=== PATIENT | male | born 1940 | race Caucasian/White ===

== ENCOUNTER → 2021-02-03 09:46 | Outpatient (BNVA) | payer MEDICARE, OTHER, SELFPAY | PROVIDERS: Visit Provider Physician Assistant | DX: Z13.89 Encounter for screening for other disorder (principal) | CPT/HCPCS: Q3014 ==

== ENCOUNTER 2022-05-16 04:13 | Inpatient (IN) | payer OTHER, SELFPAY ==
[2022-05-16] VITALS (7 sets, daily range): BP systolic 152–194; BP diastolic 66–83; PULSE 75–100; RESP 18–25; TEMP 36.6–38.4; O2SAT 92–94; BMI 32.5
--- NOTE | ~2022-05-16 | XR_ITS ---
EXAMINATION: XR CHEST CLINICAL INFORMATION: Fever COMPARISON: 07/28/2019 TECHNIQUE: Frontal view of the chest was obtained. FINDINGS: Lung volumes are symmetric. No focal consolidation is seen. No evidence of pneumothorax, significant pleural effusion, or overt pulmonary edema. Cardiac size is within normal limits. Calcification is present at the aortic arch. No acute osseous findings are seen. XR/XR chest 1V IMPRESSION: No acute cardiopulmonary findings.
--- NOTE | ~2022-05-16 | US_ITS ---
EXAMINATION: US VENOUS ULTRASOUND WITH DOPPLER LOWER EXTREMITY, RIGHT CLINICAL INFORMATION: Edema COMPARISON: None TECHNIQUE: Ultrasound of the deep veins is performed from the hip to the calf with compression sonography and color and pulse Doppler assessment. Spectral analysis with color-flow imaging is performed. FINDINGS: There is normal venous compression and respiratory variation and augmented flow. The visualized common femoral vein, superficial femoral vein, profunda femoral vein, popliteal vein, and the trifurcation region shows no evidence of deep venous thrombosis. There is no significant popliteal fossa cyst. If the patient's symptoms persist, followup ultrasound in 5 days 7 days might be of value to exclude proximal propagation from a non-visualized calf vein. US/US venous duplex LE RT IMPRESSION: No DVT demonstrated in the right lower extremity.
--- NOTE | 2022-05-16 04:26 | ECG_ITS ---
Test Reason : SHAKING Blood Pressure : / mmHG Vent. Rate : 091 BPM Atrial Rate : 091 BPM P-R Int : 182 ms QRS Dur : 088 ms QT Int : 366 ms P-R-T Axes : 012 -08 089 degrees QTc Int : 450 ms Normal sinus rhythm Minimal voltage criteria for LVH, may be normal variant ( R in aVL ) Inferior infarct (cited on or before 25-MAY-2016) Possible Anterior infarct , age undetermined Abnormal ECG When compared with ECG of 21-NOV-2018 07:01, Premature ventricular complexes are no longer Present Referred By: Altagracia Ramirez Electronically Signed By:Akin Agustin
--- NOTE | 2022-05-16 04:35 | ED_ITS ---
HPI - Fever General Chief Complaint: Fever Stated Complaint: shacking Time Seen by Provider: 05/16/22 04:16 Source: patient Mode of arrival: EMS Limitations: no limitations History of Present Illness HPI Narrative: 81 yo male with hx of CAD s/p PCI with stents, DM, HTN, HLD, renal mass new dx at [facility] 04/24 with admission to [facility] for febrile illness - records requested. Comes in tonight with shaking that started prior to arrival. States he went to bed fine. No sick contacts, up to date on COVPK Clean vaccines elicited complaint: fever (shaking) Pertinent past history: other (dx with renal mass at [facility] 04/24 - also admitted for fever at that time but unknown cause) Onset (ago): minute(s) (just prior to arrival ) Context: recent hospitalization Exacerbating factors: nothing Relieving factors: nothing Associated symptoms: rigors Treatments prior to arrival fever: none Related Data Home Medications Medication Instructions Recorded Confirmed carvedilol 12.5 mg tablet 12.5 mg PO BID 02/03/21 carvedilol 25 mg tablet 25 mg PO BID 02/03/21 clopidogrel 75 mg tablet 75 mg PO DAILY 02/03/21 furosemide 20 mg tablet 20 mg PO DAILY 02/03/21 glipizide 5 mg tablet mg PO 02/03/21 isosorbide mononitrate 30 mg 30 mg PO DAILY 02/03/21 tablet,extended release 24 hr isosorbide mononitrate 60 mg 60 mg PO DAILY 02/03/21 tablet,extended release 24 hr linagliptin 5 mg tablet 5 mg PO DAILY 02/03/21 nitroglycerin 0.4 mg sublingual mg sublingual 02/03/21 tablet pregabalin 150 mg capsule 150 mg PO BID 02/03/21 zolpidem 10 mg tablet 10 mg PO BEDTIME PRN 02/03/21 Allergies Allergy/AdvReac Type Severity Reaction Status Date / Time acetaminophen [From VICODIN] Allergy Unknown SWELLING Unverified 02/03/21 09:47 hydrocodone [From VICODIN] Allergy Unknown SWELLING Unverified 02/03/21 09:47 oxycodone Allergy Unknown itching Verified 02/03/21 09:47 Review of Systems Review of Systems: Constitutional : No Weight loss, pos Fever, pos Chills, No Fatigue, No Malaise ENT/Mouth : No sore throat, No Rhinorrhea Eyes: No Eye Pain, No Swelling, No Redness Cardiovascular : No Chest Pain, No SOB, No Dyspnea on Exertion, No Orthopnea, No Edema, No Palpitations Respiratory : No Cough, No Sputum, No Wheezing Gastrointestinal : No Nausea, No Vomiting, No Diarrhea, No Constipation, No abdominal Pain, No Hematochezia, No Melena Genitourinary : No Dysuria, No Urinary Frequency, No Hematuria, pos urinary incontinence Musculoskeletal : No joint pain, No Myalgias, No Joint Swelling Skin : No Skin Lesions, No rash Neuro : No Weakness, No Numbness, No Dizziness, No Headache Psych : No Anxiety/Panic, No Depression Heme/Lymph: No Bruising, No Bleeding,No Lymphadenopathy Endocrine : No Polyuria, No Polydipsia All other systems reviewed and are negative [facility]LY [facility] Past Medical History Attestation statement: The following information was validated with the patient. 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 Oriented X3. Mild acute distress. Anxious, chills rigors Eyes: Pupils equal, round and reactive to light. ENT: Pharynx normal. Neck: Normal inspection. Neck supple. CVS: Normal heart rate and rhythm. Pulses normal. Respiratory: No respiratory distress. Breath sounds normal. Abdomen: Soft and non-tender. Skin: Skin warm and dry. Normal skin color. Normal skin turgor. Extremities: No lower extremity edema. No calf ttp Neuro: Oriented X 3. No motor deficit. No sensory deficit. Course Course Course Narrative: empiric ceftriaxone ordered given fever, leukocytosis, lactic acidosis 510am - infected suspected Benavidez records - R right renal mass complex concerning for mass/possible mets Urology wanted to do radical nephrectomy outpatient follow up with Dr. Parrish including MRI elevated troponin during stay 04/24 Cardiac cath diffuse but stable CAD, improved EF. left main distal 30% LAD patent stents mid 50%, diffuse 75% stenosis distal LAD, D1 prox 80%, D2 prox 80% Ramus prox 80% RCA dominant mid diffuse 80 to 90% PDA is occluded proximally - Patient was also admitted for acute febrile illness Patietn is DNR/DNI CT scan [facility] - heterogeneous R renal mass, enlarged aortocaval nodes, likely metastatic disease, two subcentimeter liver lesions plan to admit for cultures and further workup patient is DNR/DNI MDM - Fever MDM Narrative Medical decision making narrative: 81 yo male with hx of CAD s/p PCI with stents, DM, HTN, HLD, renal mass new dx at [facility] 04/24 here with c/o shaking tonight found to have a fever of 101.2. At this time will obtain labs, cultures, lactic acid, CXR, UA - requested records from [facility]. He denies pain or any skin issues. Looks like from [place] paperwork he had negative tick borne illness workup. Lab Data Result diagrams: 05/16/22 04:27 05/16/22 05:36 Labs: Lab Results 05/16/22 05/16/22 05/16/22 Range/Units 04:27 04:27 04:27 WBC 14.0 H (4.8-10.8) X10*3/uL RBC 5.05 (4.60-5.80) X10*6/uL Hgb 14.5 (14.0-18.0) g/dl Hct 43.6 (42.0-52.0) % MCV 86.3 (80.0-98.0) fL MCH 28.7 (27.0-33.0) pg MCHC 33.3 (31.0-36.0) g/dl RDW 15.0 (11.0-16.0) % Plt Count 225 (160-400) X10*3/uL MPV 9.9 (9.4-12.4) fL Immature Gran % (Auto) 0.5 H (0.0-0.4) % Neut % (Auto) 87.7 H (45-73) % Lymph % (Auto) 4.7 L (20-40) % [place] % (Auto) 4.8 (2-11) % Eos % (Auto) 1.9 (0-4) % Baso % (Auto) 0.4 (0-2) % Lymph # (Auto) 0.7 L (1.2-4.9) X10*3/uL [place] # (Auto) 0.7 (0.1-1.2) X10*3/uL Eos # (Auto) 0.3 (0.0-0.4) X10*3/uL Baso # (Auto) 0.1 (0.0-0.2) X10*3/uL Abs Immat Gran (auto) 0.07 H (0.00-0.03) X10*3/uL Absolute Neuts (auto) 12.3 H (2.0-8.3) x10*3/uL Absolute Nucleated RBC 0.000 (0.0-0.012) X10*3/uL Nucleated RBC % (auto) 0.0 (0.0-0.2) /100WBC PT (10.0-13.1) SEC INR (0.9-1.1) Sodium (135-145) mmol/L Potassium (3.3-5.1) mmol/L Chloride (96-108) mmol/L Carbon Dioxide (22-29) mmol/L Anion Gap (12-20) BUN (9-16) mg/dL Creatinine (0.5-1.4) mg/dL Estim Creat Clear Calc Estimated GFR Random Glucose (60-115) mg/dL Lactic Acid (0.5-2.0) mmol/L Calcium (8.4-10.2) mg/dL Magnesium (1.6-2.6) mg/dL Total Bilirubin (0.0-1.0) mg/dL Direct Bilirubin (0.0-0.5) mg/dL AST (5-37) U/L ALT (0-40) U/L Alkaline Phosphatase (39-117) U/L Troponin I High Sens 8.6 (<3.5-35.0) ng/L Total Protein (6.5-8.0) g/dL Albumin (3.5-5.0) g/dL Lipase (8-78) U/L Procalcitonin ng/mL Urine Color Urine Appearance Urine pH (5.0-8.0) Ur Specific Harold (1.005-1.025) Urine Protein (NEG-TRACE) MG/DL Urine Glucose (UA) (NEG) MG/DL Urine Ketones (NEG) MG/DL Urine Blood (NEG) Urine Nitrite (NEG) Ur Leukocyte Esterase (NEG) Urine RBC (0) /HPF Urine WBC (0-4) /HPF Ur Squamous Epith Cells /LPF Urine Bacteria /LPF COVID-19 (LIZZIE) Negative (Negative) COVID-19 Clin Com See Note 05/16/22 05/16/22 05/16/22 Range/Units 04:43 04:50 05:36 WBC (4.8-10.8) X10*3/uL RBC (4.60-5.80) X10*6/uL Hgb (14.0-18.0) g/dl Hct (42.0-52.0) % MCV (80.0-98.0) fL MCH (27.0-33.0) pg MCHC (31.0-36.0) g/dl RDW (11.0-16.0) % Plt Count (160-400) X10*3/uL MPV (9.4-12.4) fL Immature Gran % (Auto) (0.0-0.4) % Neut % (Auto) (45-73) % Lymph % (Auto) (20-40) % [place] % (Auto) (2-11) % Eos % (Auto) (0-4) % Baso % (Auto) (0-2) % Lymph # (Auto) (1.2-4.9) X10*3/uL [place] # (Auto) (0.1-1.2) X10*3/uL Eos # (Auto) (0.0-0.4) X10*3/uL Baso # (Auto) (0.0-0.2) X10*3/uL Abs Immat Gran (auto) (0.00-0.03) X10*3/uL Absolute Neuts (auto) (2.0-8.3) x10*3/uL Absolute Nucleated RBC (0.0-0.012) X10*3/uL Nucleated RBC % (auto) (0.0-0.2) /100WBC PT 11.4 (10.0-13.1) SEC INR 1.0 (0.9-1.1) Sodium 134 L (135-145) mmol/L Potassium 4.0 (3.3-5.1) mmol/L Chloride 100 (96-108) mmol/L Carbon Dioxide 25 (22-29) mmol/L Anion Gap 13 (12-20) BUN 21 H (9-16) mg/dL Creatinine 1.11 (0.5-1.4) mg/dL Estim Creat Clear Calc 64.2 Estimated GFR > 60 Random Glucose 154 H (60-115) mg/dL Lactic Acid 2.5 H* (0.5-2.0) mmol/L Calcium 8.8 (8.4-10.2) mg/dL Magnesium 1.4 L* (1.6-2.6) mg/dL Total Bilirubin 0.5 (0.0-1.0) mg/dL Direct Bilirubin 0.2 (0.0-0.5) mg/dL AST 17 (5-37) U/L ALT 11 (0-40) U/L Alkaline Phosphatase 64 (39-117) U/L Troponin I High Sens (<3.5-35.0) ng/L Total Protein 6.5 (6.5-8.0) g/dL Albumin 3.8 (3.5-5.0) g/dL Lipase 10 (8-78) U/L Procalcitonin ng/mL Urine Color Urine Appearance Urine pH (5.0-8.0) Ur Specific Harold (1.005-1.025) Urine Protein (NEG-TRACE) MG/DL Urine Glucose (UA) (NEG) MG/DL Urine Ketones (NEG) MG/DL Urine Blood (NEG) Urine Nitrite (NEG) Ur Leukocyte Esterase (NEG) Urine RBC (0) /HPF Urine WBC (0-4) /HPF Ur Squamous Epith Cells /LPF Urine Bacteria /LPF COVID-19 (LIZZIE) (Negative) COVID-19 Clin Com 05/16/22 05/16/22 Range/Units 05:36 06:06 WBC (4.8-10.8) X10*3/uL RBC (4.60-5.80) X10*6/uL Hgb (14.0-18.0) g/dl Hct (42.0-52.0) % MCV (80.0-98.0) fL MCH (27.0-33.0) pg MCHC (31.0-36.0) g/dl RDW (11.0-16.0) % Plt Count (160-400) X10*3/uL MPV (9.4-12.4) fL Immature Gran % (Auto) (0.0-0.4) % Neut % (Auto) (45-73) % Lymph % (Auto) (20-40) % [place] % (Auto) (2-11) % Eos % (Auto) (0-4) % Baso % (Auto) (0-2) % Lymph # (Auto) (1.2-4.9) X10*3/uL [place] # (Auto) (0.1-1.2) X10*3/uL Eos # (Auto) (0.0-0.4) X10*3/uL Baso # (Auto) (0.0-0.2) X10*3/uL Abs Immat Gran (auto) (0.00-0.03) X10*3/uL Absolute Neuts (auto) (2.0-8.3) x10*3/uL Absolute Nucleated RBC (0.0-0.012) X10*3/uL Nucleated RBC % (auto) (0.0-0.2) /100WBC PT (10.0-13.1) SEC INR (0.9-1.1) Sodium (135-145) mmol/L Potassium (3.3-5.1) mmol/L Chloride (96-108) mmol/L Carbon Dioxide (22-29) mmol/L Anion Gap (12-20) BUN (9-16) mg/dL Creatinine (0.5-1.4) mg/dL Estim Creat Clear Calc Estimated GFR Random Glucose (60-115) mg/dL Lactic Acid (0.5-2.0) mmol/L Calcium (8.4-10.2) mg/dL Magnesium (1.6-2.6) mg/dL Total Bilirubin (0.0-1.0) mg/dL Direct Bilirubin (0.0-0.5) mg/dL AST (5-37) U/L ALT (0-40) U/L Alkaline Phosphatase (39-117) U/L Troponin I High Sens (<3.5-35.0) ng/L Total Protein (6.5-8.0) g/dL Albumin (3.5-5.0) g/dL Lipase (8-78) U/L Procalcitonin 0.08 ng/mL Urine Color YELLOW Urine Appearance CLEAR Urine pH 7.0 (5.0-8.0) Ur Specific Harold 1.015 (1.005-1.025) Urine Protein 1+ H (NEG-TRACE) MG/DL Urine Glucose (UA) NEG (NEG) MG/DL Urine Ketones NEG (NEG) MG/DL Urine Blood NEG (NEG) Urine Nitrite NEG (NEG) Ur Leukocyte Esterase NEG (NEG) Urine RBC 0 (0) /HPF Urine WBC 0 (0-4) /HPF Ur Squamous Epith Cells NONE /LPF Urine Bacteria NONE /LPF COVID-19 (LIZZIE) (Negative) COVID-19 Clin Com ECG Data ECG #1: Attestation: I personally reviewed and interpreted this ECG as follows: ECG interpretation date: 05/16/22 ECG interpretation time: 05:18 Interpretation: Rate: 91 Rhythm: NSR [place]: left , LVH Normal P waves. Normal PRINCESS. Normal QRS complex. Poor R wave progression ST T wave : ST depression I and aVL, no CINDA qTC: normal prior studies: no acute ischemia unchanged 2018 The study has been interpreted contemporaneously by me. . Discharge Plan Discharge Clinical Impression: Acidosis, lactic, Leukocytosis, Mass of kidney, Hypomagnesemia Fever Qualifiers: Fever type: unspecified Qualified Code(s): R50.9 - Fever, unspecified Patient Disposition: Admitted As Inpatient
[2022-05-16] MEDS: Acetaminophen 325 MG TABLET 650 MG PO ×2 (04:48→14:38)
[2022-05-16 04:51] LABS: Hemoglobin 14.5 g/dl (14.0-18.0); MANUAL DIFF FLAG NO; PLT CLUMP 1; SCAN SMEAR FLAG 1
[2022-05-16] MEDS: 0.9 % Sodium Chloride 500 ML IV (04:51)
[2022-05-16 04:53] LABS: Basophils Absolute Auto 0.1 X10*3/uL (0.0-0.2); Basophils Percent Auto 0.4 % (0-2); Eosinophils Absolute Auto 0.3 X10*3/uL (0.0-0.4); Eosinophils Percent Auto 1.9 % (0-4); Hematocrit 43.6 % (42.0-52.0); Imm Gran Abs Auto 0.07 X10*3/uL (0.00-0.03); Imm Gran Pct Auto 0.5 % (0.0-0.4); Lymphocytes Absolute Auto 0.7 X10*3/uL (1.2-4.9); Lymphocytes Percent Auto 4.7 % (20-40); Mean Corpuscular HGB Conc 33.3 g/dl (31.0-36.0); Mean Corpuscular Hemoglobin 28.7 pg (27.0-33.0); Mean Corpuscular Volume 86.3 fL (80.0-98.0); Mean Platelet Volume 9.9 fL (9.4-12.4); Monocytes Absolute Auto 0.7 X10*3/uL (0.1-1.2); Monocytes Percent Auto 4.8 % (2-11); Neutrophils Absolute Auto 12.3 x10*3/uL (2.0-8.3); Neutrophils Percent Auto 87.7 % (45-73); Red Blood Count 5.05 X10*6/uL (4.60-5.80)
[2022-05-16 04:55] LABS: Platelet Count 225 X10*3/uL (160-400)
[2022-05-16 05:06] LABS: Lactic Acid 2.5 mmol/L (0.5-2.0)
[2022-05-16 05:08] LABS: Prothrombin Time 11.4 SEC (10.0-13.1)
[2022-05-16 05:11] LABS: COVID-19 Test Negative (Negative)
[2022-05-16] MEDS: cefTRIAXone sodium 1 GM in 0.9 % Sodium Chloride 50 ML IV (05:24)
[2022-05-16 05:40] LABS: Troponin-I High Sensitivity 8.6 ng/L (<3.5-35.0)
[2022-05-16 06:03] LABS: Magnesium 1.4 mg/dL (1.6-2.6)
[2022-05-16 06:04] LABS: Alanine Aminotransferase 11 U/L (0-40); Albumin Level 3.8 g/dL (3.5-5.0); Alkaline Phosphatase 64 U/L (39-117); Anion Gap 13 (12-20); Aspartate Amino Transferase 17 U/L (5-37); Bilirubin Direct 0.2 mg/dL (0.0-0.5); Bilirubin Total 0.5 mg/dL (0.0-1.0); Blood Urea Nitrogen 21 mg/dL (9-16); Calcium 8.8 mg/dL (8.4-10.2); Carbon Dioxide 25 mmol/L (22-29); Chloride 100 mmol/L (96-108); Creatinine Clr Calc Pharmacy 64.2; Estimated Glomerular Filt Rate > 60; Glucose Random 154 mg/dL (60-115); Lipase 10 U/L (8-78); Sodium 134 mmol/L (135-145); Total Protein 6.5 g/dL (6.5-8.0)
[2022-05-16 06:15] LABS: Appearance Urine CLEAR; Color Urine YELLOW; Glucose Urine UA NEG (NEG); Leukocyte Esterase Urine NEG (NEG); Nitrite Urine NEG (NEG); Specific Gravity - Urine 1.015 (1.005-1.025); UACC Culture Trigger NO; Urine Blood NEG (NEG); Urine Ketones NEG (NEG); Urine Protein 1+ MG/DL (NEG-TRACE)
[2022-05-16 06:18] LABS: Procalcitonin 0.08 ng/mL
[2022-05-16] MEDS: Magnesium Sulfate/H2O 2 GM/50 ML PIGGYBACK IV (06:20)
[2022-05-16 06:34] LABS: RBC Urine 0 /HPF (0); WBC Urine 0 /HPF (0-4)
[2022-05-16 06:48] LABS: Reflex Lactate? Lactic Acid Added
--- NOTE | 2022-05-16 08:36 | PC.NURSE ---
pt oob to bathroom independently
[2022-05-16 08:58] LABS: Magnesium 1.9 mg/dL (1.6-2.6)
--- NOTE | 2022-05-16 10:07 | PC.NURSE ---
pt repositioned in bed
[2022-05-16 10:15] LABS: D Dimer High Sensitivity 271 NG/ML
--- NOTE | 2022-05-16 10:47 | PHA.MEDREC ---
Pharmacy Consult ? Medication Reconciliation Pharmacy has completed the medication reconciliation. Patient had list of medications from discharge summary at [facility]. Patient confirmed medications that were not on our medicatio history. Patient reports taking glipize BID then later report he was not taking it and stated he only take metformin for diabetes. Patient unsure of isosorbide monon nitrate as well as linagliptin. [facility], waiting for a list to be sent back. Kiara Natarajan, PharmD
[2022-05-16 11:21] LABS: B Type Natriuretic Peptide 382 pg/mL (<100)
[2022-05-16] MEDS: Furosemide 100 MG/10 ML VIAL 60 MG IVPUSH (11:40)
--- NOTE | 2022-05-16 11:59 | PM.IMHP ---
History of Present Illness Date of Service: 05/16/22 Chief Complaint: Rigors 81M presented with rigors. patient was recently diagnosed, several weeks ptp with likley malignant right renal mass. he had a known mass there, biopsied several years ago, was benign, then presente dwith fever, mass now enlarged and with likely lymph node involvement, plan for nephrectomy eventually. fever work up at that time was negative and attributed to fever of malignancy, course was also complicated by NSTEMI, cath revealed diffused coronary disease not ammenable to stents, previous stents were patent, EF was 46% on echo with apical hypokinesis, medical therapy recommended. on day prior to current presentation patient had sudden onset rigors with fever. denies cough, abd pain, dysuria. he has noted some sob and lower extremity edema. in ED noted to have fever, lactic acidosis, leukocytosis, elevated BNP. Review of Systems Review of Systems: Constitutional: fever, Chills Eyes: denies blurry vision ENT: denies sore throat CVS: denies chest pain Respiratory: dyspnea GI: no abdominal pain : denies dysuria MSK: denies neck pain Skin: denies rash Neuro: denies specific motor weakness Psych: denies suicidal ideation Endocrine: denies heat/cold intolerance Hematologic: denies easy bleeding Allergy: denies hives [facility] Medical History CAD (coronary artery disease) Chronic systolic CHF (congestive heart failure) CKD (chronic kidney disease) Diabetes HTN (hypertension) Hyperlipidemia Renal mass Family History Other CAD (coronary artery disease) Social History Household Members: Children Alcohol intake: current Alcohol intake frequency: holidays/special occasions only Alcohol type: beer Patient Tobacco Use Status: Never used Tobacco Advance Directives: No Advance Directives Information Provided: No 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 Allergy/AdvReac Type Severity Reaction Status Date / Time hydrocodone [From VICODIN] Allergy Unknown SWELLING Unverified 02/03/21 09:47 oxycodone Allergy Unknown itching Verified 02/03/21 09:47 Active Medications: Current Medications Acetaminophen (Acetaminophen 325 Mg Tablet) 650 mg PO Q6H PRN PRN Reason: Pain, Mild (Pain Scale 1-3) Amlodipine Besylate (Amlodipine Besylate 10 Mg Tablet) 10 mg PO DAILY [facility]; Protocol Aspirin (Aspirin 81 Mg Tab.Chew) 81 mg PO DAILY [facility] Clopidogrel Bisulfate (Clopidogrel Bisulfate 75 Mg Tablet) 75 mg PO DAILY [facility] Colchicine (Colchicine 0.6 Mg Tablet) 0.6 mg PO DAILY PRN PRN Reason: GOUT Dextrose (Dextrose 50 % 25 Gm/50 Ml Syringe) 25 gm IVPUSH Q15M PRN; Protocol PRN Reason: per Hypoglycemia Standing Ord. Enoxaparin Sodium (Enoxaparin Sodium 40 Mg/0.4 Ml Syringe) 40 mg SUBCUT Q24H [facility] Furosemide (Furosemide 20 Mg Tablet) 20 mg PO DAILY [facility]; Protocol Glucose (Glucose Gel 15 Gm Gel..Gram.) 15 gm PO Q15M PRN; Protocol PRN Reason: per Hypoglycemia Standing Ord. Cefazolin Sodium 1 gm/ Sodium (Chloride) 50 mls @ 100 mls/hr IV Q8H [facility] Insulin Human Lispro (Insulin Lispro 100 Unit/Ml 3 Ml Vial) 0 unit SUBCUT QIDACHS [facility]; Protocol Losartan Potassium (Losartan Potassium 50 Mg Tablet) 100 mg PO DAILY [facility]; Protocol Multivitamins/Vitamin C (Multivitamin Tablet) 1 tab PO DAILY [facility] Non-Formulary Medication (Coenzyme Q10) 1 tab PO DAILY [facility] Non-Formulary Medication (Febuxostat) 40 mg PO DAILY [facility] Non-Formulary Medication (Galien-3 Fatty Acids) 1,000 mg PO DAILY [facility] Omeprazole (Omeprazole 20 Mg Capsule.) 20 mg PO DAILY [facility] Pharmacy Consult (Consult Rx Perform Med Rec) 1 each MISCELLANE ONCE PRN PRN Reason: Consult order Pregabalin (Pregabalin 150 Mg Capsule) 150 mg PO BID [facility] Sodium Chloride (0.9 % Sodium Chloride Flush 3 Ml Syringe) 3 ml IVFLUSH QSHIFT [facility] Trazodone HCl (Trazodone Hcl 50 Mg Tablet) 50 mg PO BEDTIME PRN PRN Reason: Insomnia Home Medications Medication Instructions Recorded Confirmed Last Taken Type carvedilol 25 mg tablet 25 mg PO BID 02/03/21 05/16/22 05/15/22 History clopidogrel 75 mg tablet 75 mg PO DAILY 02/03/21 05/16/22 05/15/22 History furosemide 20 mg tablet 20 mg PO DAILY 02/03/21 05/16/22 05/15/22 History glipizide 5 mg tablet 5 mg PO BID 02/03/21 Unknown History isosorbide mononitrate 30 mg 30 mg PO DAILY 02/03/21 Unknown History tablet,extended release 24 hr isosorbide mononitrate 60 mg 60 mg PO DAILY 02/03/21 Unknown History tablet,extended release 24 hr linagliptin 5 mg tablet 5 mg PO DAILY 02/03/21 Unknown History nitroglycerin 0.4 mg sublingual 0.4 mg sublingual Q5M PRN Chest 02/03/21 05/16/22 Unknown History tablet Pain pregabalin 150 mg capsule 150 mg PO BID 02/03/21 05/16/22 05/15/22 History amlodipine 10 mg tablet 10 mg PO DAILY 05/16/22 05/16/22 05/15/22 History aspirin 81 mg chewable tablet 81 mg PO DAILY 05/16/22 05/16/22 05/15/22 History coenzyme Q10 1 tab PO DAILY 05/16/22 05/16/22 05/15/22 History colchicine 0.6 mg tablet 1 tab PO DAILY PRN GOUT 05/16/22 05/16/22 05/15/22 History febuxostat 40 mg tablet 40 mg PO DAILY 05/16/22 05/16/22 05/15/22 History losartan 100 mg tablet 1 tab PO DAILY 05/16/22 05/16/22 05/15/22 History metformin 1,000 mg tablet 1 tab PO BID 05/16/22 05/16/22 05/15/22 History mlhncawvcyir-dedektbf-ylhagz tablet 1 tab PO DAILY 05/16/22 05/16/22 Unknown History omega-3 fatty acids 1,000 mg PO DAILY 05/16/22 05/16/22 05/15/22 History omeprazole 20 mg tablet,delayed 20 mg PO DAILY 05/16/22 05/16/22 05/15/22 History release trazodone 50 mg tablet 50 mg PO BEDTIME PRN Insomnia 05/16/22 05/16/22 05/15/22 History Physical Exam Vital Signs and Narrative: Vital Signs: Last Vital Signs Temp 98.9 F 05/16/22 09:56 Pulse 82 05/16/22 09:56 Resp 22 H 05/16/22 09:56 BP 169/74 H 05/16/22 09:56 Pulse Ox 94 05/16/22 09:56 O2 Del Method 05/16/22 09:56 BMI result Body Mass Index 32.5 General: mildly dyspneic HEENT: atraumatic Neck: normal to visual inspection CVS: S1, S2, RRR Resp: diminished bilateral, accessory muscles, tachypnea Chest: non tender GI: soft, non tender, non distended : no CVA tenderness Skin: rle erythema, warmth, mildly tender, see pic Extremities: 1+ bilateral le edema Neuro: Oriented X3, grossly intact Psych: cooperative Results Labs CBC and Chem 7: 05/16/22 04:27 05/16/22 05:36 Labs: Laboratory Results - last 24 hr 05/16/22 05/16/22 05/16/22 04:27 04:27 04:27 MCV 86.3 MCH 28.7 MCHC 33.3 RDW 15.0 Plt Count 225 MPV 9.9 Immature Gran % (Auto) 0.5 H Neut % (Auto) 87.7 H Lymph % (Auto) 4.7 L Luna % (Auto) 4.8 Eos % (Auto) 1.9 Baso % (Auto) 0.4 Lymph # (Auto) 0.7 L Luna # (Auto) 0.7 Eos # (Auto) 0.3 Baso # (Auto) 0.1 Abs Immat Gran (auto) 0.07 H Absolute Neuts (auto) 12.3 H Absolute Nucleated RBC 0.000 Nucleated RBC % (auto) 0.0 PT INR D-Dimer High Sensitivty Anion Gap Estim Creat Clear Calc Estimated GFR Random Glucose Lactic Acid Lactic Acid F/U @ 2Hr Calcium Magnesium Total Bilirubin Direct Bilirubin AST ALT Alkaline Phosphatase Troponin I High Sens 8.6 B-Natriuretic Peptide Total Protein Albumin Lipase Procalcitonin Urine Color Urine Appearance Urine pH Ur Specific [place] Urine Protein Urine Glucose (UA) Urine Ketones Urine Blood Urine Nitrite Ur Leukocyte Esterase Urine RBC Urine WBC Ur Squamous Epith Cells Urine Bacteria COVID-19 (LIZZIE) Negative COVID-19 Clin Com See Note 05/16/22 05/16/22 05/16/22 04:43 04:50 05:36 MCV MCH MCHC RDW Plt Count MPV Immature Gran % (Auto) Neut % (Auto) Lymph % (Auto) Luna % (Auto) Eos % (Auto) Baso % (Auto) Lymph # (Auto) Luna # (Auto) Eos # (Auto) Baso # (Auto) Abs Immat Gran (auto) Absolute Neuts (auto) Absolute Nucleated RBC Nucleated RBC % (auto) PT 11.4 INR 1.0 D-Dimer High Sensitivty 271 Anion Gap 13 Estim Creat Clear Calc 64.2 Estimated GFR > 60 Random Glucose 154 H Lactic Acid 2.5 H* Lactic Acid F/U @ 2Hr Calcium 8.8 Magnesium 1.4 L* Total Bilirubin 0.5 Direct Bilirubin 0.2 AST 17 ALT 11 Alkaline Phosphatase 64 Troponin I High Sens B-Natriuretic Peptide Total Protein 6.5 Albumin 3.8 Lipase 10 Procalcitonin Urine Color Urine Appearance Urine pH Ur Specific [place] Urine Protein Urine Glucose (UA) Urine Ketones Urine Blood Urine Nitrite Ur Leukocyte Esterase Urine RBC Urine WBC Ur Squamous Epith Cells Urine Bacteria COVID-19 (LIZZIE) [employer] 05/16/22 05/16/22 05/16/22 05:36 06:06 08:31 MCV MCH MCHC RDW Plt Count MPV Immature Gran % (Auto) Neut % (Auto) Lymph % (Auto) Luna % (Auto) Eos % (Auto) Baso % (Auto) Lymph # (Auto) Luna # (Auto) Eos # (Auto) Baso # (Auto) Abs Immat Gran (auto) Absolute Neuts (auto) Absolute Nucleated RBC Nucleated RBC % (auto) PT INR D-Dimer High Sensitivty Anion Gap Estim Creat Clear Calc Estimated GFR Random Glucose Lactic Acid Lactic Acid F/U @ 2Hr 1.0 Calcium Magnesium Total Bilirubin Direct Bilirubin AST ALT Alkaline Phosphatase Troponin I High Sens B-Natriuretic Peptide Total Protein Albumin Lipase Procalcitonin 0.08 Urine Color YELLOW Urine Appearance CLEAR Urine pH 7.0 Ur Specific [place] 1.015 Urine Protein 1+ H Urine Glucose (UA) NEG Urine Ketones NEG Urine Blood NEG Urine Nitrite NEG Ur Leukocyte Esterase NEG Urine RBC 0 Urine WBC 0 Ur Squamous Epith Cells NONE Urine Bacteria NONE COVID-19 (LIZZIE) COVID-[employer] Com 05/16/22 05/16/22 08:31 10:26 MCV MCH MCHC RDW Plt Count MPV Immature Gran % (Auto) Neut % (Auto) Lymph % (Auto) Luna % (Auto) Eos % (Auto) Baso % (Auto) Lymph # (Auto) Luna # (Auto) Eos # (Auto) Baso # (Auto) Abs Immat Gran (auto) Absolute Neuts (auto) Absolute Nucleated RBC Nucleated RBC % (auto) PT INR D-Dimer High Sensitivty Anion Gap Estim Creat Clear Calc Estimated GFR Random Glucose Lactic Acid Lactic Acid F/U @ 2Hr Calcium Magnesium 1.9 Total Bilirubin Direct Bilirubin AST ALT Alkaline Phosphatase Troponin I High Sens B-Natriuretic Peptide 382 H Total Protein Albumin Lipase Procalcitonin Urine Color Urine Appearance Urine pH Ur Specific [place] Urine Protein Urine Glucose (UA) Urine Ketones Urine Blood Urine Nitrite Ur Leukocyte Esterase Urine RBC Urine WBC Ur Squamous Epith Cells Urine Bacteria COVID-19 ([facility]ZZIE) COVID-19 Clin Com Imaging Radiologist's Impressions: Impressions Chest X-Ray 05/16/22 05:20 IMPRESSION: No acute cardiopulmonary findings. Assessment and Plan (1) Chronic systolic CHF (congestive heart failure): Status: Acute Plan 81M presented with fevers, sob severe sepsis due to RLE cellulitis vs fevers of renal malignancy ancef, follow up cultures tylenol prn outpatient follow up for renal mass check RLE doppler- rule out dvt acute on chronic systolic chf received iv lasix in ED, will restart po maintance, monitor continue coreg, losartan htn amlodinpie, coreg, losartan DM hold metformin insulin CAD DAPL, statin dvt prophylaxis - lovenox DNR/DNI patient with severe sepsis and risk factors including cad, DM, therefore, expected to require atleast 2 midnights in hospital Quality Stroke Does the patient have a stroke diagnosis?: No VTE Prior VTE?: No VTE Risk Level:: Medical - moderate - high VTE Device Contraindication: Treatment Not Indicated VTE Drug Contraindication: N/A - Med Ordered
[2022-05-16] MEDS: Clopidogrel Bisulfate 75 MG TABLET PO (14:34)
[2022-05-16] MEDS: Losartan Potassium 50 MG TABLET 100 MG PO (14:34)
[2022-05-16] MEDS: amLODIPine Besylate 10 MG TABLET PO (14:35)
[2022-05-16] MEDS: Multivitamin TABLET 1 TAB PO (14:35)
[2022-05-16] MEDS: Pregabalin 150 MG CAPSULE PO ×2 (14:35→21:05)
[2022-05-16] MEDS: Enoxaparin Sodium 40 MG/0.4 ML SYRINGE SUBCUT (14:35)
[2022-05-16] MEDS: Aspirin 81 MG TAB.CHEW PO (14:36)
[2022-05-16 16:58] LABS: Glucose, Whole Blood 135 mg/dL (60-115)
--- NOTE | 2022-05-16 21:12 | PC.NURSE ---
SLeeping at this rn arrival. awakes to voice. skin pwd with exception of RLE. pt states swelling is improved as well as redness. skin marker used. axox3. awaits room assignment. insulin held b/c pt planning to sleep - no snack. pt has good bed mobility, no breakdown on buttocks. nsr on monitor. LS CTA.
[2022-05-16 22:59] LABS: Glucose, Whole Blood 153 mg/dL (60-115)
[2022-05-17] MEDS: 0.9 % Sodium Chloride Flush 3 ML SYRINGE IVFLUSH ×3 (02:04→20:39)
[2022-05-17 04:00] VITALS: BP 147/71; PULSE 73; RESP 16; TEMP 36.6; O2SAT 91
[2022-05-17] MEDS: Omeprazole 20 MG CAPSULE.DR PO (06:23)
[2022-05-17 06:57] LABS: Hematocrit 41.7 % (42.0-52.0); Hemoglobin 13.7 g/dl (14.0-18.0); Mean Corpuscular HGB Conc 32.9 g/dl (31.0-36.0); Mean Corpuscular Hemoglobin 28.5 pg (27.0-33.0); Mean Corpuscular Volume 86.7 fL (80.0-98.0); Mean Platelet Volume 9.2 fL (9.4-12.4); Platelet Count 192 X10*3/uL (160-400); Red Blood Count 4.81 X10*6/uL (4.60-5.80); Red Cell Distribution Width 15.3 % (11.0-16.0)
[2022-05-17 07:12] VITALS: BP 180/84; PULSE 68; RESP 18; TEMP 36.4; O2SAT 95
[2022-05-17 07:15] LABS: Glucose, Whole Blood 110 mg/dL (60-115)
[2022-05-17 07:52] LABS: Glucose, Whole Blood 134 mg/dL (60-115)
[2022-05-17 07:53] LABS: Anion Gap 16 (12-20); Blood Urea Nitrogen 18 mg/dL (9-16); Calcium 9.1 mg/dL (8.4-10.2); Carbon Dioxide 24 mmol/L (22-29); Chloride 99 mmol/L (96-108); Estimated Glomerular Filt Rate 55; Glucose Random 134 mg/dL (60-115); Potassium 4.3 mmol/L (3.3-5.1); Sodium 135 mmol/L (135-145)
[2022-05-17] MEDS: Furosemide 20 MG TABLET PO (09:05)
[2022-05-17] MEDS: Pregabalin 150 MG CAPSULE PO ×2 (09:07→20:37)
[2022-05-17] MEDS: Clopidogrel Bisulfate 75 MG TABLET PO (09:07)
[2022-05-17] MEDS: amLODIPine Besylate 10 MG TABLET PO (09:07)
[2022-05-17] MEDS: Losartan Potassium 50 MG TABLET 100 MG PO (09:07)
[2022-05-17] MEDS: Aspirin 81 MG TAB.CHEW PO (09:08)
[2022-05-17] MEDS: Multivitamin TABLET 1 TAB PO (09:08)
--- NOTE | 2022-05-17 10:07 | P.PNIM_ITS ---
Subjective Subjective Date of Service: 05/17/22 Interval History: cc: rigors interval history:improved Cardiovascular Cardiovascular: Reports no additional cardiovascular complaints Respiratory Respiratory: Reports no additional respiratory complaints Physical Exam Vital Signs: Vital Signs: Last Vital Signs Temp 97.6 F 05/17/22 07:12 Pulse 68 05/17/22 07:12 Resp 18 05/17/22 07:12 BP 180/84 H 05/17/22 07:12 Pulse Ox 95 05/17/22 07:12 O2 Del Method 05/17/22 07:12 BMI result Body Mass Index 32.5 General: AO X 3, no acute distress Resp: CTA bilateral, no accessory muscles used CVS: S1,S2,RRR GI: soft, non tender, non distended Neuro: motor grossly intact, alert Psych: appropriate affect, appropriate insight rle erythema and warmth Objective Data Active Medications Acetaminophen (Acetaminophen 325 Mg Tablet) 650 mg PO Q6H PRN PRN Reason: Pain, Mild (Pain Scale 1-3) Last Admin: 05/16/22 14:38 Dose: 650 mg Documented By: URSULA Amlodipine Besylate (Amlodipine Besylate 10 Mg Tablet) 10 mg PO DAILY [facility]; Protocol Last Admin: 05/17/22 09:07 Dose: 10 mg Documented By: DANNY Aspirin (Aspirin 81 Mg Tab.Chew) 81 mg PO DAILY [facility] Last Admin: 05/17/22 09:08 Dose: 81 mg Documented By: DANNY Clopidogrel Bisulfate (Clopidogrel Bisulfate 75 Mg Tablet) 75 mg PO DAILY [facility] Last Admin: 05/17/22 09:07 Dose: 75 mg Documented By: DANNY Colchicine (Colchicine 0.6 Mg Tablet) 0.6 mg PO DAILY PRN PRN Reason: GOUT Dextrose (Dextrose 50 % 25 Gm/50 Ml Syringe) 25 gm IVPUSH Q15M PRN; Protocol PRN Reason: per Hypoglycemia Standing Ord. Enoxaparin Sodium (Enoxaparin Sodium 40 Mg/0.4 Ml Syringe) 40 mg SUBCUT Q24H [facility] Last Admin: 05/16/22 14:35 Dose: 40 mg Documented By: URSULA Furosemide (Furosemide 20 Mg Tablet) 20 mg PO DAILY [facility]; Protocol Last Admin: 05/17/22 09:05 Dose: 20 mg Documented By: DANNY Glucose (Glucose Gel 15 Gm Gel..Gram.) 15 gm PO Q15M PRN; Protocol PRN Reason: per Hypoglycemia Standing Ord. Cefazolin Sodium 1 gm/ Sodium (Chloride) 50 mls @ 100 mls/hr IV Q8H [facility] Last Infusion: 05/17/22 06:23 Dose: 0 mls/hr Documented By: ELKE Insulin Human Lispro (Insulin Lispro 100 Unit/Ml 3 Ml Vial) 0 unit SUBCUT QIDACHS [facility]; Protocol Last Admin: 05/17/22 08:07 Dose: Not Given Documented By: DANNY Non-Admin Reason: No Insulin Coverage Losartan Potassium (Losartan Potassium 50 Mg Tablet) 100 mg PO DAILY [facility]; Protocol Last Admin: 05/17/22 09:07 Dose: 100 mg Documented By: DANNY Multivitamins/Vitamin C (Multivitamin Tablet) 1 tab PO DAILY [facility] Last Admin: 05/17/22 09:08 Dose: 1 tab Documented By: DANNY Non-Formulary Medication (Febuxostat) 40 mg PO DAILY [facility] Omeprazole (Omeprazole 20 Mg Capsule.) 20 mg PO DAILY@0630 [facility] Last Admin: 05/17/22 06:23 Dose: 20 mg Documented By: ELKE Pharmacy Consult (Consult Rx Perform Med Rec) 1 each MISCELLANE ONCE PRN PRN Reason: Consult order Pregabalin (Pregabalin 150 Mg Capsule) 150 mg PO BID [facility] Last Admin: 05/17/22 09:07 Dose: 150 mg Documented By: DANNY Sodium Chloride (0.9 % Sodium Chloride Flush 3 Ml Syringe) 3 ml IVFLUSH QSHIFT [facility] Last Admin: 05/17/22 09:08 Dose: 3 ml Documented By: DANNY Trazodone HCl (Trazodone Hcl 50 Mg Tablet) 50 mg PO BEDTIME PRN PRN Reason: Insomnia Labs CBC & Chem 7: 05/17/22 06:39 05/17/22 06:39 Labs: Laboratory Results - last 24 hr 05/16/22 05/16/22 05/16/22 04:50 10:26 16:52 MCV MCH MCHC RDW Plt Count MPV Absolute Nucleated RBC Nucleated RBC % (auto) D-Dimer High Sensitivty 271 Anion Gap Estim Creat Clear Calc Estimated GFR POC Glucose 135 H Random Glucose Calcium B-Natriuretic Peptide 382 H 05/16/22 05/17/22 05/17/22 21:06 06:02 06:39 MCV 86.7 MCH 28.5 MCHC 32.9 RDW 15.3 Plt Count 192 MPV 9.2 L Absolute Nucleated RBC 0.000 Nucleated RBC % (auto) 0.0 D-Dimer High Sensitivty Anion Gap Estim Creat Clear Calc Estimated GFR POC Glucose 153 H 110 Random Glucose Calcium B-Natriuretic Peptide 05/17/22 05/17/22 06:39 07:15 MCV MCH MCHC RDW Plt Count MPV Absolute Nucleated RBC Nucleated RBC % (auto) D-Dimer High Sensitivty Anion Gap 16 Estim Creat Clear Calc 57.0 Estimated GFR 55 POC Glucose 134 H Random Glucose 134 H Calcium 9.1 B-Natriuretic Peptide Microbiology Microbiology Results: Microbiology 05/16/22 04:43 Blood Culture - Preliminary Blood - Venous No growth after 24 hours. 05/16/22 04:43 Blood Culture - Preliminary Blood - Venous No growth after 24 hours. Assessment and Plan (1) Chronic systolic CHF (congestive heart failure): Status: Acute Plan 81M presented with fevers, sob severe sepsis due to RLE cellulitis vs fevers of renal malignancy continue ancef, follow up cultures (negative so far) tylenol prn outpatient follow up for renal mass check RLE doppler- negative for dvt acute on chronic systolic chf received iv lasix in ED, now restarted po maintance, monitor continue coreg, losartan htn amlodinpie, coreg, losartan DM hold metformin insulin CAD DAPL, statin dvt prophylaxis - lovenox DNR/DNI reason for continued hospitalization: ongoing iv abx, awaiting defervesence Quality Stroke Does the patient have a stroke diagnosis?: No VTE Prior VTE?: No VTE Risk Level:: Medical - moderate - high VTE Device Contraindication: Treatment Not Indicated VTE Drug Contraindication: N/A - Med Ordered
[2022-05-17 11:32] VITALS: BP 181/82; PULSE 72; RESP 18; TEMP 36.6; O2SAT 95
[2022-05-17 11:39] LABS: Glucose, Whole Blood 133 mg/dL (60-115)
[2022-05-17] MEDS: Enoxaparin Sodium 40 MG/0.4 ML SYRINGE SUBCUT (13:26)
[2022-05-17 15:30] VITALS: BP 159/71; PULSE 74; RESP 17; TEMP 36.1; O2SAT 94
--- NOTE | 2022-05-17 15:39 | MHC.CM.PN ---
PT REPORTS HE LIVES AT HOME WITH HIS SON HE REPORTS HE IS FULLY INDEPENDENT, HAS NO DME AND NO SERVICES PT REPORTS HE IS A AND IS [facility], [facility] PT REPORTS HE IS COVID VACCINATE AND HAS RECEIVED TWO BOOSTER SHOTS PT REPORTS HIS SON IS HIS HCP, COPY REQUESTED PCP: ZOEY HAYWARD IMM DELIVERED CURRENT DC PLAN IS HOME WITH NO SERVICES FAMILY TO TRANSPORT
[2022-05-17 15:53] LABS: Glucose, Whole Blood 124 mg/dL (60-115)
[2022-05-17 19:24] VITALS: BP 181/81; PULSE 76; RESP 18; TEMP 36.2; O2SAT 94
[2022-05-17 19:50] LABS: Glucose, Whole Blood 166 mg/dL (60-115)
[2022-05-17] MEDS: carvediloL 12.5 MG TABLET PO (20:37)
[2022-05-17] MEDS: Acetaminophen 325 MG TABLET 650 MG PO (20:38)
[2022-05-17] MEDS: Insulin Lispro 100 UNIT/ML 3 ML VIAL SUBCUT (20:39)
[2022-05-17 23:49] VITALS: BP 144/81; PULSE 82; RESP 16; TEMP 37.3; O2SAT 93
--- NOTE | 2022-05-18 02:47 | PC.NURSE ---
HS BP 181/81. Dr notified-ordered Coreg, 12.5mg which I gave with good effect. Midnight BP 144/81. Pt was also c/o of ANNE relieved with PO Tylenol. Pt sleeping comfortably at present. Will continue to monitor.
[2022-05-18 04:00] VITALS: BP 142/78; PULSE 70; RESP 20; TEMP 36.9; O2SAT 92
[2022-05-18] MEDS: Omeprazole 20 MG CAPSULE.DR PO (05:32)
[2022-05-18 06:02] LABS: Hematocrit 42.5 % (42.0-52.0); Hemoglobin 13.9 g/dl (14.0-18.0); Mean Corpuscular HGB Conc 32.7 g/dl (31.0-36.0); Mean Corpuscular Hemoglobin 28.3 pg (27.0-33.0); Mean Corpuscular Volume 86.4 fL (80.0-98.0); Mean Platelet Volume 9.1 fL (9.4-12.4); Platelet Count 215 X10*3/uL (160-400); Red Blood Count 4.92 X10*6/uL (4.60-5.80); Red Cell Distribution Width 14.9 % (11.0-16.0); White Blood Count 5.4 X10*3/uL (4.8-10.8)
[2022-05-18 06:22] LABS: Anion Gap 13 (12-20); Blood Urea Nitrogen 18 mg/dL (9-16); Carbon Dioxide 27 mmol/L (22-29); Chloride 100 mmol/L (96-108); Creatinine Clr Calc Pharmacy 54.8; Estimated Glomerular Filt Rate 53; Glucose Fasting 154 mg/dL (60-99); Potassium 3.9 mmol/L (3.3-5.1); Sodium 136 mmol/L (135-145)
[2022-05-18 07:23] LABS: Glucose, Whole Blood 147 mg/dL (60-115)
[2022-05-18 07:36] VITALS: BP 172/86; PULSE 67; RESP 18; TEMP 36.7; O2SAT 95
[2022-05-18] MEDS: amLODIPine Besylate 10 MG TABLET PO (09:29)
[2022-05-18] MEDS: Clopidogrel Bisulfate 75 MG TABLET PO (09:29)
[2022-05-18] MEDS: Pregabalin 150 MG CAPSULE PO (09:29)
[2022-05-18] MEDS: Furosemide 20 MG TABLET PO (09:29)
[2022-05-18] MEDS: Aspirin 81 MG TAB.CHEW PO (09:29)
[2022-05-18] MEDS: carvediloL 12.5 MG TABLET PO (09:29)
[2022-05-18] MEDS: Losartan Potassium 50 MG TABLET 100 MG PO (09:29)
[2022-05-18] MEDS: 0.9 % Sodium Chloride Flush 3 ML SYRINGE IVFLUSH (09:30)
[2022-05-18] MEDS: Multivitamin TABLET 1 TAB PO (09:30)
--- NOTE | 2022-05-18 10:21 | P.DS_ITS ---
DS: Providers Provider Date of Service: 05/18/22 Date of admission: 05/16/22 11:56 Primary care physician: Gume Bonilla MD DS: Diagnosis Discharge Diagnosis (1) Chronic systolic CHF (congestive heart failure): Status: Acute DS: Summary Hospital Course Hospital Course: from initial hpi: Chief Complaint: ? Rigors 81M presented with rigors. patient was recently diagnosed, several weeks ptp with likley malignant right renal mass. he had a known mass there, biopsied sev eral years ago, was benign, then presente dwith fever, mass now enlarged and with likely lymph node involvement, plan for nephrectomy eventually. fever work up at that time was negative and attributed to fever of malignancy, course was also complicated by NSTEMI, cath revealed diffused coronary disease not ammenable to stents, previous stents were patent, EF was 46% on echo with apical hypokinesis, medical therapy recommended. on day prior to current presentation patient had sudden onset rigors with fever. denies cough, abd pain, dysuria. he has noted some sob and lower extremity edema. in ED noted to have fever, lactic acidosis, leukocytosis, elevated BNP. hospital course: Patient was admitted for severe sepsis secondary to right lower extremity cellulitis with a differential diagnosis of fever of renal malignancy. He was put on IV cefazolin and sepsis resolved. Right lower extremity Doppler was negative for DVT. He also had some acute on chronic systolic CHF, this improved with IV Lasix. For his hypertension he was continued on amlodipine, Coreg, losartan. For his diabetes his metformin was held and he was treated with insulin. For his coronary disease seizures continue on dual antiplatelet and statin. Patient is doing much better and will be discharged on 7 days of Keflex. He should follow up with Urology for further treatment of his renal mass. Time Spent with Patient Time attestation: Total time spent providing and/or coordinating discharge services: Discharge coordination time: Greater than 30 minutes Quality: Safe Use of Opioids Does Pt have an Active Cancer Diagnosis on the Problem List?: Yes Opioid Measure Date for [facility] Report: 04/18/22 Opioid Measure Time for [facility] Report: 10:22 Quality: Stroke Does the patient have a stroke diagnosis?: No Physical Exam Vital Signs: Vital Signs: Last Vital Signs Temp 98.1 F 05/18/22 07:36 Pulse 67 05/18/22 07:36 Resp 18 05/18/22 07:36 BP 172/86 H 05/18/22 07:36 Pulse Ox 95 05/18/22 07:36 O2 Del Method 05/18/22 07:36 BMI result Body Mass Index 32.5 General: AO X 3, no acute distress Resp: CTA bilateral, no accessory muscles used CVS: S1,S2,RRR GI: soft, non tender, non distended Neuro: motor grossly intact, alert Psych: appropriate affect, appropriate insight rle mild erythema and warmth DS: Data Data Completed and Pending Labs on day of discharge: Laboratory Results - last 24 hr 05/17/22 05/17/22 05/17/22 11:34 15:35 19:30 WBC RBC Hgb Hct MCV MCH MCHC RDW Plt Count MPV Absolute Nucleated RBC Nucleated RBC % (auto) Sodium Potassium Chloride Carbon Dioxide Anion Gap BUN Creatinine Estim Creat Clear Calc Estimated GFR POC Glucose 133 H 124 H 166 H Fasting Glucose Calcium 05/18/22 05/18/22 05/18/22 05:50 05:50 07:19 WBC 5.4 RBC 4.92 Hgb 13.9 L Hct 42.5 MCV 86.4 MCH 28.3 MCHC 32.7 RDW 14.9 Plt Count 215 MPV 9.1 L Absolute Nucleated RBC 0.000 Nucleated RBC % (auto) 0.0 Sodium 136 Potassium 3.9 Chloride 100 Carbon Dioxide 27 Anion Gap 13 BUN 18 H Creatinine 1.30 Estim Creat Clear Calc 54.8 Estimated GFR 53 POC Glucose 147 H Fasting Glucose 154 H Calcium 9.0 Preliminary micro results at discharge 05/16/22 04:43 Blood Culture - Preliminary Blood - Venous No growth after 48 hours. 05/16/22 04:43 Blood Culture - Preliminary Blood - Venous No growth after 48 hours. Discharge Plan Discharge Patient Disposition: Home, Self-Care Discharge Diagnosis: sepsis, celulitis Referrals: Gume Bonilla MD [Primary Care Provider] - 1 Week Discharge Medications: New cephalexin 500 mg capsule 500 mg PO Q8H Qty: 21 0RF Continued trazodone 50 mg tablet 50 mg PO BEDTIME PRN (Reason: Insomnia) metformin 1,000 mg tablet 1 tab PO BID colchicine 0.6 mg tablet 1 tab PO DAILY PRN (Reason: GOUT) losartan 100 mg tablet 1 tab PO DAILY amlodipine 10 mg Tablet 10 mg PO DAILY aspirin 81 mg Tablet,Chewable 81 mg PO DAILY vpcbtlvmppiz-zfqygrmw-bcrpyo Tablet 1 tab PO DAILY omega-3 fatty acids Capsule 1,000 mg PO DAILY omeprazole 20 mg Tablet,Delayed Release (Dr/Ec) 20 mg PO DAILY febuxostat 40 mg Tablet 40 mg PO DAILY coenzyme Q10 1 tab PO DAILY ascorbic acid (vitamin C) 500 mg Tablet 1,000 mg PO BID bupropion HCl 100 mg tablet sustained-release 12 hr 2 tab PO BID pregabalin 150 mg capsule 150 mg PO BID linagliptin 5 mg tablet 5 mg PO DAILY furosemide 20 mg tablet 20 mg PO DAILY carvedilol 25 mg tablet 25 mg PO BID isosorbide mononitrate 30 mg tablet extended release 24 hr 30 mg PO DAILY glipizide 5 mg tablet 5 mg PO BID clopidogrel 75 mg tablet 75 mg PO DAILY nitroglycerin 0.4 mg tablet, sublingual 0.4 mg sublingual Q5M PRN (Reason: Chest Pain) Discharge Orders: Discharge Order (Routine); Ordered 05/18/22 Ordered By: Rajan Pineda Diet: Advance to usual diet Activity on Discharge: As tolerated Stand Alone Forms: Patient Portal Discharge page Care Plan Goals: recovery Health Concerns: cellulitis, renal mass Plan of Treatment: 7 days keflex, follow up wt Assessment: see above Patient Instructions: Fever in Adults (ED), Hypomagnesemia (ED)
[2022-05-18 10:56] LABS: Glucose, Whole Blood 164 mg/dL (60-115)
--- NOTE | 2022-05-18 10:58 | P.CDIR_ITS ---
Documented by User: Felipa Alberto RN 05/18/22 11:03 Retrospective Query PHYSICIAN'S DOCUMENTATION REQUEST Date of Query: 05/18/22 1058 Patient Name: Brian Knutson Admit Date: 05/16/22 Dear Doctor, A review of the medical record indicates additional documentation may be needed. Please review below and update the documentation accordingly. Clinical Indicators: The following clinical information was noted in the record: Risk Factors/Clinical Indicators/Treatments BUN 21 Creatinine 1.11 Est GFR > 60 Per H&P: PMH: CKD Please clarify which of the following accurately represents the patient's renal status: * CKD, please provide stage - see criteria * Other (please specify) * Unable to determine Criteria for BUTCH* Stages of Chronic Kidney Disease* 1. Increase in serum creatinine by ? 0.3 mg/dL Level Description GFR (?26.5 micromol/L) within 48 hours, or G1 Normal or High > 90 2. Increase in serum creatinine to ?1.5 times baseline, G2 Mildly decreased 60 ? 89 which is known or presumed to have occurred within 7 days, or G3a Mildly to moderately decreased 45 ? 59 3. Urine volume <0.5 mL/kg/hour for six hours G3b Moderately to severely decreased 30 - 44 G4 Severely decreased 15 ? 29 G5 Kidney failure < 15 *Source: Kidney Disease: Improving Global Outcomes (KDIGO) 2012 Use of terms such as suspected, likely, concern for, or probable (associated with a specific diagnosis that is being evaluated, monitored, or treated as if it exists) are acceptable and can be coded in the inpatient setting, when documented at the time of discharge. Thank you, Felipa Alberto RN Extension: [phone] Please use your independent medical judgment in providing your response. THIS QUERY IS PART OF THE PERMANENT MEDICAL RECORD Documented by User: Rajan Pineda MD 05/18/22 11:28 Retrospective Query Provider Response: Other (no evidence of ckd)
--- NOTE | 2022-05-18 11:03 | P.CDIR_ITS ---
Documented by User: Felipa Alberto RN 05/18/22 11:06 Retrospective Query PHYSICIAN'S DOCUMENTATION REQUEST Date of Query: 05/18/22 1103 Patient Name: Brian Knutson Admit Date: 05/16/22 Dear Doctor, A review of the medical record indicates additional documentation may be needed. Please review below and update the documentation accordingly. Clinical Indicators: Documentation includes the conditions of Cellulitis right lower limb and Diabetes Mellitus. Additional clinical indicators in the record include: Risk Factors/Clinical Indicators/Treatments Please clarify the relationship between these conditions: * Yes, Cellulitis is related to / associated with / due to Diabetes Mellitus * No, Cellulitis is not related to / associated with / due to Diabetes Mellitus * Unable to determine Use of terms such as suspected, likely, concern for, or probable (associated with a specific diagnosis that is being evaluated, monitored, or treated as if it exists) are acceptable and can be coded in the inpatient setting, when documented at the time of discharge. Thank you, Felipa Alberto RN Extension: [phone] Please use your independent medical judgment in providing your response. THIS QUERY IS PART OF THE PERMANENT MEDICAL RECORD Documented by User: Rajan Pineda MD 05/18/22 11:28 Retrospective Query Provider Response: Other (celluliits associated with DM)
--- NOTE | 2022-05-18 11:08 | MHC.CM.PN ---
Patient has been medically cleared for dc to home today, self care. Last IMM addressed yesterday.
== END 2022-05-18 11:24 | disposition home or self-care (01) | DRG 871 ==
LOC: HO.ED 11:34 → HO.EDOVER 12:01 → HO.IMC 05-17 04:50
PROVIDERS: Emergency Medicine; Admitting Provider Internal Medicine; Emergency Provider Student in an Organized Health Care Education/Training Program; PCP Internal Medicine; Visit Provider Internal Medicine
DX: A41.9 Sepsis, unspecified organism (principal); I50.23 Acute on chronic systolic (congestive) heart failure; L03.115 Cellulitis of right lower limb; C22.8 Malignant neoplasm of liver, primary, unspecified as to type; C77.9 Secondary and unspecified malignant neoplasm of lymph node, unspecified; Z66 Do not resuscitate; I25.10 Atherosclerotic heart disease of native coronary artery without angina pectoris; I11.0 Hypertensive heart disease with heart failure; R65.20 Severe sepsis without septic shock; E78.5 Hyperlipidemia, unspecified; E11.628 Type 2 diabetes mellitus with other skin complications; Z95.5 Presence of coronary angioplasty implant and graft; Z20.822 Contact with and (suspected) exposure to COVID-19; Z88.5 Allergy status to narcotic agent; Z79.02 Long term (current) use of antithrombotics/antiplatelets; Z79.82 Long term (current) use of aspirin; Z79.84 Long term (current) use of oral hypoglycemic drugs; Z79.899 Other long term (current) drug therapy
CPT/HCPCS: 36415; 71045; 80048; 80076; 81001; 82947; 83605; 83690; 83735; 83880; 84145; 84484; 85025; 85027; 85379; 85610; 87040; 87635; 93005; 93971; 96361; 96365; 96366; 96367; 99285; J0690; J0696; J1650; J1940; J3475

== ENCOUNTER 2022-06-14 20:11 | Emergency (ER) | payer OTHER, SELFPAY ==
--- NOTE | 2022-06-14 | ECG_ITS ---
Test Reason : DIZZINESS Blood Pressure : / mmHG Vent. Rate : 094 BPM Atrial Rate : 082 BPM P-R Int : 000 ms QRS Dur : 086 ms QT Int : 346 ms P-R-T Axes : 000 -02 062 degrees QTc Int : 432 ms Normal sinus rhythm with Premature ventricular complexes Inferior infarct (cited on or before 25-MAY-2016) Possible Anterior infarct (cited on or before 18-MAY-2016) Abnormal ECG When compared with ECG of 16-MAY-2022 05:03, Premature ventricular complexes are now Present Referred By: Generic ED Physician Electronically Signed By:SARA DEAN
--- NOTE | ~2022-06-14 | XR_ITS ---
EXAMINATION: XR CHEST CLINICAL INFORMATION: Cough COMPARISON: 05/16/2022 TECHNIQUE: Frontal view of the chest was obtained. FINDINGS: No significant change from prior study. No focal consolidation or mass. No pleural effusion or pneumothorax. Cardiac silhouette remains prominent but is unchanged. There are degenerative changes of the shoulders and spine. XR/XR chest 1V IMPRESSION: No acute pulmonary disease. No significant change from prior study.
--- NOTE | ~2022-06-14 | CT_ITS ---
EXAMINATION: CT ABDOMEN AND PELVIS WITH CONTRAST CLINICAL INFORMATION: Right lower quadrant tenderness and pain COMPARISON: None TECHNIQUE: Multidetector volumetric images were obtained from the superior aspect of the liver through the pubic symphysis following administration 85 mL of Omnipaque 350 intravenous contrast. Sagittal and coronal reformatted images were obtained on the technologist's workstation. Oral contrast: No This CT examination was performed using dose optimization techniques as appropriate, variously including the following: *Automated exposure control *Adjustment of mA and/or kV according to patient size (this includes techniques or standardized protocols for targeted exams where dose is matched to indication/reason for exam; i.e. extremities or head) *Use of iterative reconstruction technique DLP: 884 mGy-cm FINDINGS: LUNG BASES: The heart size is normal. There is dependent bibasilar atelectasis. There is moderate coronary artery calcifications. No pericardial effusion seen. LIVER, GALLBLADDER, AND BILIARY TREE: The liver is normal in size, shape, and attenuation. No focal hepatic lesion or biliary ductal dilatation is present. The gallbladder is unremarkable with no evidence of radiopaque gallstones, gallbladder wall thickening, or obvious pericholecystic inflammatory changes. PANCREAS: Unremarkable. SPLEEN: Unremarkable. ADRENAL GLANDS: Unremarkable. KIDNEYS AND URETERS: The kidneys are normal in size, shape, and attenuation. No hydronephrosis, hydroureter, or calculi seen. No perinephric stranding. There are multiple bilateral renal cysts. The largest cyst upper pole right kidney is exophytic measuring 5.6 cm. There is a complex heterogeneous area in the upper /midpole right kidney is irregular shaped measuring about 4.3 x 3.6 cm BLADDER: The bladder is nondistended with a small right periureteral diverticulum. GASTROINTESTINAL TRACT: There is scattered stool, diverticuli and gas seen throughout the colon without distention. The small bowel loops are normal caliber. The stomach is nondistended and appears unremarkable. ABDOMINAL WALL: There is scattered stool, gas and diverticula seen in colon without distention. The small bowel loops are normal caliber. LYMPH NODES: There is an aortocaval lymph node measuring 2.2 x 2.6 cm on axial image 46/3 and 38 Hounsfield units. VASCULAR: There is atherosclerotic calcification abdominal aorta without aneurysmal dilatation. PELVIC VISCERA: The prostate gland is enlarged extending the base of bladder. OSSEOUS STRUCTURES: Degenerative disc changes L5-S1 disc level with vacuum disc phenomena. No aggressive lytic or sclerotic process seen. CT/CT abdomen pelvis w con IMPRESSION: Prostate enlargement. Right bladder diverticulum. Exophytic cyst upper pole right kidney with adjacent complex irregular area likely complex cyst. There are additional small cysts in both kidneys. No radiopaque calculi or hydronephrosis seen. Colonic diverticulosis without diverticulitis. Fleischner guidelines were followed.
[2022-06-14 20:17] VITALS: BP 180/110; PULSE 82; O2SAT 96
[2022-06-14 20:19] VITALS: BMI 32.5
[2022-06-14 20:20] VITALS: BP 174/86; PULSE 83; RESP 22; TEMP 37.6; O2SAT 95
--- NOTE | 2022-06-14 20:32 | ED.GENADULT ---
HPI - General Adult General Chief complaint: Extremity Injury, Lower Stated complaint: tremors/ headache Time Seen by Provider: 06/14/22 20:31 Source: patient and EMS Mode of arrival: EMS Limitations: no limitations History of Present Illness HPI narrative: 81-year-old male with history of severe sepsis due to right lower extremity cellulitis, systolic CHF, CAD s/p stents, hx NSTEMI, right renal mass concerning for malignancy with plan for eventual nephrectomy who presents to the ER for evaluation of acute onset of rigors while he was in the bathroom today. Patient had similar presentation about a month ago, he was found to be septic and was admitted for cellulitis at that time. He reports he has a mild headache, otherwise he is feeling better than he did earlier today. He denies any fevers or chills. His son who he lives with noticed that the anterior portion of his right lower leg is red and warm. This is new. He has history of cellulitis in this leg in the past. No new injury or trauma. MD complaint: Rigors, right lower extremity redness Onset (ago): hour(s) Location: right and lower extremity Radiation: non-radiation Severity: moderate Quality: aching Pain Consistency: intermittent Relieving factors: none Exacerbating factors: none Associated symptoms: headaches Treatments prior to arrival: none Related Data Home Medications Medication Instructions Recorded Confirmed carvedilol 25 mg tablet 25 mg PO BID 02/03/21 05/16/22 clopidogrel 75 mg tablet 75 mg PO DAILY 02/03/21 05/16/22 furosemide 20 mg tablet 20 mg PO DAILY 02/03/21 05/16/22 glipizide 5 mg tablet 5 mg PO BID 02/03/21 isosorbide mononitrate 30 mg 30 mg PO DAILY 02/03/21 05/18/22 tablet,extended release 24 hr linagliptin 5 mg tablet 5 mg PO DAILY 02/03/21 05/18/22 nitroglycerin 0.4 mg sublingual 0.4 mg sublingual Q5M PRN Chest 02/03/21 05/16/22 tablet Pain pregabalin 150 mg capsule 150 mg PO BID 02/03/21 05/16/22 amlodipine 10 mg tablet 10 mg PO DAILY 05/16/22 05/16/22 aspirin 81 mg chewable tablet 81 mg PO DAILY 05/16/22 05/16/22 coenzyme Q10 1 tab PO DAILY 05/16/22 05/16/22 colchicine 0.6 mg tablet 1 tab PO DAILY PRN GOUT 05/16/22 05/16/22 febuxostat 40 mg tablet 40 mg PO DAILY 05/16/22 05/16/22 losartan 100 mg tablet 1 tab PO DAILY 05/16/22 05/16/22 metformin 1,000 mg tablet 1 tab PO BID 05/16/22 05/16/22 tqeayrewqigk-tkqkmijr-krnyxr tablet 1 tab PO DAILY 05/16/22 05/16/22 omega-3 fatty acids 1,000 mg PO DAILY 05/16/22 05/16/22 omeprazole 20 mg tablet,delayed 20 mg PO DAILY 05/16/22 05/16/22 release trazodone 50 mg tablet 50 mg PO BEDTIME PRN Insomnia 05/16/22 05/16/22 ascorbic acid (vitamin C) 500 mg 1,000 mg PO BID 05/18/22 05/18/22 tablet bupropion HCl 100 mg tablet,12 hr 2 tab PO BID 05/18/22 05/18/22 sustained-release Previous Rx's Medication Instructions Recorded cephalexin 500 mg capsule 500 mg PO Q8H #21 [facility] 05/18/22 cephalexin 500 mg capsule 500 mg PO Q6H 7 days #28 [facility] 06/14/22 doxycycline monohydrate 100 mg 100 mg PO BID #14 [facility] 06/14/22 capsule Allergies Allergy/AdvReac Type Severity Reaction Status Date / Time hydrocodone [From VICODIN] Allergy Unknown SWELLING Unverified 02/03/21 09:47 oxycodone Allergy Unknown itching Verified 02/03/21 09:47 Review of Systems Review of Systems: Constitutional: No Fever, + Chills ENT/Mouth: No sore throat, No Rhinorrhea, No Swallowing Difficulty Eyes: No Eye Pain, No Swelling, No Redness Cardiovascular: No Chest Pain, No SOB, No Orthopnea, No Edema Respiratory: No Cough, No Sputum, No Wheezing, No dyspnea Gastrointestinal: No Nausea, No Vomiting, No Diarrhea, No abdominal Pain Genitourinary: No Dysuria, No Urinary Frequency, No Hematuria Musculoskeletal: No joint pain, No Myalgias Skin: No Skin Lesions, No rash, +Erythema RLE Neuro: No Weakness, No Numbness, No Dizziness, + Headache Psych: No Anxiety/Panic, No Depression Heme/Lymph: No Bruising, No Lymphadenopathy Endocrine: No Polyuria, No Polydipsia [facility] Past Medical History Medical History CAD (coronary artery disease) Chronic systolic CHF (congestive heart failure) CKD (chronic kidney disease) Diabetes HTN (hypertension) Hyperlipidemia Renal mass Family History Family History Other CAD (coronary artery disease) Social History Social History Household Members: Children Household Members Other:: Son Housing: House Do you presently have visiting nurse or other home services: No Alcohol intake: unknown Patient Tobacco Use Status: Never used Tobacco Use of substances other than those prescribed or required for medical reasons: No Advance Directives: No Advance Directives Information Provided: No service: Yes 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 Oriented X3. No acute distress. Eyes: Pupils equal, round and reactive to light. ENT: Pharynx normal. Neck: Normal inspection. Neck supple. CVS: Normal heart rate and rhythm. Pulses normal. Respiratory: No respiratory distress. Breath sounds normal. Abdomen: Soft with mild lower abdominal tenderness, no rebound or guarding. normal+BS x4 Skin: Skin warm and dry. Normal skin color. Normal skin turgor. No rashes. Extremities: No lower extremity edema. right anterior garzon with moderate sized approximatey 15cm x 3cm area with erythema and warmth, sightly tender. no calf tenderness. Neuro: Oriented X 3. No motor deficit. No sensory deficit. Course Course Course Narrative: 81-year-old male with history CHF, right renal mass, recent admission for severe sepsis due to cellulitis who presents to the ear are today for 1 episode of tremors, but sounds like shaking chills in the bathroom today. He has no urinary symptoms, no shortness of breath, no fevers. He has new right lower extremity cellulitis. This could be the etiology of his rigors. On arrival to the ER he is afebrile and he appears well. Will get lab workup. Will also get CT scan of his belly given some tenderness there. Reevaluation(s) Reevaluation #1: Lab workup is unremarkable. CT scan without any acute findings. His urinalysis is negative. His chest x-ray is negative. No evidence of infection other than the right lower extremity. Will start on antibiotics for this. He is stable for discharge home with outpatient follow-up. Patient agrees with plan. Son to pick him up. Medical Decision Making Lab Data Result diagrams: 06/14/22 20:43 06/14/22 20:43 Labs: Lab Results 06/14/22 06/14/22 06/14/22 Range/Units 20:43 20:43 20:54 Sodium 136 (135-145) mmol/L Potassium 4.9 D (3.3-5.1) mmol/L Chloride 101 (96-108) mmol/L Carbon Dioxide 21 L (22-29) mmol/L Anion Gap 19 (12-20) BUN 17 H (9-16) mg/dL Creatinine 1.12 (0.5-1.4) mg/dL Estim Creat Clear Calc 63.6 Estimated GFR > 60 Random Glucose 117 H (60-115) mg/dL Lactic Acid 1.8 (0.5-2.0) mmol/L Calcium 9.2 (8.4-10.2) mg/dL Urine Color Yellow Urine Appearance Clear Urine pH 7.0 (5.0-8.0) Ur Specific [place] 1.010 (1.005-1.025) Urine Protein 30 (1+) H (Neg-Trace) mg/dL Urine Glucose (UA) Negative (Negative) mg/dL Urine Ketones Negative (Negative) mg/dL Urine Blood Negative (Negative) Urine Nitrite Negative (Negative) Ur Leukocyte Esterase Negative (Negative) Urine RBC 0-2 (0-2) /HPF Urine WBC 0-5 (0-5) /HPF Ur Squamous Epith Cells 0-2 (0-2) /HPF Urine Bacteria None Seen (None Seen) Hyaline Casts 0-2 (0-2) /LPF COVID-19 (LIZZIE) (Negative) COVID-19 [employer] 06/14/22 Range/Units 20:58 Sodium (135-145) mmol/L Potassium (3.3-5.1) mmol/L Chloride (96-108) mmol/L Carbon Dioxide (22-29) mmol/L Anion Gap (12-20) BUN (9-16) mg/dL Creatinine (0.5-1.4) mg/dL Estim Creat Clear Calc Estimated GFR Random Glucose (60-115) mg/dL Lactic Acid (0.5-2.0) mmol/L Calcium (8.4-10.2) mg/dL Urine Color Urine Appearance Urine pH (5.0-8.0) Ur Specific [place] (1.005-1.025) Urine Protein (Neg-Trace) mg/dL Urine Glucose (UA) (Negative) mg/dL Urine Ketones (Negative) mg/dL Urine Blood (Negative) Urine Nitrite (Negative) Ur Leukocyte Esterase (Negative) Urine RBC (0-2) /HPF Urine WBC (0-5) /HPF Ur Squamous Epith Cells (0-2) /HPF Urine Bacteria (None Seen) Hyaline Casts (0-2) /LPF COVID-19 (LIZZIE) Negative (Negative) COVID-19 Clin Com See Note Critical Care Time Critical Care Time Critical Care Time: No Discharge Plan Discharge Clinical Impression: Cellulitis Patient Disposition: Home, Self-Care Instructions: Cellulitis (ED) Additional Instructions: Your lab workup today was unremarkable. Your CT scan did not show any evidence of infection. Take the prescribed antibiotics as directed to treat the cellulitis on your right lower leg. Rest and stay hydrated. If you develop new or worsening symptoms call 911 or come back to the ER for further evaluation. Prescriptions: New cephalexin 500 mg capsule 500 mg PO Q6H 7 Days Qty: 28 0RF doxycycline monohydrate 100 mg capsule 100 mg PO BID Qty: 14 0RF No Action trazodone 50 mg tablet 50 mg PO BEDTIME PRN (Reason: Insomnia) metformin 1,000 mg tablet 1 tab PO BID colchicine 0.6 mg tablet 1 tab PO DAILY PRN (Reason: GOUT) losartan 100 mg tablet 1 tab PO DAILY amlodipine 10 mg Tablet 10 mg PO DAILY aspirin 81 mg Tablet,Chewable 81 mg PO DAILY fhwwygegfteq-ltljahtq-cymdqa Tablet 1 tab PO DAILY omega-3 fatty acids Capsule 1,000 mg PO DAILY omeprazole 20 mg Tablet,Delayed Release (Dr/Ec) 20 mg PO DAILY febuxostat 40 mg Tablet 40 mg PO DAILY coenzyme Q10 1 tab PO DAILY ascorbic acid (vitamin C) 500 mg Tablet 1,000 mg PO BID bupropion HCl 100 mg tablet sustained-release 12 hr 2 tab PO BID cephalexin 500 mg capsule 500 mg PO Q8H Qty: 21 0RF pregabalin 150 mg capsule 150 mg PO BID linagliptin 5 mg tablet 5 mg PO DAILY furosemide 20 mg tablet 20 mg PO DAILY carvedilol 25 mg tablet 25 mg PO BID isosorbide mononitrate 30 mg tablet extended release 24 hr 30 mg PO DAILY glipizide 5 mg tablet 5 mg PO BID clopidogrel 75 mg tablet 75 mg PO DAILY nitroglycerin 0.4 mg tablet, sublingual 0.4 mg sublingual Q5M PRN (Reason: Chest Pain) Interventions: ED Discharge Assessment Last Done: 06/15/22 00:12 Discharge Date/Time: 06/15/22 00:05
--- NOTE | 2022-06-14 20:46 | PC.NURSE ---
unsuccessful attempt in IV access placement by this nurse was able to drawn part of lab work ordered and sent to the lab
--- NOTE | 2022-06-14 20:49 | PC.NURSE ---
pt son at the bedside now
[2022-06-14 21:00] LABS: Lactic Acid 1.8 mmol/L (0.5-2.0)
[2022-06-14 21:03] LABS: Anion Gap 19 (12-20); Blood Urea Nitrogen 17 mg/dL (9-16); Calcium 9.2 mg/dL (8.4-10.2); Carbon Dioxide 21 mmol/L (22-29); Chloride 101 mmol/L (96-108); Creatinine Clr Calc Pharmacy 63.6; Estimated Glomerular Filt Rate > 60; Glucose Random 117 mg/dL (60-115); Potassium 4.9 mmol/L (3.3-5.1); Sodium 136 mmol/L (135-145)
[2022-06-14 21:14] LABS: Appearance Urine Clear; Color Urine Yellow; Glucose Urine UA Negative (Negative); Leukocyte Esterase Urine Negative (Negative); Nitrite Urine Negative (Negative); Urine Blood Negative (Negative); Urine Ketones Negative (Negative); Urine Protein 30 (1+) mg/dL (Neg-Trace)
[2022-06-14 21:17] LABS: Bacteria Urine None Seen (None Seen); Hyaline Casts Urine 0-2 /LPF (0-2); RBC Urine 0-2 /HPF (0-2); Squamous Epithelial Cell Urine 0-2 /HPF (0-2); WBC Urine 0-5 /HPF (0-5)
[2022-06-14 21:30] LABS: COVID-19 Test Negative (Negative)
[2022-06-14] MEDS: iohexoL 350 MG/ML 100 ML INFUS..BTL IV (21:45)
[2022-06-14 22:57] VITALS: BP 171/76; PULSE 88; RESP 22; O2SAT 95
[2022-06-14] MEDS: cephALEXin 500 MG CAPSULE PO (23:56)
[2022-06-14 23:58] VITALS: BP 171/76; PULSE 78; RESP 19; O2SAT 94
== END 2022-06-15 00:05 | disposition home or self-care (01) ==
PROVIDERS: Physician Assistant; Emergency Provider Emergency Medicine; PCP Internal Medicine
DX: L03.115 Cellulitis of right lower limb (principal); R05.9 Cough, unspecified; R51.9 Headache, unspecified; R10.9 Unspecified abdominal pain; Z79.899 Other long term (current) drug therapy; Z20.822 Contact with and (suspected) exposure to COVID-19
CPT/HCPCS: 36415; 71045; 74177; 80048; 81001; 83605; 87040; 87635; 93005; 96365; 99285; Q9967

== ENCOUNTER 2022-10-08 08:04 | Emergency (ER) | payer MEDICARE, OTHER, SELFPAY ==
--- NOTE | ~2022-10-08 | CT_ITS ---
EXAMINATION: CT CHEST, ABDOMEN AND PELVIS WITHOUT CONTRAST CLINICAL INFORMATION: Shortness of breath, renal mass, abdominal pain COMPARISON CT abdomen pelvis 06/14/2022, CT chest abdomen pelvis 11/20/2018, abdominal MRI 07/28/2019 TECHNIQUE: Multidetector volumetric imaging was performed from the thoracic inlet through the pubic symphysis without IV contrast. Sagittal and coronal reformatted images were obtained on the technologist's workstation. This CT examination was performed using dose optimization techniques as appropriate, variously including the following: *Automated exposure control *Adjustment of mA and/or kV according to patient size (this includes techniques or standardized protocols for targeted exams where dose is matched to indication/reason for exam; i.e. extremities or head) *Use of iterative reconstruction technique DLP: FINDINGS: CHEST: Lung: The lungs are clear without focal worrisome opacity or nodule. Some tiny 1 to 2 mm punctate nodules are seen (for example left lower lobe 7:276). Mediastinum: The central vascular structures are unremarkable with the exception of extensive coronary calcification. No hilar or mediastinal lymphadenopathy. Pericardium/Pleura: No significant effusion. No pleural mass or thickening. Chest Wall/Axilla: Unremarkable ABDOMEN/PELVIS: Peritoneal Space: No significant free air or free fluid identified. Liver, Gallbladder, Biliary Tree: The liver is normal in size, shape, and attenuation. No focal hepatic lesion or biliary ductal dilatation is present. The gallbladder is unremarkable with no evidence of radiopaque gallstones, gallbladder wall thickening, or obvious pericholecystic inflammatory changes. Pancreas: Unremarkable Spleen: Unremarkable Adrenal Glands: Unremarkable Kidneys and Ureters: The kidneys are normal in size, shape, and attenuation. IV contrast is present in nondilated renal collecting systems secondary to prior IV contrast administration for head CT. Bilateral Bosniak class I renal cysts are present which need no further additional imaging or follow-up. There is one mass on the right that measures 4.1 x 3.1 x 4.0 cm and measures 35 Hounsfield units which cannot be considered a simple cyst. On the prior MRI from 2018 this measured a maximum diameter of 2.7 cm demonstrated enhancement and was thought to be suspicious for renal cell carcinoma. No other solid masses are seen. No hydronephrosis, hydroureter, or calculi seen. Assessment for calculi is a bit suboptimal secondary to IV contrast administration. No perinephric stranding. Bladder: Unremarkable Gastrointestinal Tract: The small and large bowel are unremarkable. The appendix is present it is a small stump. In any event, there is no evidence of appendicitis. Abdominal Wall: There is a left inguinal hernia seen containing only fat. Lymph Nodes: No retroperitoneal lymphadenopathy. Vascular: Marked calcific atherosclerotic plaque present in the aorta and iliofemoral vessels without aneurysm.. The IVC appears unremarkable. PELVIC VISCERA: There is moderate BPH. Seminal vesicles are unremarkable OSSEUS STRUCTURES: Mild degenerative changes are noted in the spine most marked at L5-S1 and T11-T12. No bony destructive lesions are seen. CT/CT abdomen pelvis wo IV con IMPRESSION: 1. A cause for the patient's abdominal pain has not been found. 2. 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 This mass was biopsied on 01/02/2019. Please correlate with results of that biopsy. 3. Other incidental findings as described above including extensive coronary calcification, left inguinal hernia containing only fat, BPH and degenerative changes in the spine. Fleischner guidelines were followed.
--- NOTE | ~2022-10-08 | CT_ITS ---
EXAMINATION: CT ANGIOGRAM HEAD CT ANGIOGRAM NECK CLINICAL INFORMATION: Dizziness. Right-sided neck pain. COMPARISON: CT head from 11/20/2018. TECHNIQUE: Initial noncontrast curriculum development coordinator imaging of the head and neck was performed. Noncontrast head CT was also performed. Test bolus sequences followed by intravenous administration 70 mL of Omnipaque 350. Helical imaging was performed in the axial plane from the aortic arch to the skull vertex. Delayed postcontrast imaging of the head was also performed. The data was processed at the wood technologist's workstation for generation of MIP sequences. Angled MIPs and volume rendered reformatted images were also generated at an offline 3D workstation. Stenoses are assessed in accordance with NASCET criteria unless otherwise indicated. This CT examination was performed using dose optimization techniques as appropriate, variously including the following: *Automated exposure control. *Adjustment of mA and/or kV according to patient size (this includes techniques or standardized protocols for targeted exams where dose is matched to indication/reason for exam; i.e. extremities or head). *Use of iterative reconstruction technique. DLP: 2270 mGy-cm FINDINGS: CT Head: There is a region of lost foley-white matter differentiation within the inferior and parasagittal right cerebellar hemisphere. No associated hemorrhagic transformation. No evidence of acute intracranial hemorrhage. A few foci of hypoattenuation in the periventricular and deep white matter are consistent with mild to moderate microangiopathy. No additional loss of foley-white matter differentiation. Proportional prominence of the ventricles and sulcal spaces. No evidence for obstructive hydrocephalus. No abnormal mass effect or midline shift. No extra-axial fluid collections. No pathologic intra-axial enhancement. No acute soft tissue or osseous abnormalities. Chronic complete opacification of the left maxillary sinus with hyperostotic changes of the left maxillary sinus retana. Hyperattenuating material within the left maxillary sinus. There is expansion of the left maxillary ostium/infundibulum with absence of the medial wall of the maxillary sinus and nasal polyp extending from this region into the nasopharynx. Mild mucosal thickening of the remaining paranasal sinuses. The mastoid air cells and middle ear cavities are clear. Bilateral lens extractions. CT Neck: The thyroid gland and remaining cervical soft tissues are within normal limits. Advanced degenerative disc disease at C3-C4. Moderate degenerative disc disease at all additional cervical levels. Facet and uncovertebral joint arthropathy leads to osseous encroachment on the neural foramina from C2-C5. CT Upper Chest: Mild underlying centrilobular emphysema. The visualized lung apices and upper mediastinum are within normal limits. Neck CTA: Aortic Arch: Normal contour and caliber with moderate calcific atherosclerotic disease. Four vessel branching pattern with left vertebral artery arising directly from the arch between the left common carotid and left subclavian arteries. Great Vessel Origins: No significant stenosis of the branch origins. Right Common Carotid Artery: No focal stenosis or occlusion. Cervical Right Internal Carotid Artery: Calcific atherosclerotic disease of the carotid bulb and proximal internal carotid artery causing less than 50% stenosis. Left Common Carotid Artery: No focal stenosis or occlusion. Cervical Left Internal Carotid Artery: Calcific atherosclerotic disease of the carotid bulb and proximal internal carotid artery causing less than 50% stenosis. Cervical Right Vertebral Artery: Atherosclerotic disease causes moderate stenosis of the origin. Multifocal mild atherosclerotic stenoses of the V2 segment. There is gradient decreased opacification of the right vertebral artery throughout its course with occlusion of the V4 segment. Cervical Left Vertebral Artery: Dominant. No focal stenosis or occlusion. Brain CTA: Intracranial Internal Carotid Arteries: Calcific atherosclerotic disease of the intracranial internal carotid arteries without occlusion. Associated moderate to high-grade stenoses of the right supraclinoid segments of the right greater than left internal carotid arteries. Right Anterior Cerebral Artery: Normal A1 segment. Normal opacification of the distal BENJAMIN segments. Left Anterior Cerebral Artery: Normal A1 segment. Normal opacification of the distal BENJAMIN segments. Anterior Communicating Artery: Normal. Right Middle Cerebral Artery: Normal M1 segment of the MCA without focal stenosis or occlusion. Normal arborization of the distal segments. Left Middle Cerebral Artery: Normal M1 segment of the MCA without focal stenosis or occlusion. Normal arborization of the distal segments. Right Vertebral Artery: Moderate calcific atherosclerotic disease with occlusion of the proximal V4 segment. Partial reconstitution of the distal V4 segment from retrograde flow. Left Vertebral Artery: Atherosclerotic disease causes moderate to high-grade stenosis of the V4 segment proximal to the origin of the posterior inferior cerebellar artery. Normal opacification of the proximal segments of the posterior inferior cerebellar artery. Basilar Artery: There is a high-grade stenosis in the mid-distal basilar artery. No overt occlusion. Normal appearance of the proximal superior cerebellar arteries. Right Posterior Cerebral Artery: Normal P1 segment. Normal opacification of the distal [place] segments. Left Posterior Cerebral Artery: The P1 segment is diminutive. origin of the [place] with robust opacification of the posterior communicating artery. Normal opacification of the distal [place] segments. Normal opacification of the superior sagittal, straight, transverse, and sigmoid sinuses. CT/CT angio head neck IMPRESSION: 1. Findings of acute right cerebellar infarct. No evidence of hemorrhagic transformation. 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 Moderate atherosclerotic stenosis of the origin of the right vertebral artery. 2. 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 3. Atherosclerotic disease causes moderate to high-grade stenoses of the supraclinoid segments of the right greater than left ICAs. 4. Chronic left maxillary sinus disease. There is expansion of the left maxillary ostium/infundibulum with absence of the medial wall of the left maxillary sinus and a nasal polyp extending from this region into the nasopharynx. Recommend ENT evaluation. 5. Mild to moderate underlying microangiopathy and generalized cerebral volume loss. 6. Moderate multilevel degenerative spondyloarthropathy of the cervical spine. This critical result was discussed with Dr. Petersen at 11:08 on 10/08/2022 and it was ascertained that the content and urgency of the report was understood at the time of direct communication.
[2022-10-08 08:06] VITALS: BP 191/79; PULSE 63; RESP 18; TEMP 35.6; O2SAT 99; BMI 32.5
[2022-10-08] MEDS: ondansetron HCL 4 MG/2 ML VIAL IVPUSH (08:29)
--- NOTE | 2022-10-08 08:30 | ECG_ITS ---
Test Reason : WEAK Blood Pressure : / mmHG Vent. Rate : 066 BPM Atrial Rate : 066 BPM P-R Int : 190 ms QRS Dur : 092 ms QT Int : 420 ms P-R-T Axes : 021 -11 118 degrees QTc Int : 440 ms Normal sinus rhythm Left ventricular hypertrophy with repolarization abnormality ( R in aVL ) Inferior infarct (cited on or before 25-MAY-2016) Anterior infarct (cited on or before 18-MAY-2016) Abnormal ECG When compared with ECG of 14-JUN-2022 20:20, Premature ventricular complexes are no longer Present T wave inversion less evident in Lateral leads Referred By: Generic ED Physician Electronically Signed By:LISA NELSON
[2022-10-08 08:36] LABS: Hematocrit 45.5 % (42.0-52.0); Hemoglobin 15.2 g/dl (14.0-18.0); Mean Corpuscular HGB Conc 33.4 g/dl (31.0-36.0); Mean Corpuscular Hemoglobin 27.7 pg (27.0-33.0); Mean Platelet Volume 8.8 fL (9.4-12.4); Platelet Count 253 X10*3/uL (160-400); Red Blood Count 5.48 X10*6/uL (4.60-5.80); White Blood Count 6.5 X10*3/uL (4.8-10.8)
[2022-10-08 08:51] LABS: Alanine Aminotransferase 36 U/L (0-40); Albumin Level 4.4 g/dL (3.5-5.0); Alkaline Phosphatase 86 U/L (39-117); Anion Gap 18 (12-20); Aspartate Amino Transferase 35 U/L (5-37); Bilirubin Direct 0.3 mg/dL (0.0-0.5); Blood Urea Nitrogen 20 mg/dL (9-16); Calcium 9.8 mg/dL (8.4-10.2); Carbon Dioxide 27 mmol/L (22-29); Chloride 97 mmol/L (96-108); Creatinine Clr Calc Pharmacy 53.4; Estimated Glomerular Filt Rate 52; Glucose Random 159 mg/dL (60-115); Lipase 10 U/L (8-78); Potassium 4.7 mmol/L (3.3-5.1); Sodium 137 mmol/L (135-145); Total Protein 7.3 g/dL (6.5-8.0)
[2022-10-08 08:58] LABS: Troponin-I High Sensitivity 10.6 ng/L (<3.5-35.0)
--- NOTE | 2022-10-08 09:03 | ED_ITS ---
HPI - General Adult General Chief complaint: General Medical Stated complaint: vomiting Time Seen by Provider: 10/08/22 08:32 Source: patient Mode of arrival: ambulatory History of Present Illness HPI narrative: 82-year-old male with significant CAD who presents with onset of dizziness prevented him from being able to walk to his bed last night, thereafter he had flushing sensation of heat and had multiple episodes nonbloody vomiting, he was able to sleep throughout the night but then woke up again this morning, was still dizzy with multiple episodes of vomiting again, denies passing flatus and states his last BM was yesterday and has a history of a renal mass. He denies any associated fever, chills, chest pain but has had shortness of breath. Patient denies any numbness/tingling/weakness or visual changes on attempting to stand but states that when he turns his head while lying in the bed he becomes very dizzy which results in him feeling nauseous. Related Data Home Medications Medication Instructions Recorded Confirmed carvedilol 25 mg tablet 25 mg PO BID 02/03/21 05/16/22 clopidogrel 75 mg tablet 75 mg PO DAILY 02/03/21 05/16/22 furosemide 20 mg tablet 20 mg PO DAILY 02/03/21 05/16/22 glipizide 5 mg tablet 5 mg PO BID 02/03/21 isosorbide mononitrate 30 mg 30 mg PO DAILY 02/03/21 05/18/22 tablet,extended release 24 hr linagliptin 5 mg tablet 5 mg PO DAILY 02/03/21 05/18/22 nitroglycerin 0.4 mg sublingual 0.4 mg sublingual Q5M PRN Chest 02/03/21 05/16/22 tablet Pain pregabalin 150 mg capsule 150 mg PO BID 02/03/21 05/16/22 amlodipine 10 mg tablet 10 mg PO DAILY 05/16/22 05/16/22 aspirin 81 mg chewable tablet 81 mg PO DAILY 05/16/22 05/16/22 coenzyme Q10 1 tab PO DAILY 05/16/22 05/16/22 colchicine 0.6 mg tablet 1 tab PO DAILY PRN GOUT 05/16/22 05/16/22 febuxostat 40 mg tablet 40 mg PO DAILY 05/16/22 05/16/22 losartan 100 mg tablet 1 tab PO DAILY 05/16/22 05/16/22 metformin 1,000 mg tablet 1 tab PO BID 05/16/22 05/16/22 pvrcuprbauhu-uktkjqem-jmuyop tablet 1 tab PO DAILY 05/16/22 05/16/22 omega-3 fatty acids 1,000 mg PO DAILY 05/16/22 05/16/22 omeprazole 20 mg tablet,delayed 20 mg PO DAILY 05/16/22 05/16/22 release trazodone 50 mg tablet 50 mg PO BEDTIME PRN Insomnia 05/16/22 05/16/22 ascorbic acid (vitamin C) 500 mg 1,000 mg PO BID 05/18/22 05/18/22 tablet bupropion HCl 100 mg tablet,12 hr 2 tab PO BID 05/18/22 05/18/22 sustained-release Previous Rx's Medication Instructions Recorded cephalexin 500 mg capsule 500 mg PO Q8H #21 caps 05/18/22 cephalexin 500 mg capsule 500 mg PO Q6H 7 days #28 caps 06/14/22 doxycycline monohydrate 100 mg 100 mg PO BID #14 caps 06/14/22 capsule Allergies Allergy/AdvReac Type Severity Reaction Status Date / Time hydrocodone [From VICODIN] Allergy Unknown SWELLING Unverified 02/03/21 09:47 oxycodone Allergy Unknown itching Verified 02/03/21 09:47 Review of Systems Review of Systems: Pertinent positives and negatives as stated in HPI 10 point review of systems is otherwise negative. [facility] Past Medical History Source: nursing notes reviewed Medical History CAD (coronary artery disease) Chronic systolic CHF (congestive heart failure) CKD (chronic kidney disease) Diabetes HTN (hypertension) Hyperlipidemia Renal mass Family History Family History Other CAD (coronary artery disease) Social History Social History Household Members: Children Household Members Other:: Son Housing: House Do you presently have visiting nurse or other home services: No Alcohol intake: never Patient Tobacco Use Status: Never used Tobacco Smoked in Last 30 Days: No Use of substances other than those prescribed or required for medical reasons: No Advance Directives: Yes Advance Directives Information Provided: Yes Advance Directives on File: No service: Yes Current occupational status: 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 GENERAL: Well developed, well nourished, in no acute distress. HEAD: Normocephalic/atraumatic EYES: PERRLA, EOMI EARS: Ext canals without abnormality OROPHARYNX: no oral lesions noted, posterior pharynx clear, dry mucosa NECK: Supple, no adenopathy LUNGS: Normal breath sounds. No adventitious sounds or accessory muscle use. SpO2<99> CARDIOVASCULAR: Regular rate and rhythm without noted murmurs, no JVD or lower extremity edema, no carotid bruits appreciated. ABDOMEN: Soft, diffusely tender without rebound, appears distended with hypoactive bowel sounds. MUSCULOSKELETAL: No tenderness, deformities, or effusions noted on gross inspection. EXTREMITIES: No cyanosis, clubbing or edema. SKIN: Inspection of the skin reveals no rashes NEUROLOGIC: Alert and oriented x 4. Strength and sensation to light touch were grossly intact x 4, cranial nerves 2-12 are grossly intact, I did not attempt to ambulate this patient as he is dizzy while lying in the bed which is exacerbated by head turning. Course Course Course Narrative: 82-year-old male with persistent dizziness even when lying down that is exacerba jonathan with head turning and he complains right-sided neck pain and is currently on aspirin/Plavix for his underlying CAD. He otherwise appears to be nonfocal on clinical exam, I will not ask patient to stand and perform any balance testing as he is dizzy while lying down. His vital signs remain within normal limits not suggestive of acute infection and the right-sided neck pain is concerning for the possibility carotid/dissection etiology taken in combination with his symptoms. I do not suspect acute cardiac ischemia or infection such as pneumonia and lower clinical suspicion for PE. I do strongly suspect that this may be related with the kidney mass in the form of either metastasis or possible mass related affects such as inappropriate excretion of factors/hormones. Patient is otherwise hemodynamically stable with no further recommendations by the neuro interventionalist. Reevaluation(s) Reevaluation #1: [facility] called to inform of acute rt cerebellar infarct with stenotic basilar. Time: 11:09 Reevaluation #2: I called [facility] for neuro interventional for possible evacuation of the LVO located in the right cerebellar. Images were transferred over. Time: 11:20 Reevaluation #3: I spoke with Dr Smith from neurointervention who states it sounds like patient has completed PICA infarct and is not a candidate for intervention but there can be significant swelling and patient would need to be monitored and followed by neurosurgery for possible intervention. Decision for ED to ED transfer and involvement of neurosurgery with eventual admission. Images still are not available for the workday consultant to review and current imaging is not available for me. Time: 11:32 Additional Reevaluation(s): 1145: Spoke with Dr Quevedo in ER who accepts transfer for escalated care from neurosurgery and neurology. Medications Administered Discontinued Medications Generic Name Dose Route Start Last Admin Trade Name Freq PRN Reason Stop Dose Admin Iohexol 100 ml 10/08/22 10:52 10/08/22 10:52 Iohexol 350 Mg/Ml 100 Ml Infus..Btl IV 10/08/22 10:53 70 ml ONCE ONE Administration Ondansetron HCl 4 mg 10/08/22 08:16 10/08/22 08:29 Ondansetron Hcl 4 Mg/2 Ml Vial IVPUSH 10/08/22 08:17 4 mg ONCE ONE Administration Medical Decision Making Lab Data Result Diagrams: 10/08/22 08:24 10/08/22 08:24 Labs: Lab Results 10/08/22 10/08/22 10/08/22 Range/Units 08:24 08:24 08:24 WBC 6.5 (4.8-10.8) X10*3/uL RBC 5.48 (4.60-5.80) X10*6/uL Hgb 15.2 (14.0-18.0) g/dl Hct 45.5 (42.0-52.0) % MCV 83.0 (80.0-98.0) fL MCH 27.7 (27.0-33.0) pg MCHC 33.4 (31.0-36.0) g/dl RDW 17.0 H (11.0-16.0) % Plt Count 253 (160-400) X10*3/uL MPV 8.8 L (9.4-12.4) fL Absolute Nucleated RBC 0.000 (0.0-0.012) X10*3/uL Nucleated RBC % (auto) 0.0 (0.0-0.2) /100WBC PT (10.0-13.1) SEC INR (0.9-1.1) D-Dimer High Sensitivty NG/ML Sodium 137 (135-145) mmol/L Potassium 4.7 (3.3-5.1) mmol/L Chloride 97 (96-108) mmol/L Carbon Dioxide 27 (22-29) mmol/L Anion Gap 18 (12-20) BUN 20 H (9-16) mg/dL Creatinine 1.31 (0.5-1.4) mg/dL Estim Creat Clear Calc 53.4 Estimated GFR 52 Random Glucose 159 H (60-115) mg/dL Calcium 9.8 D (8.4-10.2) mg/dL Total Bilirubin 1.0 (0.0-1.0) mg/dL Direct Bilirubin 0.3 (0.0-0.5) mg/dL AST 35 (5-37) U/L ALT 36 (0-40) U/L Alkaline Phosphatase 86 (39-117) U/L Troponin I High Sens 10.6 (<3.5-35.0) ng/L B-Natriuretic Peptide (<100) pg/mL Total Protein 7.3 (6.5-8.0) g/dL Albumin 4.4 (3.5-5.0) g/dL Lipase 10 (8-78) U/L Urine Color Urine Appearance Urine pH (5.0-9.0) Ur Specific [place] (1.005-1.025) Urine Protein (Neg-Trace) mg/dL Urine Glucose (UA) (Negative) mg/dL Urine Ketones (Negative) mg/dL Urine Blood (Negative) Urine Nitrite (Negative) Ur Leukocyte Esterase (Negative) Urine RBC (0-2) /HPF Urine WBC (0-5) /HPF Ur Squamous Epith Cells (0-2) /HPF Urine Bacteria (None Seen) Hyaline Casts (0-2) /LPF Influenza Type A (PCR) (Negative) Influenza Type B (PCR) (Negative) RSV RNA Qual (PCR) (Negative) SARS-CoV-2 RNA (RT-PCR) (Negative) 10/08/22 10/08/22 10/08/22 Range/Units 08:24 08:35 11:30 WBC (4.8-10.8) X10*3/uL RBC (4.60-5.80) X10*6/uL Hgb (14.0-18.0) g/dl Hct (42.0-52.0) % MCV (80.0-98.0) fL MCH (27.0-33.0) pg MCHC (31.0-36.0) g/dl RDW (11.0-16.0) % Plt Count (160-400) X10*3/uL MPV (9.4-12.4) fL Absolute Nucleated RBC (0.0-0.012) X10*3/uL Nucleated RBC % (auto) (0.0-0.2) /100WBC PT (10.0-13.1) SEC INR (0.9-1.1) D-Dimer High Sensitivty NG/ML Sodium (135-145) mmol/L Potassium (3.3-5.1) mmol/L Chloride (96-108) mmol/L Carbon Dioxide (22-29) mmol/L Anion Gap (12-20) BUN (9-16) mg/dL Creatinine (0.5-1.4) mg/dL Estim Creat Clear Calc Estimated GFR Random Glucose (60-115) mg/dL Calcium (8.4-10.2) mg/dL Total Bilirubin (0.0-1.0) mg/dL Direct Bilirubin (0.0-0.5) mg/dL AST (5-37) U/L ALT (0-40) U/L Alkaline Phosphatase (39-117) U/L Troponin I High Sens (<3.5-35.0) ng/L B-Natriuretic Peptide 276 H (<100) pg/mL Total Protein (6.5-8.0) g/dL Albumin (3.5-5.0) g/dL Lipase (8-78) U/L Urine Color Yellow Urine Appearance Clear Urine pH 7.5 (5.0-9.0) Ur Specific [place] 1.020 (1.005-1.025) Urine Protein 30 (1+) H (Neg-Trace) mg/dL Urine Glucose (UA) Negative (Negative) mg/dL Urine Ketones Negative (Negative) mg/dL Urine Blood Negative (Negative) Urine Nitrite Negative (Negative) Ur Leukocyte Esterase Negative (Negative) Urine RBC 0-2 (0-2) /HPF Urine WBC 0-5 (0-5) /HPF Ur Squamous Epith Cells 0-2 (0-2) /HPF Urine Bacteria None Seen (None Seen) Hyaline Casts 0-2 (0-2) /LPF Influenza Type A (PCR) NEGATIVE (Negative) Influenza Type B (PCR) NEGATIVE (Negative) RSV RNA Qual (PCR) NEGATIVE (Negative) SARS-CoV-2 RNA (RT-PCR) NEGATIVE (Negative) 10/08/22 Range/Units 11:33 WBC (4.8-10.8) X10*3/uL RBC (4.60-5.80) X10*6/uL Hgb (14.0-18.0) g/dl Hct (42.0-52.0) % MCV (80.0-98.0) fL MCH (27.0-33.0) pg MCHC (31.0-36.0) g/dl RDW (11.0-16.0) % Plt Count (160-400) X10*3/uL MPV (9.4-12.4) fL Absolute Nucleated RBC (0.0-0.012) X10*3/uL Nucleated RBC % (auto) (0.0-0.2) /100WBC PT 11.2 (10.0-13.1) SEC INR 1.0 (0.9-1.1) D-Dimer High Sensitivty 216 NG/ML Sodium (135-145) mmol/L Potassium (3.3-5.1) mmol/L Chloride (96-108) mmol/L Carbon Dioxide (22-29) mmol/L Anion Gap (12-20) BUN (9-16) mg/dL Creatinine (0.5-1.4) mg/dL Estim Creat Clear Calc Estimated GFR Random Glucose (60-115) mg/dL Calcium (8.4-10.2) mg/dL Total Bilirubin (0.0-1.0) mg/dL Direct Bilirubin (0.0-0.5) mg/dL AST (5-37) U/L ALT (0-40) U/L Alkaline Phosphatase (39-117) U/L Troponin I High Sens (<3.5-35.0) ng/L B-Natriuretic Peptide (<100) pg/mL Total Protein (6.5-8.0) g/dL Albumin (3.5-5.0) g/dL Lipase (8-78) U/L Urine Color Urine Appearance Urine pH (5.0-9.0) Ur Specific [place] (1.005-1.025) Urine Protein (Neg-Trace) mg/dL Urine Glucose (UA) (Negative) mg/dL Urine Ketones (Negative) mg/dL Urine Blood (Negative) Urine Nitrite (Negative) Ur Leukocyte Esterase (Negative) Urine RBC (0-2) /HPF Urine WBC (0-5) /HPF Ur Squamous Epith Cells (0-2) /HPF Urine Bacteria (None Seen) Hyaline Casts (0-2) /LPF Influenza Type A (PCR) (Negative) Influenza Type B (PCR) (Negative) RSV RNA Qual (PCR) (Negative) SARS-CoV-2 RNA (RT-PCR) (Negative) Independent Interpretation I performed an independent interpretation of an: EKG Interpretation: Normal sinus rhythm, HR-66, no STEMI, SC/QRS/QTC are within normal limits, no acute changes compared to EKG from 05/2022 Critical Care Time Critical Care Time Critical Care Time: Yes Total Critical Care Time: 60 Attestation: I personally attest to this time spent taking care of the patient. 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 Prescriptions: No Action trazodone 50 mg tablet 50 mg PO BEDTIME PRN (Reason: Insomnia) metformin 1,000 mg tablet 1 tab PO BID colchicine 0.6 mg tablet 1 tab PO DAILY PRN (Reason: GOUT) losartan 100 mg tablet 1 tab PO DAILY amlodipine 10 mg Tablet 10 mg PO DAILY aspirin 81 mg Tablet,Chewable 81 mg PO DAILY cgsqsuvqqjps-aasjyina-ggapfv Tablet 1 tab PO DAILY omega-3 fatty acids Capsule 1,000 mg PO DAILY omeprazole 20 mg Tablet,Delayed Release (Dr/Ec) 20 mg PO DAILY febuxostat 40 mg Tablet 40 mg PO DAILY coenzyme Q10 1 tab PO DAILY ascorbic acid (vitamin C) 500 mg Tablet 1,000 mg PO BID bupropion HCl 100 mg tablet sustained-release 12 hr 2 tab PO BID cephalexin 500 mg capsule 500 mg PO Q8H Qty: 21 0RF cephalexin 500 mg capsule 500 mg PO Q6H 7 Days Qty: 28 0RF doxycycline monohydrate 100 mg capsule 100 mg PO BID Qty: 14 0RF pregabalin 150 mg capsule 150 mg PO BID linagliptin 5 mg tablet 5 mg PO DAILY furosemide 20 mg tablet 20 mg PO DAILY carvedilol 25 mg tablet 25 mg PO BID isosorbide mononitrate 30 mg tablet extended release 24 hr 30 mg PO DAILY glipizide 5 mg tablet 5 mg PO BID clopidogrel 75 mg tablet 75 mg PO DAILY nitroglycerin 0.4 mg tablet, sublingual 0.4 mg sublingual Q5M PRN (Reason: Chest Pain)
[2022-10-08 09:24] LABS: Influenza A PCR NEGATIVE (Negative); Influenza B PCR NEGATIVE (Negative); Resp Syncy Virus RNA Qual PCR NEGATIVE (Negative); SARS COV2 PCR INHOUSE NEGATIVE (Negative)
[2022-10-08] MEDS: iohexoL 350 MG/ML 100 ML INFUS..BTL IV (10:52)
--- NOTE | 2022-10-08 11:15 | MHC.EDTECH ---
@11:[address] [facility] Transfer line. Laurel answers. Laurel asks to speak to Dr. Petersen. Dr. Petersen takes the call right away.
[2022-10-08 11:27] LABS: B Type Natriuretic Peptide 276 pg/mL (<100)
--- NOTE | 2022-10-08 11:27 | MHC.EDTECH ---
@1126 [facility] transfer line calls back, Laurel on the line. Laurel asks to speak with Dr. Petersen. Dr. Petersen picks up the call right away.
[2022-10-08 11:44] LABS: Prothrombin Time 11.2 SEC (10.0-13.1)
[2022-10-08 11:45] LABS: Appearance Urine Clear; Color Urine Yellow; Glucose Urine UA Negative (Negative); Leukocyte Esterase Urine Negative (Negative); Nitrite Urine Negative (Negative); PH 7.5 (5.0-9.0); UMIC TRIGGER UACC YES; Urine Blood Negative (Negative); Urine Ketones Negative (Negative); Urine Protein 30 (1+) mg/dL (Neg-Trace)
[2022-10-08 11:46] LABS: D Dimer High Sensitivity 216 NG/ML
[2022-10-08 11:49] LABS: Bacteria Urine None Seen (None Seen); Hyaline Casts Urine 0-2 /LPF (0-2); RBC Urine 0-2 /HPF (0-2); Squamous Epithelial Cell Urine 0-2 /HPF (0-2); WBC Urine 0-5 /HPF (0-5)
[2022-10-08 12:00] VITALS: BP 177/90; PULSE 65; RESP 18; O2SAT 95
[2022-10-08 12:10] VITALS: BP 173/86; PULSE 66; RESP 16; O2SAT 96
--- NOTE | 2022-10-08 12:31 | MHC.EDTECH ---
@noon Dr. Petresen notified that patient was accepted for transfer to [facility] ED. Accepted by Dr. Quevedo. [facility] booked for ALS transfer.
--- NOTE | 2022-10-09 09:36 | MHC.STROKE ---
LATE ENTRY FOR 10/08/22 0804, WALK-IN C/O UNSTEADY GAIT, N/V. NIHSS = 2 [address] ATAXIA, CT/CTA REVEALED AN ACUTE RIGHT CEREBELLAR ISCHEMIC INFARCT AND RIGHT VERTEBRAL OCCLUSION. UNKNOWN ONSET DATE AND TIME OF STROKE, DISCOVERY OF SYMPTOMS 10/07/22 THEN EVENING PRIOR. NOT A CANDIDATE FOR TPA-THROMBOLYTICS DUE TO UNCLEAR TIMELINE OF THIS STROKE AND IMAGES SEEN ON CT. PATIENT KEPT NPO, TRANSFERRED TO [facility] [place] FOR NEURO-SURGERY BACKUP.
== END 2022-10-08 12:51 | disposition short-term general hospital (02) ==
PROVIDERS: Emergency Provider Student in an Organized Health Care Education/Training Program; PCP Internal Medicine
DX: I63.541 Cerebral infarction due to unspecified occlusion or stenosis of right cerebellar artery (principal); I25.10 Atherosclerotic heart disease of native coronary artery without angina pectoris; M54.6 Pain in thoracic spine; M54.2 Cervicalgia; R51.9 Headache, unspecified; R11.2 Nausea with vomiting, unspecified; R53.1 Weakness; I12.9 Hypertensive chronic kidney disease with stage 1 through stage 4 chronic kidney disease, or unspecified chronic kidney disease; E11.22 Type 2 diabetes mellitus with diabetic chronic kidney disease; N18.9 Chronic kidney disease, unspecified; R06.02 Shortness of breath; Z20.822 Contact with and (suspected) exposure to COVID-19; Z20.828 Contact with and (suspected) exposure to other viral communicable diseases; Z79.84 Long term (current) use of oral hypoglycemic drugs; Z79.899 Other long term (current) drug therapy; Z79.82 Long term (current) use of aspirin
CPT/HCPCS: 0241U; 36415; 70496; 70498; 71250; 74176; 80048; 80076; 81001; 83690; 83880; 84484; 85027; 85379; 85610; 93005; 96374; 99285; J2405; Q9967

== ENCOUNTER 2023-08-04 12:32 | Observation (INO) | payer MEDICARE, OTHER, SELFPAY ==
--- NOTE | ~2023-08-04 | CT_ITS ---
EXAMINATION: CT CHEST WITH CONTRAST CLINICAL INFORMATION: Fall. Trauma. COMPARISON: Previous chest CT September 2022 TECHNIQUE: Multidetector volumetric CT imaging of the chest was obtained after the administration of 85 mL of Omnipaque 350 intravenous contrast without immediate adverse reactions. Axial MIP volume rendering provided. Sagittal and coronal reformatted images were obtained. This CT examination was performed using dose optimization techniques as appropriate, variously including the following: *Automated exposure control *Adjustment of mA and/or kV according to patient size (this includes techniques or standardized protocols for targeted exams where dose is matched to indication/reason for exam; i.e. extremities or head) *Use of iterative reconstruction technique DLP: 391 mGy-cm FINDINGS: LUNGS: Volume loss to the left lower lobe. Small 2 mm calcified left lower lobe nodule axial image 306 series 6 is stable. Question mild increased peripheral interstitial markings versus dependent atelectasis at the lung bases. MEDIASTINUM: Enlarged heart. Coronary artery calcification. No pericardial effusion. No enlarged hilar or mediastinal lymph nodes. Normal caliber thoracic aorta. Right jugular port with tip projecting over the SVC. PLEURA: There is no pleural effusion. No pleural mass or thickening. No pneumothorax. AXILLA: No lymphadenopathy. No chest wall mass. UPPER ABDOMEN: See Abdominal CT the same day OSSEOUS STRUCTURES: Fracture of the right anterior seventh rib near the costochondral junction. Mild acute appearing compression fracture of the superior end plate of the T5 vertebral body. Older left lower anterior rib fractures.. CT/CT chest w IV con IMPRESSION: No evidence for acute disease in the chest. Recent appearing mild compression fracture of the superior endplate of the L5 vertebral body and right anterior rib fracture near the costochondral junction. Fleischner guidelines were followed.
--- NOTE | ~2023-08-04 | CT_ITS ---
EXAMINATION: CT brain and CT cervical spine without contrast. CLINICAL INDICATION: Fall, neck pain. Trauma. COMPARISON: CT brain 10/08/2022. TECHNIQUE: 5 mm thin axial and reformatted 2 mm thin coronal and sagittal images of brain were obtained without contrast. Subsequently axial 3 mm thin and reformatted 2 mm thin sagittal and coronal images of cervical spine were obtained. DLP 1315. This CT examination was performed using dose optimization technique as appropriate, variously including the following: Automated exposure control Adjustment of MA and/or KV according to patient size(this includes techniques or standardized protocols for targeted exams where dose is matched to indication/reason for exam; extremities or head. Use of iterative reconstruction techniques. FINDINGS: Brain: There is no acute intra-axial, extra-axial bleed, masses or midline shift. There is no acute infarction in evolution. There is no edema. There is encephalomalacia right inferior cerebellar hemisphere from old insult. The foley to white matter differentiation is maintained normal. The lateral ventricles are symmetrical in size and configuration without enlargement. Bone windows reveal no calvarial abnormality. There is no scalp soft tissue abnormality. There is diffuse mucoperiosteal thickening and complete opacification of left maxillary sinus. Rest of the paranasal sinuses and mastoid air cells are well aerated. Cervical spine: There is mild straightening of cervical lordosis. The vertebral heights are normal. There is grade 1 anterolisthesis C4 over C5. Rest of the vertebral alignment is normal. The craniovertebral junction and C1-C2 alignment is normal. There is no visible acute fracture, dislocation or subluxation seen. There is bilateral C4-C5, left C3-C4 facet joint arthropathy and hypertrophy. The neural foramina are patent. The spinal canal is capacious.. The lung apices are clear CT/CT cervical spine wo IV con IMPRESSION: 1. No acute intracranial process seen. 2. 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 Chronic left maxillary sinus inflammatory changes. 2. There is no acute fracture, dislocation or subluxation in cervical spine. There is grade 1 anterolisthesis C4 over C5. There are degenerative facet joint arthropathy changes as described above.
--- NOTE | ~2023-08-04 | CT_ITS ---
EXAMINATION: CT ABDOMEN AND PELVIS WITH CONTRAST CLINICAL INFORMATION: Fall. Abdominal trauma. COMPARISON: Previous CT of the abdomen and pelvis September 2022 TECHNIQUE: Multidetector volumetric images were obtained from the superior aspect of the liver through the pubic symphysis following administration 85 mL of Omnipaque 350 intravenous contrast. Sagittal and coronal reformatted images were obtained on the technologist's workstation. Oral contrast: Yes This CT examination was performed using dose optimization techniques as appropriate, variously including the following: *Automated exposure control *Adjustment of mA and/or kV according to patient size (this includes techniques or standardized protocols for targeted exams where dose is matched to indication/reason for exam; i.e. extremities or head) *Use of iterative reconstruction technique DLP: 1100 mGy-cm FINDINGS: LIVER, GALLBLADDER, AND BILIARY TREE: The liver is normal in attenuation. The left lobe and caudate lobe are prominent in the liver is slightly irregular in contour questionable for mild cirrhotic change. There is a small subcentimeter low-attenuation lesion in the posterior segment of the right lobe of the liver axial characterize due to small size but stable from older exams and may represent a cyst. No suspicious liver lesion. Gallbladder. No biliary duct dilatation. PANCREAS: Unremarkable. SPLEEN: Unremarkable. ADRENAL GLANDS: Unremarkable. KIDNEYS AND URETERS: 3.6 x 4.4 x 2.8 cm irregularly-shaped mass exophytic to the anterior lateral upper pole of the right kidney. This does not appear appreciably changed in size from most recent exam from September 2022 but is increased in size from older exams. There is a 1.8 cm mass in the perinephric adjacent to the medial upper pole axial image 30 series 5 mm exam and appears increased in size. This appears separate from both the right kidney and right adrenal gland. There are multiple bilateral renal cysts, Right greater than left. No imaging follow-up of renal cysts recommended. BLADDER: Several small bladder diverticuli. The prostate gland protrudes into the base of the bladder. GASTROINTESTINAL TRACT: Diverticulosis of the colon. No evidence of diverticulitis. There is also diverticulosis of small bowel. The appendix is not seen. No inflammatory changes in the right lower quadrant. There is question of mild thickening and wall thickening of the proximal stomach versus changes due to underdistention. ABDOMINAL WALL: Left inguinal hernia containing fat. LYMPH NODES: Enlarged retroperitoneal aortocaval lymph node. This measures 2.8 cm in short axis axial image 41 series size from 2.2 cm exam. VASCULAR: Atherosclerotic disease. No aneurysm. PELVIC VISCERA: The prostate gland is enlarged and protrudes into the base of bladder. OSSEOUS STRUCTURES: Unremarkable. CT/CT abdomen pelvis w IV con IMPRESSION: No acute post traumatic findings. Right renal mass. This does not appear appreciably changed in size from most recent exam September 2022 exam but is increased in size from earlier exams. Increasing right perinephric soft tissue mass and very enlarged retroperitoneal aortocaval lymph node. Diverticulosis of the small and large bowel. No evidence of diverticulitis. Question mild cirrhotic changes of the liver. Enlarged prostate gland that protrudes into the base of the bladder. Multiple small bladder diverticuli. Fleischner guidelines were followed.
--- NOTE | 2023-08-04 13:54 | ECG_ITS ---
Test Reason : fall Blood Pressure : / mmHG Vent. Rate : 065 BPM Atrial Rate : 065 BPM P-R Int : 182 ms QRS Dur : 092 ms QT Int : 424 ms P-R-T Axes : 013 -14 084 degrees QTc Int : 440 ms Normal sinus rhythm Inferior infarct (cited on or before 25-MAY-2016) Anterior infarct (cited on or before 18-MAY-2016) Abnormal ECG When compared with ECG of 08-OCT-2022 08:54, No significant change was found Referred By: Valentina Kirby Electronically Signed By:MAAME BESS MD
[2023-08-04 13:56] VITALS: BP 161/70; PULSE 67; RESP 18; TEMP 36.4; O2SAT 94; BMI 39.2
--- NOTE | 2023-08-04 14:02 | ED_ITS ---
HPI - General Adult General Chief complaint: Fall Stated complaint: Head Injury S/P Fall 08/04/23 Time Seen by Provider: 08/04/23 13:54 Source: patient Mode of arrival: ambulatory Limitations: no limitations History of Present Illness HPI narrative: 82-year-old male history of CAD, CHF, malignant kidney mass, CVA, CKD, DM, HLD presenting status post fall earlier today about 2-1/2 hours ago. Patient states he does not know how he fell, he may have been a little dizzy prior to the fall possibly having chest pain or shortness of breath he does not remember vividly. He says he fell, hit his head, no loss of consciousness, he reports he is anticoagulated. After the fall so reporting lower back pain in the lumbar region bilaterally and to the middle of the spine. Denies urinary /bowel incontinence /retention, saddle paresthesias, weakness, nausea, vomiting, abdominal pain, chest pain shortness of breath at this time. Is still complaining of dizziness with positional changes and a diffuse headache. NIHSS-0 GCS-15 Related Data Home Medications Medication Instructions Recorded Confirmed carvedilol 25 mg tablet 25 mg PO BID 02/03/21 05/16/22 clopidogrel 75 mg tablet 75 mg PO DAILY 02/03/21 05/16/22 furosemide 20 mg tablet 20 mg PO DAILY 02/03/21 05/16/22 glipizide 5 mg tablet 5 mg PO BID 02/03/21 isosorbide mononitrate 30 mg 30 mg PO DAILY 02/03/21 05/18/22 tablet,extended release 24 hr linagliptin 5 mg tablet 5 mg PO DAILY 02/03/21 05/18/22 nitroglycerin 0.4 mg sublingual 0.4 mg sublingual Q5M PRN Chest 02/03/21 05/16/22 tablet Pain pregabalin 150 mg capsule 150 mg PO BID 02/03/21 05/16/22 amlodipine 10 mg tablet 10 mg PO DAILY 05/16/22 05/16/22 aspirin 81 mg chewable tablet 81 mg PO DAILY 05/16/22 05/16/22 coenzyme Q10 1 tab PO DAILY 05/16/22 05/16/22 colchicine (gout) 0.6 mg tablet 1 tab PO DAILY PRN GOUT 05/16/22 05/16/22 febuxostat 40 mg tablet 40 mg PO DAILY 05/16/22 05/16/22 losartan 100 mg tablet 1 tab PO DAILY 05/16/22 05/16/22 metformin 1,000 mg tablet 1 tab PO BID 05/16/22 05/16/22 iuzcpshkpicw-dxgnpeen-phidkg tablet 1 tab PO DAILY 05/16/22 05/16/22 omega-3 fatty acids 1,000 mg PO DAILY 05/16/22 05/16/22 omeprazole 20 mg tablet,delayed 20 mg PO DAILY 05/16/22 05/16/22 release trazodone 50 mg tablet 50 mg PO BEDTIME PRN Insomnia 05/16/22 05/16/22 ascorbic acid (vitamin C) 500 mg 1,000 mg PO BID 05/18/22 05/18/22 tablet bupropion HCl 100 mg tablet,12 hr 2 tab PO BID 05/18/22 05/18/22 sustained-release Previous Rx's Medication Instructions Recorded cephalexin 500 mg capsule 500 mg PO Q8H #21 caps 05/18/22 cephalexin 500 mg capsule 500 mg PO Q6H 7 days #28 caps 06/14/22 doxycycline monohydrate 100 mg 100 mg PO BID #14 [facility] 06/14/22 capsule Allergies Allergy/AdvReac Type Severity Reaction Status Date / Time hydrocodone [From VICODIN] Allergy Unknown SWELLING Unverified 02/03/21 09:47 oxycodone Allergy Unknown itching Verified 02/03/21 09:47 Review of Systems 2 Review of Systems: Constitutional : No Weight loss, No Fever, No Chills, No Fatigue, No Malaise ENT/Mouth : No sore throat, No Rhinorrhea Eyes: No Eye Pain, No Swelling, No Redness Cardiovascular : No Chest Pain, No SOB, No Dyspnea on Exertion, No Orthopnea, No Edema, No Palpitations Respiratory : No Cough, No Sputum, No Wheezing Gastrointestinal : No Nausea, No Vomiting, No Diarrhea, No Constipation, No abdominal Pain, No Hematochezia, No Melena Genitourinary : No Dysuria, No Urinary Frequency, No Hematuria, Musculoskeletal : No joint pain, No Myalgias, No Joint Swelling, + back pain Skin : No Skin Lesions, No rash, + laceration Neuro : No Weakness, No Numbness, No Dizziness, + Headache Psych : No Anxiety/Panic, No Depression All other systems reviewed and are negative Yes all other systems are reviewed and are negative [facility] Past Medical History Attestation statement: The following information was validated with the patient. 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 Oriented X3.? No acute distress.? Head: Normocephalic, atraumatic, no step-offs or deformities 2 cm linear laceration to the occipital region of head on the right side Eyes: Pupils equal, round and reactive to light.? Neck: Normal inspection.? Neck supple.? CVS: Normal heart rate and rhythm.? Pulses normal.? Respiratory: No respiratory distress.? Breath sounds normal.? Abdomen: Soft and nontender.? Skin: Skin warm and dry.? Normal skin color.? Normal skin turgor.? Extremities: No lower extremity edema.? No calf ttp. 5/5 strength to bilateral upper and lower extremities Back: No midline tenderness, no C-spine tenderness, full range of motion, no CVA tenderness bilaterally + b/l lumbar paraspinous tenderness throughout Neuro: Oriented X 3.? No motor deficit.? No sensory deficit. CN 2-12 intact . No saddle pareesthesias. Normal hdgxzg-hz-soiw, aofq-nf-eydl, steady tandem gait normal coordination. Negative Romberg and pronator drift. Course Reevaluation(s) Reevaluation #1: Patient's CBC appears to be around his baseline within normocytic anemia. Chemistry with slight acute kidney injury, will give a 500 cc bolus of normal saline, patient with history of CHF therefore will gently hydrate, troponin negative, EKG nonischemic will repeat troponin at 03:00 hour pati --> 5:20. CT head and cervical spine pending. Patient does not have a line at this time that is accessible for CT therefore they will bring him back to do chest, abdomen or pelvis. Orthostatic vitals pending. Time: 15:38 Reevaluation #2: Will sign out case to Leigha HI Time: 15:40 Medical Decision Making Medical Decision Making [facility] Narrative: 1406 82-year-old male anticoagulated on Eliquis presents status post unwitnessed fall with laceration to head, back pain, headache, dizziness prior to fall. physical examination with a 2 cm laceration to the right occipital region of head neuro exam nonfocal, cerebellar intact. Regular rate and rhythm. Lungs clear. Abdomen soft nontender nondistended. No cervical spine tenderness. No saddle paresthesias laceration likely secondary to fall, simple laceration low suspicion for skull fracture, was actively bleeding upon arrival repaired immediately with 3 sadiq. I do not suspect stroke, posterior stroke, intracranial hemorrhage however will rule out. Unlikely traumatic injury to chest, abdomen or pelvis however will also rule this out with CT scan. Back pain likely secondary to fall, contusion, paraspinous muscle spasms, low suspicion for cord compression, cauda equina. No red flag symptoms of back pain. Will rule out orthostatic hypotension, metabolic derangements and anemia. Will also rule out dysrhythmia. Low suspicion for Acs. patient anticoagulated unlikely pulmonary embolism. history and physical exam not consistent with dissection Plan at this time Differential Diagnosis Differential Diagnoses: The differential diagnosis associated with the presentation includes laceration likely secondary to fall, simple laceration low suspicion for skull fracture, was actively bleeding upon arrival repaired immediately with 3 sadiq. I do not suspect stroke, posterior stroke, intracranial hemorrhage however will rule out. Unlikely traumatic injury to chest, abdomen or pelvis however will also rule this out with CT scan. Back pain likely secondary to fall, contusion, paraspinous muscle spasms, low suspicion for cord compression, cauda equina. No red flag symptoms of back pain. Will rule out orthostatic hypotension, metabolic derangements and anemia. Will also rule out dysrhythmia. Low suspicion for Acs. patient anticoagulated unlikely pulmonary embolism. history and physical exam not consistent with dissection Admission/Observation Consideration of admission/observation: Escalation of care including admission/observation considered posisble Lab Data MDM Lab Attestation statement: I reviewed the patient's lab results. 08/04/23 14:20 08/04/23 14:20 Labs: Lab Results 08/04/23 Range/Units 14:20 WBC 7.7 (4.8-10.8) X10*3/uL RBC 4.65 (4.60-5.80) X10*6/uL Hgb 12.9 L (14.0-18.0) g/dl Hct 39.4 L (42.0-52.0) % MCV 84.7 (80.0-98.0) fL MCH 27.7 (27.0-33.0) pg MCHC 32.7 (31.0-36.0) g/dl RDW 16.1 H (11.0-16.0) % Plt Count 284 (160-400) X10*3/uL MPV 8.9 L (9.4-12.4) fL Immature Gran % (Auto) 0.5 H (0.0-0.4) % Neut % (Auto) 64.3 (45-73) % Lymph % (Auto) 18.0 L (20-40) % Frederick % (Auto) 9.5 (2-11) % Eos % (Auto) 6.7 H (0-4) % Baso % (Auto) 1.0 (0-2) % Lymph # (Auto) 1.4 (1.2-4.9) X10*3/uL Frederick # (Auto) 0.7 (0.1-1.2) X10*3/uL Eos # (Auto) 0.5 H (0.0-0.4) X10*3/uL Baso # (Auto) 0.1 (0.0-0.2) X10*3/uL Abs Immat Gran (auto) 0.04 H (0.00-0.03) X10*3/uL Absolute Neuts (auto) 5.0 (2.0-8.3) x10*3/uL Absolute Nucleated RBC 0.000 (0.0-0.012) X10*3/uL Nucleated RBC % (auto) 0.0 (0.0-0.2) /100WBC PT 13.7 H (11.1-13.3) SEC INR 1.1 (0.9-1.1) Sodium 139 (135-145) mmol/L Potassium 4.5 (3.3-5.1) mmol/L Chloride 98 (96-108) mmol/L Carbon Dioxide 28 (22-29) mmol/L Anion Gap 18 (12-20) BUN 32 H (9-16) mg/dL Creatinine 1.70 H (0.5-1.4) mg/dL Estim Creat Clear Calc 37.6 Estimated GFR 39 Random Glucose 112 (60-115) mg/dL Calcium 9.1 D (8.4-10.2) mg/dL Total Bilirubin 0.5 (0.0-1.0) mg/dL AST 25 (5-37) U/L ALT 18 (0-40) U/L Alkaline Phosphatase 78 (39-117) U/L Troponin I High Sens 5.1 D (<3.5-35.0) ng/L Total Protein 6.9 (6.5-8.0) g/dL Albumin 3.7 (3.5-5.0) g/dL Independent Interpretation I performed an independent interpretation of an: EKG (Vent rate 65, normal p, qt/qtc ekg w/ NSR no CINDA or inversions no signs of ischemia. ), Plain X-Ray and CT Scan Radiology Impression Discussion of test interpretation with radiology: I have reviewed the radiologist's reading. Independent Historian Clinical information obtained from an independent historian. History obtained from or confirmed by: Other (son ) External Record Review External record reviewed: Inpatient record, Office record, Outpatient record, Prior outpatient labs, Prior outpatient radiology, Primary care record and Outside ED record Critical Care Time Critical Care Time Critical Care Time: No Discharge Plan Discharge Clinical Impression: Fall, Concussion, Laceration of head, Lower back pain, Dizziness Patient Disposition: Still a Patient Instructions: Laceration (ED), Concussion (ED), Back Pain (ED), Fall Prevention (ED) Additional Instructions: Take your medications as prescribed. If you were prescribed antibiotics today, it is important that you take your medication to their entirety, do not skip any doses, do not finish them early. Follow-up with your primary care provider this week. Return to the emergency department with new or worsening symptoms. Such as fevers, chills, chest pain, shortness of breath, nausea, vomiting, dizziness, headache, vision changes, lethargy In case of emergency call 911 return in 5-7 days for staple removal. Prescriptions: No Action trazodone 50 mg tablet 50 mg PO BEDTIME PRN (Reason: Insomnia) metformin 1,000 mg tablet 1 tab PO BID colchicine (gout) 0.6 mg tablet 1 tab PO DAILY PRN (Reason: GOUT) losartan 100 mg tablet 1 tab PO DAILY amlodipine 10 mg Tablet 10 mg PO DAILY aspirin 81 mg Tablet,Chewable 81 mg PO DAILY ihcgeqshjlfu-wjezekfx-gwtzxj Tablet 1 tab PO DAILY omega-3 fatty acids Capsule 1,000 mg PO DAILY omeprazole 20 mg Tablet,Delayed Release (Dr/Ec) 20 mg PO DAILY febuxostat 40 mg Tablet 40 mg PO DAILY coenzyme Q10 1 tab PO DAILY ascorbic acid (vitamin C) 500 mg Tablet 1,000 mg PO BID bupropion HCl 100 mg tablet sustained-release 12 hr 2 tab PO BID cephalexin 500 mg capsule 500 mg PO Q8H Qty: 21 0RF cephalexin 500 mg capsule 500 mg PO Q6H 7 Days Qty: 28 0RF doxycycline monohydrate 100 mg capsule 100 mg PO BID Qty: 14 0RF pregabalin 150 mg capsule 150 mg PO BID linagliptin 5 mg tablet 5 mg PO DAILY furosemide 20 mg tablet 20 mg PO DAILY carvedilol 25 mg tablet 25 mg PO BID isosorbide mononitrate 30 mg tablet extended release 24 hr 30 mg PO DAILY glipizide 5 mg tablet 5 mg PO BID clopidogrel 75 mg tablet 75 mg PO DAILY nitroglycerin 0.4 mg tablet, sublingual 0.4 mg sublingual Q5M PRN (Reason: Chest Pain) Referrals: Gume Bonilla MD [Primary Care Provider] - 2 days
[2023-08-04 14:23] LABS: MANUAL DIFF FLAG NO
[2023-08-04 14:25] LABS: Basophils Absolute Auto 0.1 X10*3/uL (0.0-0.2); Eosinophils Absolute Auto 0.5 X10*3/uL (0.0-0.4); Eosinophils Percent Auto 6.7 % (0-4); Hematocrit 39.4 % (42.0-52.0); Hemoglobin 12.9 g/dl (14.0-18.0); Imm Gran Abs Auto 0.04 X10*3/uL (0.00-0.03); Imm Gran Pct Auto 0.5 % (0.0-0.4); Lymphocytes Absolute Auto 1.4 X10*3/uL (1.2-4.9); Mean Corpuscular HGB Conc 32.7 g/dl (31.0-36.0); Mean Corpuscular Hemoglobin 27.7 pg (27.0-33.0); Mean Corpuscular Volume 84.7 fL (80.0-98.0); Mean Platelet Volume 8.9 fL (9.4-12.4); Monocytes Absolute Auto 0.7 X10*3/uL (0.1-1.2); Monocytes Percent Auto 9.5 % (2-11); Neutrophils Percent Auto 64.3 % (45-73); Platelet Count 284 X10*3/uL (160-400); Red Blood Count 4.65 X10*6/uL (4.60-5.80); Red Cell Distribution Width 16.1 % (11.0-16.0); White Blood Count 7.7 X10*3/uL (4.8-10.8)
[2023-08-04 14:44] LABS: Alanine Aminotransferase 18 U/L (0-40); Albumin Level 3.7 g/dL (3.5-5.0); Alkaline Phosphatase 78 U/L (39-117); Anion Gap 18 (12-20); Aspartate Amino Transferase 25 U/L (5-37); Bilirubin Total 0.5 mg/dL (0.0-1.0); Blood Urea Nitrogen 32 mg/dL (9-16); Calcium 9.1 mg/dL (8.4-10.2); Carbon Dioxide 28 mmol/L (22-29); Chloride 98 mmol/L (96-108); Creatinine Clr Calc Pharmacy 37.6; Estimated Glomerular Filt Rate 39; Glucose Random 112 mg/dL (60-115); Potassium 4.5 mmol/L (3.3-5.1); Sodium 139 mmol/L (135-145); Total Protein 6.9 g/dL (6.5-8.0)
--- NOTE | 2023-08-04 15:55 | PC.NURSE ---
This RN re-accessed patient's port in sterile fashion. pt tolerated procedure well with no complications
[2023-08-04 16:09] VITALS: BP 149/66; PULSE 64
[2023-08-04 16:11] VITALS: BP 155/75; PULSE 64
[2023-08-04 16:16] VITALS: BP 132/67; PULSE 68
--- NOTE | 2023-08-04 16:22 | MHC.EDTECH ---
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
[2023-08-04 16:29] LABS: Troponin-I High Sensitivity 6.7 ng/L (<3.5-35.0)
[2023-08-04] MEDS: 0.9 % Sodium Chloride 1,000 ML 999 ML IV (16:57)
[2023-08-04] MEDS: iohexoL 350 MG/ML 100 ML INFUS..BTL IV (17:59)
[2023-08-04 19:28] VITALS: BP 181/67; PULSE 67; RESP 16; TEMP 36.4; O2SAT 98
--- NOTE | 2023-08-04 19:48 | P.HPHOSP_ITS ---
History of Present Illness Date of Service: 08/04/23 Attending physician on admission: Taras Giraldo Chief Complaint: fall 82-year-old male with history of coronary artery disease, chronic systolic congestive heart failure, malignant renal mass, history CVA, CKD stage 3, type 2 diabetes, hyperlipidemia presented to the ED for evaluation of a fall with head injury that occurred earlier today. The patient is unable to recall exact details surrounding the fall but states he may have been dizzy prior to the fall. He did hit his head but did not lose consciousness. He does take aspirin and is also taking Eliquis due to history of CVA. He states he drinks about 5-6 bottles of water daily, but had 2 episodes of large volume diarrhea yesterday, none today. He states he is getting what sounds like immunotherapy every [address] Aleman at [facility] for about one year and since then has intermittent diarrhea. On arrival, patient was bleeding from the scalp and 3 sadiq were applied by ED provider. On admission, patient hypertensive to 181/67, vitals otherwise within normal limits. Hematology studies unremarkable. Creatinine slightly elevated at 1.70, BUN 32, electrolyte levels normal. Troponin levels within normal limit and flat. Orthostatic vital signs were found to be positive with drop in BP from 155/75 when sitting to 132/[address] of the head was negative for any acute intracranial process but does show encephalomalacia. There are no acute fractures, dislocations, or subluxation of the cervical spine. CT chest negative for any acute disease in the chest. There is a recent appearing mild compression fracture of the L5 vertebral body and right anterior rib fracture near the costochondral junction. EKG shows normal sinus rhythm, rate 65. No acute ischemic changes. In the ED, given 1 L IV NS. Review of Systems 2 Review of Systems: General: No fevers, malaise, unintentional weight loss HEENT: No blurred vision, diplopia. No sore throat, nasal congestion, rhinorrhea, sinus pain, ear pain Cardiovascular: No chest pain, palpitations, or leg edema Respiratory: No shortness of breath, wheezing, cough GI: No abdominal pain, nausea, vomiting, diarrhea, constipation, melena, hematochezia : No dysuria, hematuria, increased urinary frequency, decreased urinary output MSK: No myalgia, back pain Neuro: No headaches, weakness, paresthesias Skin: No rashes or lesions [facility] Medical History Chronic systolic CHF (congestive heart failure) CKD (chronic kidney disease) Diabetes Hyperlipidemia HTN (hypertension) Renal mass CAD (coronary artery disease) Family History Other CAD (coronary artery disease) Social History Household Members: Children Household Members Other:: Son Housing: House Do you presently have visiting nurse or other home services: No Alcohol intake: never Patient Tobacco Use Status: Never used Tobacco Advance Directives: No service: Yes Current occupational status: employed 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 [employer] Allergies Allergy/AdvReac Type Severity Reaction Status Date / Time hydrocodone [From VICODIN] Allergy Unknown SWELLING Unverified 02/03/21 09:47 oxycodone Allergy Unknown itching Verified 02/03/21 09:47 Active Medications: Current Medications Acetaminophen (Acetaminophen 325 Mg Tablet) 650 mg PO Q6H PRN PRN Reason: Pain, Mild (Pain Scale 1-3) Enoxaparin Sodium (Enoxaparin Sodium 40 Mg/0.4 Ml Syringe) 40 mg SUBCUT Q24H [facility] Melatonin (Melatonin 3 Mg Tablet) 6 mg PO BEDTIME PRN PRN Reason: Insomnia Ondansetron HCl (Ondansetron Hcl 4 Mg/2 Ml Vial) 4 mg IVPUSH Q8H PRN PRN Reason: Nausea and Vomiting Sodium Chloride (0.9 % Sodium Chloride Flush 3 Ml Syringe) 3 ml IVFLUSH QSHIFT [facility] Home Medications Medication Instructions Recorded Confirmed Last Taken Type carvedilol 25 mg tablet 25 mg PO BID 02/03/21 08/04/23 08/04/23 History clopidogrel 75 mg tablet 75 mg PO DAILY 02/03/21 08/04/23 08/04/23 History furosemide 20 mg tablet 20 mg PO DAILY 02/03/21 08/04/23 08/04/23 History glipizide 5 mg tablet 5 mg PO BID 02/03/21 08/04/23 08/04/23 History nitroglycerin 0.4 mg sublingual 0.4 mg sublingual Q5M PRN Chest 02/03/21 08/04/23 Unknown History tablet Pain pregabalin 150 mg capsule 150 mg PO BID 02/03/21 08/04/23 08/04/23 History amlodipine 10 mg tablet 10 mg PO DAILY 05/16/22 08/04/23 08/04/23 History aspirin 81 mg chewable tablet 81 mg PO DAILY 05/16/22 08/04/23 08/04/23 History coenzyme Q10 1 tab PO DAILY 05/16/22 08/04/23 08/04/23 History colchicine (gout) 0.6 mg tablet 1 tab PO DAILY PRN GOUT 05/16/22 08/04/23 05/15/22 History losartan 100 mg tablet 1 tab PO DAILY 05/16/22 08/04/23 08/04/23 History metformin 1,000 mg tablet 1 tab PO BID 05/16/22 08/04/23 08/04/23 History uidbrnltfpfe-vpneflly-ezjvms tablet 1 tab PO DAILY 05/16/22 08/04/23 08/04/23 History omeprazole 20 mg tablet,delayed 20 mg PO DAILY 05/16/22 08/04/23 08/04/23 History release ascorbic acid (vitamin C) 500 mg 1,000 mg PO BID 05/18/22 08/04/23 08/04/23 History tablet apixaban 2.5 mg tablet (Eliquis) 2.5 mg PO BID 08/04/23 08/04/23 08/04/23 History chlorthalidone 25 mg tablet 25 mg PO DAILY 08/04/23 08/04/23 08/04/23 History ezetimibe 10 mg tablet 10 mg PO DAILY 08/04/23 08/04/23 08/04/23 History trazodone 100 mg tablet 100 mg PO DAILY PRN Insomnia 08/04/23 08/04/23 Unknown History Physical Exam 2 Vital Signs and Narrative: Vital Signs: Last Vital Signs Temp 97.6 F 08/04/23 19:28 Pulse 67 08/04/23 19:28 Resp 16 08/04/23 19:28 BP 181/67 H 08/04/23 19:28 Pulse Ox 98 08/04/23 19:28 O2 Del Method Room Air 08/04/23 19:28 BMI result Body Mass Index 39.2 Constitutional - Awake and Alert, No apparent distress Eyes - PERRLA, EOMI Cardiovascular - S1S2, RRR, No edema Respiratory - Normal lung expansion, Normal respiratory effort, No respiratory distress, CTA bilaterally Gastrointestinal - NT / ND; +BS; No rebound or guarding Extremities - no calf tenderness bilaterally, no swelling Skin - Warm/Dry Neurological - Alert & oriented x3, CN II-XII in tact, 5/5 strength BUE and BLE Psychological - Appropriate affect Results Labs 08/04/23 14:20 08/04/23 14:20 Labs: Laboratory Results - last 24 hr 08/04/23 14:20 MCV 84.7 MCH 27.7 MCHC 32.7 RDW 16.1 H Plt Count 284 MPV 8.9 L Immature Gran % (Auto) 0.5 H Neut % (Auto) 64.3 Lymph % (Auto) 18.0 L [place] % (Auto) 9.5 Eos % (Auto) 6.7 H Baso % (Auto) 1.0 Lymph # (Auto) 1.4 [place] # (Auto) 0.7 Eos # (Auto) 0.5 H Baso # (Auto) 0.1 Abs Immat Gran (auto) 0.04 H Absolute Neuts (auto) 5.0 Absolute Nucleated RBC 0.000 Nucleated RBC % (auto) 0.0 PT 13.7 H INR 1.1 Anion Gap 18 Estim Creat Clear Calc 37.6 Estimated GFR 39 Random Glucose 112 Calcium 9.1 D Total Bilirubin 0.5 AST 25 ALT 18 Alkaline Phosphatase 78 Total Protein 6.9 Albumin 3.7 Imaging Radiologist's Impressions: Impressions Cervical Spine CT 08/04/23 15:33 IMPRESSION: 1. No acute intracranial process seen. 2. 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 Chronic left maxillary sinus inflammatory changes. 2. There is no acute fracture, dislocation or subluxation in cervical spine. There is grade 1 anterolisthesis C4 over C5. There are degenerative facet joint arthropathy changes as described above. Head CT 08/04/23 15:33 IMPRESSION: 1. No acute intracranial process seen. 2. 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 Chronic left maxillary sinus inflammatory changes. 2. There is no acute fracture, dislocation or subluxation in cervical spine. There is grade 1 anterolisthesis C4 over C5. There are degenerative facet joint arthropathy changes as described above. Abdomen/Pelvis CT 08/04/23 18:18 IMPRESSION: No acute post traumatic findings. Right renal mass. This does not appear appreciably changed in size from most recent exam September 2022 exam but is increased in size from earlier exams. Increasing right perinephric soft tissue mass and very enlarged retroperitoneal aortocaval lymph node. Diverticulosis of the small and large bowel. No evidence of diverticulitis. Question mild cirrhotic changes of the liver. Enlarged prostate gland that protrudes into the base of the bladder. Multiple small bladder diverticuli. Fleischner guidelines were followed. Chest CT 08/04/23 18:19 IMPRESSION: No evidence for acute disease in the chest. Recent appearing mild compression fracture of the superior endplate of the L5 vertebral body and right anterior rib fracture near the costochondral junction. Fleischner guidelines were followed. Assessment and Plan (1) Orthostatic hypotension: Status: Acute (2) Fracture of rib: Status: Acute (3) Compression fracture of L5 vertebra: Status: Acute (4) Laceration of head: Status: Acute (5) Concussion: Status: Acute (6) BUTCH (acute kidney injury): Status: Acute Plan 82-year-old male with history of coronary artery disease, chronic systolic congestive heart failure, malignant renal mass, history CVA, CKD stage 3, type 2 diabetes, hyperlipidemia to be observed for orthostatic near syncope with fall. #Orthostatic near syncope -likely r/t fluid loss from chronic intermittent large volume diarrhea -given 1 L IVF in the ED -repeat orthostatics a.m. -monitor on telemetry # acute kidney injury-likely prerenal secondary to GI loss -creatinine 1.70, baseline around 1.3 -has CKD stage 3 at baseline -given 1 L IVF -avoid nephrotoxins -follow BMP # head injury with question of loss of consciousness and mild concussion- secondary to above -on Eliquis -head CT negative for any acute intracranial abnormality, cervical spine CT negative for any fracture, subluxation, or dislocation -3 sadiq placed in parietal scalp -recommend cognitive rest # acute compression fracture at L5 -secondary to fall -pain management p.r.n. # rib fracture -pain management p.r.n. # history CVA -continue aspirin and Eliquis -no longer on Plavix # chronic systolic congestive heart failure -no acute exacerbation -hold on further IV fluids -continue p.o. furosemide # hpw-ddjypdf-vnmutzxew type 2 diabetes -hold oral antihyperglycemics -POC glucose -diabetic diet -Humalog on sliding scale # CAD -no anginal chest pain -continue aspirin, beta-ambika DVT prophylaxis-on Eliquis DNR/DNI Time Spent With Patient Time: Total time managing care of this patient today ____ minutes. Quality Stroke Does the patient have a stroke diagnosis?: No VTE Prior VTE?: No VTE Risk Level:: Medical - moderate - high VTE Device Contraindication: Treatment Not Indicated VTE Drug Contraindication: N/A - Med Ordered
--- NOTE | 2023-08-04 19:51 | MHC.EDTECH ---
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
[2023-08-04] MEDS: Enoxaparin Sodium 40 MG/0.4 ML SYRINGE SUBCUT (19:55)
[2023-08-04] MEDS: fentaNYL citrate/PF 100 MCG/2 ML VIAL 25 MCG IVPUSH (19:55)
--- NOTE | 2023-08-04 20:09 | PHA.MEDREC ---
Pharmacy Consult ? Medication Reconciliation Pharmacy has completed the medication reconciliation. Patient confirmed medications based on claim history and previous medical records. Tyrese CalvinD
[2023-08-04 21:15] LABS: Glucose, Whole Blood 131 mg/dL (60-115)
[2023-08-04] MEDS: carvediloL 25 MG TABLET PO (21:28)
[2023-08-04] MEDS: Pregabalin 150 MG CAPSULE PO (21:28)
[2023-08-04] MEDS: Ascorbic Acid 500 MG TABLET 1000 MG PO (21:28)
--- NOTE | 2023-08-04 21:59 | MHC.EDTECH ---
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
[2023-08-04 23:52] VITALS: BP 140/69; PULSE 63; RESP 12; TEMP 36.6; O2SAT 97
--- NOTE | 2023-08-04 23:54 | MHC.EDTECH ---
rounding complete,vital done, pt is resting continued to be on dba developer.
[2023-08-05] MEDS: 0.9 % Sodium Chloride Flush 3 ML SYRINGE IVFLUSH ×2 (01:49→08:15)
--- NOTE | 2023-08-05 02:24 | MHC.EDTECH ---
PATIENT WAS ASSISTED TO WALK TO BATHROOM WITH CANE ,VOID AND HAD MODERATE SOFT BOWEL MOVEMENT ,PT BACK TO BED ,AND WAS HOOKED UP TO CARDIAC ,WARM BLANKET GIVEN .
[2023-08-05 04:39] VITALS: BP 135/60; PULSE 61; RESP 13; O2SAT 91
[2023-08-05 05:23] LABS: MANUAL DIFF FLAG NO
[2023-08-05 05:38] LABS: Basophils Absolute Auto 0.1 X10*3/uL (0.0-0.2); Eosinophils Absolute Auto 0.5 X10*3/uL (0.0-0.4); Eosinophils Percent Auto 7.9 % (0-4); Hematocrit 37.8 % (42.0-52.0); Hemoglobin 12.2 g/dl (14.0-18.0); Imm Gran Abs Auto 0.01 X10*3/uL (0.00-0.03); Imm Gran Pct Auto 0.2 % (0.0-0.4); Lymphocytes Absolute Auto 1.4 X10*3/uL (1.2-4.9); Lymphocytes Percent Auto 23.2 % (20-40); Mean Corpuscular HGB Conc 32.3 g/dl (31.0-36.0); Mean Corpuscular Hemoglobin 27.5 pg (27.0-33.0); Mean Corpuscular Volume 85.3 fL (80.0-98.0); Mean Platelet Volume 9.1 fL (9.4-12.4); Monocytes Absolute Auto 0.7 X10*3/uL (0.1-1.2); Monocytes Percent Auto 10.7 % (2-11); Neutrophils Absolute Auto 3.5 x10*3/uL (2.0-8.3); Platelet Count 276 X10*3/uL (160-400); Red Blood Count 4.43 X10*6/uL (4.60-5.80); White Blood Count 6.2 X10*3/uL (4.8-10.8)
[2023-08-05 05:52] LABS: Anion Gap 16 (12-20); Blood Urea Nitrogen 32 mg/dL (9-16); Calcium 9.5 mg/dL (8.4-10.2); Carbon Dioxide 27 mmol/L (22-29); Chloride 100 mmol/L (96-108); Creatinine Clr Calc Pharmacy 41.3; Estimated Glomerular Filt Rate 44; Glucose Random 115 mg/dL (60-115); Sodium 139 mmol/L (135-145)
[2023-08-05 06:08] VITALS: BP 144/78; BP 150/72; BP 158/73; PULSE 70; PULSE 71
[2023-08-05 07:55] LABS: Glucose, Whole Blood 116 mg/dL (60-115)
[2023-08-05 08:12] VITALS: BP 156/71; PULSE 70; RESP 20; O2SAT 95
[2023-08-05] MEDS: carvediloL 25 MG TABLET PO (08:14)
[2023-08-05] MEDS: Ascorbic Acid 500 MG TABLET 1000 MG PO (08:14)
[2023-08-05] MEDS: Omeprazole 20 MG CAPSULE.DR PO (08:14)
[2023-08-05] MEDS: Aspirin 81 MG TAB.CHEW PO (08:15)
[2023-08-05] MEDS: Pregabalin 150 MG CAPSULE PO (08:15)
[2023-08-05] MEDS: amLODIPine Besylate 10 MG TABLET PO (08:15)
[2023-08-05] MEDS: Ezetimibe 10 MG TABLET PO (08:15)
[2023-08-05] MEDS: Multivitamin TABLET 1 TAB PO (08:15)
--- NOTE | 2023-08-05 08:15 | PC.NURSE ---
pt is alert and oriented, skin pwd, respirations even and unlabored, pt ambulated to the bathroom with steady gait via cane, pt reports lower back pain at 10/10, vs stable and ns on the monitor.
--- NOTE | 2023-08-05 09:13 | MHC.CM.PN ---
CM met with Patient at bedside in the ED and addressed NICOLE with him, providing Patient with the original and placing a copy on the chart. Patient lives in a hose with his Son/HCP/Nishant and he uses a cane at times to steady himself. Home self care is the goal and CM has initiated and will follow for dc planning. PCP is Dr. Gume Bonilla
[2023-08-05] MEDS: oxyCODONE HCl Immed Release 5 MG TABLET PO (09:50)
[2023-08-05 10:39] VITALS: BP 156/71; PULSE 70; O2SAT 95
--- NOTE | 2023-08-05 11:12 | PM.DS ---
DS: Providers Provider Date of Service: 08/05/23 Date of admission: 08/04/23 19:40 Date of discharge: 08/05/23 Primary care physician: Gume Bonilla MD Attending physician on discharge: Sriram [facility] Discharging clinician: Willow Veliz DS: Diagnosis Discharge Diagnosis (1) Orthostatic hypotension: Status: Acute (2) Fracture of rib: Status: Acute (3) Compression fracture of L5 vertebra: Status: Acute (4) Laceration of head: Status: Acute (5) BUTCH (acute kidney injury): Status: Acute DS: Summary Hospital Course Hospital Course: From H&P on day of admission 82-year-old male with history of coronary artery disease, chronic systolic congestive heart failure, malignant renal mass, history CVA, CKD stage 3, type 2 diabetes, hyperlipidemia presented to the ED for evaluation of a fall with head injury that occurred earlier today. The patient is unable to recall exact details surrounding the fall but states he may have been dizzy prior to the fall. He did hit his head but did not lose consciousness. He does take aspirin and is also taking Eliquis due to history of CVA. He states he drinks about 5-6 bottles of water daily, but had 2 episodes of large volume diarrhea yesterday, none today. He states he is getting what sounds like immunotherapy every [address] Aleman at [facility] for about one year and since then has intermittent diarrhea. On arrival, patient was bleeding from the scalp and 3 sadiq were applied by ED provider. On admission, patient hypertensive to 181/67, vitals otherwise within normal limits. Hematology studies unremarkable. Creatinine slightly elevated at 1.70, BUN 32, electrolyte levels normal. Troponin levels within normal limit and flat. Orthostatic vital signs were found to be positive with drop in BP from 155/75 when sitting to 132/[address] of the head was negative for any acute intracranial process but does show encephalomalacia. There are no acute fractures, dislocations, or subluxation of the cervical spine. CT chest negative for any acute disease in the chest. There is a recent appearing mild compression fracture of the L5 vertebral body and right anterior rib fracture near the costochondral junction. EKG shows normal sinus rhythm, rate 65. No acute ischemic changes. In the ED, given 1 L IV NS. Orthostatic near syncope likely r/t fluid loss from chronic intermittent large volume diarrhea. treated with 1L NS in the ED. Repeat orthostatic blood pressures this morning are negative. patient was able to ambulate without dizziness. acute kidney injury on CKD3-likely pre-renal secondary to GI loss. creatinine 1.70, baseline around 1.3. Creatinine down to 1.5 today. Patient requesting to be discharged today in order to go to follow up appointment tomorrow at 8am at [facility]. Patient is awake, alert and oriented. Renal function imprvong, orthostatics negative this morning. Appropriate to go home as he has close outpatient follow up, is able to ambulate without difficulty, no dizziness. Recommend to hold losartan until follow up labs obtained tomorrow. hold lasix and chlorthalidone until follow up with PCP on 08/10. Repeat labs planned for tomorrow as per patient at [facility]. head injury with question of loss of consciousness and possible mild concussion- secondary to above patient reports that he remembers falling and hitting his head, less likely LOC. Likely fall related to volume depletion, BUTCH, orthostatic hypotension. head CT negative for any acute intracranial abnormality, cervical spine CT negative for any fracture, subluxation, or dislocation -3 sadiq placed in parietal scalp - will need to be -recommend cognitive rest acute compression fracture at L5 and rib fracture secondary to fall. patient was evaluated by physical therapy and was able to ambulate without difficulty. PT recommend home with family support. There were documented allergies to multiple medications, but he denies allergy to oxycodone despite documentation. he received a one time dose of oxycodone in the ED which he tolerated without adverse effect. he will be discharged home with oxycodone to be used prn for severe pain. If pain persists will be seen next week by PCP, can consider outpatient PT. history CVA continue aspirin and Eliquis. patient states he is no longer on Plavix Discussed in detail with patient, he understands and is in agreement with above plan. Time Spent with Patient Time attestation: Total time managing care of this patient today ____ minutes. Discharge coordination time: Greater than 30 minutes Quality: Safe Use of Opioids Does Pt have an Active Cancer Diagnosis on the Problem List?: Yes Opioid Measure Date for [facility] Report: 07/06/23 Opioid Measure Time for [facility] Report: 12:29 Quality: Stroke Does the patient have a stroke diagnosis?: No Physical Exam Vital Signs: Vital Signs: Last Vital Signs Temp 97.9 F 08/04/23 23:52 Pulse 70 08/05/23 10:39 Resp 20 08/05/23 08:12 BP 156/71 H 08/05/23 10:39 Pulse Ox 95 08/05/23 10:39 O2 Del Method Room Air 08/05/23 08:12 BMI result Body Mass Index 39.2 Const: General: cooperative, comfortable, no acute distress, alert and awake Nutritional Appearance: overweight Orientation/consciousness: patient oriented x3 Resp: Effort & Inspection: normal respiratory effort, able to speak in complete sentences, no respiratory distress and no use of accessory muscles Auscultation: clear to auscultation bilaterally Cardio: Rate: regular rate GI: Inspection: No distended Palpation (GI): Soft to palpation and nontender Neuro: General: patient oriented x3, moves all extremities and CN's II-XI intact bilaterally DS: Data Data Completed and Pending Labs on day of discharge: Laboratory Results - last 24 hr 08/04/23 08/04/23 08/04/23 14:20 15:57 21:11 WBC 7.7 RBC 4.65 Hgb 12.9 L Hct 39.4 L MCV 84.7 MCH 27.7 MCHC 32.7 RDW 16.1 H Plt Count 284 MPV 8.9 L Immature Gran % (Auto) 0.5 H Neut % (Auto) 64.3 Lymph % (Auto) 18.0 L [place] % (Auto) 9.5 Eos % (Auto) 6.7 H Baso % (Auto) 1.0 Lymph # (Auto) 1.4 [place] # (Auto) 0.7 Eos # (Auto) 0.5 H Baso # (Auto) 0.1 Abs Immat Gran (auto) 0.04 H Absolute Neuts (auto) 5.0 Absolute Nucleated RBC 0.000 Nucleated RBC % (auto) 0.0 PT 13.7 H INR 1.1 Sodium 139 Potassium 4.5 Chloride 98 Carbon Dioxide 28 Anion Gap 18 BUN 32 H Creatinine 1.70 H Estim Creat Clear Calc 37.6 Estimated GFR 39 POC Glucose 131 H Random Glucose 112 Calcium 9.1 D Total Bilirubin 0.5 AST 25 ALT 18 Alkaline Phosphatase 78 Troponin I High Sens 5.1 D 6.7 Total Protein 6.9 Albumin 3.7 08/05/23 08/05/23 04:17 07:51 WBC 6.2 RBC 4.43 L Hgb 12.2 L Hct 37.8 L MCV 85.3 MCH 27.5 MCHC 32.3 RDW 16.0 Plt Count 276 MPV 9.1 L Immature Gran % (Auto) 0.2 Neut % (Auto) 57.0 Lymph % (Auto) 23.2 [place] % (Auto) 10.7 Eos % (Auto) 7.9 H Baso % (Auto) 1.0 Lymph # (Auto) 1.4 [place] # (Auto) 0.7 Eos # (Auto) 0.5 H Baso # (Auto) 0.1 Abs Immat Gran (auto) 0.01 Absolute Neuts (auto) 3.5 Absolute Nucleated RBC 0.000 Nucleated RBC % (auto) 0.0 PT INR Sodium 139 Potassium 4.0 Chloride 100 Carbon Dioxide 27 Anion Gap 16 BUN 32 H Creatinine 1.52 H Estim Creat Clear Calc 41.3 Estimated GFR 44 POC Glucose 116 H Random Glucose 115 Calcium 9.5 Total Bilirubin AST ALT Alkaline Phosphatase Troponin I High Sens Total Protein Albumin Discharge Plan Discharge Anticipated Discharge Date/Time: 08/05/23 11:19 Patient Disposition: Home, Self-Care Discharge Diagnosis: orthostatic hypotension fall, scalp laceration BUTCH Referrals: Gume Bonilla MD [Primary Care Provider] - 2 days Discharge Medications: New oxycodone 5 mg tablet 5 mg PO Q8H PRN (Reason: pain (scale score 7-10)) Qty: 10 0RF Rx Instructions: Partial Fill upon patient request. Continued colchicine (gout) 0.6 mg tablet 1 tab PO DAILY PRN (Reason: GOUT) amlodipine 10 mg Tablet 10 mg PO DAILY aspirin 81 mg Tablet,Chewable 81 mg PO DAILY [id number]-[id number] Tablet 1 tab PO DAILY omeprazole 20 mg Tablet,Delayed Release (Dr/Ec) 20 mg PO DAILY coenzyme Q10 1 tab PO DAILY ascorbic acid (vitamin C) 500 mg Tablet 1,000 mg PO BID trazodone 100 mg tablet 100 mg PO DAILY PRN (Reason: Insomnia) ezetimibe 10 mg tablet 10 mg PO DAILY Eliquis 2.5 mg tablet 2.5 mg PO BID pregabalin 150 mg capsule 150 mg PO BID carvedilol 25 mg tablet 25 mg PO BID nitroglycerin 0.4 mg tablet, sublingual 0.4 mg sublingual Q5M PRN (Reason: Chest Pain) Changed glipizide 5 mg tablet 2.5 mg PO BID Qty: 1 0RF metformin 1,000 mg tablet 500 mg PO BID Qty: 1 0RF Held losartan 100 mg tablet 1 tab PO DAILY Hold Instructions: resume tomorrow if BP elevated- discuss at dr. marie chlorthalidone 25 mg tablet 25 mg PO DAILY Hold Instructions: hold until follow up with PCP furosemide 20 mg tablet 20 mg PO DAILY Hold Instructions: hold until follow up with PCP clopidogrel 75 mg tablet 75 mg PO DAILY Hold Instructions: no longer taking per pharmacy Discharge Orders: Discharge Order (Routine); Ordered 08/05/23 Ordered By: Willow Veliz Activity on Discharge: As tolerated Stand Alone Forms: Patient Portal Discharge page Activity Restrictions/Additional Instructions: return in 5-7 days for staple removal. Care Plan Goals: see below Health Concerns: Fall with scalp laceration orthostatic hypotension BUTCH. Creatinine on day of discharge is 1.52 (previous baseline from 10/08 1.3) L5 compression fracture Plan of Treatment: Keep scheduled appointment tomorrow at [facility] - as you mentioned labs will be repeated and kidney function (creatinine) will be assessed Keep your scheduled appointment with PCP Dr. Bonilla on the Do not take lasix or chlorthalidone until follow up appointment with Dr. Bonilla on 08/10 do not take losartan tomorrow, can likely resume Wednesday if kidney function is improved on labs from 08/06 for diabetes check blood sugar before meals and at bedtime and keep a log for the next several days until follow up with Dr. Bonilla. take 1/2 tab of both metformin and glipizide until your follow up appointment (confirmed with pharmacy that your formulations are safe to be cut in half) scalp sadiq placed 08/04, will need to be removed in 5-7 days - can be done with PCP since you have appointment for back pain, you can take tylenol. for severe pain can take oxycodone. do not drive while taking pain medication Assessment: see discharge summary Patient Instructions: Laceration (ED), Concussion (ED), Back Pain (ED), Fall Prevention (ED)
--- NOTE | 2023-08-05 12:13 | MHC.CM.PN ---
Patient has been medically cleared for dc to home today, self care.
[2023-08-05 12:48] VITALS: BP 159/76; PULSE 61; RESP 20
== END 2023-08-05 12:37 | disposition home or self-care (01) ==
LOC: HO.ED 20:14 → HO.EDOVER 20:19 → HO.IMC 08-05 11:26 → HO.EDOVER 08-05 12:06
PROVIDERS: Physician Assistant; Admitting Provider Student in an Organized Health Care Education/Training Program; Emergency Provider Emergency Medicine Emergency Medical Services; PCP Internal Medicine; Visit Provider Physician Assistant Medical
DX: I95.1 Orthostatic hypotension (principal); S01.81XA Laceration without foreign body of other part of head, initial encounter; S06.0X0A Concussion without loss of consciousness, initial encounter; N17.9 Acute kidney failure, unspecified; I13.0 Hypertensive heart and chronic kidney disease with heart failure and stage 1 through stage 4 chronic kidney disease, or unspecified chronic kidney disease; I50.9 Heart failure, unspecified; N18.9 Chronic kidney disease, unspecified; E11.22 Type 2 diabetes mellitus with diabetic chronic kidney disease; D64.9 Anemia, unspecified; M54.50 Low back pain, unspecified; E78.5 Hyperlipidemia, unspecified; S22.39XA Fracture of one rib, unspecified side, initial encounter for closed fracture; S32.059A Unspecified fracture of fifth lumbar vertebra, initial encounter for closed fracture; W19.XXXA Unspecified fall, initial encounter; Y93.9 Activity, unspecified; Y92.9 Unspecified place or not applicable; Y99.9 Unspecified external cause status; Z79.84 Long term (current) use of oral hypoglycemic drugs; Z79.01 Long term (current) use of anticoagulants; Z79.899 Other long term (current) drug therapy; Z86.73 Personal history of transient ischemic attack (TIA), and cerebral infarction without residual deficits
CPT/HCPCS: 12001; 36415; 70450; 71260; 72125; 74177; 80048; 80053; 82947; 84484; 85025; 85610; 93005; 96372; 96374; 97162; 99222; 99285; J1650; J3010; Q9967

== ENCOUNTER → 2023-08-04 19:40 | Outpatient (BNV) | payer MEDICARE, OTHER, SELFPAY | PROVIDERS: Admitting Provider Student in an Organized Health Care Education/Training Program; Emergency Provider Emergency Medicine Emergency Medical Services; PCP Internal Medicine; Visit Provider Physician Assistant | DX: I95.1 Orthostatic hypotension (principal); S22.39XA Fracture of one rib, unspecified side, initial encounter for closed fracture; S32.050A Wedge compression fracture of fifth lumbar vertebra, initial encounter for closed fracture; S01.91XA Laceration without foreign body of unspecified part of head, initial encounter; N17.9 Acute kidney failure, unspecified | CPT/HCPCS: 99223; 99239 ==

== ENCOUNTER 2023-11-13 03:38 | Emergency (ER) | payer MEDICARE, OTHER, SELFPAY ==
--- NOTE | 2023-11-13 | ECG_ITS ---
Test Reason : CHEST PAIN Blood Pressure : / mmHG Vent. Rate : 071 BPM Atrial Rate : 071 BPM P-R Int : 176 ms QRS Dur : 090 ms QT Int : 384 ms P-R-T Axes : 008 -06 095 degrees QTc Int : 417 ms Normal sinus rhythm Inferior infarct (cited on or before 25-MAY-2016) Anterior infarct (cited on or before 18-MAY-2016) Abnormal ECG When compared with ECG of 04-AUG-2023 14:06, No significant change was found Referred By: Generic ED Physician Electronically Signed By:LISA NELSON
--- NOTE | ~2023-11-13 | XR_ITS ---
EXAMINATION: XR CHEST CLINICAL INFORMATION: Dyspnea. COMPARISON: 06/14/2022. TECHNIQUE: Frontal view of the chest was obtained. FINDINGS: The lung volumes are low. The cardiomediastinal silhouette is stable. A Mediport is noted at the upper SVC. There is bilateral lower lung field increased markings. There are no definitive significant pleural effusions. The bony structures and soft tissues are unremarkable. XR/XR chest 1V IMPRESSION: Low lung volumes. Bilateral lower lung field increased markings possibly technical and/or chronic. A component of atelectatic change or developing infiltrate is a consideration. No other significant abnormality seen.
[2023-11-13 03:43] VITALS: PULSE 74; RESP 18; TEMP 36.9; O2SAT 94; BMI 32.7
[2023-11-13 03:52] VITALS: BP 144/69; PULSE 73; RESP 20; O2SAT 94
[2023-11-13 04:11] LABS: COVID-19 Test Negative (Negative); IDNOW Serial# 152EDE1D
--- NOTE | 2023-11-13 04:14 | ED.SOB ---
HPI - SOB/Dyspnea General Chief Complaint: Dyspnea Stated Complaint: fever, sob Time Seen by Provider: 11/13/23 04:14 Source: patient Mode of arrival: ambulatory Limitations: no limitations History of Present Illness HPI Narrative: Patient without any significant lung issues in the past been coughing for last 1 week with nasal congestion low-grade fever earlier not now cough initially was dry now has mucopurulent phlegm no leg swelling no history of CHF Related Data Home Medications Medication Instructions Recorded Confirmed carvedilol 25 mg tablet 25 mg PO BID 02/03/21 08/04/23 clopidogrel 75 mg tablet 75 mg PO DAILY 02/03/21 08/04/23 furosemide 20 mg tablet 20 mg PO DAILY 02/03/21 08/04/23 nitroglycerin 0.4 mg sublingual 0.4 mg sublingual Q5M PRN Chest 02/03/21 08/04/23 tablet Pain pregabalin 150 mg capsule 150 mg PO BID 02/03/21 08/04/23 amlodipine 10 mg tablet 10 mg PO DAILY 05/16/22 08/04/23 aspirin 81 mg chewable tablet 81 mg PO DAILY 05/16/22 08/04/23 coenzyme Q10 1 tab PO DAILY 05/16/22 08/04/23 colchicine 0.6 mg tablet 1 tab PO DAILY PRN GOUT 05/16/22 08/04/23 losartan 100 mg tablet 1 tab PO DAILY 05/16/22 08/04/23 ufsgaooajsmp-jwgfjvmq-pcftwx tablet 1 tab PO DAILY 05/16/22 08/04/23 omeprazole 20 mg tablet,delayed 20 mg PO DAILY 05/16/22 08/04/23 release ascorbic acid (vitamin C) 500 mg 1,000 mg PO BID 05/18/22 08/04/23 tablet apixaban 2.5 mg tablet (Eliquis) 2.5 mg PO BID 08/04/23 08/04/23 chlorthalidone 25 mg tablet 25 mg PO DAILY 08/04/23 08/04/23 ezetimibe 10 mg tablet 10 mg PO DAILY 08/04/23 08/04/23 trazodone 100 mg tablet 100 mg PO DAILY PRN Insomnia 08/04/23 08/04/23 Previous Rx's Medication Instructions Recorded glipizide 5 mg tablet 2.5 mg (1/2 x 5 mg) PO BID #1 tab 08/05/23 metformin 1,000 mg tablet 500 mg (1/2 x 1,000 mg) PO BID #1 08/05/23 tab oxycodone 5 mg tablet 5 mg PO Q8H PRN pain (scale score 08/05/23 7-10) #10 tabs albuterol sulfate 90 mcg/actuation 2 puff inhalation Q4-6H PRN 11/13/23 aerosol inhaler (ProAir HFA) shortness of breath or wheezing #8.5 grams cefuroxime axetil 500 mg tablet 500 mg PO BID 10 days #20 tabs 11/13/23 codeine 10 mg-guaifenesin 100 mg/5 10 ml PO Q6H PRN cough #237 mL 11/13/23 mL oral liquid prednisone 20 mg tablet 40 mg (2 x 20 mg) PO DAILY #10 tabs 11/13/23 Allergies Allergy/AdvReac Type Severity Reaction Status Date / Time hydrocodone [From VICODIN] Allergy Unknown SWELLING Verified 11/13/23 06:04 oxycodone Allergy Unknown itching Verified 11/13/23 06:04 Review of Systems Review of Systems: Yes all other systems are reviewed and are negative PMFSH Past Medical History Onset Date is defined in the Problem List Problems that require an onset date and time if occurred within 24 hrs of arrival to the ED Aortic Dissection and Rupture; Neurologic impairment; Cardiopulmonary Arrest; Endotracheal Intubation; Insertion or Replacement of Mechanical Circulatory Assist Device Medical History Chronic systolic CHF (congestive heart failure) CKD (chronic kidney disease) Diabetes Hyperlipidemia HTN (hypertension) Renal mass CAD (coronary artery disease) Family History Family History Other CAD (coronary artery disease) Social History Social History Household Members: Children Household Members Other:: Son Housing: House Do you presently have visiting nurse or other home services: No Alcohol intake: current Alcohol intake frequency: a few times a month Alcohol type: beer Patient Tobacco Use Status: Never used Tobacco Smoked in Last 30 Days: No Use of substances other than those prescribed or required for medical reasons: No Advance Directives: No Advance Directives Information Provided: Yes service: Yes 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 Oriented X3. No acute distress. Frequently cough++ Eyes: No pallor ENT: Pharynx normal. Oral Mucosa moist Neck: Normal inspection. Neck supple. CVS: Normal heart rate and rhythm. Pulses normal. Respiratory: No respiratory distress. Equal air entry bilateral, bilateral wheezing no rales Abdomen: Soft and nontender. Bowel sounds are present, no mass palpable, no CVA tenderness Skin: Skin warm and dry. Normal skin color. Normal skin turgor. Extremities: No lower extremity edema. No calf tenderness Neuro: Oriented X 3. No motor deficit. No sensory deficit.No cerebellar signs , cranial nerves II-XII intact Medications Administered Discontinued Medications Generic Name Dose Route Start Last Admin Trade Name Freq PRN Reason Stop Dose Admin Albuterol Sulfate 2 puff 11/13/23 05:46 11/13/23 05:58 Albuterol Sulfate 90 Mcg 8 Gm Inhaler INHALE 11/13/23 05:47 2 puff ONCE ONE Administration Cefuroxime Axetil 500 mg 11/13/23 05:45 11/13/23 06:04 Cefuroxime Axetil 500 Mg Tablet PO 11/13/23 05:46 500 mg ONCE ONE Administration Albuterol Sulfate 2.5 mg/ 0 mg 11/13/23 04:22 11/13/23 04:33 Albuterol/Ipratropium 3 ml INHALE 11/13/23 04:23 5 dose ONCE ONE Administration Dexamethasone 10 mg 11/13/23 05:45 11/13/23 06:04 Dexamethasone 2 Mg Tablet PO 11/13/23 05:46 10 mg ONCE ONE Administration Guaifenesin/Codeine Phosphate 10 ml 11/13/23 04:22 11/13/23 05:10 Guaifen/Codeine Sf 200/20/10ml 10 Ml Liquid PO 11/13/23 04:23 10 ml ONCE ONE Administration Medical Decision Making Medical Decision Making [facility] Narrative: Patient with bronchitis likely viral/RSV been sick for last 1 week chest x-ray negative for pneumonia patient is saturating 94% at room air feeling much better after nebulizing treatment will discharge patient home on inhaler and prednisone and antibiotic Differential Diagnosis Differential Diagnoses: The differential diagnosis associated with the presentation includes Bronchiolitis/bronchitis/RSV/COVID/influenza/CHF Lab Data [facility] Lab Attestation statement: I reviewed the patient's lab results. 11/13/23 05:20 11/13/23 05:20 Labs: Lab Results 11/13/23 11/13/23 Range/Units 03:50 05:20 WBC 11.3 H (4.8-10.8) X10*3/uL RBC 4.80 (4.60-5.80) X10*6/uL Hgb 13.0 L (14.0-18.0) g/dl Hct 39.7 L (42.0-52.0) % MCV 82.7 (80.0-98.0) fL MCH 27.1 (27.0-33.0) pg MCHC 32.7 (31.0-36.0) g/dl RDW 14.6 (11.0-16.0) % Plt Count 379 D (160-400) X10*3/uL MPV 8.5 L (9.4-12.4) fL Immature Gran % (Auto) 0.6 H (0.0-0.4) % Neut % (Auto) 75.1 H (45-73) % Lymph % (Auto) 11.9 L (20-40) % [place] % (Auto) 7.3 (2-11) % Eos % (Auto) 4.7 H (0-4) % Baso % (Auto) 0.4 (0-2) % Lymph # (Auto) 1.3 (1.2-4.9) X10*3/uL [place] # (Auto) 0.8 (0.1-1.2) X10*3/uL Eos # (Auto) 0.5 H (0.0-0.4) X10*3/uL Baso # (Auto) 0.1 (0.0-0.2) X10*3/uL Abs Immat Gran (auto) 0.07 H (0.00-0.03) X10*3/uL Absolute Neuts (auto) 8.5 H (2.0-8.3) x10*3/uL Absolute Nucleated RBC 0.000 (0.0-0.012) X10*3/uL Nucleated RBC % (auto) 0.0 (0.0-0.2) /100WBC Sodium 136 (135-145) mmol/L Potassium 4.6 (3.3-5.1) mmol/L Chloride 97 (96-108) mmol/L Carbon Dioxide 26 (22-29) mmol/L Anion Gap 18 (12-20) BUN 27 H (9-16) mg/dL Creatinine 1.38 (0.5-1.4) mg/dL Estim Creat Clear Calc 49.9 Estimated GFR 49 Random Glucose 133 H (60-115) mg/dL Calcium 9.7 (8.4-10.2) mg/dL Total Bilirubin 0.4 (0.0-1.0) mg/dL AST 23 (5-37) U/L ALT 17 (0-40) U/L Alkaline Phosphatase 100 (39-117) U/L B-Natriuretic Peptide 127 H (<100) pg/mL Total Protein 7.5 (6.5-8.0) g/dL Albumin 3.8 (3.5-5.0) g/dL COVID-19 (LIZZIE) Negative (Negative) COVID-19 Clin Com See Note Influenza Type A (MARIA LUZ) Negative (Negative) Influenza Type B (MARIA LUZ) Negative (Negative) Influenza A & B Note See Note Independent Interpretation I performed an independent interpretation of an: Plain X-Ray Radiology Impression Discussion of test interpretation with radiology: I have reviewed the radiologist's reading. Discharge Plan Discharge Clinical Impression: Acute bronchitis Patient Disposition: Home, Self-Care Instructions: Acute Bronchitis (ED) Additional Instructions: Continue your medications Likely have bronchitis as a cause of cough x-ray negative for pneumonia COVID and flu is negative Take antibiotics prednisone and inhaler as prescribed Cough syrup as prescribed Follow with PCP if not better Prescriptions: New prednisone 20 mg tablet 40 mg PO DAILY Qty: 10 0RF codeine-guaifenesin 10-100 mg/5 mL liquid 10 ml PO Q6H PRN (Reason: cough) Qty: 237 0RF cefuroxime axetil 500 mg tablet 500 mg PO BID 10 Days Qty: 20 0RF albuterol sulfate [ProAir HFA] 90 mcg/actuation HFA aerosol inhaler 2 puff inhalation Q4-6H PRN (Reason: shortness of breath or wheezing) Qty: 8.5 0RF No Action colchicine 0.6 mg tablet 1 tab PO DAILY PRN (Reason: GOUT) losartan 100 mg tablet 1 tab PO DAILY Hold Instructions: resume tomorrow if BP elevated- discuss at dr. marie amlodipine 10 mg Tablet 10 mg PO DAILY aspirin 81 mg Tablet,Chewable 81 mg PO DAILY dnrknermdfhq-khmavraj-vancsm Tablet 1 tab PO DAILY omeprazole 20 mg Tablet,Delayed Release (/Ec) 20 mg PO DAILY coenzyme Q10 1 tab PO DAILY ascorbic acid (vitamin C) 500 mg Tablet 1,000 mg PO BID chlorthalidone 25 mg tablet 25 mg PO DAILY Hold Instructions: hold until follow up with PCP trazodone 100 mg tablet 100 mg PO DAILY PRN (Reason: Insomnia) ezetimibe 10 mg tablet 10 mg PO DAILY Eliquis 2.5 mg tablet 2.5 mg PO BID glipizide 5 mg tablet 2.5 mg PO BID Qty: 1 0RF metformin 1,000 mg tablet 500 mg PO BID Qty: 1 0RF oxycodone 5 mg tablet 5 mg PO Q8H PRN (Reason: pain (scale score 7-10)) Qty: 10 0RF Rx Instructions: Partial Fill upon patient request. pregabalin 150 mg capsule 150 mg PO BID furosemide 20 mg tablet 20 mg PO DAILY Hold Instructions: hold until follow up with PCP carvedilol 25 mg tablet 25 mg PO BID clopidogrel 75 mg tablet 75 mg PO DAILY Hold Instructions: no longer taking per pharmacy nitroglycerin 0.4 mg tablet, sublingual 0.4 mg sublingual Q5M PRN (Reason: Chest Pain)
[2023-11-13 04:15] LABS: IDNOW Serial# 08D9AD1C; Influenza A Negative (Negative); Influenza B2 Negative (Negative)
[2023-11-13] MEDS: Albuterol Sulfate 2.5 MG, Albuterol/Iprat 2.5/0.5MG 3 ML 3 ML INHALE (04:33)
[2023-11-13 04:39] VITALS: PULSE 60; RESP 18; O2SAT 90
[2023-11-13] MEDS: guaiFEN/Codeine SF 200/20/10ML 10 ML LIQUID PO (05:10)
[2023-11-13 05:24] LABS: MANUAL DIFF FLAG NO
[2023-11-13 05:25] LABS: Basophils Absolute Auto 0.1 X10*3/uL (0.0-0.2); Basophils Percent Auto 0.4 % (0-2); Eosinophils Absolute Auto 0.5 X10*3/uL (0.0-0.4); Eosinophils Percent Auto 4.7 % (0-4); Hematocrit 39.7 % (42.0-52.0); Imm Gran Abs Auto 0.07 X10*3/uL (0.00-0.03); Imm Gran Pct Auto 0.6 % (0.0-0.4); Lymphocytes Absolute Auto 1.3 X10*3/uL (1.2-4.9); Lymphocytes Percent Auto 11.9 % (20-40); Mean Corpuscular HGB Conc 32.7 g/dl (31.0-36.0); Mean Corpuscular Hemoglobin 27.1 pg (27.0-33.0); Mean Corpuscular Volume 82.7 fL (80.0-98.0); Mean Platelet Volume 8.5 fL (9.4-12.4); Monocytes Absolute Auto 0.8 X10*3/uL (0.1-1.2); Monocytes Percent Auto 7.3 % (2-11); Neutrophils Absolute Auto 8.5 x10*3/uL (2.0-8.3); Neutrophils Percent Auto 75.1 % (45-73); Platelet Count 379 X10*3/uL (160-400); Red Cell Distribution Width 14.6 % (11.0-16.0); White Blood Count 11.3 X10*3/uL (4.8-10.8)
[2023-11-13 05:42] LABS: Alanine Aminotransferase 17 U/L (0-40); Albumin Level 3.8 g/dL (3.5-5.0); Alkaline Phosphatase 100 U/L (39-117); Anion Gap 18 (12-20); Aspartate Amino Transferase 23 U/L (5-37); Bilirubin Total 0.4 mg/dL (0.0-1.0); Blood Urea Nitrogen 27 mg/dL (9-16); Calcium 9.7 mg/dL (8.4-10.2); Carbon Dioxide 26 mmol/L (22-29); Chloride 97 mmol/L (96-108); Creatinine Clr Calc Pharmacy 49.9; Estimated Glomerular Filt Rate 49; Glucose Random 133 mg/dL (60-115); Potassium 4.6 mmol/L (3.3-5.1); Sodium 136 mmol/L (135-145); Total Protein 7.5 g/dL (6.5-8.0)
[2023-11-13 05:45] LABS: B Type Natriuretic Peptide 127 pg/mL (<100)
[2023-11-13] MEDS: Albuterol Sulfate 90 MCG 8 GM INHALER 2 PUFF INHALE (05:58)
[2023-11-13 06:00] VITALS: BP 135/73; PULSE 64; RESP 15; TEMP 36.7; O2SAT 94
[2023-11-13] MEDS: cefuroxime axetiL 500 MG TABLET PO (06:04)
[2023-11-13] MEDS: dexAMETHasone 2 MG TABLET 10 MG PO (06:04)
== END 2023-11-13 07:24 | disposition home or self-care (01) ==
PROVIDERS: Emergency Provider Internal Medicine
DX: J20.9 Acute bronchitis, unspecified (principal); Z11.52 Encounter for screening for COVID-19; E11.22 Type 2 diabetes mellitus with diabetic chronic kidney disease; I13.0 Hypertensive heart and chronic kidney disease with heart failure and stage 1 through stage 4 chronic kidney disease, or unspecified chronic kidney disease; N18.9 Chronic kidney disease, unspecified; I50.32 Chronic diastolic (congestive) heart failure; E78.5 Hyperlipidemia, unspecified; Z79.82 Long term (current) use of aspirin; Z79.01 Long term (current) use of anticoagulants; Z79.899 Other long term (current) drug therapy; Z79.84 Long term (current) use of oral hypoglycemic drugs
CPT/HCPCS: 36415; 71045; 80053; 83880; 85025; 87502; 87635; 93005; 94640; 99284; 99285; J8540

== ENCOUNTER → 2023-11-13 03:50 | Outpatient (BNV) | payer MEDICARE, OTHER, SELFPAY | PROVIDERS: Emergency Provider Internal Medicine; Visit Provider Internal Medicine | DX: R07.9 Chest pain, unspecified (principal) | CPT/HCPCS: 93010 ==

== ENCOUNTER 2024-03-15 04:58 | Inpatient (IN) | payer MEDICARE, OTHER, SELFPAY ==
[2024-03-15] VITALS (7 sets, daily range): BP systolic 137–177; BP diastolic 65–82; PULSE 64–75; RESP 13–20; TEMP 36.4–36.7; O2SAT 95–96; BMI 31.5; BMI 32.8
--- NOTE | ~2024-03-15 | XR_ITS ---
EXAMINATION: XR CHEST CLINICAL INFORMATION: Chest pain. COMPARISON: 11/13/2023 AP portable chest. 08/04/2023 CT chest. TECHNIQUE: Frontal view of the chest was obtained. FINDINGS: Lung volumes are low. Chin obscures the lung apices. There is no gross pneumothorax. Stable cardiomediastinal silhouette. Right Mediport tip projects at the upper SVC. Increased bibasilar opacities may represent atelectasis and/or an infectious/inflammatory process. Small left pleural effusion. XR/XR chest 1V IMPRESSION: Increased bibasilar opacities may represent atelectasis and/or an infectious/inflammatory process. Small left pleural effusion. This study was presented today, 03/15/2024, for interpretation. Stat results provided at this time as requested by referring provider.
--- NOTE | 2024-03-15 05:01 | ECG_ITS ---
Test Reason : CP Blood Pressure : / mmHG Vent. Rate : 079 BPM Atrial Rate : 079 BPM P-R Int : 192 ms QRS Dur : 090 ms QT Int : 364 ms P-R-T Axes : 066 -09 087 degrees QTc Int : 417 ms Normal sinus rhythm Minimal voltage criteria for LVH, may be normal variant ( R in aVL ) Inferior infarct (cited on or before 25-MAY-2016) Cannot rule out Anterior infarct (cited on or before 18-MAY-2016) Abnormal ECG When compared with ECG of 13-NOV-2023 03:50, Questionable change in initial forces of Anterior leads Referred By: Generic ED Physician Electronically Signed By:JESSE GORDON MD
[2024-03-15 05:14] LABS: MANUAL DIFF FLAG NO
[2024-03-15 05:18] LABS: Basophils Percent Auto 0.2 % (0-2); Eosinophils Percent Auto 0.2 % (0-4); Hematocrit 32.8 % (42.0-52.0); Hemoglobin 10.8 g/dl (14.0-18.0); Imm Gran Abs Auto 0.02 X10*3/uL (0.00-0.03); Imm Gran Pct Auto 0.3 % (0.0-0.4); Lymphocytes Percent Auto 14.6 % (20-40); Mean Corpuscular HGB Conc 32.9 g/dl (31.0-36.0); Mean Corpuscular Hemoglobin 27.7 pg (27.0-33.0); Mean Corpuscular Volume 84.1 fL (80.0-98.0); Mean Platelet Volume 8.5 fL (9.4-12.4); Monocytes Absolute Auto 0.8 X10*3/uL (0.1-1.2); Monocytes Percent Auto 11.5 % (2-11); Neutrophils Absolute Auto 4.8 x10*3/uL (2.0-8.3); Neutrophils Percent Auto 73.2 % (45-73); Platelet Count 308 X10*3/uL (160-400); Red Cell Distribution Width 16.6 % (11.0-16.0); White Blood Count 6.5 X10*3/uL (4.8-10.8)
[2024-03-15 05:31] LABS: Anion Gap 17 (12-20); Blood Urea Nitrogen 30 mg/dL (9-16); Calcium 9.5 mg/dL (8.4-10.2); Carbon Dioxide 25 mmol/L (22-29); Chloride 93 mmol/L (96-108); Creatinine Clr Calc Pharmacy 50.1; Estimated Glomerular Filt Rate 50; Glucose Random 121 mg/dL (60-115); Potassium 4.2 mmol/L (3.3-5.1); Sodium 131 mmol/L (135-145)
[2024-03-15 05:39] LABS: Troponin-I High Sensitivity 4.2 ng/L (<3.5-35.0)
--- NOTE | 2024-03-15 05:47 | MHC.EDTECH ---
pt changed into hospital gown and placed on surveillance monitor. call christensen within reach
--- NOTE | 2024-03-15 06:33 | PC.NURSE ---
pt c/o midsternal chest pain, radiating up his jaw and down both arms, started about 11 pm last night. pt took 5 nitroglycerin tablets in total (last one 02:00), went to sleep, woke up with worsening pain, called son and came to ER. Reporting 8/10 pain that is heavy and just there denies cough, n/v. Pt also reports he had a large BM in waiting room prior to coming in treatment room, now says he is feeling slightly better. A&Ox4, skin p/w/d, speaking clear full sentences. Hx 4 cardiac stents per pt. labs,ekg,cxray done. Pt on secured entrance monitor waiting to be seen by provider. In no apparent distress, call christensen within reach.
--- NOTE | 2024-03-15 07:00 | CA_ITS ---
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 There is moderately increased left ventricular wall thickness. The left ventricular systolic function is mildly decreased. The visually estimated ejection fraction is between 40-45%. - The basal anteroseptal and mid anteroseptal segments are hypokinetic. - The apex and apical septum segments are akinetic. - Normal right ventricular cavity size and systolic function. - There is mild dilatation of the ascending aorta measuring 4.10 cm. Findings Procedure Information Contrast agent, definity, is being given per protocol without apparent complications. Left Ventricle Normal left ventricular cavity size. There is moderately increased left ventricular wall thickness. The left ventricular systolic function is mildly decreased. The visually estimated ejection fraction is between 40-45%. There is evidence of regional wall motion abnormalities. Diastolic function is indeterminate on the basis of available data. Wall Motion Rest Echo Findings The basal anteroseptal and mid anteroseptal segments are hypokinetic. The apex and apical septum segments are akinetic. Right Ventricle Normal right ventricular cavity size and systolic function. Atria The left atrium is severely dilated. Aortic Valve There is a normal trileaflet aortic valve. There is mild calcification of the aortic valve. There is no aortic valve stenosis. There is trace (trivial) aortic valve regurgitation. Mitral Valve There is severe mitral annular calcification. There is mild mitral valve regurgitation. There is no mitral valve stenosis. Pulmonic Valve The pulmonic valve is normal. There is trace pulmonic valve regurgitation. Tricuspid Valve Normal tricuspid valve structure. There is no tricuspid valve regurgitation. Tricuspid regurgitation envelope is inadequate for calculation of right ventricular systolic pressure. Normal right atrial pressure. Great Vessels There is mild dilatation of the ascending aorta measuring 4.10 cm. Venous The inferior vena cava is normal in size and collapses greater than 50% with inspiration. Pericardium/Pleural There is no evidence of pericardial effusion. Prior Study Comparison Changes noted compared to prior study dated: 11/21/2018. EF 35 to 40%, RWMA from coronary disease. Measurements 2D Linear Measurements IVSd: 1.35 0.6-0.9/0.6-1.0 cm LVIDd: 5.56 3.9-5.3/4.2-5.9 cm LVIDd Index: 2.37 2.4-3.2/2.2-3.1 cm/m2 LVIDs: 4.23 2.0-3.6 cm LVPWd: 1.31 0.7-1.1 cm LA Diam: 5.10 2.7-3.8/3.0-4.0 cm LAIDs Index: 2.17 1.5-2.3 cm/m2 LV Mass: 398.87 67-162/88-224 g LV Mass Index: 169.73 43-95/49-115 g/m2 LVOT Diam: 2.20 3.0+(-)1.3 cm 2D Systolic Function EF 4C: 23.20 >55% EF 2C: 51.80 >55% EF BiP: 39.00 >55% Mitral Valve MV VTI: 0.44 MV Pk Sagar: 1.61 MV Mn Sagar: 0.83 MV Pk Grad: 10.00 MV Mn Grad: 3.00 MV Pk E: 1.44 MV PK A: 0.89 MV Decel Time: 172.00 E/A: 1.60 E'Lateral: 8.70 E'Medial: 4.68 E/E' Med: 30.80 E/E' Lat: 16.60 PHT: 50.00 MVA PHT: 4.40 MVA Continuity: 2.11 Decel Dane: 8.36 Aortic Valve AoV Pk Sagar: 1.34 AoV Mn Sagar: 0.91 AoV VTI: 0.35 AoV Pk Grad: 7.00 Aov Mn Grad: 4.00 STEVE Cont.VTI: 2.64 LVOT LVOT Pk Sagar: 0.91 LVOT Mn Sagar: 0.60 LVOT VTI: 0.24 LVOT Pk Grad: 3.00 LVOT Mn Grad: 2.00 LVOT Diam: 2.20 LVOT Area: 3.80 Diastolic Function MV Pk E: 1.44 MV Pk A: 0.89 E/A: 1.60 E'Medial: 4.68 E/E' Med: 30.80 E' Laterial: 8.70 E/E' Lat: 16.60 Right Ventricle TVS' Sagar: 7.83 Tricuspid Valve TR Pk Sagar: 1.59 TR Pk Grad: 10.00 RA Press: 3.00 RVSP: 13.00 Great Vessels Aorta Sinus of Valsalva: 4.00 2.0-3.5 cm Ao Asc: 4.10 2.1-3.4 cm Pulmonary Valve PV Pk Sagar: 0.75 Peak PV Grad: 2.00 Updated in Other Vendor System with Status of Final Akin Agustin MD electronically signed on 03/15/2024 4:28:15 PM with status of Final
--- NOTE | 2024-03-15 07:24 | ED_ITS ---
HPI - Chest Pain General Chief Complaint: Chest Pain Stated Complaint: taken 3 nitrice pills chest pain bilaty arm pain Time Seen by Provider: 03/15/24 07:03 Source: patient Mode of arrival: ambulatory Limitations: no limitations History of Present Illness ED Provider: Dr. Dow HPI narrative: Patient has known CAD with multiple stents and multiple stent redo. 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 He has not had chest pain in years, this morning he was awaken from sleep with chest pain going to both shoulders and going up into his jaw. He took nitro x 4 with some relief, he has not had to use nitro in years. MD complaint: chest pain Pertinent past history: coronary artery disease Onset (ago): minute(s) Timing of current episode: now resolved Prior episodes: No Onset: awoke with symptoms Quality: tightness Risk Factors Coronary artery disease risk factors: hyperlipidemia and hypertension Related Data Home Medications ?Medication ?Instructions ?Recorded ?Confirmed carvedilol 25 mg tablet 25 mg PO BID 02/03/21 08/04/23 clopidogrel 75 mg tablet 75 mg PO DAILY 02/03/21 08/04/23 furosemide 20 mg tablet 20 mg PO DAILY 02/03/21 08/04/23 nitroglycerin 0.4 mg sublingual 0.4 mg sublingual Q5M PRN Chest 02/03/21 08/04/23 tablet Pain pregabalin 150 mg capsule 150 mg PO BID 02/03/21 08/04/23 amlodipine 10 mg tablet 10 mg PO DAILY 05/16/22 08/04/23 aspirin 81 mg chewable tablet 81 mg PO DAILY 05/16/22 08/04/23 coenzyme Q10 1 tab PO DAILY 05/16/22 08/04/23 colchicine 0.6 mg tablet 1 tab PO DAILY PRN GOUT 05/16/22 08/04/23 losartan 100 mg tablet 1 tab PO DAILY 05/16/22 08/04/23 sgdiyyuclqyx-usxwbzgj-vdjiua tablet 1 tab PO DAILY 05/16/22 08/04/23 omeprazole 20 mg tablet,delayed 20 mg PO DAILY 05/16/22 08/04/23 release ascorbic acid (vitamin C) 500 mg 1,000 mg PO BID 05/18/22 08/04/23 tablet apixaban 2.5 mg tablet (Eliquis) 2.5 mg PO BID 08/04/23 08/04/23 chlorthalidone 25 mg tablet 25 mg PO DAILY 08/04/23 08/04/23 ezetimibe 10 mg tablet 10 mg PO DAILY 08/04/23 08/04/23 trazodone 100 mg tablet 100 mg PO DAILY PRN Insomnia 08/04/23 08/04/23 Previous Rx's ?Medication ?Instructions ?Recorded glipizide 5 mg tablet 2.5 mg (1/2 x 5 mg) PO BID #1 tab 08/05/23 metformin 1,000 mg tablet 500 mg (1/2 x 1,000 mg) PO BID #1 08/05/23 tab oxycodone 5 mg tablet 5 mg PO Q8H PRN pain (scale score 08/05/23 7-10) #10 tabs albuterol sulfate 90 mcg/actuation 2 puff inhalation Q4-6H PRN 11/13/23 aerosol inhaler (ProAir HFA) shortness of breath or wheezing #8.5 grams cefuroxime axetil 500 mg tablet 500 mg PO BID 10 days #20 tabs 11/13/23 codeine 10 mg-guaifenesin 100 mg/5 10 ml PO Q6H PRN cough #237 mL 11/13/23 mL oral liquid prednisone 20 mg tablet 40 mg (2 x 20 mg) PO DAILY #10 tabs 11/13/23 Allergies Allergy/AdvReac Type Severity Reaction Status Date / Time hydrocodone [From VICODIN] Allergy Unknown SWELLING Verified 03/15/24 05:16 oxycodone Allergy Unknown itching Verified 03/15/24 05:16 [facility] Past Medical History Medical History Chronic systolic CHF (congestive heart failure) CKD (chronic kidney disease) Diabetes Hyperlipidemia HTN (hypertension) Renal mass CAD (coronary artery disease) Family History Family History Other CAD (coronary artery disease) Social History Social History Household Members: Children Household Members Other:: Son Housing: House Do you presently have visiting nurse or other home services: No Alcohol intake: current Alcohol intake frequency: a few times a month Alcohol type: beer Patient Tobacco Use Status: Never used Tobacco Smoked in Last 30 Days: No Use of substances other than those prescribed or required for medical reasons: No Advance Directives: No Advance Directives Information Provided: Yes Do you have a plan to hurt others: No Plan service: Yes 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 PO 03/15/24 07:48 162 mg ONCE ONE Administration Clopidogrel Bisulfate 75 mg 03/15/24 07:47 03/15/24 08:16 Clopidogrel Bisulfate 75 Mg Tablet PO 03/15/24 07:48 75 mg ONCE ONE Administration Nitroglycerin 1 inch 03/15/24 07:47 03/15/24 08:16 Nitroglycerin 2 % Oint 1 Gm Packet TRANSDERMA 03/15/24 07:48 1 inch ONCE ONE Administration Medical Decision Making Differential Diagnosis Differential Diagnoses: The differential diagnosis associated with the presentation includes (STEMI, cardiac ischemia, chest pain) Admission/Observation Consideration of admission/observation: Escalation of care including admission/observation considered (upon arrival patient was considered for admission) Consult Healthcare Provider Management of the patient was discussed with: Hospitalist and Faculty Neuropsychologist (Dr. Agustin cardiology) Lab Data 03/15/24 05:10 03/15/24 05:10 Labs: Lab Results 03/15/24 03/15/24 Range/Units 05:10 08:58 WBC 6.5 (4.8-10.8) X10*3/uL RBC 3.90 L (4.60-5.80) X10*6/uL Hgb 10.8 L (14.0-18.0) g/dl Hct 32.8 L (42.0-52.0) % MCV 84.1 (80.0-98.0) fL MCH 27.7 (27.0-33.0) pg MCHC 32.9 (31.0-36.0) g/dl RDW 16.6 H (11.0-16.0) % Plt Count 308 (160-400) X10*3/uL MPV 8.5 L (9.4-12.4) fL Immature Gran % (Auto) 0.3 (0.0-0.4) % Neut % (Auto) 73.2 H (45-73) % Lymph % (Auto) 14.6 L (20-40) % White % (Auto) 11.5 H (2-11) % Eos % (Auto) 0.2 (0-4) % Baso % (Auto) 0.2 (0-2) % Lymph # (Auto) 1.0 L (1.2-4.9) X10*3/uL White # (Auto) 0.8 (0.1-1.2) X10*3/uL Eos # (Auto) 0.0 (0.0-0.4) X10*3/uL Baso # (Auto) 0.0 (0.0-0.2) X10*3/uL Abs Immat Gran (auto) 0.02 (0.00-0.03) X10*3/uL Absolute Neuts (auto) 4.8 (2.0-8.3) x10*3/uL Absolute Nucleated RBC 0.000 (0.0-0.012) X10*3/uL Nucleated RBC % (auto) 0.0 (0.0-0.2) /100WBC Sodium 131 L (135-145) mmol/L Potassium 4.2 (3.3-5.1) mmol/L Chloride 93 L (96-108) mmol/L Carbon Dioxide 25 (22-29) mmol/L Anion Gap 17 (12-20) BUN 30 H (9-16) mg/dL Creatinine 1.35 (0.5-1.4) mg/dL Estim Creat Clear Calc 50.1 Estimated GFR 50 Random Glucose 121 H (60-115) mg/dL Calcium 9.5 (8.4-10.2) mg/dL Troponin I High Sens 4.2 5.8 (<3.5-35.0) ng/L Independent Interpretation I performed an independent interpretation of an: EKG (sinus 80, old inferior and aterior Qs) and Plain X-Ray (no infiltrate) Prescription Management I considered prescription management with: Antibiotic (no evidence of pneumonia on xray) Chronic Conditions Patient?s care impacted by: Hypertension Discharge Plan Discharge Clinical Impression: Chest pain Patient Disposition: Admitted As Inpatient Print Language: Egyptian
[2024-03-15] MEDS: Nitroglycerin 2 % Oint 1 GM Packet 1 INCH TRANSDERMA (08:16)
[2024-03-15] MEDS: Aspirin Enteric Coated 81 MG TABLET.DR 162 MG PO (08:16)
[2024-03-15] MEDS: Clopidogrel Bisulfate 75 MG TABLET PO (08:16)
--- NOTE | 2024-03-15 08:37 | PC.NURSE ---
pt is alert and oriented, skin pwd, respirations even and unlabored, pt reports midsternal/epigastric region pain-that radiates to both upper extremities- this pains is intermitted at this time-eas more constant last night and also radiated to the jaw last night, intermittent sob when the pain comes, lung sounds clear, ns on the monitor
[2024-03-15 09:23] LABS: Troponin-I High Sensitivity 5.8 ng/L (<3.5-35.0)
--- NOTE | 2024-03-15 10:08 | PM.IMHP ---
History of Present Illness Date of Service: 03/15/24 Attending physician on admission: [facility] Chief Complaint: chest pain 82-year-old male with history of coronary artery disease, chronic systolic congestive heart failure, malignant renal mass, history CVA, CKD stage 3, type 2 diabetes, hyperlipidemia presented to the ED for evaluation of chest pain. He reports around 11pm developed severe retrosternal chest pain radiating to the bilateral arms and then jaw. Pain started at rest but worsened with exertion. He took 2 nitro with improvement in pain. However, this recurred around 4am and was worse so he presented to the ED for evaluation. No associated diaphoresis, lightheadednes, dyspnea, syncope, n/v. He is reported a headache. On arrival VSS, hypertensive to 174/77 on admission. Hematology studies show normocytic anemia h/h 10.8/32.8%. Renal fx and lytes normla. Initial trop 4.2 repeat 5.8. EKG shows NSR, rate 79, no acute ischemic changes. CXR shows small pleural effusion and increased bibasilar opacities posisbly atelectasis vs infectious/inflammatory disease. No cough, fevers. [facility] ED, given 162mg asa, plavix and has been started on heparin drip. He will be admitted for unstable angina. Review of Systems Review of Systems: General: No fevers, malaise, unintentional weight loss HEENT: No blurred vision, diplopia. No sore throat, nasal congestion, rhinorrhea, sinus pain, ear pain Cardiovascular: +chest pain. No palpitations, or leg edema Respiratory: No shortness of breath, wheezing, cough GI: No abdominal pain, nausea, vomiting, diarrhea, constipation, melena, hematochezia : No dysuria, hematuria, increased urinary frequency, decreased urinary output MSK: No myalgia, back pain Neuro: No headaches, weakness, paresthesias Skin: No rashes or lesions [facility] Medical History Chronic systolic CHF (congestive heart failure) CKD (chronic kidney disease) Diabetes Hyperlipidemia HTN (hypertension) Renal mass CAD (coronary artery disease) Family History Other CAD (coronary artery disease) Social History Household Members: Children Household Members Other:: Son Housing: House Do you presently have visiting nurse or other home services: No Alcohol intake: current Alcohol intake frequency: a few times a month Alcohol type: beer Patient Tobacco Use Status: Never used Tobacco Smoked in Last 30 Days: No Use of substances other than those prescribed or required for medical reasons: No Advance Directives: No Advance Directives Information Provided: Yes Do you have a plan to hurt others: No Plan service: Yes 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 Allergy/AdvReac Type Severity Reaction Status Date / Time hydrocodone [From VICODIN] Allergy Unknown SWELLING Verified 03/15/24 05:16 oxycodone Allergy Unknown itching Verified 03/15/24 05:16 Home Medications ?Medication ?Instructions ?Recorded ?Confirmed ?Last Taken ?Type carvedilol 25 mg tablet 25 mg PO BID 02/03/21 08/04/23 08/04/23 History clopidogrel 75 mg tablet 75 mg PO DAILY 02/03/21 08/04/23 08/04/23 History furosemide 20 mg tablet 20 mg PO DAILY 02/03/21 08/04/23 08/04/23 History nitroglycerin 0.4 mg sublingual 0.4 mg sublingual Q5M PRN Chest 02/03/21 08/04/23 Unknown History tablet Pain pregabalin 150 mg capsule 150 mg PO BID 02/03/21 08/04/23 08/04/23 History amlodipine 10 mg tablet 10 mg PO DAILY 05/16/22 08/04/23 08/04/23 History aspirin 81 mg chewable tablet 81 mg PO DAILY 05/16/22 08/04/23 08/04/23 History coenzyme Q10 1 tab PO DAILY 05/16/22 08/04/23 08/04/23 History colchicine 0.6 mg tablet 1 tab PO DAILY PRN GOUT 05/16/22 08/04/23 05/15/22 History losartan 100 mg tablet 1 tab PO DAILY 05/16/22 08/04/23 08/04/23 History tcbttampsbed-qglakyhv-utmiar tablet 1 tab PO DAILY 05/16/22 08/04/23 08/04/23 History omeprazole 20 mg tablet,delayed 20 mg PO DAILY 05/16/22 08/04/23 08/04/23 History release ascorbic acid (vitamin C) 500 mg 1,000 mg PO BID 05/18/22 08/04/23 08/04/23 History tablet apixaban 2.5 mg tablet (Eliquis) 2.5 mg PO BID 08/04/23 08/04/23 08/04/23 History chlorthalidone 25 mg tablet 25 mg PO DAILY 08/04/23 08/04/23 08/04/23 History ezetimibe 10 mg tablet 10 mg PO DAILY 08/04/23 08/04/23 08/04/23 History trazodone 100 mg tablet 100 mg PO DAILY PRN Insomnia 08/04/23 08/04/23 Unknown History Physical Exam Vital Signs and Narrative: Vital Signs: Last Vital Signs Temp 97.6 F 03/15/24 05:13 Pulse 65 03/15/24 08:15 Resp 20 03/15/24 08:15 BP 174/77 H 03/15/24 08:15 Pulse Ox 96 03/15/24 08:15 O2 Del Method Room Air 03/15/24 08:15 BMI result Body Mass Index 31.5 Constitutional - Awake and Alert, No apparent distress Eyes - PERRLA, EOMI Cardiovascular - S1S2, RRR, 1+ ble edema Respiratory - Normal lung expansion, Normal respiratory effort, No respiratory distress, CTA bilaterally Gastrointestinal - NT / ND; +BS; No rebound or guarding Extremities - no calf tenderness bilaterally, no swelling Skin - Warm/Dry Neurological - Alert & oriented x3 Psychological - Appropriate affect Results Labs 03/15/24 05:10 03/15/24 05:10 Labs: Laboratory Results - last 24 hr 03/15/24 03/15/24 05:10 08:58 MCV 84.1 MCH 27.7 MCHC 32.9 RDW 16.6 H Plt Count 308 MPV 8.5 L Immature Gran % (Auto) 0.3 Neut % (Auto) 73.2 H Lymph % (Auto) 14.6 L [place] % (Auto) 11.5 H Eos % (Auto) 0.2 Baso % (Auto) 0.2 Lymph # (Auto) 1.0 L [place] # (Auto) 0.8 Eos # (Auto) 0.0 Baso # (Auto) 0.0 Abs Immat Gran (auto) 0.02 Absolute Neuts (auto) 4.8 Absolute Nucleated RBC 0.000 Nucleated RBC % (auto) 0.0 Anion Gap 17 Estim Creat Clear Calc 50.1 Estimated GFR 50 Random Glucose 121 H Calcium 9.5 Troponin I High Sens 4.2 5.8 Imaging Radiologist's Impressions: Impressions Chest X-Ray 03/15/24 05:55 IMPRESSION: Increased bibasilar opacities may represent atelectasis and/or an infectious/inflammatory process. Small left pleural effusion. This study was presented today, 03/15/2024, for interpretation. Stat results provided at this time as requested by referring provider. Assessment and Plan (1) Unstable angina: Status: Acute Plan 82-year-old male with history of coronary artery disease, chronic systolic congestive heart failure, malignant renal mass, history CVA, CKD stage 3, type 2 diabetes, hyperlipidemia admitted for unstable angina. #Unstable angina -Trops 4.2 --> 5.8. EKG without acute ischemic changes -heparin drip per protocol -given 162mg asa, continue 81mg daily -nitro paste in place -echo -coreg 25mg BID -cardiology consult -cardiac diet -monitor on tele #Chronic heart failure, unspecified EF -euvolemic on exam -continue po diuretics #CAD -asa, bb, statin #Non insulin depedent type 2 diabetes -poc glucose, diabetic diet -admelog ss, hold oral antihyperglycemics #Malignant renal mass -on unspecified q6w infusions through [facility], next due 04/11 #CKD stage 3 -renal fx baseline #HLD -statin #HTN -continue coreg, amlodipine, losartan, furosemide #Hx cva -asa, hold eliquis dvt prophyalxis- heparin drip dnr/dni pt requires inpt stay at least 2 midnights for management on unstable angina on heparin drip and requiring echo [facility] expert consulation and possible tx to tertiary facility for cardiac cath Quality Stroke Does the patient have a stroke diagnosis?: No VTE Prior VTE?: No VTE Risk Level:: Medical - moderate - high VTE Device Contraindication: Treatment Not Indicated VTE Drug Contraindication: N/A - Med Ordered
[2024-03-15 10:38] LABS: INTERNATIONAL NORM RATIO 1.1 (0.9-1.1); Prothrombin Time 12.9 SEC (11.1-13.3)
[2024-03-15 10:40] LABS: PTT Heparin Drip 39.1 SEC (53-77.9)
[2024-03-15] MEDS: carvediloL 25 MG TABLET PO (11:10)
[2024-03-15] MEDS: Heparin Sodium,Porcine 5,000 UNIT/ML VIAL 4000 UNIT IVPUSH (11:11)
[2024-03-15] MEDS: Heparin Sodium,Porcine/1/2NS 25,000 UNIT/250 ML IV.SOLN 10 UNIT IVCONT (11:15)
--- NOTE | 2024-03-15 12:06 | PC.NURSE ---
Patient complaining of 8/10 headache, only order is for tylenol for 1 -3 pain, reached out to admitting aaron mcgrath. ordered to take off nitropaste, provider informed of elevated BP, still wanted nitropaste removed, wanted tylenol given, and all meds ordered given as med rec is completed.
[2024-03-15] MEDS: Acetaminophen 325 MG TABLET 650 MG PO (12:14)
[2024-03-15 12:31] LABS: Hematocrit 33.5 % (42.0-52.0); Hemoglobin 10.9 g/dl (14.0-18.0); Mean Corpuscular HGB Conc 32.5 g/dl (31.0-36.0); Mean Corpuscular Hemoglobin 27.9 pg (27.0-33.0); Mean Corpuscular Volume 85.7 fL (80.0-98.0); Mean Platelet Volume 8.8 fL (9.4-12.4); Platelet Count 327 X10*3/uL (160-400); Red Blood Count 3.91 X10*6/uL (4.60-5.80); Red Cell Distribution Width 16.6 % (11.0-16.0); White Blood Count 7.5 X10*3/uL (4.8-10.8)
--- NOTE | 2024-03-15 13:10 | PM.CNCAR ---
History of Present Illness History of Present Illness Date of Service: 03/15/24 Requesting physician: Sriram Lane Chief complaint: Unstable angina Narrative: Very pleasant 83 gentleman who is presenting with chest discomfort, bilateral arm discomfort and jaw discomfort starting last evening. He has history of coronary artery disease with multiple PCIs in the past with last PCI in 2021 LAD. He had InStent restenosis at that time. He said he did well till recently when he started noticing sudden onset discomfort last evening. He took nitroglycerin 3 times a different occasions but had ongoing discomfort and came to the emergency department. EKGs not show any dynamic changes. His blood pressure was elevated but is improving. Symptoms are similar to his anginal discomfort with only difference that he had bilateral arm discomfort is time to. He has been taking medications regularly. He is on apixaban and baby aspirin. It took apixaban last night. He was not given any apixaban in the morning today. He is otherwise independent. No other issues to report currently. [facility] Past Medical History Medical History Chronic systolic CHF (congestive heart failure) CKD (chronic kidney disease) Diabetes Hyperlipidemia HTN (hypertension) Renal mass CAD (coronary artery disease) Family History Family History Other CAD (coronary artery disease) Social History Social History Household Members: Children Household Members Other:: Son Housing: House Do you presently have visiting nurse or other home services: No Alcohol intake: current Alcohol intake frequency: a few times a month Alcohol type: beer Patient Tobacco Use Status: Never used Tobacco Smoked in Last 30 Days: No Use of substances other than those prescribed or required for medical reasons: No Advance Directives: No Advance Directives Information Provided: Yes Do you have a plan to hurt others: No Plan Nutrition Risks: No Nutritional Risk service: Yes 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 Allergy/AdvReac Type Severity Reaction Status Date / Time hydrocodone [From VICODIN] Allergy Unknown SWELLING Verified 03/15/24 05:16 oxycodone Allergy Unknown itching Verified 03/15/24 05:16 Active Medications: Current Medications Acetaminophen (Acetaminophen 325 Mg Tablet) 650 mg PO Q6H PRN PRN Reason: Pain, Mild (Pain Scale 1-3) Last Admin: 03/15/24 12:14 Dose: 650 mg Amlodipine Besylate (Amlodipine Besylate 10 Mg Tablet) 10 mg PO DAILY [facility]; Protocol Carvedilol (Carvedilol 25 Mg Tablet) 25 mg PO BID [facility]; Protocol Last Admin: 03/15/24 11:10 Dose: 25 mg Heparin Sodium (Porcine) (Heparin Sodium,Porcine 5,000 Unit/Ml Vial) 4,400 unit 40 unit/kg (4400 unit) IVPUSH PROTOCOL BOLUS PRN; Protocol PRN Reason: 40 unit/kg - Heparin Protocol Heparin Sodium (Porcine) (Heparin Sodium,Porcine 5,000 Unit/Ml Vial) 8,800 unit 80 unit/kg (8800 unit) IVPUSH PROTOCOL BOLUS PRN; Protocol PRN Reason: 80 unit/kg - Heparin Protocol Heparin Sodium/Sodium Chloride (Heparin Sodium,Porcine/1/2ns) 25,000 unit in 250 mls @ 0 mls/hr IVCONT .Q0M [facility]IR[facility]; Protocol Last Admin: 03/15/24 11:15 Dose: 9.12 units/kg/hr, 10 mls/hr Losartan Potassium (Losartan Potassium 50 Mg Tablet) 100 mg PO DAILY [facility]; Protocol Magnesium Hydroxide (Milk Of Magnesia 30 Ml Oral.Susp) 30 ml PO DAILY PRN PRN Reason: Constipation Sodium Chloride (0.9 % Sodium Chloride Flush 3 Ml Syringe) 3 ml IVFLUSH QSHIFT [facility] Home Medications ?Medication ?Instructions ?Recorded ?Confirmed ?Last Taken ?Type carvedilol 25 mg tablet 25 mg PO BID 02/03/21 03/15/24 08/04/23 History furosemide 20 mg tablet 20 mg PO DAILY 02/03/21 03/15/24 08/04/23 History nitroglycerin 0.4 mg sublingual 0.4 mg sublingual Q5M PRN Chest 02/03/21 03/15/24 Unknown History tablet Pain pregabalin 150 mg capsule 150 mg PO BID 02/03/21 03/15/24 08/04/23 History amlodipine 10 mg tablet 10 mg PO DAILY 05/16/22 03/15/24 08/04/23 History aspirin 81 mg chewable tablet 81 mg PO DAILY 05/16/22 03/15/24 08/04/23 History colchicine 0.6 mg tablet 1 tab PO DAILY GOUT 05/16/22 03/15/24 05/15/22 History losartan 100 mg tablet 1 tab PO DAILY 05/16/22 03/15/24 08/04/23 History omeprazole 20 mg tablet,delayed 20 mg PO DAILY 05/16/22 03/15/24 08/04/23 History release ascorbic acid (vitamin C) 500 mg 1,000 mg PO BID 05/18/22 03/15/24 08/04/23 History tablet apixaban 2.5 mg tablet (Eliquis) 2.5 mg PO BID 08/04/23 03/15/24 08/04/23 History chlorthalidone 25 mg tablet 25 mg PO DAILY 08/04/23 03/15/24 08/04/23 History ezetimibe 10 mg tablet 10 mg PO DAILY 08/04/23 03/15/24 08/04/23 History trazodone 100 mg tablet 100 mg PO DAILY PRN Insomnia 08/04/23 03/15/24 Unknown History coenzyme Q10 100 mg capsule 400 mg PO BID 03/15/24 03/15/24 Unknown History (CoQ-10) evolocumab 140 mg/mL subcutaneous 140 mg subcut Q2W 03/15/24 03/15/24 Unknown History pen injector (Repatha SureClick) magnesium 200 mg tablet 400 mg PO BID 03/15/24 03/15/24 Unknown History metformin 1,000 mg tablet 1,000 mg PO BID 03/15/24 03/15/24 Unknown History omega 0-mrp-mox-fish oil 1,200 mg 1 cap PO BID 03/15/24 03/15/24 Unknown History (144 mg-216 mg) capsule (Fish Oil) Physical Exam Vital Signs: Vital Signs: Last Vital Signs Temp 97.6 F 03/15/24 05:13 Pulse 66 03/15/24 11:10 Resp 20 03/15/24 08:15 BP 177/82 H 03/15/24 11:10 Pulse Ox 96 03/15/24 08:15 O2 Del Method Room Air 03/15/24 08:15 BMI result Body Mass Index 32.8 GENERAL APPEARANCE: in no acute distress, pleasant. NECK: no carotid bruit, no jugular venous distention. SKIN: no suspicious lesions, warm and dry. HEART: no murmurs, regular rate and rhythm. LUNGS: clear to auscultation bilaterally. ABDOMEN: soft, nontender. EXTREMITIES: no edema. PERIPHERAL PULSES: equal. NEUROLOGIC: No gross deficits, AAO X 3 Objective Labs and Meds 03/15/24 12:19 03/15/24 05:10 Lab results: Laboratory Results - last 24 hr 03/15/24 03/15/24 03/15/24 05:10 08:58 10:27 WBC 6.5 RBC 3.90 L Hgb 10.8 L Hct 32.8 L MCV 84.1 MCH 27.7 MCHC 32.9 RDW 16.6 H Plt Count 308 MPV 8.5 L Immature Gran % (Auto) 0.3 Neut % (Auto) 73.2 H Lymph % (Auto) 14.6 L Turner % (Auto) 11.5 H Eos % (Auto) 0.2 Baso % (Auto) 0.2 Lymph # (Auto) 1.0 L Turner # (Auto) 0.8 Eos # (Auto) 0.0 Baso # (Auto) 0.0 Abs Immat Gran (auto) 0.02 Absolute Neuts (auto) 4.8 Absolute Nucleated RBC 0.000 Nucleated RBC % (auto) 0.0 PT 12.9 INR 1.1 aPTT Heparin Protocol 39.1 L Sodium 131 L Potassium 4.2 Chloride 93 L Carbon Dioxide 25 Anion Gap 17 BUN 30 H Creatinine 1.35 Estim Creat Clear Calc 50.1 Estimated GFR 50 Random Glucose 121 H Calcium 9.5 Troponin I High Sens 4.2 5.8 03/15/24 12:19 WBC 7.5 RBC 3.91 L Hgb 10.9 L Hct 33.5 L MCV 85.7 MCH 27.9 MCHC 32.5 RDW 16.6 H Plt Count 327 MPV 8.8 L Immature Gran % (Auto) Neut % (Auto) Lymph % (Auto) Turner % (Auto) Eos % (Auto) Baso % (Auto) Lymph # (Auto) Turner # (Auto) Eos # (Auto) Baso # (Auto) Abs Immat Gran (auto) Absolute Neuts (auto) Absolute Nucleated RBC 0.000 Nucleated RBC % (auto) 0.0 PT INR aPTT Heparin Protocol Sodium Potassium Chloride Carbon Dioxide Anion Gap BUN Creatinine Estim Creat Clear Calc Estimated GFR Random Glucose Calcium Troponin I High Sens Imaging Radiologist's impression: Impressions Chest X-Ray 03/15/24 05:55 IMPRESSION: Increased bibasilar opacities may represent atelectasis and/or an infectious/inflammatory process. Small left pleural effusion. This study was presented today, 03/15/2024, for interpretation. Stat results provided at this time as requested by referring provider. Assessment and Plan (1) Unstable angina: Status: Acute Plan Pleasant 83 gentleman with known history of coronary artery disease with multiple PCI in the past presenting for unstable angina. He is on heparin drip. Continue to hold Eliquis. Last dose was last night. He will have to go for cardiac catheterization by tomorrow afternoon or Wednesday morning. Hemodynamically he is mildly hypertensive but he has not been getting his home medications. We will resume them. One episode of hematuria 3 weeks ago which was worked up at [facility] and his Eliquis was resumed. He has not had any further bleeding since then. We will arrange transfer to [facility] after discussing with the on-call [facility] Cardiology physician. Thank you for allowing me to participate in the care of your patient. Please feel free to contact me if you have any questions. Procedures Date of Service Date of Service: 03/15/24
[2024-03-15] MEDS: amLODIPine Besylate 10 MG TABLET PO (13:16)
[2024-03-15] MEDS: Losartan Potassium 50 MG TABLET 100 MG PO (13:16)
--- NOTE | 2024-03-15 13:35 | PHA.MEDREC ---
Pharmacy Consult ? Medication Reconciliation Pharmacy has completed the medication reconciliation. spoke with patient to confirm medications. He provided us with a list he recently updated from his bottles at home. 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 He had eliquis 5mg on his list however we only have claims for 2.5mg. He was on prednisone and reports he was taking 2 tablets once daily of the most recent prescription he picked up (the 10mg), his doctor told him to stop taking and last took it yesterday. He reports his last injection for repatha was 2 weeks from last wednesday. He reports he gets infusions every 6 weeks from [facility] but was not sure of what it was and is due 04/11
[2024-03-15] MEDS: 0.9 % Sodium Chloride Flush 3 ML SYRINGE IVFLUSH (16:14)
[2024-03-15 17:54] LABS: PTT Heparin Drip 60.7 SEC (53-77.9)
--- NOTE | 2024-03-15 18:17 | PC.NURSE ---
Patient to be transfered to [facility] requiring cath per cardiology, waiting for acceptance/bed.
--- NOTE | 2024-03-15 18:34 | PC.NURSE ---
Nurse to Nurse report given to Michelle on MM7, patient to be transported.
--- NOTE | 2024-03-15 19:06 | P.DS_ITS ---
DS: Providers Provider Date of Service: 03/15/24 Date of admission: 03/15/24 10:04 Date of discharge: 03/15/24 Primary care physician: Gume Bonilla MD Admitting clinician: Raven Lyles Attending physician on admission: Sriram [facility] Consults: 03/15/24 10:04 Consult to Cardiology Routine Consulting Provider: [facility] Reason for consultation: unstable angina [facility] Raven Lyles DS: Transfer Hospital Acceptance Reason for Transfer: Unstable angina-need for cardiac catheterization Name of Facility: [facility] DS: Diagnosis Discharge Diagnosis (1) Unstable angina: Status: Acute DS: Summary Hospital Course Hospital Course: HPI on admission by this provider 03/15: 82-year-old male with history of coronary artery disease, chronic systolic congestive heart failure, malignant renal mass, history CVA, CKD stage 3, type 2 diabetes, hyperlipidemia presented to the ED for evaluation of chest pain. He reports around 11pm developed severe retrosternal chest pain radiating to the bilateral arms and then jaw. Pain started at rest but worsened with exertion. He took 2 nitro with improvement in pain. However, this recurred around 4am and was worse so he presented to the ED for evaluation. No associated diaphoresis, lightheadednes, dyspnea, syncope, n/v. He is reported a headache. On arrival VSS, hypertensive to 174/77 on admission. Hematology studies show normocytic anemia h/h 10.8/32.8%. Renal fx and lytes normla. Initial trop 4.2 repeat 5.8. EKG shows NSR, rate 79, no acute ischemic changes. CXR shows small pleural effusion and increased bibasilar opacities posisbly atelectasis vs infectious/inflammatory disease. No cough, fevers. [facility], given 162mg asa, plavix and has been started on heparin drip. He will be admitted for unstable angina. Hospital course: Patient initiated on heparin drip per protocol for treatment of unstable angina. He was also treated with nitro paste which was removed due to headache but blood pressure reasonably controlled with additional carvedilol, losartan, amlodipine. Echocardiogram performed showed mildly decreased left ventricular systolic function with EF 40-45%. There was noted basal anteroseptal and mild anteroseptal hypokinesis with akinesis of the apex and apical septum. He was evaluated by Cardiology who recommends transfer to [facility] for cardiac catheterization. Recommendations to hold Eliquis while on heparin drip per protocol. Continue all other home medications. Status at Discharge Functional status at discharge: independent ambulation Overall status at discharge: patient is progressing back to baseline Time Attestation Discharge Coordination Time (in mins): 50 Quality: Safe Use of Opioids Does Pt have an Active Cancer Diagnosis on the Problem List?: No Quality: Stroke Does the patient have a stroke diagnosis?: No Physical Exam Vital Signs: Vital Signs: Last Vital Signs Temp 97.6 F 03/15/24 05:13 Pulse 64 03/15/24 16:10 Resp 18 03/15/24 16:10 BP 157/77 H 03/15/24 16:10 Pulse Ox 96 03/15/24 16:10 O2 Del Method Room Air 03/15/24 16:10 BMI result Body Mass Index 32.8 DS: Data Data Completed and Pending Labs on day of discharge: Laboratory Results - last 24 hr 03/15/24 03/15/24 03/15/24 05:10 08:58 10:27 WBC 6.5 RBC 3.90 L Hgb 10.8 L Hct 32.8 L MCV 84.1 MCH 27.7 MCHC 32.9 RDW 16.6 H Plt Count 308 MPV 8.5 L Immature Gran % (Auto) 0.3 Neut % (Auto) 73.2 H Lymph % (Auto) 14.6 L [place] % (Auto) 11.5 H Eos % (Auto) 0.2 Baso % (Auto) 0.2 Lymph # (Auto) 1.0 L [place] # (Auto) 0.8 Eos # (Auto) 0.0 Baso # (Auto) 0.0 Abs Immat Gran (auto) 0.02 Absolute Neuts (auto) 4.8 Absolute Nucleated RBC 0.000 Nucleated RBC % (auto) 0.0 PT 12.9 INR 1.1 aPTT Heparin Protocol 39.1 L Sodium 131 L Potassium 4.2 Chloride 93 L Carbon Dioxide 25 Anion Gap 17 BUN 30 H Creatinine 1.35 Estim Creat Clear Calc 50.1 Estimated GFR 50 Random Glucose 121 H Calcium 9.5 Troponin I High Sens 4.2 5.8 03/15/24 03/15/24 12:19 17:30 WBC 7.5 RBC 3.91 L Hgb 10.9 L Hct 33.5 L MCV 85.7 MCH 27.9 MCHC 32.5 RDW 16.6 H Plt Count 327 MPV 8.8 L Immature Gran % (Auto) Neut % (Auto) Lymph % (Auto) [place] % (Auto) Eos % (Auto) Baso % (Auto) Lymph # (Auto) [place] # (Auto) Eos # (Auto) Baso # (Auto) Abs Immat Gran (auto) Absolute Neuts (auto) Absolute Nucleated RBC 0.000 Nucleated RBC % (auto) 0.0 PT INR aPTT Heparin Protocol 60.7 D Sodium Potassium Chloride Carbon Dioxide Anion Gap BUN Creatinine Estim Creat Clear Calc Estimated GFR Random Glucose Calcium Troponin I High Sens Discharge Plan Discharge Anticipated Discharge Date/Time: 03/15/24 19:05 Patient Disposition: Xfer Acute Care Hospital Discharge Diagnosis: unstable angina Referrals: Gume Bonilla MD [Primary Care Provider] - 1 Week Discharge Medications: Continued colchicine 0.6 mg tablet 1 tab PO DAILY losartan 100 mg tablet 1 tab PO DAILY Hold Instructions: resume tomorrow if BP elevated- discuss at dr. marie amlodipine 10 mg Tablet 10 mg PO DAILY aspirin 81 mg Tablet,Chewable 81 mg PO DAILY omeprazole 20 mg Tablet,Delayed Release (Dr/Ec) 20 mg PO DAILY ascorbic acid (vitamin C) 500 mg Tablet 1,000 mg PO BID albuterol sulfate [ProAir HFA] 90 mcg/actuation HFA aerosol inhaler 2 puff inhalation Q4-6H PRN (Reason: shortness of breath or wheezing) Qty: 8.5 0RF magnesium 200 mg Tablet 400 mg PO BID coenzyme Q10 [CoQ-10] 100 mg Capsule 400 mg PO BID omega 8-uvl-czb-fish oil [Fish Oil] 1,200 (144-216) mg Capsule 1 cap PO BID Repatha SureClick 140 mg/mL pen injector 140 mg subcut Q2W metformin 1,000 mg tablet 1,000 mg PO BID chlorthalidone 25 mg tablet 25 mg PO DAILY Hold Instructions: hold until follow up with PCP trazodone 100 mg tablet 100 mg PO DAILY PRN (Reason: Insomnia) ezetimibe 10 mg tablet 10 mg PO DAILY Eliquis 2.5 mg tablet 2.5 mg PO BID pregabalin 150 mg capsule 150 mg PO BID furosemide 20 mg tablet 20 mg PO DAILY Hold Instructions: hold until follow up with PCP carvedilol 25 mg tablet 25 mg PO BID nitroglycerin 0.4 mg tablet, sublingual 0.4 mg sublingual Q5M PRN (Reason: Chest Pain) Discharge Orders: Discharge Order (Routine); Ordered 03/15/24 Ordered By: Raven Lyles Diet: Diabetic diet Activity on Discharge: As tolerated Stand Alone Forms: Patient Portal Discharge page Print Language: Slovak Care Plan Goals: Transfer to [facility] for cardiac catherization for unstable Angina continue heparin, Aspirin and Lipitor.. Hold Eliquis while on heparin drip Health Concerns: unstable angina Plan of Treatment: see above Assessment: see above. see dc summary
--- NOTE | 2024-03-16 09:03 | MHC.CM.PN ---
PT TRANSFERR[place] [facility] [place] BEING SEEN BY CM PER EMR, PT LIVES WITH HIS SON AND IS INDEPENDENT WITH CARE AND MOBILITY HE [facility] COP[facility] OF HCP REQUESTED DURING HIS LAST ADMISSION PCP: ZOEY HAYWARD
== END 2024-03-15 19:20 | disposition short-term general hospital (02) | DRG 303 ==
LOC: HO.ED 10:23 → HO.EDOVER 11:37
PROVIDERS: Admitting Provider Physician Assistant; Emergency Provider Emergency Medicine; PCP Internal Medicine; Visit Provider Internal Medicine
DX: I25.110 Atherosclerotic heart disease of native coronary artery with unstable angina pectoris (principal); I50.22 Chronic systolic (congestive) heart failure; C64.9 Malignant neoplasm of unspecified kidney, except renal pelvis; I13.0 Hypertensive heart and chronic kidney disease with heart failure and stage 1 through stage 4 chronic kidney disease, or unspecified chronic kidney disease; E11.22 Type 2 diabetes mellitus with diabetic chronic kidney disease; N18.30 Chronic kidney disease, stage 3 unspecified; E78.5 Hyperlipidemia, unspecified; Z95.5 Presence of coronary angioplasty implant and graft; Z86.73 Personal history of transient ischemic attack (TIA), and cerebral infarction without residual deficits; Z79.01 Long term (current) use of anticoagulants; Z79.82 Long term (current) use of aspirin; Z79.84 Long term (current) use of oral hypoglycemic drugs; Z79.899 Other long term (current) drug therapy
CPT/HCPCS: 36415; 71045; 80048; 84484; 85025; 85027; 85610; 85730; 93005; 93306; 99285; J1644; Q9957

== ENCOUNTER → 2024-03-15 10:04 | Outpatient (BNV) | payer MEDICARE, OTHER, SELFPAY | PROVIDERS: Admitting Provider Physician Assistant; Emergency Provider Emergency Medicine; PCP Internal Medicine; Visit Provider Physician Assistant | DX: I20.0 Unstable angina (principal) | CPT/HCPCS: 99235 ==

== ENCOUNTER → 2024-03-15 10:04 | Outpatient (BNV) | payer MEDICARE, OTHER, SELFPAY | PROVIDERS: Admitting Provider Physician Assistant; Emergency Provider Emergency Medicine; PCP Internal Medicine; Visit Provider Internal Medicine Cardiovascular Disease | DX: R94.31 Abnormal electrocardiogram [ECG] [EKG] (principal) | CPT/HCPCS: 93010; 93306; 99223 ==

== ENCOUNTER → 2024-03-31 23:59 | Outpatient (BNV) | payer MEDICARE, OTHER, SELFPAY | PROVIDERS: PCP Internal Medicine; Visit Provider Internal Medicine | DX: I21.4 Non-ST elevation (NSTEMI) myocardial infarction (principal) | CPT/HCPCS: 99223 ==

== ENCOUNTER 2024-06-30 05:02 | Inpatient (IN) | payer MEDICARE, OTHER, SELFPAY ==
[2024-06-30] VITALS (8 sets, daily range): BP systolic 134–151; BP diastolic 44–80; PULSE 61–68; RESP 16–18; TEMP 36.6–36.8; O2SAT 94–96; BMI 30.9
--- NOTE | ~2024-06-30 | CT_ITS ---
EXAMINATION: CT PELVIS WITHOUT CONTRAST CLINICAL INFORMATION: Follow-up hematoma. COMPARISON: CT right hip 06/30/2024. CT abdomen/pelvis 08/04/2023. TECHNIQUE: Helical scanning was performed with submillimeter collimation through the pelvis. Sagittal and coronal multiplanar 2-D reconstructions were obtained. This CT examination was performed using dose optimization techniques as appropriate, variously including the following: *Automated exposure control *Adjustment of mA and/or kV according to patient size (this includes techniques or standardized protocols for targeted exams where dose is matched to indication/reason for exam; i.e. extremities or head) *Use of iterative reconstruction technique DLP: 712 mGy-cm FINDINGS: Redemonstration of a hematoma in the right gluteus olga muscle measuring 9.3 x 6 x 9.2 cm (2:42 and 4:80) previously 10 x 6.5 x 9 cm when measured in a similar fashion. Similar degree of body wall anasarca. Enlarged prostate, transverse diameter 6 cm. Diffuse urinary bladder wall thickening with several diverticuli and trabeculations. No intraluminal bladder calculi. Colonic diverticulosis without significant pericolonic inflammatory changes in the included portions of the bowel. Stable trace of stranding and free fluid in the presacral space (2, 36). Moderate size fat-containing left-sided inguinal hernia. Severe atherosclerotic disease. No acute or aggressive appearing osseous findings. Severe intervertebral disc height loss, facet arthropathy and vacuum phenomena at L5-S1. CT/CT pelvis wo IV con IMPRESSION: 1. Hematoma in the right gluteus olga is similar to minimally decreased in size. 2. Diffuse urinary bladder wall thickening with trabeculations and diverticula, most likely related with chronic outlet obstruction in the setting of an enlarged prostate, correlate clinically. 3. Moderate-sized fat-containing left inguinal hernia. 4. Stable trace amount of free fluid and stranding in the presacral space, and stable body wall anasarca. 5. Partially seen colonic diverticulosis without significant pericolonic inflammatory changes. 6. Severe atherosclerotic disease. 7. Severe osseous degenerative changes at L5-S1. Electronically signed by: Stacey Esteves MD 07/07/2024 11:37 AM EDT
--- NOTE | ~2024-06-30 | XR_ITS ---
EXAMINATION: XR CHEST CLINICAL INFORMATION: Shortness of breath COMPARISON: 03/15/2024 TECHNIQUE: Frontal view of the chest was obtained. FINDINGS: Right IJ Port-A-Cath tip terminates in the SVC, unchanged. Cardiac silhouette is borderline enlarged. Dense calcifications are present in the mitral annulus atherosclerotic calcification is present in the thoracic aorta. Linear opacities in the lung bases likely correspond to atelectasis, superimposed consolidation cannot be excluded. There is mild pulmonary venous congestion. No interstitial edema. No pneumothorax. Osteoarthritis is present in the acromioclavicular and glenohumeral joints.. No acute osseous findings. XR/XR chest 1V IMPRESSION: 1. Mild pulmonary venous congestion. No interstitial edema. Borderline cardiomegaly. 2. Linear opacities in the lung bases likely correspond to atelectasis, superimposed consolidation cannot be excluded. Electronically signed by: Wallace Chapa MD 07/07/2024 11:04 PM EDT
--- NOTE | ~2024-06-30 | CT_ITS ---
EXAMINATION: CT HIP WITHOUT CONTRAST, RIGHT CLINICAL INFORMATION: Fall. Right hip pain. Unable to walk. COMPARISON: None available. TECHNIQUE: Multidetector volumetric imaging was obtained through the right hip without contrast material. Multiplanar reformatted images were submitted in coronal and sagittal planes. This CT examination was performed using dose optimization techniques as appropriate, variously including the following: *Automated exposure control *Adjustment of mA and/or kV according to patient size (this includes techniques or standardized protocols for targeted exams where dose is matched to indication/reason for exam; i.e. extremities or head) *Use of iterative reconstruction technique DLP: 297 mGy-cm FINDINGS: No acute fracture or malalignment. Bone mineralization appears normal. Mild to moderate osteoarthritis is present in the right hip with narrowing and small osteophytes. Zyhe-hv-zdsajqch osteoarthritis is also noted in the partially imaged right SI joint. There is a 9.3 x 5.7 x 7.5 cm hematoma within the right gluteus olga muscle and the underlying fascial plane just superficial to the gluteus medius . This abuts the sciatic nerve. Small amount of fluid is also present in the trochanteric bursa. There is complete fatty atrophy of the gluteus minimus muscle and more mild to moderate fatty atrophy of the right gluteus medius and gluteus olga muscles. The tendons are not well assessed. No acute intrapelvic abnormalities. Atherosclerotic calcifications are present in the abdominal aorta and iliac arteries. CT/CT hip RT wo IV con IMPRESSION: 1. A 9.3 cm hematoma in the right gluteus olga muscle abutting the right sciatic nerve. 2. No acute fracture or malalignment. 3. 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 Electronically signed by: Wallace Chapa MD 06/30/2024 09:29 AM EDT
--- NOTE | ~2024-06-30 | US_ITS ---
EXAMINATION: US RETROPERITONEAL COMPLETE (RENAL) CLINICAL INFORMATION: Acute kidney injury. COMPARISON: CT abdomen and pelvis 08/04/2023. MR abdomen 07/28/2019. TECHNIQUE: Real-time imaging of the kidneys and bladder. FINDINGS: RIGHT KIDNEY: 11.4 x 6.2 x 5.9 cm (SAG x AP x TRV). The kidney is normal in size, contour, and echogenicity. Renal cortical thickness is normal. No renal calculi or hydronephrosis. Multiple right renal cortical simple cysts are present. The largest simple cyst is seen in superior right renal pole measuring 5.9 x 4.8 x 5.7 cm in size. Exophytic right lower renal pole simple cyst measures 2.8 x 2.7 x 2.6 cm in size. An exophytic hypoechoic solid masslike lesion is seen protruding from mid right renal cortex measuring 3.2 x 3.5 x 3.6 cm in size (3.6 x 4.4 x 2.[address] scan). LEFT KIDNEY: 10.9 x 6.2 x 5.9 cm (SAG x AP x TRV). The kidney is normal in size, contour, and echogenicity. Renal cortical thickness is normal. No renal calculi or hydronephrosis. Hypoechoic simple cyst is seen in mid left kidney measuring 1.9 x 2.1 x 2.3 cm in size. BLADDER: Prominent urinary bladder wall thickening, trabeculation and sacculation are seen. Howard-shaped hypoechoic content is seen in posterior inferior urinary bladder lumen, measuring 1.0 cm in AP diameter, 3.5 cm in width, 3.0 cm in vertical height. Bilateral ureteral jets are demonstrated. Prevoid bladder volume is 343 mL. Postvoid bladder volume is 287 mL. ADDITIONAL FINDINGS: Prostate gland measures 53.5 mL in volume. US/US retroperitoneal comp IMPRESSION: 1. No evidence of hydronephrosis or nephrolithiasis. 2. Multiple bilateral renal cortical simple cysts, for which no follow-up imaging is recommended. 3. Exophytic hypoechoic solid masslike lesion protruding from mid right renal cortex measuring 3.2 x 3.5 x 3.6 cm in size (3.6 x 4.4 x 2.[address] scan). Findings remain suspicious of renal cell carcinoma or other malignancy, as reported on MRI abdomen on 07/28/2019. 4. Prominent urinary bladder wall thickening, trabeculation and sacculation are seen, compatible with chronic bladder outflow obstruction, possibly due to prostatomegaly. 5. Howard-shaped hypoechoic content is seen in posterior inferior urinary bladder lumen, may represent sediment. 6. Marked urinary retention. Electronically signed by: Derik Guevara MD 07/07/2024 07:32 AM EDT
--- NOTE | ~2024-06-30 | XR_ITS ---
EXAMINATION: XR CHEST CLINICAL INFORMATION: Reason for Exam Worsening shortness of breath and tachypnea COMPARISON: 07/07/2024 TECHNIQUE: Frontal view of the chest was obtained. FINDINGS: Right IJ port catheter tip in the region of the upper SVC. Lung volumes are symmetric. Right basilar aeration appears improved compared to prior. No new consolidation is seen bilaterally. No evidence of pneumothorax or significant pleural effusion. Central vasculature remains prominent. Cardiac silhouette appears enlarged though may be accentuated by patient rotation. Calcification is present at the aortic arch. No acute osseous findings are seen. XR/XR chest 1V IMPRESSION: Interval improvement in right basilar aeration compared to prior. No new consolidation. Central vasculature remains prominent suggesting congestion. Electronically signed by: Dominik Huffman MD 07/08/2024 04:46 AM EDT
[2024-06-30 06:15] LABS: MANUAL DIFF FLAG NO
[2024-06-30 06:19] LABS: Basophils Absolute Auto 0.1 X10*3/uL (0.0-0.2); Basophils Percent Auto 0.6 % (0-2); Eosinophils Absolute Auto 0.4 X10*3/uL (0.0-0.4); Hematocrit 30.1 % (42.0-52.0); Hemoglobin 9.6 g/dl (14.0-18.0); Imm Gran Abs Auto 0.04 X10*3/uL (0.00-0.03); Imm Gran Pct Auto 0.5 % (0.0-0.4); Mean Corpuscular HGB Conc 31.9 g/dl (31.0-36.0); Mean Corpuscular Hemoglobin 26.9 pg (27.0-33.0); Mean Corpuscular Volume 84.3 fL (80.0-98.0); Mean Platelet Volume 8.8 fL (9.4-12.4); Monocytes Absolute Auto 0.8 X10*3/uL (0.1-1.2); Monocytes Percent Auto 9.6 % (2-11); Neutrophils Absolute Auto 6.5 x10*3/uL (2.0-8.3); Neutrophils Percent Auto 74.3 % (45-73); Platelet Count 322 X10*3/uL (160-400); Red Blood Count 3.57 X10*6/uL (4.60-5.80); Red Cell Distribution Width 18.1 % (11.0-16.0); White Blood Count 8.8 X10*3/uL (4.8-10.8)
[2024-06-30 06:29] LABS: INTERNATIONAL NORM RATIO 1.2 (0.9-1.1)
[2024-06-30 06:33] LABS: Alanine Aminotransferase 10 U/L (0-40); Albumin Level 3.4 g/dL (3.5-5.0); Alkaline Phosphatase 97 U/L (39-117); Anion Gap 13 (12-20); Aspartate Amino Transferase 18 U/L (5-37); Bilirubin Total 1.3 mg/dL (0.0-1.0); Blood Urea Nitrogen 37 mg/dL (9-16); Calcium 9.4 mg/dL (8.4-10.2); Carbon Dioxide 29 mmol/L (22-29); Chloride 95 mmol/L (96-108); Creatinine Clr Calc Pharmacy 39.9; Estimated Glomerular Filt Rate 39; Glucose Random 137 mg/dL (60-115); Potassium 3.8 mmol/L (3.3-5.1); Sodium 133 mmol/L (135-145); Total Protein 6.5 g/dL (6.5-8.0)
--- NOTE | 2024-06-30 06:45 | ED.FALL ---
HPI - Fall General Chief Complaint: Fall Stated Complaint: hip/leg pain Time Seen by Provider: 06/30/24 06:42 Source: patient Mode of arrival: ambulatory Limitations: no limitations History of Present Illness ED Provider: Dr. Declan Vu HPI Narrative: 83-year-old male with a history of CHF with an EF 40-45% (03/15/2024), coronary artery disease with PCI 2021 LAD plus multiple other PCI interventions, chronic kidney disease, diabetes, hyperlipidemia, hypertension, right kidney cancer being treated at [facility], right chest Port-A-Cath, coronary artery disease who presents emergency department for evaluation of urinary incontinence in right hip pain and unable to walk. Patient states he was at his doctor's office 2 weeks prior and fell injuring his right hip. He states that he had x-rays in the office which did not reveal an acute fracture. Prior to this fall, he was walking using a cane but since the fall he has had to use a walker and his motorized wheelchair. Patient states this morning when he woke up he was incontinent of urine. He states he is on furosemide and he has not been incontinent for significant amount of time but he attributes he was incontinence to his diuretic. He denied frequency, urgency or dysuria. Patient states that this morning he had greater than 10/10 right hip pain. He was unable to stand and walk secondary to his pain. He was taking tramadol at home since his fall for this pain with only minimal relief of his discomfort. Patient was noted to have a hematoma to his right hip and right leg after the fall and did have follow-up appointment with his PCP. Related Data Home Medications ?Medication ?Instructions ?Recorded ?Confirmed carvedilol 25 mg tablet 25 mg PO BID 02/03/21 06/30/24 furosemide 20 mg tablet 40 mg PO DAILY 02/03/21 07/01/24 nitroglycerin 0.4 mg sublingual 0.4 mg sublingual Q5M PRN Chest 02/03/21 07/01/24 tablet Pain pregabalin 150 mg capsule 150 mg PO BID 02/03/21 06/30/24 amlodipine 10 mg tablet 10 mg PO DAILY 05/16/22 06/30/24 aspirin 81 mg chewable tablet 81 mg PO DAILY 05/16/22 07/01/24 colchicine 0.6 mg tablet 1 tab PO DAILY GOUT 05/16/22 06/30/24 losartan 100 mg tablet 1 tab PO DAILY 05/16/22 06/30/24 omeprazole 20 mg tablet,delayed 20 mg PO DAILY 05/16/22 06/30/24 release ascorbic acid (vitamin C) 500 mg 1,000 mg PO BID 05/18/22 06/30/24 tablet apixaban 2.5 mg tablet (Eliquis) 2.5 mg PO BID 08/04/23 07/01/24 ezetimibe 10 mg tablet 10 mg PO DAILY 08/04/23 06/30/24 trazodone 100 mg tablet 100 mg PO DAILY PRN Insomnia 08/04/23 06/30/24 coenzyme Q10 100 mg capsule 400 mg PO BID 03/15/24 06/30/24 (CoQ-10) evolocumab 140 mg/mL subcutaneous 140 mg subcut Q2W 03/15/24 03/15/24 pen injector (Repatha SureClick) magnesium 200 mg tablet 400 mg PO BID 03/15/24 06/30/24 metformin 1,000 mg tablet 1,000 mg PO BID 03/15/24 07/01/24 omega 3-jyc-fwp-fish oil 1,200 mg 1 cap PO BID 03/15/24 06/30/24 (144 mg-216 mg) capsule (Fish Oil) clopidogrel 75 mg tablet 75 mg PO DAILY 07/01/24 dapagliflozin propanediol 10 mg 10 mg PO DAILY 07/01/24 07/01/24 tablet (Farxiga) tamsulosin 0.4 mg capsule 0.4 mg PO DAILY 07/01/24 07/01/24 tramadol 50 mg tablet 50 mg PO Q6H 07/01/24 07/01/24 Previous Rx's ?Medication ?Instructions ?Recorded albuterol sulfate 90 mcg/actuation 2 puff inhalation Q4-6H PRN 11/13/23 aerosol inhaler (ProAir HFA) shortness of breath or wheezing #8.5 grams Allergies Allergy/AdvReac Type Severity Reaction Status Date / Time hydrocodone [From VICODIN] Allergy Unknown SWELLING Verified 06/30/24 05:31 oxycodone Allergy Unknown itching Verified 06/30/24 05:31 Review of Systems Review of Systems: Yes all other systems are reviewed and are negative [facility] Past Medical History [facility] Narrative: Social history: Patient denies tobacco use. He occasionally drinks alcohol. He denies drug use. Medical History Chronic systolic CHF (congestive heart failure) CKD (chronic kidney disease) Diabetes Hyperlipidemia HTN (hypertension) Renal mass CAD (coronary artery disease) Family History Family History Other CAD (coronary artery disease) Social History Social History Household Members: Children Household Members Other:: Son Housing: House Do you presently have visiting nurse or other home services: No Alcohol intake: current Alcohol intake frequency: a few times a month Alcohol type: beer Patient Tobacco Use Status: Never used Tobacco Smoked in Last 30 Days: No Use of substances other than those prescribed or required for medical reasons: No Advance Directives: No Advance Directives Information Provided: No service: Yes 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 occupational 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: 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 Vital Signs: Vital Signs: Last Vital Signs Temp 97.8 F 07/03/24 09:51 Pulse 67 07/03/24 14:29 Resp 16 07/03/24 14:29 BP 82/46 L 07/03/24 14:29 Pulse Ox 97 07/03/24 12:51 O2 Del Method Room Air 07/03/24 12:51 BMI result Body Mass Index 30.9 Vital signs revealed an elevated systolic blood pressure of 1410/66 otherwise unremarkable Exam: General: Awake, alert in no distress, lying in bed comfortably, weight 103.4 kg, elevated BMI 30.9 Head: Normocephalic, atraumatic EENT: PERRL, Lids normal, sclera normal, conjunctiva normal, nose normal , ears normal, throat without erythema or exudates Neck: Supple, no adenopathy Lung: breath sounds symmetric, no wheezing, rales or rhonchi Chest: symmetric movement, nontender, right chest Port-A-Cath Heart: regular rate and rhythm, normal S1, S2 no murmurs or rubs Abdomen: soft, non-tender, nondistended, normal bowel sounds Back: no vertebral tenderness, no CVAT Extremities: Right hip exam: ecchymosis over the lateral aspect of the hip and along the posterior aspect of the thigh. Patient has moderate to severe tenderness palpation over the lateral aspect of the right hip and over the hip joint, he has increased pain with passive range of motion/log-rolling of the right hip. Extremities neurovascular intact Neuro: Awake, alert, oriented, normal speech, cranial nerves intact, moves all extremities symmetrically Psych: Pleasant, cooperative Course Course Course Narrative: 0713 07/01/24 -- Patient's eliquis has been discontinued at this time for concern of bleeding. Repeat H&H this morning is upward trending at 10.3/ 32.2 which is reassuring. Plan to restart both Eliquis and aspirin on Wednesday (tomorrow). Patient to continue PO pain meds while in the overflow ED (morphine and Tylenol). His vital signs have remained stable. Plan to have pharmacy review med rec. Physician observation continued pending PT/CM and disposition. Will continue to monitor. Reevaluation(s) Reevaluation #1: 07/02/2024 - 1630 - physician observation continued. H&H improved to 11.1/35.3, plan was to restart Eliquis and aspirin today. Ordered Eliquis, and aspirin. Discussed with Dr. Vu who is in agreement with this plan. We will continue to closely monitor. Physician observation continued pending case management disposition. Reevaluation #2: Physician observation continued. Uneventful night. Vital signs stable. No complaints from nursing overnight. Med reconciliation reviewed and done. Pending disposition. Will continue to monitor. Time: 06:27 Reevaluation #3: Patient's blood pressure down trending his labs seem to have worsened his kidney functions worsening almost doubled. I did discuss this with my attending who initially had the patient recommends hospital admission for BUTCH as well as possible UTI. Will start Levaquin at this time. Time: 14:29 Medications Administered Generic Name Dose Route Start Last Admin Trade Name Freq PRN Reason Stop Dose Admin Amlodipine Besylate 10 mg 07/01/24 12:45 07/03/24 10:01 Amlodipine Besylate 10 Mg Tablet PO Not Given DAILY [facility] Protocol Apixaban 2.5 mg 07/02/24 21:00 07/03/24 10:03 Apixaban 2.5 Mg Tablet PO 2.5 mg BID SAMIRA Administration Ascorbic Acid 1,000 mg 07/01/24 12:45 07/03/24 10:03 Ascorbic Acid 500 Mg Tablet PO 1,000 mg BID SAMIRA Administration Aspirin 81 mg 07/02/24 16:45 07/03/24 10:01 Aspirin 81 Mg Tab.Chew PO 81 mg DAILY SAMIRA Administration Carvedilol 25 mg 07/01/24 12:45 07/03/24 10:05 Carvedilol 25 Mg Tablet PO Not Given BID SAMIRA Protocol Colchicine 0.6 mg 07/01/24 12:45 07/03/24 12:44 Colchicine 0.6 Mg Tablet PO Not Given DAILY SAMIRA Docusate Sodium 100 mg 07/01/24 21:00 07/03/24 09:59 Docusate Sodium 100 Mg Capsule PO Not Given BID SAMIRA Ezetimibe 10 mg 07/01/24 12:45 07/03/24 10:04 Ezetimibe 10 Mg Tablet PO 10 mg DAILY SAMIRA Administration Empagliflozin 10 mg 07/02/24 09:00 07/03/24 10:04 Empagliflozin 10 Mg Tablet PO 10 mg DAILY SAMIRA Administration Furosemide 40 mg 07/01/24 12:45 07/03/24 09:59 Furosemide 20 Mg Tablet PO Not Given DAILY SAMIRA Protocol Losartan Potassium 100 mg 07/01/24 12:45 07/03/24 10:02 Losartan Potassium 50 Mg Tablet PO Not Given DAILY [facility] Protocol Magnesium Oxide 200 mg 07/01/24 21:00 07/03/24 09:59 Magnesium Oxide 400 Mg Tablet PO 200 mg BID SAMIRA Administration Metformin HCl 500 mg 07/03/24 09:00 07/03/24 12:43 Metformin Hcl 500 Mg Tablet PO 500 mg BID SAMIRA Administration Morphine Sulfate 15 mg 06/30/24 11:59 07/01/24 20:28 Morphine Sulfate Immed Release 15 Mg Tablet PO 15 mg Q4H PRN Administration Pain, Severe (Pain Scale 7-10) Omeprazole 20 mg 07/01/24 12:45 07/03/24 06:20 Omeprazole 20 Mg Capsule.Dr PO 20 mg DAILY@0630 SAMIRA Administration Polyethylene Glycol 17 gm 07/01/24 12:45 07/02/24 18:18 Polyethylene Glycol 3350 17 Gm Powd.Pack PO 17 gm DAILY PRN Administration constipation Pregabalin 150 mg 07/01/24 12:45 07/03/24 10:04 Pregabalin 150 Mg Capsule PO 150 mg BID SAMIRA Administration Tamsulosin HCl 0.4 mg 07/01/24 14:00 07/03/24 10:03 Tamsulosin Hcl 0.4 Mg Capsule PO 0.4 mg DAILY SAMIRA Administration Trazodone HCl 100 mg 07/01/24 12:43 07/02/24 20:30 Trazodone Hcl 100 Mg Tablet PO 100 mg DAILY PRN Administration Insomnia Discontinued Medications Generic Name Dose Route Start Last Admin Trade Name Lauroq PRN Reason Stop Dose Admin Sodium Chloride 1,000 mls @ 125 mls/hr 06/30/24 07:16 06/30/24 20:28 Ns IV 06/30/24 15:15 Infused .Q8H STA Infusion Metformin HCl 1,000 mg 07/01/24 14:00 07/02/24 20:33 Metformin Hcl 1,000 Mg Tablet PO Not Given BID [facility] Morphine Sulfate 4 mg 06/30/24 07:16 06/30/24 08:06 Morphine Sulfate 4 Mg/Ml Cartridge IVPUSH 06/30/24 07:17 4 mg ONCE STA Administration Protocol Morphine Sulfate 4 mg 06/30/24 10:16 06/30/24 10:54 Morphine Sulfate 4 Mg/Ml Cartridge IVPUSH 06/30/24 10:17 4 mg ONCE STA Administration Protocol Non-Formulary Medication 400 mg 07/01/24 12:45 07/01/24 15:11 Coenzyme Q10 [Coq-10] PO Not Given BID [facility] Non-Formulary Medication 1 cap 07/01/24 12:45 07/01/24 15:11 Abrams 1-Hfo-Kvo-Fish Oil [Fish Oil] PO Not Given BID [facility] Medical Decision Making Medical Decision Making MDM Narrative: 83-year-old male with a history of CHF with an EF 40-45% (03/15/2024), coronary artery disease with PCI 2021 LAD plus multiple other PCI interventions, chronic kidney disease, diabetes, hyperlipidemia, hypertension, right kidney cancer being treated at [facility], right chest Port-A-Cath, coronary artery disease who presents emergency department for evaluation of urinary incontinence in right hip pain and unable to walk. Patient fell 2 weeks prior at his PCP's office and has had increased pain to the point where he is now using a walker and wheelchair where he was using a cane before to ambulate. Patient was incontinent of urine this morning but he attributes this to his diuretic. He also woke up with severe pain in his right hip and was unable to bear weight and walk. Vital signs revealed an elevated blood pressure otherwise unremarkable. Physical examination revealed a hematoma to the right lateral hip and right posterior thigh. He also had significant pain with passive range of motion of the right hip. 07:29 Differential diagnosis: ?Includes but is not limited to right hip contusion, right hip hematoma, occult right hip fracture, electrolyte abnormalities, anemia, urinary tract infection Following evaluation was ordered:CBC, CMP, PT/INR, PTT, urinalysis, CT, access Port-A-Cath Patient was initially treated with the following: Normal saline at 125 cc/hour, morphine 4 mg IV Course: 11:52 Start physician observation Laboratory evaluation did reveal drop in the patient's H from 10.9 and 33.5 on 03/15/2020 4-9.6 and 30.1 today. Repeat 4 hour H&H was 10 and 31.2 with no significant change compared suggesting he does not have an acute bleed and that the hematoma is stable. CT scan of the right hip did not reveal a occult fracture but the patient does have a 9.3 x 5.7 x 7.5 cm hematoma within the right gluteus olga muscle that abuts the sciatic nerve. Given these findings, I suspect that the patient's inability to walk is caused by this hematoma and significant musculoskeletal/bruising to his hip muscles from the initial fall. Patient's urinalysis and microscopic evaluation is not consistent with urinary tract infection in his incontinence is most likely secondary to his diuretic use. Patient did receive morphine 4 mg IV x2 with some improvement of his pain. I will get a case management and physical therapy consult to to see if intermediate facility placement would be appropriate. Patient will be kept in physician observation until disposition can be determined Admission/Observation Consideration of admission/observation: Escalation of care including admission/observation considered Lab Data MDM Lab Attestation statement: I reviewed the patient's lab results. My interpretation patient's laboratory evaluation is as follows: H&H was low 9.6 and 30.1 compared to time 0.9 and 33.5 on 03/15/2024. Elevated BUN creatinine 37 and 1.68 compared to 30 and 1.35 on 03/15/2024-GFR decreased from 03/15/2024. Urinalysis was positive for glucose and leukocyte esterase. Microscopic revealed no RBCs, greater than 50 WBCs but no bacteria-this is not consistent with a urinary tract infection, the patient was asymptomatic except for his incontinence. 07/02/24 12:39 07/03/24 07:42 Labs: Lab Results 06/30/24 06/30/24 06/30/24 Range/Units 06:11 07:35 10:28 WBC 8.8 (4.8-10.8) X10*3/uL RBC 3.57 L (4.60-5.80) X10*6/uL Hgb 9.6 L 10.0 L (14.0-18.0) g/dl Hct 30.1 L 31.2 L (42.0-52.0) % MCV 84.3 (80.0-98.0) fL MCH 26.9 L (27.0-33.0) pg MCHC 31.9 (31.0-36.0) g/dl RDW 18.1 H (11.0-16.0) % Plt Count 322 (160-400) X10*3/uL MPV 8.8 L (9.4-12.4) fL Immature Gran % (Auto) 0.5 H (0.0-0.4) % Neut % (Auto) 74.3 H (45-73) % Lymph % (Auto) 11.0 L (20-40) % [place] % (Auto) 9.6 (2-11) % Eos % (Auto) 4.0 (0-4) % Baso % (Auto) 0.6 (0-2) % Lymph # (Auto) 1.0 L (1.2-4.9) X10*3/uL [place] # (Auto) 0.8 (0.1-1.2) X10*3/uL Eos # (Auto) 0.4 (0.0-0.4) X10*3/uL Baso # (Auto) 0.1 (0.0-0.2) X10*3/uL Abs Immat Gran (auto) 0.04 H (0.00-0.03) X10*3/uL Absolute Neuts (auto) 6.5 (2.0-8.3) x10*3/uL Absolute Nucleated RBC 0.000 (0.0-0.012) X10*3/uL Nucleated RBC % (auto) 0.0 (0.0-0.2) /100WBC PT 15.0 H (11.1-13.3) SEC INR 1.2 H (0.9-1.1) APTT 38.7 H (26.0-36.8) SEC Sodium 133 L (135-145) mmol/L Potassium 3.8 (3.3-5.1) mmol/L Chloride 95 L (96-108) mmol/L Carbon Dioxide 29 (22-29) mmol/L Anion Gap 13 (12-20) BUN 37 H (9-16) mg/dL Creatinine 1.68 H (0.5-1.4) mg/dL Estim Creat Clear Calc 39.9 Estimated GFR 39 POC Glucose (60-115) mg/dL Random Glucose 137 H (60-115) mg/dL Calcium 9.4 (8.4-10.2) mg/dL Total Bilirubin 1.3 H (0.0-1.0) mg/dL AST 18 (5-37) U/L ALT 10 (0-40) U/L Alkaline Phosphatase 97 (39-117) U/L Total Protein 6.5 (6.5-8.0) g/dL Albumin 3.4 L (3.5-5.0) g/dL Urine Color Yellow Urine Appearance Cloudy Urine pH 7.0 (5.0-9.0) Ur Specific [place] 1.010 (1.005-1.025) Urine Protein Negative (Neg-Trace) mg/dL Urine Glucose (UA) 500 H (Negative) mg/dL Urine Ketones Negative (Negative) mg/dL Urine Blood Negative (Negative) Urine Nitrite Negative (Negative) Ur Leukocyte Esterase Large (3+) H (Negative) Urine RBC 0-2 (0-2) /HPF Urine WBC >50 H (0-5) /HPF Ur Squamous Epith Cells 0-2 (0-2) /HPF Urine Bacteria None Seen (None Seen) Hyaline Casts 0-2 (0-2) /LPF 07/01/24 07/02/24 07/02/24 Range/Units 05:28 12:39 20:26 WBC 9.1 (4.8-10.8) X10*3/uL RBC 4.13 L (4.60-5.80) X10*6/uL Hgb 10.3 L 11.1 L (14.0-18.0) g/dl Hct 32.2 L 35.3 L (42.0-52.0) % MCV 85.5 (80.0-98.0) fL MCH 26.9 L (27.0-33.0) pg MCHC 31.4 (31.0-36.0) g/dl RDW 18.5 H (11.0-16.0) % Plt Count 361 (160-400) X10*3/uL MPV 8.5 L (9.4-12.4) fL Immature Gran % (Auto) 0.2 (0.0-0.4) % Neut % (Auto) 78.7 H (45-73) % Lymph % (Auto) 8.6 L (20-40) % [place] % (Auto) 9.8 (2-11) % Eos % (Auto) 2.5 (0-4) % Baso % (Auto) 0.2 (0-2) % Lymph # (Auto) 0.8 L (1.2-4.9) X10*3/uL [place] # (Auto) 0.9 (0.1-1.2) X10*3/uL Eos # (Auto) 0.2 (0.0-0.4) X10*3/uL Baso # (Auto) 0.0 (0.0-0.2) X10*3/uL Abs Immat Gran (auto) 0.02 (0.00-0.03) X10*3/uL Absolute Neuts (auto) 7.2 (2.0-8.3) x10*3/uL Absolute Nucleated RBC 0.000 (0.0-0.012) X10*3/uL Nucleated RBC % (auto) 0.0 (0.0-0.2) /100WBC PT (11.1-13.3) SEC INR (0.9-1.1) APTT (26.0-36.8) SEC Sodium (135-145) mmol/L Potassium (3.3-5.1) mmol/L Chloride (96-108) mmol/L Carbon Dioxide (22-29) mmol/L Anion Gap (12-20) BUN (9-16) mg/dL Creatinine (0.5-1.4) mg/dL Estim Creat Clear Calc Estimated GFR POC Glucose 144 H (60-115) mg/dL Random Glucose (60-115) mg/dL Calcium (8.4-10.2) mg/dL Total Bilirubin (0.0-1.0) mg/dL AST (5-37) U/L ALT (0-40) U/L Alkaline Phosphatase (39-117) U/L Total Protein (6.5-8.0) g/dL Albumin (3.5-5.0) g/dL Urine Color Urine Appearance Urine pH (5.0-9.0) Ur Specific [place] (1.005-1.025) Urine Protein (Neg-Trace) mg/dL Urine Glucose (UA) (Negative) mg/dL Urine Ketones (Negative) mg/dL Urine Blood (Negative) Urine Nitrite (Negative) Ur Leukocyte Esterase (Negative) Urine RBC (0-2) /HPF Urine WBC (0-5) /HPF Ur Squamous Epith Cells (0-2) /HPF Urine Bacteria (None Seen) Hyaline Casts (0-2) /LPF 07/03/24 Range/Units 07:42 WBC (4.8-10.8) X10*3/uL RBC (4.60-5.80) X10*6/uL Hgb (14.0-18.0) g/dl Hct (42.0-52.0) % MCV (80.0-98.0) fL MCH (27.0-33.0) pg MCHC (31.0-36.0) g/dl RDW (11.0-16.0) % Plt Count (160-400) X10*3/uL MPV (9.4-12.4) fL Immature Gran % (Auto) (0.0-0.4) % Neut % (Auto) (45-73) % Lymph % (Auto) (20-40) % [place] % (Auto) (2-11) % Eos % (Auto) (0-4) % Baso % (Auto) (0-2) % Lymph # (Auto) (1.2-4.9) X10*3/uL [place] # (Auto) (0.1-1.2) X10*3/uL Eos # (Auto) (0.0-0.4) X10*3/uL Baso # (Auto) (0.0-0.2) X10*3/uL Abs Immat Gran (auto) (0.00-0.03) X10*3/uL Absolute Neuts (auto) (2.0-8.3) x10*3/uL Absolute Nucleated RBC (0.0-0.012) X10*3/uL Nucleated RBC % (auto) (0.0-0.2) /100WBC PT (11.1-13.3) SEC INR (0.9-1.1) APTT (26.0-36.8) SEC Sodium 138 (135-145) mmol/L Potassium 4.2 (3.3-5.1) mmol/L Chloride 101 (96-108) mmol/L Carbon Dioxide 25 (22-29) mmol/L Anion Gap 16 (12-20) BUN 44 H (9-16) mg/dL Creatinine 2.53 H (0.5-1.4) mg/dL Estim Creat Clear Calc 26.5 Estimated GFR 24 POC Glucose (60-115) mg/dL Random Glucose 137 H (60-115) mg/dL Calcium 8.7 D (8.4-10.2) mg/dL Total Bilirubin (0.0-1.0) mg/dL AST (5-37) U/L ALT (0-40) U/L Alkaline Phosphatase (39-117) U/L Total Protein (6.5-8.0) g/dL Albumin (3.5-5.0) g/dL Urine Color Urine Appearance Urine pH (5.0-9.0) Ur Specific [place] (1.005-1.025) Urine Protein (Neg-Trace) mg/dL Urine Glucose (UA) (Negative) mg/dL Urine Ketones (Negative) mg/dL Urine Blood (Negative) Urine Nitrite (Negative) Ur Leukocyte Esterase (Negative) Urine RBC (0-2) /HPF Urine WBC (0-5) /HPF Ur Squamous Epith Cells (0-2) /HPF Urine Bacteria (None Seen) Hyaline Casts (0-2) /LPF Radiology Impression Discussion of test interpretation with radiology: I have reviewed the radiologist's reading. Radiologist Impression: CT hip RT wo IV con IMPRESSION: 1. A 9.3 cm hematoma in the right gluteus olga muscle abutting the right sciatic nerve. 2. No acute fracture or malalignment. 3. 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 Dictated By: Wallace Chapa MD Discharge Plan Discharge Clinical Impression: Hematoma of right hip Patient Disposition: Still a Patient Instructions: Hematoma (ED) Prescriptions: No Action colchicine 0.6 mg tablet 1 tab PO DAILY losartan 100 mg tablet 1 tab PO DAILY amlodipine 10 mg Tablet 10 mg PO DAILY aspirin 81 mg Tablet,Chewable 81 mg PO DAILY omeprazole 20 mg Tablet,Delayed Release (Dr/Ec) 20 mg PO DAILY ascorbic acid (vitamin C) 500 mg Tablet 1,000 mg PO BID albuterol sulfate [ProAir HFA] 90 mcg/actuation HFA aerosol inhaler 2 puff inhalation Q4-6H PRN (Reason: shortness of breath or wheezing) Qty: 8.5 0RF magnesium 200 mg Tablet 400 mg PO BID coenzyme Q10 [CoQ-10] 100 mg Capsule 400 mg PO BID omega 6-num-xfi-fish oil [Fish Oil] 1,200 (144-216) mg Capsule 1 cap PO BID Repatha SureClick 140 mg/mL pen injector 140 mg subcut Q2W metformin 1,000 mg tablet 1,000 mg PO BID clopidogrel 75 mg tablet 75 mg PO DAILY tramadol 50 mg tablet 50 mg PO Q6H tamsulosin 0.4 mg capsule 0.4 mg PO DAILY dapagliflozin propanediol [Farxiga] 10 mg tablet 10 mg PO DAILY trazodone 100 mg tablet 100 mg PO DAILY PRN (Reason: Insomnia) ezetimibe 10 mg tablet 10 mg PO DAILY Eliquis 2.5 mg tablet 2.5 mg PO BID pregabalin 150 mg capsule 150 mg PO BID furosemide 20 mg tablet 40 mg PO DAILY carvedilol 25 mg tablet 25 mg PO BID nitroglycerin 0.4 mg tablet, sublingual 0.4 mg sublingual Q5M PRN (Reason: Chest Pain) Print Language: Persian
[2024-06-30 07:34] LABS: Partial Thromboplastin Time 38.7 SEC (26.0-36.8)
[2024-06-30 07:48] LABS: Appearance Urine Cloudy; Color Urine Yellow; Glucose Urine UA 500 mg/dL (Negative); Leukocyte Esterase Urine Large (3+) (Negative); Nitrite Urine Negative (Negative); UMIC TRIGGER UACC YES; Urine Blood Negative (Negative); Urine Ketones Negative (Negative); Urine Protein Negative (Neg-Trace)
[2024-06-30 07:51] LABS: Bacteria Urine None Seen (None Seen); Hyaline Casts Urine 0-2 /LPF (0-2); RBC Urine 0-2 /HPF (0-2); Squamous Epithelial Cell Urine 0-2 /HPF (0-2); UACC Culture Trigger YES; WBC Urine >50 /HPF (0-5)
[2024-06-30] MEDS: Morphine Sulfate 4 MG/ML CARTRIDGE IVPUSH ×2 (08:06→10:54)
[2024-06-30] MEDS: 0.9 % Sodium Chloride 1,000 ML 125 ML IV (08:06)
--- NOTE | 2024-06-30 08:55 | MHC.CM.PN ---
CM RECEIVED A CALL FROM [facility], PT IS ACTIVE WITH THEM RETURN REFERRAL SENT VIA [facility]
[2024-06-30 10:43] LABS: Hematocrit 31.2 % (42.0-52.0)
--- NOTE | 2024-06-30 12:24 | MHC.CM.PN ---
CM RECEIVED A CONSULT FOR THIS PT PT FROM HOME, FELL ABOUT A WEEK AGO AND HAS HAD PAIN SINCE PT EVAL PENDING FOR POTENTIAL REHAB PLACEMENT [facility] IS PREFERRED FACILITY
[2024-06-30] MEDS: Morphine Sulfate Immed Release 15 MG TABLET PO ×2 (15:16→20:34)
--- NOTE | 2024-06-30 16:00 | MHC.EDTECH ---
This pct assumed care of patient at 1500 ,vitals taken ,pt comfortable ,watching television in bed .
--- NOTE | 2024-06-30 19:58 | PC.NURSE ---
report given to NADIR Benitez in overflow
--- NOTE | 2024-06-30 20:05 | MHC.EDTECH ---
Patient was given dinner ,ate 100 % ,drank 360 ml fluids ,Patient belongings list done ,vitals taken ,and 600 ml empty from urinal .
--- NOTE | 2024-06-30 20:22 | PC.NURSE ---
received report from Michaelle SCHMITZ, pt from main ED, to OV 5, assume care of pt at this time
--- NOTE | 2024-06-30 22:50 | MHC.CM.ED ---
[facility] called. They are concerned about potential bleeding in his hip with the hematoma and his taking anticoagulants. They have questions about continuation of anticoagulation. Pt had recent stent (6 weeks ago). Requesting cardiology consult. Dr. Dr. Vu aware. Pt will remain overnight. Will have another H&H in the morning. Anticoagulants on hold. Dr. Vu aware. Ne from [facility] is on tomorrow at [phone]. CM to reach out to her. at [facility] has not yet accepted patient. Family is concerned about holding the anticoagulants. Requesting cardiology consult. Pt Automatic Spinning Lathe Operator is Mary Solorzano in [place]. sent [place] to Dr. Vu regarding family request.
--- NOTE | 2024-06-30 23:22 | PC.NURSE ---
report given to Maryam SCHMITZ
[2024-07-01] MEDS: Morphine Sulfate Immed Release 15 MG TABLET PO ×3 (05:10→20:28)
[2024-07-01 05:34] LABS: Hematocrit 32.2 % (42.0-52.0); Hemoglobin 10.3 g/dl (14.0-18.0)
[2024-07-01 06:00] VITALS: BP 174/72; PULSE 74; RESP 16; TEMP 37.6; O2SAT 94
--- NOTE | 2024-07-01 12:19 | MHC.CM.ED ---
Patient remains in ER overflow. Per Dr Vu, patient will stay off anticoagulation today, labs will be rechecked tomorrow and then anticoagulation will be started on Wednesday. Clinical updates sent to [facility]. Continue to monitor for d/c needs.
--- NOTE | 2024-07-01 13:30 | PHA.MEDREC ---
Addendum entered by Melissa Alvarado, [facility] 07/01/24 13:34: Made provider aware that med rec was completed a second time by pharmacy after the provider had already continued the med rec done by the RN. Also let the provider know of the pharmacy claims for ASA, Plavix and Eliquis. (Nolberto) Original Note: Pharmacy Consult ? Medication Reconciliation Pharmacy has completed/reviewed the medication reconciliation Med rec was done by RN and I noticed some discrepancies. When I went down to interview the patient he seemed irritable and told me to call his pharmacy to get his medications. He confirmed with me he takes everything [facility] in [place] gives him and takes them as theyre prescribed on the bottle. OF NOTE: patient on eliquis and plavix? claims show fills of both recently and in the past. Will let provider know and leaving plavix unconfirmed. .
[2024-07-01] MEDS: Ezetimibe 10 MG TABLET PO (13:51)
[2024-07-01] MEDS: Omeprazole 20 MG CAPSULE.DR PO (13:51)
[2024-07-01] MEDS: Ascorbic Acid 500 MG TABLET 1000 MG PO ×2 (13:51→20:27)
[2024-07-01] MEDS: Pregabalin 150 MG CAPSULE PO ×2 (13:51→20:27)
[2024-07-01] MEDS: Colchicine 0.6 MG TABLET PO (13:51)
[2024-07-01 14:00] VITALS: BP 163/73; PULSE 90; RESP 20; TEMP 37.4; O2SAT 95
[2024-07-01] MEDS: amLODIPine Besylate 10 MG TABLET PO (14:44)
[2024-07-01] MEDS: Furosemide 20 MG TABLET 40 MG PO (14:44)
[2024-07-01] MEDS: Losartan Potassium 50 MG TABLET 100 MG PO (14:44)
[2024-07-01] MEDS: Tamsulosin HCL 0.4 MG CAPSULE PO (15:04)
[2024-07-01] MEDS: carvediloL 25 MG TABLET PO ×2 (15:06→20:34)
--- NOTE | 2024-07-01 18:35 | PC.NURSE ---
pt ambulated to bathroom in overflow with walker and standby assist. steady gait with walker
[2024-07-01 20:27] VITALS: BP 153/70; PULSE 88; RESP 16; TEMP 37; O2SAT 96
[2024-07-01] MEDS: Magnesium Oxide 400 MG TABLET 200 MG PO (20:27)
[2024-07-01] MEDS: Docusate Sodium 100 MG CAPSULE PO (20:28)
[2024-07-01 20:34] VITALS: BP 153/70; PULSE 88
--- NOTE | 2024-07-02 01:59 | PC.NURSE ---
Patient medicated for right lef pain at hs. Resting comfortably at present time. Bed alarm on for safety , call chrisetnsen within reach.
[2024-07-02] MEDS: Omeprazole 20 MG CAPSULE.DR PO (06:17)
[2024-07-02 06:44] VITALS: BP 173/81; PULSE 81; RESP 16; TEMP 37; O2SAT 95
[2024-07-02 07:42] VITALS: BP 172/79; PULSE 81; RESP 17; TEMP 36.7; O2SAT 94
[2024-07-02] MEDS: Ezetimibe 10 MG TABLET PO (09:02)
[2024-07-02] MEDS: Pregabalin 150 MG CAPSULE PO ×2 (09:02→20:32)
[2024-07-02] MEDS: amLODIPine Besylate 10 MG TABLET PO (09:02)
[2024-07-02] MEDS: Losartan Potassium 50 MG TABLET 100 MG PO (09:02)
[2024-07-02] MEDS: Furosemide 20 MG TABLET 40 MG PO (09:02)
[2024-07-02] MEDS: Ascorbic Acid 500 MG TABLET 1000 MG PO ×2 (09:02→20:30)
[2024-07-02] MEDS: Tamsulosin HCL 0.4 MG CAPSULE PO (09:02)
[2024-07-02] MEDS: Magnesium Oxide 400 MG TABLET 200 MG PO ×2 (09:03→20:30)
[2024-07-02] MEDS: Empagliflozin 10 MG TABLET PO (09:03)
[2024-07-02] MEDS: Docusate Sodium 100 MG CAPSULE PO ×2 (09:03→20:30)
[2024-07-02] MEDS: carvediloL 25 MG TABLET PO ×2 (09:03→20:32)
[2024-07-02] MEDS: Colchicine 0.6 MG TABLET PO (09:04)
[2024-07-02 10:22] VITALS: BP 144/68; PULSE 76; RESP 17; O2SAT 94
[2024-07-02 12:45] LABS: Basophils Percent Auto 0.2 % (0-2); Eosinophils Absolute Auto 0.2 X10*3/uL (0.0-0.4); Eosinophils Percent Auto 2.5 % (0-4); Hematocrit 35.3 % (42.0-52.0); Hemoglobin 11.1 g/dl (14.0-18.0); Imm Gran Abs Auto 0.02 X10*3/uL (0.00-0.03); Imm Gran Pct Auto 0.2 % (0.0-0.4); Lymphocytes Absolute Auto 0.8 X10*3/uL (1.2-4.9); Lymphocytes Percent Auto 8.6 % (20-40); MANUAL DIFF FLAG NO; Mean Corpuscular HGB Conc 31.4 g/dl (31.0-36.0); Mean Corpuscular Hemoglobin 26.9 pg (27.0-33.0); Mean Corpuscular Volume 85.5 fL (80.0-98.0); Mean Platelet Volume 8.5 fL (9.4-12.4); Monocytes Absolute Auto 0.9 X10*3/uL (0.1-1.2); Monocytes Percent Auto 9.8 % (2-11); Neutrophils Absolute Auto 7.2 x10*3/uL (2.0-8.3); Neutrophils Percent Auto 78.7 % (45-73); Platelet Count 361 X10*3/uL (160-400); Red Blood Count 4.13 X10*6/uL (4.60-5.80); Red Cell Distribution Width 18.5 % (11.0-16.0); White Blood Count 9.1 X10*3/uL (4.8-10.8)
--- NOTE | 2024-07-02 13:47 | MHC.CM.ED ---
Patient remains in ER overflow. H&H improved from 07/01. Leigha NAIR made aware for possible restarting of Eliquis. Spoke with Clarice at [facility]. Will review clinicals and repond to on Wednesday if they are able to offer a bed. Continue to monitor for d/c needs.
[2024-07-02 14:17] VITALS: BP 121/56; PULSE 86; RESP 16; O2SAT 93
[2024-07-02] MEDS: Aspirin 81 MG TAB.CHEW PO (16:48)
[2024-07-02] MEDS: polyethylene glycoL 3350 17 GM POWD.PACK PO (18:18)
[2024-07-02 20:30] LABS: Glucose, Whole Blood 144 mg/dL (60-115)
[2024-07-02] MEDS: traZODone HCL 100 MG TABLET PO (20:30)
[2024-07-02] MEDS: Apixaban 2.5 MG TABLET PO (20:32)
[2024-07-02 22:00] VITALS: BP 116/62; PULSE 85; RESP 16; TEMP 36.8; O2SAT 96
--- NOTE | 2024-07-02 22:25 | PC.NURSE ---
pt requesting quielly with eyes closed, resp with ease, no acute distress noted
[2024-07-03] VITALS (18 sets, daily range): BP systolic 76–127; BP diastolic 40–59; PULSE 65–83; RESP 16–20; TEMP 36.5–37.1; O2SAT 92–97
--- NOTE | 2024-07-03 03:00 | PC.NURSE ---
resting quietly with eyes, resp with ease, no s/s of acute distress, will cont plan of care
[2024-07-03] MEDS: Omeprazole 20 MG CAPSULE.DR PO (06:20)
--- NOTE | 2024-07-03 06:36 | PC.NURSE ---
pt awaken, and morning medication given, pt denies any needs at this time
[2024-07-03 08:19] LABS: Anion Gap 16 (12-20); Blood Urea Nitrogen 44 mg/dL (9-16); Calcium 8.7 mg/dL (8.4-10.2); Carbon Dioxide 25 mmol/L (22-29); Chloride 101 mmol/L (96-108); Creatinine Clr Calc Pharmacy 26.5; Estimated Glomerular Filt Rate 24; Glucose Random 137 mg/dL (60-115); Potassium 4.2 mmol/L (3.3-5.1); Sodium 138 mmol/L (135-145)
[2024-07-03] MEDS: Magnesium Oxide 400 MG TABLET 200 MG PO ×2 (09:59→22:05)
[2024-07-03] MEDS: Aspirin 81 MG TAB.CHEW PO (10:01)
[2024-07-03] MEDS: Apixaban 2.5 MG TABLET PO (10:03)
[2024-07-03] MEDS: Tamsulosin HCL 0.4 MG CAPSULE PO (10:03)
[2024-07-03] MEDS: Ascorbic Acid 500 MG TABLET 1000 MG PO ×2 (10:03→22:07)
[2024-07-03] MEDS: Pregabalin 150 MG CAPSULE PO (10:04)
[2024-07-03] MEDS: Ezetimibe 10 MG TABLET PO (10:04)
[2024-07-03] MEDS: Empagliflozin 10 MG TABLET PO (10:04)
--- NOTE | 2024-07-03 10:49 | PC.NURSE ---
continues to take PO fluids. Provider is aware of BP trending back up and elevated creatine. Will offer patient metphormin though it was said in report that he's been refusing. Pt continues to wait for placement. Deep and multicolored bruising throughout LLE and hip.
--- NOTE | 2024-07-03 12:42 | MHC.CM.ED ---
Addendum entered by Aditi Spencer 07/03/24 15:47: Received notification from Carline SCHMITZ that patient will be admitted. [facility] has been made aware and asked to follow. Original Note: Patient remains in ER overflow. ASA and Eliquis has been restarted by provider. Physical therapy will re-see patient. Clinical updates sent to [facility]. Continue to monitor for d/c needs.
[2024-07-03] MEDS: metFORMIN HCl 500 MG TABLET PO (12:43)
--- NOTE | 2024-07-03 12:50 | PC.NURSE ---
large loose stool, incontinent.
--- NOTE | 2024-07-03 13:43 | PC.NURSE ---
ambulatory with walker and PT. Denies dizziness.
[2024-07-03 14:57] LABS: MANUAL DIFF FLAG NO
[2024-07-03 14:58] LABS: Basophils Percent Auto 0.3 % (0-2); Eosinophils Absolute Auto 0.2 X10*3/uL (0.0-0.4); Eosinophils Percent Auto 3.2 % (0-4); Hematocrit 28.6 % (42.0-52.0); Imm Gran Abs Auto 0.02 X10*3/uL (0.00-0.03); Imm Gran Pct Auto 0.3 % (0.0-0.4); Lymphocytes Percent Auto 15.5 % (20-40); Mean Corpuscular HGB Conc 31.5 g/dl (31.0-36.0); Mean Corpuscular Hemoglobin 26.9 pg (27.0-33.0); Mean Corpuscular Volume 85.6 fL (80.0-98.0); Mean Platelet Volume 8.7 fL (9.4-12.4); Monocytes Absolute Auto 0.9 X10*3/uL (0.1-1.2); Monocytes Percent Auto 13.6 % (2-11); Neutrophils Absolute Auto 4.3 x10*3/uL (2.0-8.3); Neutrophils Percent Auto 67.1 % (45-73); Platelet Count 311 X10*3/uL (160-400); Red Blood Count 3.34 X10*6/uL (4.60-5.80); Red Cell Distribution Width 18.5 % (11.0-16.0); White Blood Count 6.5 X10*3/uL (4.8-10.8)
[2024-07-03] MEDS: 0.9 % Sodium Chloride 1,000 ML 999 ML IV (15:14)
--- NOTE | 2024-07-03 15:14 | PC.NURSE ---
axox3. supine in bed wothout complaints of dizziness. does states that he was slightly dizzy while walking with PT earlier. skin pWD. NAD
[2024-07-03 15:16] LABS: Alanine Aminotransferase 14 U/L (0-40); Albumin Level 3.1 g/dL (3.5-5.0); Alkaline Phosphatase 82 U/L (39-117); Anion Gap 16 (12-20); Aspartate Amino Transferase 19 U/L (5-37); Blood Urea Nitrogen 46 mg/dL (9-16); Calcium 8.6 mg/dL (8.4-10.2); Carbon Dioxide 24 mmol/L (22-29); Chloride 101 mmol/L (96-108); Creatinine Clr Calc Pharmacy 21.9; Estimated Glomerular Filt Rate 20; Glucose Random 121 mg/dL (60-115); Potassium 4.4 mmol/L (3.3-5.1); Sodium 137 mmol/L (135-145); Total Protein 6.1 g/dL (6.5-8.0)
--- NOTE | 2024-07-03 15:17 | PM.IMHP ---
History of Present Illness Date of Service: 07/03/24 Attending physician on admission: Edwin Belle Chief Complaint: hypotension , butch 82-year-old male with history of coronary artery disease, chronic systolic congestive heart failure, malignant renal mass w/ R chest port-a-cath, history CVA, CKD stage 3, type 2 diabetes, hyperlipidemia presented to the ED initially on 06/30 due to inability to walk and incontinence and had a fall [address] scan of the right hip did not reveal a occult fracture but the patient does have a 9.3 x 5.7 x 7.5 cm hematoma within the right gluteus olga muscle that abuts the sciatic nerve. He had been boarding in the ED awaiting placement. However, had been hypotensive today with new BUTCH and several episodes of watery diarrhea and has been recommended for admission to medicine. While in the ED, he was diagnosed with enterococcus faec UTi and was due to be started on levaquin tomorrow morning but has not yet received any antibiotic. Per RN, today had 3 episodes of watery diarrhea. Has had decreased PO intake. Earlier today was hypotensive to 76/40, 84/48, 93/52 responding to IV albumin now with BP 114/56. Vitals otherwise stable. He did have drop in h/h 11.1/35.3% yest -->9.0/28.6% today and was restarted on eliquis yesterday. Denies worsening pain. On arrival creat 1.68, today 3.06. BUN 46. Lytes WNL. Total CK 28. Antihypertensives were held this morning and was started on 1L IVNS but this was discontinued in favor of albumin x2 given hx CHF. Review of Systems Review of Systems: Yes all other systems are reviewed and are negative [facility] Medical History Chronic systolic CHF (congestive heart failure) CKD (chronic kidney disease) Diabetes Hyperlipidemia HTN (hypertension) Renal mass CAD (coronary artery disease) Family History Other CAD (coronary artery disease) Social History Household Members: Children Household Members Other:: Son Housing: House Do you presently have visiting nurse or other home services: No Alcohol intake: current Alcohol intake frequency: a few times a month Alcohol type: beer Patient Tobacco Use Status: Never used Tobacco Smoked in Last 30 Days: No Use of substances other than those prescribed or required for medical reasons: No Advance Directives: No Advance Directives Information Provided: No service: Yes 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 Allergy/AdvReac Type Severity Reaction Status Date / Time hydrocodone [From VICODIN] Allergy Unknown SWELLING Verified 06/30/24 05:31 oxycodone Allergy Unknown itching Verified 06/30/24 05:31 Active Medications: Current Medications Acetaminophen (Acetaminophen 325 Mg Tablet) 975 mg PO Q6H PRN PRN Reason: Pain, Moderate(Pain Scale 4-6) Albuterol Sulfate (Albuterol Sulfate 90 Mcg 8 Gm Inhaler) 2 puff INHALE RQ4H PRN PRN Reason: shortness of breath or wheezing Amlodipine Besylate (Amlodipine Besylate 10 Mg Tablet) 10 mg PO DAILY [facility]; Protocol Last Admin: 07/03/24 10:01 Dose: Not Given Apixaban (Apixaban 2.5 Mg Tablet) 2.5 mg PO BID [facility] Last Admin: 07/03/24 10:03 Dose: 2.5 mg Apixaban (Apixaban 2.5 Mg Tablet) 2.5 mg PO BID [facility] Ascorbic Acid (Ascorbic Acid 500 Mg Tablet) 1,000 mg PO BID [facility] Last Admin: 07/03/24 10:03 Dose: 1,000 mg Aspirin (Aspirin 81 Mg Tab.Chew) 81 mg PO DAILY [facility] Last Admin: 07/03/24 10:01 Dose: 81 mg Carvedilol (Carvedilol 25 Mg Tablet) 25 mg PO BID [facility]; Protocol Last Admin: 07/03/24 10:05 Dose: Not Given Colchicine (Colchicine 0.6 Mg Tablet) 0.6 mg PO DAILY [facility] Last Admin: 07/03/24 12:44 Dose: Not Given Docusate Sodium (Docusate Sodium 100 Mg Capsule) 100 mg PO BID [facility] Last Admin: 07/03/24 09:59 Dose: Not Given Ezetimibe (Ezetimibe 10 Mg Tablet) 10 mg PO DAILY [facility] Last Admin: 07/03/24 10:04 Dose: 10 mg Empagliflozin (Empagliflozin 10 Mg Tablet) 10 mg PO DAILY [facility] Last Admin: 07/03/24 10:04 Dose: 10 mg Furosemide (Furosemide 20 Mg Tablet) 40 mg PO DAILY [facility]; Protocol Last Admin: 07/03/24 09:59 Dose: Not Given Levofloxacin (Levofloxacin 500 Mg Tablet) 500 mg PO DAILY [facility] Stop: 07/11/24 08:59 Losartan Potassium (Losartan Potassium 50 Mg Tablet) 100 mg PO DAILY [facility]; Protocol Last Admin: 07/03/24 10:02 Dose: Not Given Magnesium Oxide (Magnesium Oxide 400 Mg Tablet) 200 mg PO BID [facility] Last Admin: 07/03/24 09:59 Dose: 200 mg Metformin HCl (Metformin Hcl 500 Mg Tablet) 500 mg PO BID [facility] Last Admin: 07/03/24 12:43 Dose: 500 mg Morphine Sulfate (Morphine Sulfate Immed Release 15 Mg Tablet) 15 mg PO Q4H PRN PRN Reason: Pain, Severe (Pain Scale 7-10) Last Admin: 07/01/24 20:28 Dose: 15 mg Nitroglycerin (Nitroglycerin 0.4 Mg Tab.Subl) 0.4 mg SUBLINGUAL Q5M PRN PRN Reason: Chest Pain Omeprazole (Omeprazole 20 Mg Capsule.Dr) 20 mg PO DAILY@0630 [facility] Last Admin: 07/03/24 06:20 Dose: 20 mg Polyethylene Glycol (Polyethylene Glycol 3350 17 Gm Powd.Pack) 17 gm PO DAILY PRN PRN Reason: constipation Last Admin: 07/02/24 18:18 Dose: 17 gm Pregabalin (Pregabalin 150 Mg Capsule) 150 mg PO BID [facility] Last Admin: 07/03/24 10:04 Dose: 150 mg Tamsulosin HCl (Tamsulosin Hcl 0.4 Mg Capsule) 0.4 mg PO DAILY [facility] Last Admin: 07/03/24 10:03 Dose: 0.4 mg Trazodone HCl (Trazodone Hcl 100 Mg Tablet) 100 mg PO DAILY PRN PRN Reason: Insomnia Last Admin: 07/02/24 20:30 Dose: 100 mg Home Medications ?Medication ?Instructions ?Recorded ?Confirmed ?Last Taken ?Type carvedilol 25 mg tablet 25 mg PO BID 02/03/21 06/30/24 06/30/24 History furosemide 20 mg tablet 40 mg PO DAILY 02/03/21 07/01/24 06/29/24 History nitroglycerin 0.4 mg sublingual 0.4 mg sublingual Q5M PRN Chest 02/03/21 07/01/24 Unknown History tablet Pain pregabalin 150 mg capsule 150 mg PO BID 02/03/21 06/30/24 06/29/24 History amlodipine 10 mg tablet 10 mg PO DAILY 05/16/22 06/30/24 06/29/24 History aspirin 81 mg chewable tablet 81 mg PO DAILY 05/16/22 07/01/24 08/04/23 History colchicine 0.6 mg tablet 1 tab PO DAILY [facility] 05/16/22 06/30/24 06/29/24 History losartan 100 mg tablet 1 tab PO DAILY 05/16/22 06/30/24 06/29/24 History omeprazole 20 mg tablet,delayed 20 mg PO DAILY 05/16/22 06/30/24 06/29/24 History release ascorbic acid (vitamin C) 500 mg 1,000 mg PO BID 05/18/22 06/30/24 06/29/24 History tablet apixaban 2.5 mg tablet (Eliquis) 2.5 mg PO BID 08/04/23 07/01/24 08/04/23 History ezetimibe 10 mg tablet 10 mg PO DAILY 08/04/23 06/30/24 06/29/24 History trazodone 100 mg tablet 100 mg PO DAILY PRN Insomnia 08/04/23 06/30/24 Unknown History coenzyme Q10 100 mg capsule 400 mg PO BID 03/15/24 06/30/24 06/29/24 History (CoQ-10) evolocumab 140 mg/mL subcutaneous 140 mg subcut Q2W 03/15/24 03/15/24 Unknown History pen injector (Repatha SureClick) magnesium 200 mg tablet 400 mg PO BID 03/15/24 06/30/24 06/30/24 History metformin 1,000 mg tablet 1,000 mg PO BID 03/15/24 07/01/24 Unknown History omega 0-mhf-aqf-fish oil 1,200 mg 1 cap PO BID 03/15/24 06/30/24 06/30/24 History (144 mg-216 mg) capsule (Fish Oil) clopidogrel 75 mg tablet 75 mg PO DAILY 07/01/24 Unknown History dapagliflozin propanediol 10 mg 10 mg PO DAILY 07/01/24 07/01/24 Unknown History tablet (Farxiga) tamsulosin 0.4 mg capsule 0.4 mg PO DAILY 07/01/24 07/01/24 Unknown History tramadol 50 mg tablet 50 mg PO Q6H 07/01/24 07/01/24 Unknown History Physical Exam Vital Signs and Narrative: Vital Signs: Last Vital Signs Temp 98.7 F 07/03/24 15:06 Pulse 71 07/03/24 15:06 Resp 18 07/03/24 15:06 BP 97/54 L 07/03/24 15:06 Pulse Ox 97 07/03/24 15:06 O2 Del Method Room Air 07/03/24 15:06 BMI result Body Mass Index 30.9 Constitutional - Awake and Alert, No apparent distress Eyes - PERRLA, EOMI Cardiovascular - S1S2, RRR, No edema Respiratory - Normal lung expansion, Normal respiratory effort, No respiratory distress, CTA bilaterally Gastrointestinal - NT / ND; +BS; No rebound or guarding Extremities - no calf tenderness bilaterally, no swelling Skin - Warm/Dry Neurological - Alert & oriented x3 Psychological - Appropriate affect Results Labs 07/03/24 14:48 07/03/24 14:48 Labs: Laboratory Results - last 24 hr 07/02/24 07/03/24 07/03/24 20:26 07:42 14:48 MCV 85.6 MCH 26.9 L MCHC 31.5 RDW 18.5 H Plt Count 311 MPV 8.7 L Immature Gran % (Auto) 0.3 Neut % (Auto) 67.1 Lymph % (Auto) 15.5 L [place] % (Auto) 13.6 H Eos % (Auto) 3.2 Baso % (Auto) 0.3 Lymph # (Auto) 1.0 L [place] # (Auto) 0.9 Eos # (Auto) 0.2 Baso # (Auto) 0.0 Abs Immat Gran (auto) 0.02 Absolute Neuts (auto) 4.3 Absolute Nucleated RBC 0.000 Nucleated RBC % (auto) 0.0 Anion Gap 16 16 Estim Creat Clear Calc 26.5 21.9 Estimated GFR 24 20 POC Glucose 144 H Random Glucose 137 H 121 H Calcium 8.7 D 8.6 Total Bilirubin 1.0 AST 19 ALT 14 Alkaline Phosphatase 82 Total Creatine Kinase 28 L Total Protein 6.1 L Albumin 3.1 L Assessment and Plan (1) Hematoma of right hip: Status: Acute (2) Hypotension: Status: Acute (3) BUTCH (acute kidney injury): Status: Acute Plan 82-year-old male with history of coronary artery disease, chronic systolic congestive heart failure, malignant renal mass w/ R chest port-a-cath, history CVA, CKD stage 3, type 2 diabetes, hyperlipidemia admitted for further management of BUTCH #Acute kidney injury on ckd stage 3 -likely multifactorial insetting of hypovolemia (poor PO intake with mild diarrhea vs ongoing bleeding with hematoma restarted on eliquis), ongoing administration of nephrotoxins, hypotension -Given albumin x2 in ED. Hold on further iVF in setting of CHF hx -avoid nephrotoxins -follow I&O -nephro consult -follow renal function/lytes #Acute hypotension- resolved on admission -not r/t sepsis. ?d/t hypovolemia -hold antihypertensives -hold on further IV, monitor bp #Enterococcus faec UTI -po amoxicillin 500mg BID- initiated 07/03 -no leukocytosis, no sepsis #Acute diarrhea with reduced PO intake -has not yet started abx though has UTI -Check CDiff PCR and GI panel -add ensures, clear liquid diet -check sars pcr #Acute on chronic anemia -has 9.3 x 5.7 x 7.5 cm hematoma within the right gluteus olga muscle s/p fall -was restarted on eliquis yesterday. Hold eliquis -h/h 11.1/35.3% yest -->9.0/28.6% today -recheck H/H @8pm -consider ortho consult if ongoing bleeding #R gluteus hematoma -as above -pt following, was recommended for STR #Non insulin dependent type 2 diabetes -poc glucose, advance to diabetic diet once diarrhea resolved -admelog on ss #HFrEF -hold diuretics in setting of above #Renal malignancy -has port-a-cath in place -follows with cdh #CAD/HLD -no chest pain dvt prophylaxis- scps given acute anemia, possible bleeding hematoma dnr/dni pt requires inpt stay at least 2 midnight due to butch with hypotension require close monitoring of renal function with expert consultation Quality Stroke Does the patient have a stroke diagnosis?: No VTE Prior VTE?: No VTE Risk Level:: Medical - moderate - high VTE Device Contraindication: N/A - Device Ordered VTE Drug Contraindication: Treatment Not Indicated
--- NOTE | 2024-07-03 15:32 | MHC.EDTECH ---
pt at rest, no signs of distress, bed exit alarm on
[2024-07-03] MEDS: Albumin Human 25 % 100 ML IV ×2 (16:29→18:10)
--- NOTE | 2024-07-03 18:23 | PC.NURSE ---
son at bedside. all aware of plan of care for admission to Tele/ Pt has been sleeping mostly. NAD. NSR on Zole monitor at bedside.
[2024-07-03] MEDS: traZODone HCL 100 MG TABLET PO (22:06)
[2024-07-03] MEDS: Amoxicillin 500 MG CAPSULE PO (22:07)
[2024-07-03] MEDS: 0.9 % Sodium Chloride Flush 3 ML SYRINGE IVFLUSH (22:09)
[2024-07-03 23:58] LABS: Influenza A PCR NEGATIVE (Negative); Influenza B PCR NEGATIVE (Negative); Resp Syncy Virus RNA Qual PCR NEGATIVE (Negative); SARS COV2 PCR INHOUSE NEGATIVE (Negative)
[2024-07-04] VITALS (9 sets, daily range): BP systolic 88–121; BP diastolic 44–66; PULSE 88–112; RESP 20; TEMP 36.2–36.8; O2SAT 91–97
[2024-07-04] MEDS: Omeprazole 20 MG CAPSULE.DR PO (06:32)
--- NOTE | 2024-07-04 07:00 | CA_ITS ---
Transthoracic Echocardiogram Patient (Last, First, Middle): Brian Knutson, Gender: Male Date of : 1940 Age: 83 Procedure Date: 07/04/2024 Procedure Type: Transthoracic Echocardiogram Location[place] [facility] [place] Height: 182.88 cm Weight: 103.42 kg BSA: 2.25 m2 Heart Rate: bpm BP: 92 / 56 mmHg Obstetrics Gynecology Md: Referring MD: Rajan Pineda MD Symptoms: new afib Study Quality: Adequate w Definity ECG Rhythm: Atrial Fibrillation Conclusions: - Normal left ventricular cavity size. There is moderately increased left ventricular wall thickness. The left ventricular systolic function is moderate to severely decreased. The visually estimated ejection fraction is between 25-30%. - The anteroseptal wall, the apex, apical inferior, mid inferior, apical lateral, and mid inferoseptal segments are akinetic. - Normal right ventricular cavity size. There is moderately decreased right ventricular systolic function. - There is mild dilatation of the sinuses of Valsalva measuring 4.00 cm and mild dilatation of the ascending aorta measuring 3.80 cm. Findings Procedure Information Contrast agent, definity, is being given per protocol without apparent complications. Left Ventricle Normal left ventricular cavity size. There is moderately increased left ventricular wall thickness. The left ventricular systolic function is moderate to severely decreased. The visually estimated ejection fraction is between 25-30%. There is evidence of regional wall motion abnormalities. Diastolic function is indeterminate on the basis of available data. Wall Motion Rest Echo Findings The anteroseptal wall, the apex, apical inferior, mid inferior, apical lateral, and mid inferoseptal segments are akinetic. Right Ventricle Normal right ventricular cavity size. There is moderately decreased right ventricular systolic function. Atria The left atrium is severely dilated. Aortic Valve There is a normal trileaflet aortic valve. There is mild calcification of the aortic valve. There is no aortic valve stenosis. There is no aortic valve regurgitation. Mitral Valve There is moderate mitral annular calcification. There is no mitral valve regurgitation. There is no mitral valve stenosis. Pulmonic Valve The pulmonic valve is likely normal. Tricuspid Valve Normal tricuspid valve structure. There is trace tricuspid valve regurgitation. Moderately elevated right atrial pressure. There is no evidence of pulmonary hypertension. Great Vessels There is mild dilatation of the sinuses of Valsalva measuring 4.00 cm and mild dilatation of the ascending aorta measuring 3.80 cm. Venous The inferior vena cava is dilated and collapses less than 50% with inspiration. Pericardium/Pleural There is no evidence of pericardial effusion. Prior Study Comparison Changes noted compared to prior study dated: 03/15/2024. EF 25 to 30%. Moderate RV dysfunction. Measurements 2D Linear Measurements IVSd: 1.37 0.6-0.9/0.6-1.0 cm LVIDd: 4.75 3.9-5.3/4.2-5.9 cm LVIDd Index: 2.11 2.4-3.2/2.2-3.1 cm/m2 LVIDs: 3.69 2.0-3.6 cm LVPWd: 1.32 0.7-1.1 cm Ao Root: 4.10 2.1-3.5 cm LA Diam: 4.70 2.7-3.8/3.0-4.0 cm LAIDs Index: 2.09 1.5-2.3 cm/m2 LV Mass: 316.85 67-162/88-224 g LV Mass Index: 140.82 43-95/49-115 g/m2 LVOT Diam: 2.40 3.0+(-)1.3 cm 2D Systolic Function EF 4C: 20.80 >55% EF 2C: 23.40 >55% EF BiP: 20.60 >55% Mitral Valve MV VTI: 0.42 MV Pk Sagar: 1.48 MV Mn Sagar: 0.67 MV Pk Grad: 9.00 MV Mn Grad: 3.00 MV Pk E: 1.43 MV Decel Time: 240.00 E'Lateral: 10.80 E'Medial: 4.35 E/E' Med: 32.90 E/E' Lat: 13.20 PHT: 70.00 MVA PHT: 3.14 MVA Continuity: 1.91 Decel Rich: 5.96 Aortic Valve AoV Pk Sagar: 1.27 AoV Mn Sagar: 0.86 AoV VTI: 0.24 AoV Pk Grad: 6.00 Aov Mn Grad: 4.00 STEVE Cont.VTI: 3.37 LVOT LVOT Pk Sagar: 0.99 LVOT Mn Sagar: 0.62 LVOT VTI: 0.18 LVOT Pk Grad: 4.00 LVOT Mn Grad: 2.00 LVOT Diam: 2.40 LVOT Area: 4.52 Diastolic Function MV Pk E: 1.43 E'Medial: 4.35 E/E' Med: 32.90 E' Laterial: 10.80 E/E' Lat: 13.20 Tricuspid Valve TR Pk Sagar: 1.52 TR Pk Grad: 9.00 RA Press: 3.00 RVSP: 12.00 Great Vessels Aorta Ao Root-2D: 4.10 2.0-3.7 cm Sinus of Valsalva: 4.00 2.0-3.5 cm Ao Asc: 3.80 2.1-3.4 cm Pulmonary Valve PV Pk Sagar: 0.90 Peak PV Grad: 3.00 Updated in Other Vendor System with Status of Final Akin Agustin MD electronically signed on 07/04/2024 9:52:09 PM with status of Final
[2024-07-04] MEDS: Amoxicillin 500 MG CAPSULE PO ×2 (08:12→20:02)
[2024-07-04] MEDS: Colchicine 0.6 MG TABLET PO (08:14)
[2024-07-04] MEDS: Aspirin 81 MG TAB.CHEW PO (08:14)
[2024-07-04] MEDS: Ezetimibe 10 MG TABLET PO (08:14)
[2024-07-04] MEDS: Magnesium Oxide 400 MG TABLET 200 MG PO (08:15)
[2024-07-04] MEDS: Tamsulosin HCL 0.4 MG CAPSULE PO (08:16)
[2024-07-04] MEDS: 0.9 % Sodium Chloride Flush 3 ML SYRINGE IVFLUSH ×2 (08:16→15:37)
[2024-07-04] MEDS: Ascorbic Acid 500 MG TABLET 1000 MG PO ×2 (08:17→20:02)
--- NOTE | 2024-07-04 08:31 | ECG_ITS ---
Test Reason : NSR t Afib Blood Pressure : / mmHG Vent. Rate : 089 BPM Atrial Rate : 000 BPM P-R Int : 000 ms QRS Dur : 100 ms QT Int : 360 ms P-R-T Axes : 000 -12 158 degrees QTc Int : 438 ms Atrial fibrillation Left ventricular hypertrophy with repolarization abnormality ( R in aVL ) Inferior infarct (cited on or before 25-MAY-2016) Abnormal ECG When compared with ECG of 15-MAR-2024 05:00, Atrial fibrillation has replaced Sinus rhythm Serial changes of Inferior infarct Present ST now depressed in Lateral leads ST elevation now present in Inferior leads Referred By: Rajan Pineda Electronically Signed By:SARA DEAN
[2024-07-04 08:40] LABS: Hemoglobin 9.1 g/dl (14.0-18.0); Mean Corpuscular HGB Conc 31.4 g/dl (31.0-36.0); Mean Corpuscular Hemoglobin 26.8 pg (27.0-33.0); Mean Corpuscular Volume 85.3 fL (80.0-98.0); Mean Platelet Volume 8.8 fL (9.4-12.4); Platelet Count 310 X10*3/uL (160-400); Red Cell Distribution Width 18.3 % (11.0-16.0); White Blood Count 6.4 X10*3/uL (4.8-10.8)
[2024-07-04 08:55] LABS: Anion Gap 16 (12-20); Blood Urea Nitrogen 53 mg/dL (9-16); Carbon Dioxide 25 mmol/L (22-29); Chloride 99 mmol/L (96-108); Creatinine Clr Calc Pharmacy 19.9; Estimated Glomerular Filt Rate 18; Glucose Random 133 mg/dL (60-115); Potassium 4.3 mmol/L (3.3-5.1); Sodium 136 mmol/L (135-145)
--- NOTE | 2024-07-04 10:09 | HO.PM.IMPN ---
Subjective Subjective Date of Service: 07/04/24 Interval History: oliguria, new afib, still with diarrhea Physical Exam Vital Signs: Vital Signs: Last Vital Signs Temp 97.4 F 07/04/24 08:00 Pulse 100 07/04/24 09:20 Resp 20 07/04/24 08:00 BP 92/56 L 07/04/24 09:20 Pulse Ox 93 07/04/24 09:20 O2 Del Method Room Air 07/04/24 08:00 BMI result Body Mass Index 30.9 General: AO X 3, no acute distress Resp: CTA bilateral, no accessory muscles used CVS: S1,S2, irregular GI: soft, non tender, non distended Neuro: motor grossly intact, alert Psych: appropriate affect, appropriate insight Objective Data Active Medications Acetaminophen (Acetaminophen 325 Mg Tablet) 975 mg PO Q6H PRN PRN Reason: Pain, Moderate(Pain Scale 4-6) Albuterol Sulfate (Albuterol Sulfate 90 Mcg 8 Gm Inhaler) 2 puff INHALE RQ4H PRN PRN Reason: shortness of breath or wheezing Amoxicillin (Amoxicillin 500 Mg Capsule) 500 mg PO BID [facility] Last Admin: 07/04/24 08:12 Dose: 500 mg Documented By: TERESA Apixaban (Apixaban 2.5 Mg Tablet) 2.5 mg PO BID [facility] Last Admin: 07/03/24 10:03 Dose: 2.5 mg Documented By: PHYLLIS Ascorbic Acid (Ascorbic Acid 500 Mg Tablet) 1,000 mg PO BID [facility] Last Admin: 07/04/24 08:17 Dose: 1,000 mg Documented By: TERESA Aspirin (Aspirin 81 Mg Tab.Chew) 81 mg PO DAILY [facility] Last Admin: 07/04/24 08:14 Dose: 81 mg Documented By: TERESA Calcium Carbonate (Calcium Carbonate 750 Mg Tab.Chew) 750 mg PO Q4H PRN PRN Reason: Heartburn Docusate Sodium (Docusate Sodium 100 Mg Capsule) 100 mg PO BID [facility] Last Admin: 07/04/24 08:14 Dose: Not Given Documented By: TERESA Non-Admin Reason: loose stools Ezetimibe (Ezetimibe 10 Mg Tablet) 10 mg PO DAILY [facility] Last Admin: 07/04/24 08:14 Dose: 10 mg Documented By: TERESA Empagliflozin (Empagliflozin 10 Mg Tablet) 10 mg PO DAILY [facility] Last Admin: 07/03/24 10:04 Dose: 10 mg Documented By: PHYLLIS Furosemide (Furosemide 20 Mg Tablet) 40 mg PO DAILY [facility]; Protocol Last Admin: 07/03/24 09:59 Dose: Not Given Documented By: PHYLLIS Non-Admin Reason: Patient Condition Contraindication Sodium Chloride (Ns) 1,000 mls @ 999 mls/hr IV .Q1H1M [facility] Stop: 07/04/24 11:15 Magnesium Hydroxide (Milk Of Magnesia 30 Ml Oral.Susp) 30 ml PO DAILY PRN PRN Reason: Constipation Melatonin (Melatonin 3 Mg Tablet) 6 mg PO BEDTIME PRN PRN Reason: Insomnia Morphine Sulfate (Morphine Sulfate Immed Release 15 Mg Tablet) 15 mg PO Q4H PRN PRN Reason: Pain, Severe (Pain Scale 7-10) Last Admin: 07/01/24 20:28 Dose: 15 mg Documented By: AMAYA Nitroglycerin (Nitroglycerin 0.4 Mg Tab.Subl) 0.4 mg SUBLINGUAL Q5M PRN PRN Reason: Chest Pain Polyethylene Glycol (Polyethylene Glycol 3350 17 Gm Powd.Pack) 17 gm PO DAILY PRN PRN Reason: constipation Last Admin: 07/02/24 18:18 Dose: 17 gm Documented By: KRISTAFACherie Pregabalin (Pregabalin 150 Mg Capsule) 150 mg PO BID [facility] Last Admin: 07/03/24 10:04 Dose: 150 mg Documented By: PHYLLIS Sodium Chloride (0.9 % Sodium Chloride Flush 3 Ml Syringe) [facility] Last Admin: 07/04/24 08:16 Dose: 3 ml Documented By: TERESA Tamsulosin HCl (Tamsulosin Hcl 0.4 Mg Capsule) 0.4 mg PO DAILY [facility] Last Admin: 07/04/24 08:16 Dose: 0.4 mg Documented By: TERESA Trazodone HCl (Trazodone Hcl 100 Mg Tablet) 100 mg PO DAILY PRN PRN Reason: Insomnia Last Admin: 07/03/24 22:06 Dose: 100 mg Documented By: RUFUSMAR Labs 07/04/24 08:17 07/04/24 08:17 Labs: Laboratory Results - last 24 hr 07/03/24 07/03/24 07/04/24 14:48 22:40 08:17 MCV 85.6 85.3 MCH 26.9 L 26.8 L MCHC 31.5 31.4 RDW 18.5 H 18.3 H Plt Count 311 310 MPV 8.7 L 8.8 L Immature Gran % (Auto) 0.3 Neut % (Auto) 67.1 Lymph % (Auto) 15.5 L Glades % (Auto) 13.6 H Eos % (Auto) 3.2 Baso % (Auto) 0.3 Lymph # (Auto) 1.0 L Glades # (Auto) 0.9 Eos # (Auto) 0.2 Baso # (Auto) 0.0 Abs Immat Gran (auto) 0.02 Absolute Neuts (auto) 4.3 Absolute Nucleated RBC 0.000 0.000 Nucleated RBC % (auto) 0.0 0.0 Anion Gap 16 16 Estim Creat Clear Calc 21.9 19.9 Estimated GFR 20 18 Random Glucose 121 H 133 H Calcium 8.6 9.0 Magnesium 2.0 Total Bilirubin 1.0 AST 19 ALT 14 Alkaline Phosphatase 82 Total Creatine Kinase 28 L Total Protein 6.1 L Albumin 3.1 L Influenza Type A (PCR) NEGATIVE Influenza Type B (PCR) NEGATIVE RSV RNA Qual (PCR) NEGATIVE SARS-CoV-2 RNA (RT-PCR) NEGATIVE Microbiology Microbiology Results: Microbiology 06/30/24 Unknown Urine Culture - Final Urine clean catch - Clean Catch Midstream Enterococcus faecalis Assessment and Plan (1) Hypotension: Status: Acute Plan 82M PMH CAD, chronic systolic chf, 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, hsitory of cva (on eliquis), ckd 3, dm, hld, presented with diarrhea, elke Acute kidney injury on CKD 3 likely due to hypotension from diarrhea not sepsis IV hydration, hold blood pressure meds, check renal ultrasound to rule out obstruction, nephrology following, monitor BMP and urine output New onset atrial fibrillation Rate is controlled, check echo, Eliquis on hold for gluteal hematoma Coronary artery disease Continue aspirin History of CVA Continue aspirin, was on Eliquis for history of CVA on hold for gluteal hematoma Diabetes Metformin on hold, monitor point of care Chronic systolic CHF Holding neural hormonal for hypotension, appears dry Diarrhea Check C diff and stool PCR if negative start loperamide Renal malignancy Outpatient follow-up DVT prophylaxis-mechanical due to hematoma DNR/DNI reason for continued hospitalization: Worsening creatinine Quality Stroke Does the patient have a stroke diagnosis?: No VTE Prior VTE?: No VTE Risk Level:: Medical - moderate - high VTE Device Contraindication: N/A - Device Ordered VTE Drug Contraindication: Treatment Not Indicated
[2024-07-04 10:37] LABS: CDiff Gene PCR NEGATIVE (Negative)
[2024-07-04 10:42] LABS: Adenovirus F 40/41 Not Detected (Not Detect.); Astrovirus Not Detected (Not Detect.); Campylobacter Not Detected (Not Detect.); Cryptosporidium Not Detected (Not Detect.); Cyclospora cayetanensis Not Detected (Not Detect.); E. coli EAEC Not Detected (Not Detect.); E. coli EPEC Not Detected (Not Detect.); E. coli ETEC Not Detected (Not Detect.); E. coli STEC Not Detected (Not Detect.); Entamoeba histolytica Not Detected (Not Detect.); Giardia lamblia Not Detected (Not Detect.); Norovirus GI/GII Not Detected (Not Detect.); Plesiomonas shigelloides Not Detected (Not Detect.); Rotavirus A Not Detected (Not Detect.); Salmonella Not Detected (Not Detect.); Sapovirus Not Detected (Not Detect.); Shigella sp./EIEC Not Detected (Not Detect.); Vibrio Not Detected (Not Detect.); Vibrio Cholerae Not Detected (Not Detect.); Yersinia enterocolitica Not Detected (Not Detect.)
[2024-07-04] MEDS: 0.9 % Sodium Chloride 1,000 ML 999 ML IV (10:58)
--- NOTE | 2024-07-04 12:49 | MHC.CM.PN ---
IMM 07/04. Pt lives at home with his son, he is active with [facility], uses a cane, walker, and a wheelchair. Pt would like to go to acute rehab at [facility] at discharge, if accepted to [facility] he will transport via BLS. Pt states his son is his HCP, copy requested. PCP: Dr. Gume Bonilla
[2024-07-04] MEDS: Loperamide HCl 2 MG CAPSULE PO ×2 (15:35→20:05)
--- NOTE | 2024-07-04 18:50 | P.CONNP_ITS ---
History of Present Illness Reason for Consult Consult date: 07/04/24 Reason for consult: BUTCH Chief Complaint Chief complaint: hypotension, BUTCH, UTI History of Present Illness Narrative: [address] [address] Internal Med History&Physical ISigned Patient: Brian Knutson MR#: [id number] : 1940 Acct:[id number] Age/Sex: 83 / M Loc: [facility] 82-year-old male with coronary artery disease, chronic systolic congestive heart failure, malignant renal mass w/ R chest port-a-cath, history CVA, CKD stage 3, type 2 diabetes, hyperlipidemia presented to the ER initially on 06/30 due to inability to walk and incontinence and had a fall [address] scan of the right hip did not reveal a occult fracture but the patient does have a 9.3 x 5.7 x 7.5 cm hematoma within the right gluteus olga muscle that abuts the sciatic nerve. He was hypotensive yesterday with new BUTCH and several episodes of watery diarrhea . While in the ED, he was diagnosed with enterococcus faec UTi Had been having decreased PO intake. Yesterday his BP's were 76/40, 84/48, 93/52 but responded to resuscitation. Baseline creat was 1.68, yesterday it went up to3.06. His UO has been on the lower side. Nephrology has been consulted to assist in his clinical care during his current hospital stay. Review of Systems Review of Systems Yes all other systems are reviewed and are negative PMF Past Medical History Medical History Chronic systolic CHF (congestive heart failure) CKD (chronic kidney disease) Diabetes Hyperlipidemia HTN (hypertension) Renal mass CAD (coronary artery disease) Family History Family History Other CAD (coronary artery disease) Social History Social History Household Members: Children Household Members Other:: Son Housing: House Do you presently have visiting nurse or other home services: No Alcohol intake: current Alcohol intake frequency: a few times a month Alcohol type: beer Patient Tobacco Use Status: Never used Tobacco Smoked in Last 30 Days: No e-Cigarette/Vaping Use: Never Used Use of substances other than those prescribed or required for medical reasons: No Currently Displaying Signs/Symptoms of Drug Intoxication Withdrawal: No Any prior treatment program specific to substance use: No Have you been hit, kicked, punched, or otherwise hurt by someone within the past year? If so, by whom?: No Do you feel safe in your current relationship?: No Current Relationship Is there a partner from a previous relationship who is making you feel unsafe now?: No Are you made to feel afraid or neglected: No Advance Directives: No Advance Directives Information Provided: No Recently lost weight without trying: Unsure How much weight loss: Unsure Eating poorly because of decreased appetite: No Nutrition screen score: 4 service: No Current occupational status: employed Current occupation: [employer] Allergies Allergy/AdvReac Type Severity Reaction Status Date / Time hydrocodone [From VICODIN] Allergy Unknown SWELLING Verified 06/30/24 05:31 oxycodone Allergy Unknown itching Verified 06/30/24 05:31 Active Medications: Current Medications Acetaminophen (Acetaminophen 325 Mg Tablet) 975 mg PO Q6H PRN PRN Reason: Pain, Moderate(Pain Scale 4-6) Albuterol Sulfate (Albuterol Sulfate 90 Mcg 8 Gm Inhaler) 2 puff INHALE RQ4H PRN PRN Reason: shortness of breath or wheezing Amoxicillin (Amoxicillin 500 Mg Capsule) 500 mg PO BID COUNTS [facility]CLUDE [facility] BEDS AT [facility] Last Admin: 07/04/24 08:12 Dose: 500 mg Apixaban (Apixaban 2.5 Mg Tablet) 2.5 mg PO BID COUNTS INCLUDE 234 BEDS AT THE [facility] Last Admin: 07/03/24 10:03 Dose: 2.5 mg Ascorbic Acid (Ascorbic Acid 500 Mg Tablet) 1,000 mg PO BID COUNTS INCLUDE 234 BEDS AT [facility] Last Admin: 07/04/24 08:17 Dose: 1,000 mg Aspirin (Aspirin 81 Mg Tab.Chew) 81 mg PO DAILY COUNTS INCLUDE 234 BEDS AT [facility] Last Admin: 07/04/24 08:14 Dose: 81 mg Calcium Carbonate (Calcium Carbonate 750 Mg Tab.Chew) 750 mg PO Q4H PRN PRN Reason: Heartburn Docusate Sodium (Docusate Sodium 100 Mg Capsule) 100 mg PO BID COUNTS INCLUDE 234 BEDS AT [facility] Last Admin: 07/04/24 08:14 Dose: Not Given Ezetimibe (Ezetimibe 10 Mg Tablet) 10 mg PO DAILY COUNTS INCLUDE 234 BEDS AT [facility] Last Admin: 07/04/24 08:14 Dose: 10 mg Empagliflozin (Empagliflozin 10 Mg Tablet) 10 mg PO DAILY COUNTS INCLUDE 234 BEDS AT THE [facility] Last Admin: 07/03/24 10:04 Dose: 10 mg Furosemide (Furosemide 20 Mg Tablet) 40 mg PO DAILY COUNTS INCLUDE 234 BEDS AT THE [facility]; Protocol Last Admin: 07/03/24 09:59 Dose: Not Given Loperamide HCl (Loperamide Hcl 2 Mg Capsule) 2 mg PO Q4H PRN PRN Reason: Diarrhea Last Admin: 07/04/24 15:35 Dose: 2 mg Magnesium Hydroxide (Milk Of Magnesia 30 Ml Oral.Susp) 30 ml PO DAILY PRN PRN Reason: Constipation Melatonin (Melatonin 3 Mg Tablet) 6 mg PO BEDTIME PRN PRN Reason: Insomnia Morphine Sulfate (Morphine Sulfate Immed Release 15 Mg Tablet) 15 mg PO Q4H PRN PRN Reason: Pain, Severe (Pain Scale 7-10) Last Admin: 07/01/24 20:28 Dose: 15 mg Nitroglycerin (Nitroglycerin 0.4 Mg Tab.Subl) 0.4 mg SUBLINGUAL Q5M PRN PRN Reason: Chest Pain Polyethylene Glycol (Polyethylene Glycol 3350 17 Gm Powd.Pack) 17 gm PO DAILY PRN PRN Reason: constipation Last Admin: 07/02/24 18:18 Dose: 17 gm Pregabalin (Pregabalin 150 Mg Capsule) 150 mg PO BID COUNTS INCLUDE 234 BEDS AT [facility] Last Admin: 07/03/24 10:04 Dose: 150 mg Sodium Chloride (0.9 % Sodium Chloride Flush 3 Ml Syringe) 3 ml IVFLUSH QSHIFT COUNTS INCLUDE 234 BEDS AT THE [facility] Last Admin: 07/04/24 15:37 Dose: 3 ml Tamsulosin HCl (Tamsulosin Hcl 0.4 Mg Capsule) 0.4 mg PO DAILY COUNTS INCLUDE 234 BEDS AT [facility] Last Admin: 07/04/24 08:16 Dose: 0.4 mg Trazodone HCl (Trazodone Hcl 100 Mg Tablet) 100 mg PO DAILY PRN PRN Reason: Insomnia Last Admin: 07/03/24 22:06 Dose: 100 mg Home Medications ?Medication ?Instructions ?Recorded ?Confirmed ?Last Taken ?Type carvedilol 25 mg tablet 25 mg PO BID 02/03/21 06/30/24 06/30/24 History furosemide 20 mg tablet 40 mg PO DAILY 02/03/21 07/01/24 06/29/24 History nitroglycerin 0.4 mg sublingual 0.4 mg sublingual Q5M PRN Chest 02/03/21 07/01/24 Unknown History tablet Pain pregabalin 150 mg capsule 150 mg PO BID 02/03/21 06/30/24 06/29/24 History amlodipine 10 mg tablet 10 mg PO DAILY 05/16/22 06/30/24 06/29/24 History aspirin 81 mg chewable tablet 81 mg PO DAILY 05/16/22 07/01/24 08/04/23 History colchicine 0.6 mg tablet 1 tab PO DAILY GOUT 05/16/22 06/30/24 06/29/24 History losartan 100 mg tablet 1 tab PO DAILY 05/16/22 06/30/24 06/29/24 History omeprazole 20 mg tablet,delayed 20 mg PO DAILY 05/16/22 06/30/24 06/29/24 History release ascorbic acid (vitamin C) 500 mg 1,000 mg PO BID 05/18/22 06/30/24 06/29/24 History tablet apixaban 2.5 mg tablet (Eliquis) 2.5 mg PO BID 08/04/23 07/01/24 08/04/23 History ezetimibe 10 mg tablet 10 mg PO DAILY 08/04/23 06/30/24 06/29/24 History trazodone 100 mg tablet 100 mg PO DAILY PRN Insomnia 08/04/23 06/30/24 Unknown History coenzyme Q10 100 mg capsule 400 mg PO BID 03/15/24 06/30/24 06/29/24 History (CoQ-10) evolocumab 140 mg/mL subcutaneous 140 mg subcut Q2W 03/15/24 03/15/24 Unknown History pen injector (Repatha SureClick) magnesium 200 mg tablet 400 mg PO BID 03/15/24 06/30/24 06/30/24 History metformin 1,000 mg tablet 1,000 mg PO BID 03/15/24 07/01/24 Unknown History omega 3-cid-bko-fish oil 1,200 mg 1 cap PO BID 03/15/24 06/30/24 06/30/24 History (144 mg-216 mg) capsule (Fish Oil) clopidogrel 75 mg tablet 75 mg PO DAILY 07/01/24 Unknown History dapagliflozin propanediol 10 mg 10 mg PO DAILY 07/01/24 07/01/24 Unknown History tablet (Farxiga) tamsulosin 0.4 mg capsule 0.4 mg PO DAILY 07/01/24 07/01/24 Unknown History tramadol 50 mg tablet 50 mg PO Q6H 07/01/24 07/01/24 Unknown History Physical Exam Vital Signs: Last Vital Signs Temp 97.1 F 07/04/24 16:00 Pulse 88 07/04/24 16:00 Resp 20 07/04/24 16:00 BP 98/60 07/04/24 16:00 Pulse Ox 97 07/04/24 16:00 O2 Del Method Room Air 07/04/24 16:00 BMI result Body Mass Index 30.9 Const General: no acute distress Orientation/consciousness: patient oriented x3 HEENT Head: Yes normocephalic Eyes EOM: EOMs intact bilaterally Neck Neck: Yes supple Resp Auscultation: diminished lung sounds Cardio Rate: regular rate GI Palpation (GI): Soft to palpation Neuro General: patient oriented x3 Results Lab Results 07/04/24 08:17 07/04/24 08:17 Lab results: Chemistry 07/03/24 07/03/24 07/04/24 07:42 14:48 08:17 Sodium 138 137 136 Potassium 4.2 4.4 4.3 Carbon Dioxide 25 24 25 BUN 44 H 46 H 53 H Creatinine 2.53 H 3.06 H 3.36 H Calcium 8.7 D 8.6 9.0 Hematology 07/02/24 07/03/24 07/03/24 12:39 14:48 20:21 WBC 9.1 6.5 Hgb 11.1 L 9.0 L 9.0 L Plt Count 361 311 07/04/24 08:17 WBC 6.4 Hgb 9.1 L Plt Count 310 Assessment and Plan (1) BUTCH (acute kidney injury): Status: Acute Plan BUTCH due to tubular injury Had altered autoregulation in the kidney No reason to suspect GN/AIN/obstructive uropathy ARB/Diuretics/Farxiga/All BP lowering agents on hold No indication for renal replacement May have to USS renal vessels if serum creatinine rises C/W rest of current management for now; Labs AM Procedures Date of Service Date of Service: 07/04/24
--- NOTE | 2024-07-04 20:17 | PM.EVENT ---
Event Note Date of Service: 07/04/24 Event Note: RN reported hypotension (which is due to diarrhea and not sepsis). Will give IV crystalloids Time Spent With Patient Time: Total time managing care of this patient today ____ minutes.
[2024-07-04] MEDS: Lactated Ringers 1,000 ML 999 ML IV (20:58)
[2024-07-04 21:11] LABS: Lactic Acid 1.1 mmol/L (0.5-2.0)
[2024-07-05] VITALS (7 sets, daily range): BP systolic 114–132; BP diastolic 51–78; PULSE 87–119; RESP 18–20; TEMP 36.2–36.8; O2SAT 92–96
[2024-07-05 06:14] LABS: Appearance Urine Turbid; Color Urine Dark Yellow; Glucose Urine UA 100 mg/dL (Negative); Leukocyte Esterase Urine Large (3+) (Negative); Nitrite Urine Negative (Negative); PH 5.5 (5.0-9.0); Specific Gravity - Urine 1.015 (1.005-1.025); UMIC TRIGGER UACC YES; Urine Blood Moderate (2+) (Negative); Urine Ketones Negative (Negative); Urine Protein 30 (1+) mg/dL (Neg-Trace)
[2024-07-05 06:48] LABS: Bacteria Urine Trace (None Seen); RBC Urine 0-2 /HPF (0-2); Squamous Epithelial Cell Urine >20 /HPF (0-2); UACC Culture Trigger YES; WBC Urine >50 /HPF (0-5)
[2024-07-05 06:54] LABS: Hematocrit 28.4 % (42.0-52.0); Hemoglobin 9.2 g/dl (14.0-18.0); Mean Corpuscular HGB Conc 32.4 g/dl (31.0-36.0); Mean Corpuscular Hemoglobin 27.1 pg (27.0-33.0); Mean Corpuscular Volume 83.5 fL (80.0-98.0); Mean Platelet Volume 8.9 fL (9.4-12.4); Platelet Count 338 X10*3/uL (160-400); Red Cell Distribution Width 17.9 % (11.0-16.0); White Blood Count 5.1 X10*3/uL (4.8-10.8)
[2024-07-05 07:17] LABS: Anion Gap 17 (12-20); Blood Urea Nitrogen 55 mg/dL (9-16); Calcium 8.8 mg/dL (8.4-10.2); Carbon Dioxide 22 mmol/L (22-29); Chloride 101 mmol/L (96-108); Creatinine Clr Calc Pharmacy 20.4; Estimated Glomerular Filt Rate 18; Glucose Fasting 152 mg/dL (60-99); Magnesium 1.9 mg/dL (1.6-2.6); Potassium 4.5 mmol/L (3.3-5.1); Sodium 135 mmol/L (135-145)
--- NOTE | 2024-07-05 11:08 | P.PNIM_ITS ---
Subjective Subjective Date of Service: 07/05/24 Interval History: diarrhea improved, starting to pee more Physical Exam 2 Vital Signs: Vital Signs: Last Vital Signs Temp 98.1 F 07/05/24 07:56 Pulse 115 H 07/05/24 09:26 Resp 20 07/05/24 07:56 BP 132/51 L 07/05/24 09:26 Pulse Ox 94 07/05/24 09:26 O2 Del Method Room Air 07/05/24 07:56 BMI result Body Mass Index 30.9 Const: General: no acute distress Orientation/consciousness: patient oriented x3 HEENT: Head: Yes normocephalic Eyes: EOM: EOMs intact bilaterally Neck: Neck: Yes supple Resp: Auscultation: diminished lung sounds Cardio: Rate: regular rate GI: Palpation (GI): Soft to palpation Neuro: General: patient oriented x3 Objective Data Active Medications Acetaminophen (Acetaminophen 325 Mg Tablet) 975 mg PO Q6H PRN PRN Reason: Pain, Moderate(Pain Scale 4-6) Albuterol Sulfate (Albuterol Sulfate 90 Mcg 8 Gm Inhaler) 2 puff INHALE RQ4H PRN PRN Reason: shortness of breath or wheezing Amoxicillin (Amoxicillin 500 Mg Capsule) 500 mg PO BID [facility] Last Admin: 07/04/24 20:02 Dose: 500 mg Documented By: JASON Apixaban (Apixaban 2.5 Mg Tablet) 2.5 mg PO BID [facility] Last Admin: 07/03/24 10:03 Dose: 2.5 mg Documented By: PHYLLIS Ascorbic Acid (Ascorbic Acid 500 Mg Tablet) 1,000 mg PO BID [facility] Last Admin: 07/04/24 20:02 Dose: 1,000 mg Documented By: JASON Aspirin (Aspirin 81 Mg Tab.Chew) 81 mg PO DAILY [facility] Last Admin: 07/04/24 08:14 Dose: 81 mg Documented By: TERESA Calcium Carbonate (Calcium Carbonate 750 Mg Tab.Chew) 750 mg PO Q4H PRN PRN Reason: Heartburn Docusate Sodium (Docusate Sodium 100 Mg Capsule) 100 mg PO BID [facility] Last Admin: 07/04/24 20:01 Dose: Not Given Documented By: JASON Non-Admin Reason: Patient Condition Contraindication Ezetimibe (Ezetimibe 10 Mg Tablet) 10 mg PO DAILY [facility] Last Admin: 07/04/24 08:14 Dose: 10 mg Documented By: TERESA Empagliflozin (Empagliflozin 10 Mg Tablet) 10 mg PO DAILY [facility] Last Admin: 07/03/24 10:04 Dose: 10 mg Documented By: PHYLLIS Furosemide (Furosemide 20 Mg Tablet) 40 mg PO DAILY [facility]; Protocol Last Admin: 07/03/24 09:59 Dose: Not Given Documented By: PHYLLIS Non-Admin Reason: Patient Condition Contraindication Loperamide HCl (Loperamide Hcl 2 Mg Capsule) 2 mg PO Q4H PRN PRN Reason: Diarrhea Last Admin: 07/04/24 20:05 Dose: 2 mg Documented By: JASON Magnesium Hydroxide (Milk Of Magnesia 30 Ml Oral.Susp) 30 ml PO DAILY PRN PRN Reason: Constipation Melatonin (Melatonin 3 Mg Tablet) 6 mg PO BEDTIME PRN PRN Reason: Insomnia Polyethylene Glycol (Polyethylene Glycol 3350 17 Gm Powd.Pack) 17 gm PO DAILY PRN PRN Reason: constipation Last Admin: 07/02/24 18:18 Dose: 17 gm Documented By: KAROLINA Pregabalin (Pregabalin 150 Mg Capsule) 150 mg PO BID [facility] Last Admin: 07/03/24 10:04 Dose: 150 mg Documented By: PHYLLIS Sodium Chloride (0.9 % Sodium Chloride Flush 3 Ml Syringe) 3 ml IVFLUSH QSHIFT [facility] Last Admin: 07/05/24 01:06 Dose: Not Given Documented By: JASON Non-Admin Reason: Previously Administered Tamsulosin HCl (Tamsulosin Hcl 0.4 Mg Capsule) 0.4 mg PO DAILY [facility] Last Admin: 07/04/24 08:16 Dose: 0.4 mg Documented By: TERESA Trazodone HCl (Trazodone Hcl 100 Mg Tablet) 100 mg PO DAILY PRN PRN Reason: Insomnia Last Admin: 07/03/24 22:06 Dose: 100 mg Documented By: LASHAY Labs 07/05/24 06:14 07/05/24 06:14 Labs: Laboratory Results - last 24 hr 07/04/24 07/05/24 07/05/24 20:48 06:00 06:14 MCV 83.5 MCH 27.1 MCHC 32.4 RDW 17.9 H Plt Count 338 MPV 8.9 L Absolute Nucleated RBC 0.000 Nucleated RBC % (auto) 0.0 Hold Purple Top SEE NOTE Anion Gap 17 Estim Creat Clear Calc 20.4 Estimated GFR 18 Fasting Glucose 152 H Lactic Acid 1.1 Calcium 8.8 Magnesium 1.9 Urine Color Dark Yellow Urine Appearance Turbid Urine pH 5.5 Ur Specific [place] 1.015 Urine Protein 30 (1+) H Urine Glucose (UA) 100 H Urine Ketones Negative Urine Blood Moderate (2+) H Urine Nitrite Negative Ur Leukocyte Esterase Large (3+) H Urine RBC 0-2 Urine WBC >50 H Ur Squamous Epith Cells >20 Urine Bacteria Trace Hyaline Casts 11-20 Assessment and Plan (1) Hypotension: Status: Acute Plan 82M PMH CAD, chronic systolic chf, 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, hsitory of cva (on eliquis), ckd 3, dm, hld, presented with diarrhea, elke Acute kidney injury on CKD 3 likely due to hypotension from diarrhea not sepsis IV hydration, holding blood pressure meds, renal ultrasound ruled out obstruction, nephrology following, monitor BMP and urine output improving New onset atrial fibrillation Rate is controlled, Eliquis on hold for gluteal hematoma Coronary artery disease Continue aspirin History of CVA Continue aspirin, was on Eliquis for history of CVA on hold for gluteal hematoma on repatha as outpatient Diabetes Metformin on hold, monitor point of care Chronic systolic CHF Holding neural hormonal for hypotension, echo with worsening EF and right sided dysfunction Diarrhea cdif and stool pcr negative improved with imodium Renal malignancy Outpatient follow-up DVT prophylaxis-mechanical due to hematoma DNR/DNI reason for continued hospitalization: monitor elke Quality Stroke Does the patient have a stroke diagnosis?: No VTE Prior VTE?: No VTE Risk Level:: Medical - moderate - high VTE Device Contraindication: N/A - Device Ordered VTE Drug Contraindication: Treatment Not Indicated
[2024-07-05] MEDS: Docusate Sodium 100 MG CAPSULE PO (11:21)
[2024-07-05] MEDS: Aspirin 81 MG TAB.CHEW PO (11:21)
[2024-07-05] MEDS: Ascorbic Acid 500 MG TABLET 1000 MG PO ×2 (11:21→20:22)
[2024-07-05] MEDS: Ezetimibe 10 MG TABLET PO (11:21)
[2024-07-05] MEDS: 0.9 % Sodium Chloride Flush 3 ML SYRINGE IVFLUSH ×3 (11:22→20:23)
[2024-07-05] MEDS: Amoxicillin 500 MG CAPSULE PO ×2 (11:22→20:22)
--- NOTE | 2024-07-05 13:30 | P.PNNP_ITS ---
Subjective Subjective Date of Service: 07/05/24 Interval history: diarrhea improved, starting to have increased urine output Physical Exam 2 Vital Signs: Vital Signs: Last Vital Signs Temp 97.4 F 07/05/24 11:36 Pulse 87 07/05/24 11:36 Resp 20 07/05/24 11:36 BP 123/64 07/05/24 11:36 Pulse Ox 95 07/05/24 11:36 O2 Del Method Room Air 07/05/24 11:36 BMI result Body Mass Index 30.9 Const: General: no acute distress Orientation/consciousness: patient oriented x3 HEENT: Head: Yes normocephalic Eyes: EOM: EOMs intact bilaterally Neck: Neck: Yes supple Resp: Auscultation: diminished lung sounds Cardio: Rate: regular rate GI: Palpation (GI): Soft to palpation Neuro: General: patient oriented x3 Objective Data Labs 07/05/24 06:14 07/05/24 06:14 Labs: Laboratory Results - last 24 hr 07/04/24 07/05/24 07/05/24 20:48 06:00 06:14 WBC 5.1 RBC 3.40 L Hgb 9.2 L Hct 28.4 L MCV 83.5 MCH 27.1 MCHC 32.4 RDW 17.9 H Plt Count 338 MPV 8.9 L Absolute Nucleated RBC 0.000 Nucleated RBC % (auto) 0.0 Hold Purple Top SEE NOTE Sodium 135 Potassium 4.5 Chloride 101 Carbon Dioxide 22 Anion Gap 17 BUN 55 H Creatinine 3.28 H Estim Creat Clear Calc 20.4 Estimated GFR 18 Fasting Glucose 152 H Lactic Acid 1.1 Calcium 8.8 Magnesium 1.9 Urine Color Dark Yellow Urine Appearance Turbid Urine pH 5.5 Ur Specific [place] 1.015 Urine Protein 30 (1+) H Urine Glucose (UA) 100 H Urine Ketones Negative Urine Blood Moderate (2+) H Urine Nitrite Negative Ur Leukocyte Esterase Large (3+) H Urine RBC 0-2 Urine WBC >50 H Ur Squamous Epith Cells >20 Urine Bacteria Trace Hyaline Casts 11-20 Microbiology Microbiology Results: Microbiology 06/30/24 Unknown Urine clean catch - Clean Catch Midstream Urine Culture - Final Enterococcus faecalis Procedures Date of Service Date of Service: 07/05/24 Assessment & Plan Assessment and plan (1) BUTCH (acute kidney injury): Status: Acute Plan BUTCH due to tubular injury Had altered autoregulation in the kidney No reason to suspect GN/AIN/obstructive uropathy ARB/Diuretics/Farxiga/All BP lowering agents on hold No indication for renal replacement C/W rest of current management for now; Labs AM Progress Note: Quality Stroke Does the patient have a stroke diagnosis?: No
--- NOTE | 2024-07-05 15:20 | MHC.CM.PN ---
EMR reviewed and per MD rounds, pt is not medically cleared for discharge due to management of BUTCH.
[2024-07-05] MEDS: Loperamide HCl 2 MG CAPSULE PO (18:31)
[2024-07-05] MEDS: traZODone HCL 100 MG TABLET PO (20:22)
[2024-07-06] VITALS (11 sets, daily range): BP systolic 94–141; BP diastolic 65–82; PULSE 92–145; RESP 16–20; TEMP 36.4–36.9; O2SAT 94–97
--- NOTE | 2024-07-06 | ECG_ITS ---
Test Reason : chest pain Blood Pressure : / mmHG Vent. Rate : 138 BPM Atrial Rate : 000 BPM P-R Int : 000 ms QRS Dur : 096 ms QT Int : 360 ms P-R-T Axes : 000 -10 151 degrees QTc Int : 545 ms Atrial fibrillation with rapid ventricular response with premature ventricular or aberrantly conducted complexes Marked ST abnormality, possible lateral subendocardial injury Abnormal ECG When compared with ECG of 04-JUL-2024 08:59, Vent. rate has increased BY 49 BPM Referred By: Sriram Lane Electronically Signed By:
[2024-07-06] MEDS: Metoprolol Tartrate 5 MG/5 ML VIAL IVPUSH (04:54)
[2024-07-06] MEDS: Metoprolol Tartrate 25 MG TABLET PO ×2 (04:55→08:57)
[2024-07-06 06:20] LABS: Anion Gap 15 (12-20); Blood Urea Nitrogen 57 mg/dL (9-16); Carbon Dioxide 24 mmol/L (22-29); Chloride 103 mmol/L (96-108); Creatinine Clr Calc Pharmacy 26.1; Estimated Glomerular Filt Rate 24; Glucose Fasting 146 mg/dL (60-99); Potassium 4.5 mmol/L (3.3-5.1); Sodium 137 mmol/L (135-145)
[2024-07-06 06:29] LABS: Hematocrit 27.9 % (42.0-52.0); Hemoglobin 8.6 g/dl (14.0-18.0); Mean Corpuscular HGB Conc 30.8 g/dl (31.0-36.0); Mean Corpuscular Volume 84.3 fL (80.0-98.0); Mean Platelet Volume 9.1 fL (9.4-12.4); Platelet Count 335 X10*3/uL (160-400); Red Blood Count 3.31 X10*6/uL (4.60-5.80); Red Cell Distribution Width 17.9 % (11.0-16.0); White Blood Count 5.4 X10*3/uL (4.8-10.8)
[2024-07-06] MEDS: Sodium Chloride 0.65 % Nasal 44 ML SPRBTL 1 SPRAY NOSTRIL-B ×2 (06:40→20:33)
[2024-07-06] MEDS: Aspirin 81 MG TAB.CHEW PO (08:57)
[2024-07-06] MEDS: Ezetimibe 10 MG TABLET PO (08:57)
[2024-07-06] MEDS: 0.9 % Sodium Chloride Flush 3 ML SYRINGE IVFLUSH ×2 (08:57→20:34)
[2024-07-06] MEDS: Docusate Sodium 100 MG CAPSULE PO (08:57)
[2024-07-06] MEDS: Amoxicillin 500 MG CAPSULE PO ×2 (08:57→20:33)
[2024-07-06] MEDS: Ascorbic Acid 500 MG TABLET 1000 MG PO ×2 (08:57→20:33)
--- NOTE | 2024-07-06 10:27 | P.PNIM_ITS ---
Subjective Subjective Date of Service: 07/06/24 Interval History: overall improved, now with afib with rvr Physical Exam 2 Vital Signs: Vital Signs: Last Vital Signs Temp 97.7 F 07/06/24 08:00 Pulse 98 07/06/24 08:00 Resp 16 07/06/24 08:00 BP 119/65 07/06/24 08:00 Pulse Ox 94 07/06/24 08:00 O2 Del Method Room Air 07/06/24 08:00 BMI result Body Mass Index 30.9 Const: General: no acute distress Orientation/consciousness: patient oriented x3 HEENT: Head: Yes normocephalic Eyes: EOM: EOMs intact bilaterally Neck: Neck: Yes supple Resp: Auscultation: diminished lung sounds Cardio: Rate: regular rate GI: Palpation (GI): Soft to palpation Neuro: General: patient oriented x3 Objective Data Active Medications Acetaminophen (Acetaminophen 325 Mg Tablet) 975 mg PO Q6H PRN PRN Reason: Pain, Moderate(Pain Scale 4-6) Albuterol Sulfate (Albuterol Sulfate 90 Mcg 8 Gm Inhaler) 2 puff INHALE RQ4H PRN PRN Reason: shortness of breath or wheezing Amoxicillin (Amoxicillin 500 Mg Capsule) 500 mg PO BID [facility] Last Admin: 07/06/24 08:57 Dose: 500 mg Documented By: KAILEY Apixaban (Apixaban 2.5 Mg Tablet) 2.5 mg PO BID [facility] Last Admin: 07/03/24 10:03 Dose: 2.5 mg Documented By: PHYLLIS Ascorbic Acid (Ascorbic Acid 500 Mg Tablet) 1,000 mg PO BID [facility] Last Admin: 07/06/24 08:57 Dose: 1,000 mg Documented By: KAILEY Calcium Carbonate (Calcium Carbonate 750 Mg Tab.Chew) 750 mg PO Q4H PRN PRN Reason: Heartburn Carvedilol (Carvedilol 25 Mg Tablet) 25 mg PO BID [facility]; Protocol Clopidogrel Bisulfate (Clopidogrel Bisulfate 75 Mg Tablet) 75 mg PO DAILY [facility] Docusate Sodium (Docusate Sodium 100 Mg Capsule) 100 mg PO BID [facility] Last Admin: 07/06/24 08:57 Dose: 100 mg Documented By: KAILEY Ezetimibe (Ezetimibe 10 Mg Tablet) 10 mg PO DAILY [facility] Last Admin: 07/06/24 08:57 Dose: 10 mg Documented By: KAILEY Empagliflozin (Empagliflozin 10 Mg Tablet) 10 mg PO DAILY [facility] Last Admin: 07/03/24 10:04 Dose: 10 mg Documented By: PHYLLIS Furosemide (Furosemide 20 Mg Tablet) 40 mg PO DAILY [facility]; Protocol Last Admin: 07/03/24 09:59 Dose: Not Given Documented By: PHYLLIS Non-Admin Reason: Patient Condition Contraindication Loperamide HCl (Loperamide Hcl 2 Mg Capsule) 2 mg PO Q4H PRN PRN Reason: Diarrhea Last Admin: 07/05/24 18:31 Dose: 2 mg Documented By: RAHUL Magnesium Hydroxide (Milk Of Magnesia 30 Ml Oral.Susp) 30 ml PO DAILY PRN PRN Reason: Constipation Melatonin (Melatonin 3 Mg Tablet) 6 mg PO BEDTIME PRN PRN Reason: Insomnia Polyethylene Glycol (Polyethylene Glycol 3350 17 Gm Powd.Pack) 17 gm PO DAILY PRN PRN Reason: constipation Last Admin: 07/02/24 18:18 Dose: 17 gm Documented By: KAROLINA Pregabalin (Pregabalin 150 Mg Capsule) 150 mg PO BID [facility] Last Admin: 07/03/24 10:04 Dose: 150 mg Documented By: PHYLLIS Sodium Chloride (0.9 % Sodium Chloride Flush 3 Ml Syringe) 3 ml IVFLUSH QSHIFT [facility] Last Admin: 07/06/24 08:57 Dose: 3 ml Documented By: KAILEY Sodium Chloride (Sodium Chloride 0.65 % Nasal 44 Ml Sprbtl) 1 spray NOSTRIL-B Q1H PRN PRN Reason: Dry Nasal Passages Last Admin: 07/06/24 06:40 Dose: 1 spray Documented By: EVELIO Tamsulosin HCl (Tamsulosin Hcl 0.4 Mg Capsule) 0.4 mg PO DAILY [facility] Last Admin: 07/04/24 08:16 Dose: 0.4 mg Documented By: TERESA Trazodone HCl (Trazodone Hcl 100 Mg Tablet) 100 mg PO DAILY PRN PRN Reason: Insomnia Last Admin: 07/05/24 20:22 Dose: 100 mg Documented By: EVELIO Labs 07/06/24 05:41 07/06/24 05:41 Labs: Laboratory Results - last 24 hr 07/06/24 05:41 MCV 84.3 MCH 26.0 L MCHC 30.8 L RDW 17.9 H Plt Count 335 MPV 9.1 L Absolute Nucleated RBC 0.000 Nucleated RBC % (auto) 0.0 Anion Gap 15 Estim Creat Clear Calc 26.1 Estimated GFR 24 Fasting Glucose 146 H Calcium 9.0 Assessment and Plan (1) Hypotension: Status: Acute Plan 82M PMH CAD, chronic systolic chf, 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, hsitory of cva (on eliquis), ckd 3, dm, hld, presented with diarrhea, elke Acute kidney injury on CKD 3 likely due to hypotension from diarrhea not sepsis bp better, renal ultrasound ruled out obstruction, nephrology following, monitor BMP and urine output improving New onset atrial fibrillation restart coreg, Eliquis gluteal hematoma will restart eliquis, monitor Coronary artery disease d/w cardio, stop asa, restart plavix, restart eliquis, outpatient repatha History of CVA Continue plavix, Eliquis on repatha as outpatient Diabetes Metformin on hold, monitor point of care Chronic systolic CHF Holding neural hormonal for hypotension, echo with worsening EF and right sided dysfunction Diarrhea cdif and stool pcr negative improved with imodium Renal malignancy Outpatient follow-up DVT prophylaxis- eliquis DNR/DNI reason for continued hospitalization: monitor elke, heart rate Quality Stroke Does the patient have a stroke diagnosis?: No VTE Prior VTE?: No VTE Risk Level:: Medical - moderate - high VTE Device Contraindication: N/A - Device Ordered VTE Drug Contraindication: Treatment Not Indicated
--- NOTE | 2024-07-06 11:25 | PM.CNCAR ---
History of Present Illness History of Present Illness Date of Service: 07/06/24 Requesting physician: Rajan Pineda Chief complaint: hypotension, BUTCH, UTI Narrative: [age] year gentleman who presented with right leg pain after fall with subcutaneous hematoma. He has known history of coronary artery disease with cardiomyopathy and EF between 30-40%. He had PCI to ramus intermedius and RCA in February and March of 2024 when he presented with NSTEMI. Has diffuse LAD stenosis which is deemed non intervenable and is medically managed. He got admitted and had acute kidney injury and hypotension which led to discontinuation of his medications. He also had some tachycardia and was noticed to be in AFib with RVR. The patient does not feel any symptoms from that. He said he came mostly because he was having leg pain. His blood pressure has improved and his home medications are being resumed. He is on colchicine which can lead to diarrhea and probably best should be held going forward. He also had PCI in March and has been on aspirin and Eliquis. I think he should be on Plavix and Eliquis and aspirin should be discontinued. Aspirin can lead to more bleeding in these scenarios. Otherwise no other complaints from the patient. [facility] Past Medical History Medical History Chronic systolic CHF (congestive heart failure) CKD (chronic kidney disease) Diabetes Hyperlipidemia HTN (hypertension) Renal mass CAD (coronary artery disease) Family History Family History Other CAD (coronary artery disease) Social History Social History Household Members: Children Household Members Other:: Son Housing: House Do you presently have visiting nurse or other home services: No Alcohol intake: current Alcohol intake frequency: a few times a month Alcohol type: beer Patient Tobacco Use Status: Never used Tobacco Smoked in Last 30 Days: No e-Cigarette/Vaping Use: Never Used Use of substances other than those prescribed or required for medical reasons: No Currently Displaying Signs/Symptoms of Drug Intoxication Withdrawal: No Any prior treatment program specific to substance use: No Have you been hit, kicked, punched, or otherwise hurt by someone within the past year? 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 Allergy/AdvReac Type Severity Reaction Status Date / Time hydrocodone [From VICODIN] Allergy Unknown SWELLING Verified 06/30/24 05:31 oxycodone Allergy Unknown itching Verified 06/30/24 05:31 Active Medications: Current Medications Acetaminophen (Acetaminophen 325 Mg Tablet) 975 mg PO Q6H PRN PRN Reason: Pain, Moderate(Pain Scale 4-6) Albuterol Sulfate (Albuterol Sulfate 90 Mcg 8 Gm Inhaler) 2 puff INHALE RQ4H PRN PRN Reason: shortness of breath or wheezing Amoxicillin (Amoxicillin 500 Mg Capsule) 500 mg PO BID [facility] Last Admin: 07/06/24 08:57 Dose: 500 mg Apixaban (Apixaban 2.5 Mg Tablet) 2.5 mg PO BID [facility] Last Admin: 07/03/24 10:03 Dose: 2.5 mg Ascorbic Acid (Ascorbic Acid 500 Mg Tablet) 1,000 mg PO BID [facility] Last Admin: 07/06/24 08:57 Dose: 1,000 mg Calcium Carbonate (Calcium Carbonate 750 Mg Tab.Chew) 750 mg PO Q4H PRN PRN Reason: Heartburn Carvedilol (Carvedilol 25 Mg Tablet) 25 mg PO BID [facility]; Protocol Clopidogrel Bisulfate (Clopidogrel Bisulfate 75 Mg Tablet) 75 mg PO DAILY [facility] Docusate Sodium (Docusate Sodium 100 Mg Capsule) 100 mg PO BID [facility] Last Admin: 07/06/24 08:57 Dose: 100 mg Ezetimibe (Ezetimibe 10 Mg Tablet) 10 mg PO DAILY [facility] Last Admin: 07/06/24 08:57 Dose: 10 mg Empagliflozin (Empagliflozin 10 Mg Tablet) 10 mg PO DAILY [facility] Last Admin: 07/03/24 10:04 Dose: 10 mg Furosemide (Furosemide 20 Mg Tablet) 40 mg PO DAILY [facility]; Protocol Last Admin: 07/03/24 09:59 Dose: Not Given Loperamide HCl (Loperamide Hcl 2 Mg Capsule) 2 mg PO Q4H PRN PRN Reason: Diarrhea Last Admin: 07/05/24 18:31 Dose: 2 mg Magnesium Hydroxide (Milk Of Magnesia 30 Ml Oral.Susp) 30 ml PO DAILY PRN PRN Reason: Constipation Melatonin (Melatonin 3 Mg Tablet) 6 mg PO BEDTIME PRN PRN Reason: Insomnia Polyethylene Glycol (Polyethylene Glycol 3350 17 Gm Powd.Pack) 17 gm PO DAILY PRN PRN Reason: constipation Last Admin: 07/02/24 18:18 Dose: 17 gm Pregabalin (Pregabalin 150 Mg Capsule) 150 mg PO BID [facility] Last Admin: 07/03/24 10:04 Dose: 150 mg Sodium Chloride (0.9 % Sodium Chloride Flush 3 Ml Syringe) [facility] Last Admin: 07/06/24 08:57 Dose: 3 ml Sodium Chloride (Sodium Chloride 0.65 % Nasal 44 Ml Sprbtl) 1 spray NOSTRIL-B Q1H PRN PRN Reason: Dry Nasal Passages Last Admin: 07/06/24 06:40 Dose: 1 spray Tamsulosin HCl (Tamsulosin Hcl 0.4 Mg Capsule) 0.4 mg PO DAILY [facility] Last Admin: 07/04/24 08:16 Dose: 0.4 mg Trazodone HCl (Trazodone Hcl 100 Mg Tablet) 100 mg PO DAILY PRN PRN Reason: Insomnia Last Admin: 07/05/24 20:22 Dose: 100 mg Home Medications ?Medication ?Instructions ?Recorded ?Confirmed ?Last Taken ?Type carvedilol 25 mg tablet 25 mg PO BID 02/03/21 06/30/24 06/30/24 History furosemide 20 mg tablet 40 mg PO DAILY 02/03/21 07/01/24 06/29/24 History nitroglycerin 0.4 mg sublingual 0.4 mg sublingual Q5M PRN Chest 02/03/21 07/01/24 Unknown History tablet Pain pregabalin 150 mg capsule 150 mg PO BID 02/03/21 06/30/24 06/29/24 History amlodipine 10 mg tablet 10 mg PO DAILY 05/16/22 06/30/24 06/29/24 History aspirin 81 mg chewable tablet 81 mg PO DAILY 05/16/22 07/01/24 08/04/23 History colchicine 0.6 mg tablet 1 tab PO DAILY [facility] 05/16/22 06/30/24 06/29/24 History losartan 100 mg tablet 1 tab PO DAILY 05/16/22 06/30/24 06/29/24 History omeprazole 20 mg tablet,delayed 20 mg PO DAILY 05/16/22 06/30/24 06/29/24 History release ascorbic acid (vitamin C) 500 mg 1,000 mg PO BID 05/18/22 06/30/24 06/29/24 History tablet apixaban 2.5 mg tablet (Eliquis) 2.5 mg PO BID 08/04/23 07/01/24 08/04/23 History ezetimibe 10 mg tablet 10 mg PO DAILY 08/04/23 06/30/24 06/29/24 History trazodone 100 mg tablet 100 mg PO DAILY PRN Insomnia 08/04/23 06/30/24 Unknown History coenzyme Q10 100 mg capsule 400 mg PO BID 03/15/24 06/30/24 06/29/24 History (CoQ-10) evolocumab 140 mg/mL subcutaneous 140 mg subcut Q2W 03/15/24 03/15/24 Unknown History pen injector (Repatha Alisaick) magnesium 200 mg tablet 400 mg PO BID 03/15/24 06/30/24 06/30/24 History metformin 1,000 mg tablet 1,000 mg PO BID 03/15/24 07/01/24 Unknown History omega 7-pai-mim-fish oil 1,200 mg 1 cap PO BID 03/15/24 06/30/24 06/30/24 History (144 mg-216 mg) capsule (Fish Oil) clopidogrel 75 mg tablet 75 mg PO DAILY 07/01/24 Unknown History dapagliflozin propanediol 10 mg 10 mg PO DAILY 07/01/24 07/01/24 Unknown History tablet (Farxiga) tamsulosin 0.4 mg capsule 0.4 mg PO DAILY 07/01/24 07/01/24 Unknown History tramadol 50 mg tablet 50 mg PO Q6H 07/01/24 07/01/24 Unknown History Physical Exam Vital Signs: Vital Signs: Last Vital Signs Temp 97.7 F 07/06/24 08:00 Pulse 98 07/06/24 10:56 Resp 16 07/06/24 08:00 BP 119/65 07/06/24 10:56 Pulse Ox 94 07/06/24 10:56 O2 Del Method Room Air 07/06/24 08:00 BMI result Body Mass Index 30.9 GENERAL APPEARANCE: in no acute distress, pleasant. NECK: no carotid bruit, mild jugular venous distention. SKIN: no suspicious lesions, warm and dry. Bruising right thigh. HEART: no murmurs, irregular rate and rhythm. LUNGS: clear to auscultation bilaterally. ABDOMEN: soft, nontender. EXTREMITIES: no edema. PERIPHERAL PULSES: equal. NEUROLOGIC: No gross deficits, AAO X 3 Objective Labs and Meds 07/06/24 05:41 07/06/24 05:41 Lab results: Laboratory Results - last 24 hr 07/06/24 05:41 WBC 5.4 RBC 3.31 L Hgb 8.6 L Hct 27.9 L MCV 84.3 MCH 26.0 L MCHC 30.8 L RDW 17.9 H Plt Count 335 MPV 9.1 L Absolute Nucleated RBC 0.000 Nucleated RBC % (auto) 0.0 Sodium 137 Potassium 4.5 Chloride 103 Carbon Dioxide 24 Anion Gap 15 BUN 57 H Creatinine 2.57 H Estim Creat Clear Calc 26.1 Estimated GFR 24 Fasting Glucose 146 H Calcium 9.0 Assessment and Plan (1) Chronic systolic CHF (congestive heart failure): Status: Acute (2) PAF (paroxysmal atrial fibrillation): Status: Acute Plan 83-year-old gentleman with known history of coronary artery disease and ischemic cardiomyopathy presenting for right thigh hematoma after mechanical fall. He had acute kidney injury while inpatient along with hypotension and his medications were held. His creatinine is improving his blood pressure is better. I think his home medications can be resumed with the exception of losartan. With his PCI in March with rotablation of right coronary artery he should be on Plavix and Eliquis. Aspirin should be discontinued. Hemoglobin should be monitored closely. He is known to [facility] and we will follow up with them after discharge. Currently rate control strategy for atrial fibrillation as he has been off anticoagulation for some time. His Eliquis will be resumed at a lower dose due to worsening of kidney function. Thank you for allowing me to participate in the care of your patient. Please feel free to contact me if you have any questions. Procedures Date of Service Date of Service: 07/06/24
--- NOTE | 2024-07-06 16:05 | P.PNNP_ITS ---
Subjective Subjective Date of Service: 07/06/24 Interval history: overall improved, now with afib with rvr Physical Exam 2 Vital Signs: Vital Signs: Last Vital Signs Temp 97.9 F 07/06/24 15:36 Pulse 102 H 07/06/24 15:36 Resp 16 07/06/24 15:36 BP 134/79 07/06/24 15:36 Pulse Ox 96 07/06/24 15:36 O2 Del Method Room Air 07/06/24 15:36 BMI result Body Mass Index 30.9 Const: General: no acute distress Orientation/consciousness: patient oriented x3 HEENT: Head: Yes normocephalic Eyes: EOM: EOMs intact bilaterally Neck: Neck: Yes supple Resp: Auscultation: diminished lung sounds Cardio: Rate: regular rate GI: Palpation (GI): Soft to palpation Neuro: General: patient oriented x3 Objective Data Labs 07/06/24 05:41 07/06/24 05:41 Labs: Laboratory Results - last 24 hr 07/06/24 05:41 WBC 5.4 RBC 3.31 L Hgb 8.6 L Hct 27.9 L MCV 84.3 MCH 26.0 L MCHC 30.8 L RDW 17.9 H Plt Count 335 MPV 9.1 L Absolute Nucleated RBC 0.000 Nucleated RBC % (auto) 0.0 Sodium 137 Potassium 4.5 Chloride 103 Carbon Dioxide 24 Anion Gap 15 BUN 57 H Creatinine 2.57 H Estim Creat Clear Calc 26.1 Estimated GFR 24 Fasting Glucose 146 H Calcium 9.0 Microbiology Microbiology Results: Microbiology 07/05/24 Unknown Urine clean catch - Clean Catch Midstream Urine Culture - Preliminary Culture too young to evaluate. 06/30/24 Unknown Urine clean catch - Clean Catch Midstream Urine Culture - Final Enterococcus faecalis Procedures Date of Service Date of Service: 07/06/24 Assessment & Plan Assessment and plan (1) BUTCH (acute kidney injury): Status: Acute Plan BUTCH due to tubular injury Had altered autoregulation in the kidney No reason to suspect GN/AIN/obstructive uropathy ARB/Diuretics/Farxiga/All BP lowering agents on hold Renal function is improving. Currently nonoliguricC/W rest of current management for now Time Spent With Patient Time: Total time managing care of this patient today ____ minutes. Progress Note: Quality Stroke Does the patient have a stroke diagnosis?: No
[2024-07-06] MEDS: carvediloL 25 MG TABLET PO (20:32)
[2024-07-06] MEDS: traZODone HCL 100 MG TABLET PO (20:33)
[2024-07-06] MEDS: Apixaban 2.5 MG TABLET PO (20:33)
--- NOTE | 2024-07-06 20:38 | PC.NURSE ---
20:30: Please refer to Provider notification regarding HR afib up to 180 at 1999 when ambulated in room with assist to brush teeth. BP at 19k39 was 141/68. Pt. wanted to finish his teeth then returned to bed with assist. After 15mins. of rest, pt. HR afib down to 140's at 2019. At 20:30 pt. states to this keno writer / runner that he started with neck pain like someone punched him in the throat , mild SOB, sat's mid 90's and able to talk in full sentences. Pt. also c/o really bad chest pain after got back to bed. Dr. Lane entered pt. room during this conversation and spoke with pt. To obtain EKG, NTG and hold Tamsulosin.
[2024-07-06] MEDS: Nitroglycerin 0.4 MG TAB.SUBL SUBLINGUAL (20:53)
[2024-07-06] MEDS: Acetaminophen 325 MG TABLET 975 MG PO (21:08)
[2024-07-07] VITALS (10 sets, daily range): BP systolic 121–173; BP diastolic 79–101; PULSE 95–150; RESP 16–24; TEMP 36.1–37.6; O2SAT 91–99
--- NOTE | 2024-07-07 | ECG_ITS ---
Test Reason : Rapid response Blood Pressure : / mmHG Vent. Rate : 150 BPM Atrial Rate : 000 BPM P-R Int : 000 ms QRS Dur : 100 ms QT Int : 298 ms P-R-T Axes : 000 -09 148 degrees QTc Int : 470 ms Atrial fibrillation with rapid ventricular response with premature ventricular or aberrantly conducted complexes ST elevation in Inferior leads ST depression in Lateral leads Abnormal ECG When compared with ECG of 06-JUL-2024 21:00, No significant change was found Referred By: Blas Oakes Electronically Signed By:SARA DEAN
[2024-07-07 06:19] LABS: Hematocrit 29.7 % (42.0-52.0); Hemoglobin 9.3 g/dl (14.0-18.0); Mean Corpuscular HGB Conc 31.3 g/dl (31.0-36.0); Mean Corpuscular Hemoglobin 26.3 pg (27.0-33.0); Mean Corpuscular Volume 83.9 fL (80.0-98.0); Mean Platelet Volume 8.9 fL (9.4-12.4); Platelet Count 362 X10*3/uL (160-400); Red Blood Count 3.54 X10*6/uL (4.60-5.80); Red Cell Distribution Width 17.8 % (11.0-16.0); White Blood Count 7.3 X10*3/uL (4.8-10.8)
[2024-07-07 06:24] LABS: Anion Gap 15 (12-20); Blood Urea Nitrogen 51 mg/dL (9-16); Calcium 9.8 mg/dL (8.4-10.2); Carbon Dioxide 24 mmol/L (22-29); Chloride 102 mmol/L (96-108); Creatinine Clr Calc Pharmacy 31.5; Estimated Glomerular Filt Rate 30; Glucose Fasting 143 mg/dL (60-99); Potassium 4.5 mmol/L (3.3-5.1); Sodium 136 mmol/L (135-145)
[2024-07-07] MEDS: 0.9 % Sodium Chloride Flush 3 ML SYRINGE IVFLUSH ×3 (07:34→20:45)
[2024-07-07] MEDS: Amoxicillin 500 MG CAPSULE PO ×2 (07:35→20:44)
[2024-07-07] MEDS: Ascorbic Acid 500 MG TABLET 1000 MG PO ×2 (07:35→20:44)
[2024-07-07] MEDS: carvediloL 25 MG TABLET PO ×2 (07:35→20:43)
[2024-07-07] MEDS: Ezetimibe 10 MG TABLET PO (07:35)
[2024-07-07] MEDS: Apixaban 2.5 MG TABLET PO ×2 (07:35→20:42)
[2024-07-07] MEDS: Clopidogrel Bisulfate 75 MG TABLET PO (07:35)
[2024-07-07] MEDS: Docusate Sodium 100 MG CAPSULE PO ×2 (07:36→20:45)
--- NOTE | 2024-07-07 09:28 | P.PNNP_ITS ---
Subjective Subjective Date of Service: 07/07/24 Interval history: overall improved, going to [facility] for rehab Physical Exam 2 Vital Signs: Vital Signs: Last Vital Signs Temp 98.5 F 07/07/24 07:09 Pulse 130 H 07/07/24 07:09 Resp 18 07/07/24 07:09 BP 139/90 H 07/07/24 07:09 Pulse Ox 94 07/07/24 07:09 O2 Del Method Room Air 07/07/24 07:09 BMI result Body Mass Index 30.9 Const: General: no acute distress Orientation/consciousness: patient oriented x3 HEENT: Head: Yes normocephalic Eyes: EOM: EOMs intact bilaterally Neck: Neck: Yes supple Resp: Auscultation: diminished lung sounds Cardio: Rate: regular rate GI: Palpation (GI): Soft to palpation Neuro: General: patient oriented x3 Objective Data Labs 07/07/24 05:42 07/07/24 05:42 Labs: Laboratory Results - last 24 hr 07/07/24 05:42 WBC 7.3 RBC 3.54 L Hgb 9.3 L Hct 29.7 L MCV 83.9 MCH 26.3 L MCHC 31.3 RDW 17.8 H Plt Count 362 MPV 8.9 L Absolute Nucleated RBC 0.000 Nucleated RBC % (auto) 0.0 Sodium 136 Potassium 4.5 Chloride 102 Carbon Dioxide 24 Anion Gap 15 BUN 51 H Creatinine 2.13 H Estim Creat Clear Calc 31.5 Estimated GFR 30 Fasting Glucose 143 H Calcium 9.8 D Microbiology Microbiology Results: Microbiology 07/05/24 Unknown Urine clean catch - Clean Catch Midstream Urine Culture - Preliminary Culture too young to evaluate. 06/30/24 Unknown Urine clean catch - Clean Catch Midstream Urine Culture - Final Enterococcus faecalis Procedures Date of Service Date of Service: 07/07/24 Assessment & Plan Assessment and plan (1) BUTCH (acute kidney injury): Status: Acute Plan BUTCH due to tubular injury- improving Had altered autoregulation in the kidney No reason to suspect GN/AIN/obstructive uropathy No ARB for now; C/W rest of current management for now Progress Note: Quality Stroke Does the patient have a stroke diagnosis?: No
--- NOTE | 2024-07-07 10:20 | PM.DS ---
DS: Providers Provider Date of Service: 07/07/24 Date of admission: 07/03/24 16:45 Date of discharge: 07/07/24 Primary care physician: Gume Bonilla MD Consults: 07/03/24 16:42 Consult to Nephrology Routine Consulting Provider: [facility] Reason for consultation: BUTCH, ?ATN 2/2 hypotension 07/06/24 04:40 Consult to Cardiology Routine Consulting Provider: [facility] Reason for consultation: new onset Afib w rvr DS: Diagnosis Discharge Diagnosis (1) BUTCH (acute kidney injury): Status: Acute DS: Summary Hospital Course Hospital Course: from initial hpi: 82-year-old male with history of coronary artery disease, chronic systolic congestive heart failure, malignant renal mass w/ R chest port-a-cath, history CVA, CKD stage 3, type 2 diabetes, hyperlipidemia presented to the ED initially on 06/30 due to inability to walk and incontinence and had a fall [address] scan of the right hip did not reveal a occult fracture but the patient does have a 9.3 x 5.7 x 7.5 cm hematoma within the right gluteus olga muscle that abuts the sciatic nerve. He had been boarding in the ED awaiting placement. However, had been hypotensive today with new BUTCH and several episodes of watery diarrhea and has been recommended for admission to medicine. While in the ED, he was diagnosed with enterococcus faec UTi and was due to be started on levaquin tomorrow morning but has not yet received any antibiotic. Per RN, today had 3 episodes of watery diarrhea. Has had decreased PO intake. Earlier today was hypotensive to 76/40, 84/48, 93/52 responding to IV albumin now with BP 114/56. Vitals otherwise stable. He did have drop in h/h 11.1/35.3% yest -->9.0/28.6% today and was restarted on eliquis yesterday. Denies worsening pain. On arrival creat 1.68, today 3.06. BUN 46. Lytes WNL. Total CK 28. Antihypertensives were held this morning and was started on 1L IVNS but this was discontinued in favor of albumin x2 given hx CHF. hospital course: Patient was admitted for acute kidney injury on CKD 3 likely due to hypotension from diarrhea. His antihypertensives were held and he was given IV fluids and renal function significantly improved. We will continue to hold metformin, Lasix for another week and should follow up labs to see if appropriate to restart. Patient also noted to have new onset atrial fibrillation with rapid ventricular response. His carvedilol was restarted and blood pressure tolerated. Heart rate improved and will continue with carvedilol and Eliquis. For his gluteal hematoma his Eliquis was held for a few days and then he was rechallenged with it and it appears to be tolerating well. This should continue to be monitored as outpatient. For coronary artery disease, case was discussed with Cardiology and his aspirin was discontinued, he was restarted on Plavix and Eliquis and takes Repatha due to statin intolerance. For history of CVA he was continued on Plavix and Eliquis. For diabetes sugars remained stable, will continue to hold metformin for about another week until renal function returned to baseline. Patient diarrhea resolved, was possibly due to laxatives versus post constipation, stool PCR and C diff were negative, can continue Imodium as needed for renal malignancy will follow up outpatient with Oncology. Patient was seen by physical therapy who recommended acute rehab to which patient will be discharged. Time Attestation Discharge Coordination Time (in mins): 35 Quality: Safe Use of Opioids Does Pt have an Active Cancer Diagnosis on the Problem List?: Yes Opioid Measure Date for [facility] Report: 06/07/24 Opioid Measure Time for [facility] Report: 10:22 Quality: Stroke Does the patient have a stroke diagnosis?: No Physical Exam Vital Signs: Vital Signs: Last Vital Signs Temp 98.5 F 07/07/24 07:09 Pulse 130 H 07/07/24 07:09 Resp 18 07/07/24 07:09 BP 139/90 H 07/07/24 07:09 Pulse Ox 94 07/07/24 07:09 O2 Del Method Room Air 07/07/24 07:09 BMI result Body Mass Index 30.9 Const: General: no acute distress Orientation/consciousness: patient oriented x3 HEENT: Head: Yes normocephalic Eyes: EOM: EOMs intact bilaterally Neck: Neck: Yes supple Resp: Auscultation: diminished lung sounds Cardio: Rate: regular rate GI: Palpation (GI): Soft to palpation Neuro: General: patient oriented x3 DS: Data Data Completed and Pending Labs on day of discharge: Laboratory Results - last 24 hr 07/07/24 05:42 WBC 7.3 RBC 3.54 L Hgb 9.3 L Hct 29.7 L MCV 83.9 MCH 26.3 L MCHC 31.3 RDW 17.8 H Plt Count 362 MPV 8.9 L Absolute Nucleated RBC 0.000 Nucleated RBC % (auto) 0.0 Sodium 136 Potassium 4.5 Chloride 102 Carbon Dioxide 24 Anion Gap 15 BUN 51 H Creatinine 2.13 H Estim Creat Clear Calc 31.5 Estimated GFR 30 Fasting Glucose 143 H Calcium 9.8 D Preliminary micro results at discharge 07/05/24 Unknown Urine Culture - Preliminary Urine clean catch - Clean Catch Midstream Culture too young to evaluate. Discharge Plan Discharge Anticipated Discharge Date/Time: 07/07/24 10:11 Patient Disposition: Xfer Inpatient Rehab Fac Discharge Diagnosis: btuch, afib, chf, hematoma Referrals: Gume Bonilla MD [Primary Care Provider] - 1 Week Discharge Medications: New loperamide 2 mg Capsule 2 mg PO Q4H PRN (Reason: Diarrhea) Qty: 0 0RF polyethylene glycol 3350 17 gram Powder In Packet 17 g PO DAILY PRN (Reason: constipation) Qty: 0 0RF magnesium hydroxide [Milk of Magnesia] 400 mg/5 mL Suspension 30 ml PO DAILY PRN (Reason: Constipation) Qty: 0 0RF Continued colchicine 0.6 mg tablet 1 tab PO DAILY omeprazole 20 mg Tablet,Delayed Release (Dr/Ec) 20 mg PO DAILY ascorbic acid (vitamin C) 500 mg Tablet 1,000 mg PO BID albuterol sulfate [ProAir HFA] 90 mcg/actuation HFA aerosol inhaler 2 puff inhalation Q4-6H PRN (Reason: shortness of breath or wheezing) Qty: 8.5 0RF coenzyme Q10 [CoQ-10] 100 mg Capsule 400 mg PO BID omega 1-auj-pzb-fish oil [Fish Oil] 1,200 (144-216) mg Capsule 1 cap PO BID Repatha SureClick 140 mg/mL pen injector 140 mg subcut Q2W clopidogrel 75 mg tablet 75 mg PO DAILY tramadol 50 mg tablet 50 mg PO Q6H tamsulosin 0.4 mg capsule 0.4 mg PO DAILY dapagliflozin propanediol [Farxiga] 10 mg tablet 10 mg PO DAILY trazodone 100 mg tablet 100 mg PO DAILY PRN (Reason: Insomnia) ezetimibe 10 mg tablet 10 mg PO DAILY Eliquis 2.5 mg tablet 2.5 mg PO BID pregabalin 150 mg capsule 150 mg PO BID carvedilol 25 mg tablet 25 mg PO BID nitroglycerin 0.4 mg tablet, sublingual 0.4 mg sublingual Q5M PRN (Reason: Chest Pain) Held magnesium 200 mg Tablet 400 mg PO BID Hold Instructions: Resume on 07/13/24. metformin 1,000 mg tablet 1,000 mg PO BID Hold Instructions: Resume on 07/13/24. furosemide 20 mg tablet 40 mg PO DAILY Hold Instructions: Resume on 07/13/24. Discontinued losartan 100 mg tablet 1 tab PO DAILY amlodipine 10 mg Tablet 10 mg PO DAILY aspirin 81 mg Tablet,Chewable 81 mg PO DAILY Discharge Orders: Discharge Order (Routine); Ordered 07/07/24 Ordered By: Rajan Pineda Diet: Diabetic diet Activity on Discharge: As tolerated Stand Alone Forms: Patient Portal Discharge page Print Language: Armenian Care Plan Goals: manage afib, hematoma, butch Health Concerns: afib, hematoma, butch Plan of Treatment: hold metformin, lasix another week, recheck labs and can restart if creatining better, continue coreg 25mg bid and eliquis for new afib, monitor buttocks hematoma for any increasing size Assessment: see above Patient Instructions: Hematoma (ED)
--- NOTE | 2024-07-07 11:25 | MHC.CM.PN ---
IMM 07/07/24, ANTIC PT WILL DC TO [facility] FOR AR PENDING PELVIC CT FROM 07/06 BEING READ AND REPORT UPLOADED, [facility] FOR BLS TRANSPORT
[2024-07-07] MEDS: Heparin Sodium,Porcine Flush 50 UNITS/5 ML SYRINGE IVFLUSH (13:30)
[2024-07-07] MEDS: Metoprolol Tartrate 5 MG/5 ML VIAL IVPUSH ×2 (17:05→19:52)
[2024-07-07 17:06] LABS: Glucose, Whole Blood 158 mg/dL (60-115)
[2024-07-07] MEDS: Furosemide 40 MG/4 ML VIAL IVPUSH (17:11)
[2024-07-07 17:24] LABS: Magnesium 1.8 mg/dL (1.6-2.6)
--- NOTE | 2024-07-07 17:29 | PM.EVENT ---
Event Note Date of Service: 07/07/24 Event Note: HEALTH ADVISOR called for this 82 with nonstentable CAD, HFrEF, renal malignancy, hx CVA, CKD, DM2 admitted with hypotension/diarrhea/BUTCH/UTI, hospitalization complicated by AF/RVR, on carvedilol + Eliquis [which had recently been held for gluteal hematoma]; was set to be discharged pt c/o dyspnea + palpitations and found to be in AF/RVR with rate in 150s, BP 148/80. SaO2 97 on RA. Inspiratory crackles in bases. K 4.5, Mg 1.8. CXR bibasilar infiltrates with L pleural effusion. given IV metoprolol 5 mg and IV furosemide 40 mg EKG with rapid AF, ST elevations inferiorly consistent with prior EKG; discussed with industrial equipment mechanic Dr Agustin; no intervenable coronary lesions at this point. Will give digoxin 0.25 mg IV q6h x2 doses. Cancel discharge. Time Spent With Patient Time: Total time managing care of this patient today ____ minutes.
--- NOTE | 2024-07-07 17:34 | PC.NURSE ---
pt scheduled for discharge to rehab at 15: 00 via ambulance .manager monitoring was removed , IV por to right chest deactivated . At 17;00 pt still waiting for ambulance that is delayed still. Pt was sitting on the recliner and became pale diaphoretic, nauseous I don't feel good . No chest pain , SOB noted . Back to bed VS BP 152/92/92 , HR 150 afib, O2 sat 94RA ,. EXCHANGE ARCHITECT called : lasix 40 mg IV , Metoprolol 5 mg IV push , Cxray, Diogoxin IV . Pt in bed c/o sob O2 sat down to 91 on RA , 4 L via NC appled sat 99% now . .IV access 20 right wrist
--- NOTE | 2024-07-07 17:42 | HO.PM.IMPN ---
Subjective Subjective Date of Service: 07/07/24 Interval History: dc cancelled for afib with rvr and chf Physical Exam Vital Signs: Vital Signs: Last Vital Signs Temp 98.6 F 07/07/24 11:02 Pulse 104 H 07/07/24 11:06 Resp 18 07/07/24 11:02 BP 139/83 07/07/24 11:06 Pulse Ox 96 07/07/24 11:06 O2 Del Method Room Air 07/07/24 11:02 BMI result Body Mass Index 30.9 Const: General: no acute distress Orientation/consciousness: patient oriented x3 HEENT: Head: Yes normocephalic Eyes: EOM: EOMs intact bilaterally Neck: Neck: Yes supple Resp: Auscultation: diminished lung sounds Cardio: Rate: regular rate GI: Palpation (GI): Soft to palpation Neuro: General: patient oriented x3 Objective Data Active Medications Acetaminophen (Acetaminophen 325 Mg Tablet) 975 mg PO Q6H PRN PRN Reason: Pain, Moderate(Pain Scale 4-6) Last Admin: 07/06/24 21:08 Dose: 975 mg Documented By: EVELIO Albuterol Sulfate (Albuterol Sulfate 90 Mcg 8 Gm Inhaler) 2 puff INHALE RQ4H PRN PRN Reason: shortness of breath or wheezing Amoxicillin (Amoxicillin 500 Mg Capsule) 500 mg PO BID [facility] Last Admin: 07/07/24 07:35 Dose: 500 mg Documented By: MAICOL Apixaban (Apixaban 2.5 Mg Tablet) 2.5 mg PO BID [facility] Last Admin: 07/07/24 07:35 Dose: 2.5 mg Documented By: MAICOL Ascorbic Acid (Ascorbic Acid 500 Mg Tablet) 1,000 mg PO BID [facility] Last Admin: 07/07/24 07:35 Dose: 1,000 mg Documented By: MAICOL Calcium Carbonate (Calcium Carbonate 750 Mg Tab.Chew) 750 mg PO Q4H PRN PRN Reason: Heartburn Carvedilol (Carvedilol 25 Mg Tablet) 25 mg PO BID [facility]; Protocol Last Admin: 07/07/24 07:35 Dose: 25 mg Documented By: MAICOL Clopidogrel Bisulfate (Clopidogrel Bisulfate 75 Mg Tablet) 75 mg PO DAILY [facility] Last Admin: 07/07/24 07:35 Dose: 75 mg Documented By: MAICOL Digoxin (Digoxin 0.5 Mg/2 Ml Ampul) 0.25 mg IVPUSH Q6H [facility]; Protocol Stop: 07/07/24 23:31 Docusate Sodium (Docusate Sodium 100 Mg Capsule) 100 mg PO BID [facility] Last Admin: 07/07/24 07:36 Dose: 100 mg Documented By: MAICOL Ezetimibe (Ezetimibe 10 Mg Tablet) 10 mg PO DAILY [facility] Last Admin: 07/07/24 07:35 Dose: 10 mg Documented By: MAICOL Empagliflozin (Empagliflozin 10 Mg Tablet) 10 mg PO DAILY [facility] Last Admin: 07/03/24 10:04 Dose: 10 mg Documented By: PHYLLIS Furosemide (Furosemide 20 Mg Tablet) 40 mg PO DAILY [facility]; Protocol Last Admin: 07/03/24 09:59 Dose: Not Given Documented By: PHYLLIS Non-Admin Reason: Patient Condition Contraindication Loperamide HCl (Loperamide Hcl 2 Mg Capsule) 2 mg PO Q4H PRN PRN Reason: Diarrhea Last Admin: 07/05/24 18:31 Dose: 2 mg Documented By: RAHUL Magnesium Hydroxide (Milk Of Magnesia 30 Ml Oral.Susp) 30 ml PO DAILY PRN PRN Reason: Constipation Melatonin (Melatonin 3 Mg Tablet) 6 mg PO BEDTIME PRN PRN Reason: Insomnia Nitroglycerin (Nitroglycerin 0.4 Mg Tab.Subl) 0.4 mg SUBLINGUAL Q5MX3 PRN PRN Reason: Chest Pain Last Admin: 07/06/24 20:53 Dose: 0.4 tab Documented By: EVELIO Comments: sublingual Polyethylene Glycol (Polyethylene Glycol 3350 17 Gm Powd.Pack) 17 gm PO DAILY PRN PRN Reason: constipation Last Admin: 07/02/24 18:18 Dose: 17 gm Documented By: KAROLINA Pregabalin (Pregabalin 150 Mg Capsule) 150 mg PO BID [facility] Last Admin: 07/03/24 10:04 Dose: 150 mg Documented By: PHYLLIS Sodium Chloride (0.9 % Sodium Chloride Flush 3 Ml Syringe) 3 ml IVFLUSH QSHIFT [facility] Last Admin: 07/07/24 13:31 Dose: 3 ml Documented By: MAICOL Sodium Chloride (Sodium Chloride 0.65 % Nasal 44 Ml Sprbtl) 1 spray NOSTRIL-B Q1H PRN PRN Reason: Dry Nasal Passages Last Admin: 07/06/24 20:33 Dose: 1 spray Documented By: EVELIO Tamsulosin HCl (Tamsulosin Hcl 0.4 Mg Capsule) 0.4 mg PO DAILY [facility] Last Admin: 07/04/24 08:16 Dose: 0.4 mg Documented By: TERESA Trazodone HCl (Trazodone Hcl 100 Mg Tablet) 100 mg PO DAILY PRN PRN Reason: Insomnia Last Admin: 07/06/24 20:33 Dose: 100 mg Documented By: EVELIO Labs 07/07/24 05:42 07/07/24 05:42 Labs: Laboratory Results - last 24 hr 07/07/24 07/07/24 05:42 17:01 MCV 83.9 MCH 26.3 L MCHC 31.3 RDW 17.8 H Plt Count 362 MPV 8.9 L Absolute Nucleated RBC 0.000 Nucleated RBC % (auto) 0.0 Anion Gap 15 Estim Creat Clear Calc 31.5 Estimated GFR 30 POC Glucose 158 H Fasting Glucose 143 H Calcium 9.8 D Magnesium 1.8 Microbiology Microbiology Results: Microbiology 07/05/24 Unknown Urine Culture - Preliminary Urine clean catch - Clean Catch Midstream Enterococcus/Streptococcus sp Assessment and Plan (1) Hypotension: Status: Acute Plan 82M PMH CAD, chronic systolic chf, 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, hsitory of cva (on eliquis), ckd 3, dm, hld, presented with diarrhea, elke Acute kidney injury on CKD 3 likely due to hypotension from diarrhea not sepsis bp better, renal ultrasound ruled out obstruction, nephrology following, monitor BMP and urine output improving New onset atrial fibrillation wtih rvr coreg, Eliquis acute on chronic systolic chf iv lasix, coreg gluteal hematoma eliquis, monitor Coronary artery disease d/w cardio, stopped asa, restarted plavix, eliquis, outpatient repatha History of CVA Continue plavix, Eliquis on repatha as outpatient Diabetes Metformin on hold, monitor point of care Diarrhea cdif and stool pcr negative improved with imodium Renal malignancy Outpatient follow-up DVT prophylaxis- eliquis DNR/DNI reason for continued hospitalization: monitor elke, heart rate, iv diuresis Quality Stroke Does the patient have a stroke diagnosis?: No VTE Prior VTE?: No VTE Risk Level:: Medical - moderate - high VTE Device Contraindication: N/A - Device Ordered VTE Drug Contraindication: Treatment Not Indicated
[2024-07-07] MEDS: Digoxin 0.5 MG/2 ML AMPUL 0.25 MG IVPUSH ×2 (17:45→23:27)
--- NOTE | 2024-07-07 19:38 | PC.NURSE ---
HR up tlo 150 afib with minilal exertion , some SOB present, DR Andersen was notified , will order some meds and labs
[2024-07-07 20:53] LABS: MANUAL DIFF FLAG NO
[2024-07-07 20:54] LABS: Basophils Percent Auto 0.3 % (0-2); Eosinophils Absolute Auto 0.1 X10*3/uL (0.0-0.4); Eosinophils Percent Auto 1.2 % (0-4); Hematocrit 28.7 % (42.0-52.0); Hemoglobin 9.2 g/dl (14.0-18.0); Imm Gran Abs Auto 0.05 X10*3/uL (0.00-0.03); Imm Gran Pct Auto 0.6 % (0.0-0.4); Lymphocytes Absolute Auto 0.9 X10*3/uL (1.2-4.9); Lymphocytes Percent Auto 9.9 % (20-40); Mean Corpuscular HGB Conc 32.1 g/dl (31.0-36.0); Mean Corpuscular Hemoglobin 26.2 pg (27.0-33.0); Mean Corpuscular Volume 81.8 fL (80.0-98.0); Mean Platelet Volume 8.7 fL (9.4-12.4); Monocytes Absolute Auto 0.9 X10*3/uL (0.1-1.2); Monocytes Percent Auto 9.9 % (2-11); Neutrophils Absolute Auto 6.9 x10*3/uL (2.0-8.3); Neutrophils Percent Auto 78.1 % (45-73); Platelet Count 376 X10*3/uL (160-400); Red Blood Count 3.51 X10*6/uL (4.60-5.80); Red Cell Distribution Width 17.9 % (11.0-16.0); White Blood Count 8.9 X10*3/uL (4.8-10.8)
[2024-07-07 21:08] LABS: Alanine Aminotransferase 12 U/L (0-40); Albumin Level 3.7 g/dL (3.5-5.0); Alkaline Phosphatase 88 U/L (39-117); Anion Gap 15 (12-20); Aspartate Amino Transferase 21 U/L (5-37); Bilirubin Total 0.6 mg/dL (0.0-1.0); Blood Urea Nitrogen 53 mg/dL (9-16); Calcium 10.1 mg/dL (8.4-10.2); Carbon Dioxide 23 mmol/L (22-29); Chloride 104 mmol/L (96-108); Creatinine Clr Calc Pharmacy 31.3; Estimated Glomerular Filt Rate 30; Glucose Random 170 mg/dL (60-115); Magnesium 1.9 mg/dL (1.6-2.6); Potassium 4.7 mmol/L (3.3-5.1); Sodium 137 mmol/L (135-145); Total Protein 6.8 g/dL (6.5-8.0)
[2024-07-07 21:14] LABS: B Type Natriuretic Peptide 3036 pg/mL (<100)
[2024-07-08] VITALS (11 sets, daily range): BP systolic 120–170; BP diastolic 57–95; PULSE 84–126; RESP 18–22; TEMP 36.4–37.1; O2SAT 94–95
[2024-07-08 01:54] LABS: Troponin-I High Sensitivity 1694.4 ng/L (<3.5-35.0)
[2024-07-08] MEDS: Nitroglycerin 0.4 MG TAB.SUBL SUBLINGUAL ×3 (02:02→02:42)
[2024-07-08] MEDS: Metoprolol Tartrate 5 MG/5 ML VIAL IVPUSH ×2 (02:17→02:49)
[2024-07-08] MEDS: HYDROmorphone HCl 1 MG/ML SYRINGE 0.8 MG IVPUSH (04:08)
[2024-07-08] MEDS: carvediloL 25 MG TABLET PO ×3 (04:09→22:38)
[2024-07-08 07:25] LABS: Anion Gap 18 (12-20); Blood Urea Nitrogen 55 mg/dL (9-16); Carbon Dioxide 20 mmol/L (22-29); Chloride 103 mmol/L (96-108); Creatinine Clr Calc Pharmacy 32.2; Estimated Glomerular Filt Rate 31; Glucose Random 168 mg/dL (60-115); Magnesium 1.7 mg/dL (1.6-2.6); Potassium 4.5 mmol/L (3.3-5.1); Sodium 136 mmol/L (135-145)
[2024-07-08 07:30] LABS: B Type Natriuretic Peptide 3422 pg/mL (<100)
[2024-07-08] MEDS: Furosemide 40 MG/4 ML VIAL IVPUSH (08:22)
[2024-07-08] MEDS: Clopidogrel Bisulfate 75 MG TABLET PO (08:22)
[2024-07-08] MEDS: Ezetimibe 10 MG TABLET PO (08:22)
[2024-07-08] MEDS: Amoxicillin 500 MG CAPSULE PO ×2 (08:22→22:38)
[2024-07-08] MEDS: Ascorbic Acid 500 MG TABLET 1000 MG PO ×2 (08:22→22:38)
[2024-07-08] MEDS: Docusate Sodium 100 MG CAPSULE PO ×2 (08:22→22:38)
[2024-07-08] MEDS: Apixaban 2.5 MG TABLET PO ×2 (08:22→22:38)
[2024-07-08] MEDS: 0.9 % Sodium Chloride Flush 3 ML SYRINGE IVFLUSH ×2 (08:23→16:23)
--- NOTE | 2024-07-08 10:50 | P.PNIM_ITS ---
Subjective Subjective Date of Service: 07/08/24 Interval History: feeling weaker today Physical Exam 2 Vital Signs: Vital Signs: Last Vital Signs Temp 98.2 F 07/08/24 07:51 Pulse 108 H 07/08/24 07:51 Resp 20 07/08/24 07:51 BP 128/78 07/08/24 07:51 Pulse Ox 94 07/08/24 07:51 O2 Del Method Room Air 07/08/24 07:51 O2 Flow Rate 4 07/07/24 23:56 BMI result Body Mass Index 30.9 Const: General: no acute distress Orientation/consciousness: patient oriented x3 HEENT: Head: Yes normocephalic Eyes: EOM: EOMs intact bilaterally Neck: Neck: Yes supple Resp: Auscultation: diminished lung sounds Cardio: Rate: regular rate GI: Palpation (GI): Soft to palpation Neuro: General: patient oriented x3 Objective Data Active Medications Acetaminophen (Acetaminophen 325 Mg Tablet) 975 mg PO Q6H PRN PRN Reason: Pain, Moderate(Pain Scale 4-6) Last Admin: 07/06/24 21:08 Dose: 975 mg Documented By: EVELIO Albuterol Sulfate (Albuterol Sulfate 90 Mcg 8 Gm Inhaler) 2 puff INHALE RQ4H PRN PRN Reason: shortness of breath or wheezing Amoxicillin (Amoxicillin 500 Mg Capsule) 500 mg PO BID [facility] Last Admin: 07/08/24 08:22 Dose: 500 mg Documented By: MERLIN Apixaban (Apixaban 2.5 Mg Tablet) 2.5 mg PO BID [facility] Last Admin: 07/08/24 08:22 Dose: 2.5 mg Documented By: MERLIN Ascorbic Acid (Ascorbic Acid 500 Mg Tablet) 1,000 mg PO BID [facility] Last Admin: 07/08/24 08:22 Dose: 1,000 mg Documented By: MERLIN Calcium Carbonate (Calcium Carbonate 750 Mg Tab.Chew) 750 mg PO Q4H PRN PRN Reason: Heartburn Carvedilol (Carvedilol 25 Mg Tablet) 25 mg PO BID [facility]; Protocol Last Admin: 07/08/24 08:22 Dose: 25 mg Documented By: MERLIN Clopidogrel Bisulfate (Clopidogrel Bisulfate 75 Mg Tablet) 75 mg PO DAILY [facility] Last Admin: 07/08/24 08:22 Dose: 75 mg Documented By: MERLIN Docusate Sodium (Docusate Sodium 100 Mg Capsule) 100 mg PO BID [facility] Last Admin: 07/08/24 08:22 Dose: 100 mg Documented By: MERLIN Ezetimibe (Ezetimibe 10 Mg Tablet) 10 mg PO DAILY [facility] Last Admin: 07/08/24 08:22 Dose: 10 mg Documented By: MERLIN Empagliflozin (Empagliflozin 10 Mg Tablet) 10 mg PO DAILY [facility] Last Admin: 07/03/24 10:04 Dose: 10 mg Documented By: PHYLLIS Furosemide (Furosemide 20 Mg Tablet) 40 mg PO DAILY [facility]; Protocol Last Admin: 07/03/24 09:59 Dose: Not Given Documented By: PHYLLIS Non-Admin Reason: Patient Condition Contraindication Loperamide HCl (Loperamide Hcl 2 Mg Capsule) 2 mg PO Q4H PRN PRN Reason: Diarrhea Last Admin: 07/05/24 18:31 Dose: 2 mg Documented By: RAHUL Magnesium Hydroxide (Milk Of Magnesia 30 Ml Oral.Susp) 30 ml PO DAILY PRN PRN Reason: Constipation Melatonin (Melatonin 3 Mg Tablet) 6 mg PO BEDTIME PRN PRN Reason: Insomnia Nitroglycerin (Nitroglycerin 0.4 Mg Tab.Subl) 0.4 mg SUBLINGUAL Q5MX3 PRN PRN Reason: Chest Pain Last Admin: 07/08/24 02:42 Dose: 0.4 tab Documented By: LAFLAMJose Luis Polyethylene Glycol (Polyethylene Glycol 3350 17 Gm Powd.Pack) 17 gm PO DAILY PRN PRN Reason: constipation Last Admin: 07/02/24 18:18 Dose: 17 gm Documented By: KRISTAFACherie Pregabalin (Pregabalin 150 Mg Capsule) 150 mg PO BID [facility] Last Admin: 07/03/24 10:04 Dose: 150 mg Documented By: PHYLLIS Sodium Chloride (0.9 % Sodium Chloride Flush 3 Ml Syringe) 3 ml IVFLUSH QSHIFT [facility] Last Admin: 07/08/24 08:23 Dose: 3 ml Documented By: MERLIN Sodium Chloride (Sodium Chloride 0.65 % Nasal 44 Ml Sprbtl) 1 spray NOSTRIL-B Q1H PRN PRN Reason: Dry Nasal Passages Last Admin: 07/06/24 20:33 Dose: 1 spray Documented By: EVELIO Tamsulosin HCl (Tamsulosin Hcl 0.4 Mg Capsule) 0.4 mg PO DAILY [facility] Last Admin: 07/04/24 08:16 Dose: 0.4 mg Documented By: TERESA Trazodone HCl (Trazodone Hcl 100 Mg Tablet) 100 mg PO DAILY PRN PRN Reason: Insomnia Last Admin: 07/06/24 20:33 Dose: 100 mg Documented By: EVELIO Labs 07/07/24 20:47 07/08/24 06:23 Labs: Laboratory Results - last 24 hr 07/07/24 07/07/24 07/07/24 05:42 17:01 20:47 MCV 81.8 MCH 26.2 L MCHC 32.1 RDW 17.9 H Plt Count 376 MPV 8.7 L Immature Gran % (Auto) 0.6 H Neut % (Auto) 78.1 H Lymph % (Auto) 9.9 L [place] % (Auto) 9.9 Eos % (Auto) 1.2 Baso % (Auto) 0.3 Lymph # (Auto) 0.9 L [place] # (Auto) 0.9 Eos # (Auto) 0.1 Baso # (Auto) 0.0 Abs Immat Gran (auto) 0.05 H Absolute Neuts (auto) 6.9 Absolute Nucleated RBC 0.000 Nucleated RBC % (auto) 0.0 Anion Gap 15 Estim Creat Clear Calc 31.3 Estimated GFR 30 POC Glucose 158 H Random Glucose 170 H Lactic Acid 1.0 Calcium 10.1 Magnesium 1.8 1.9 Total Bilirubin 0.6 AST 21 ALT 12 Alkaline Phosphatase 88 Troponin I High Sens 1684.7 H* D B-Natriuretic Peptide 3036 H Total Protein 6.8 Albumin 3.7 07/08/24 07/08/24 01:17 06:23 MCV MCH MCHC RDW Plt Count MPV Immature Gran % (Auto) Neut % (Auto) Lymph % (Auto) [place] % (Auto) Eos % (Auto) Baso % (Auto) Lymph # (Auto) [place] # (Auto) Eos # (Auto) Baso # (Auto) Abs Immat Gran (auto) Absolute Neuts (auto) Absolute Nucleated RBC Nucleated RBC % (auto) Anion Gap 18 Estim Creat Clear Calc 32.2 Estimated GFR 31 POC Glucose Random Glucose 168 H Lactic Acid Calcium 10.0 Magnesium 1.7 Total Bilirubin AST ALT Alkaline Phosphatase Troponin I High Sens 1694.4 H* B-Natriuretic Peptide 3422 H Total Protein Albumin Microbiology Microbiology Results: Microbiology 07/05/24 Unknown Urine Culture - Final Urine clean catch - Clean Catch Midstream Enterococcus faecalis Assessment and Plan (1) Hypotension: Status: Acute Plan 82M PMH CAD, chronic systolic chf, 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, hsitory of cva (on eliquis), ckd 3, dm, hld, presented with diarrhea, elke Acute kidney injury on CKD 3 likely due to hypotension from diarrhea not sepsis bp better, renal ultrasound ruled out obstruction, nephrology following, monitor BMP and urine output improving New onset atrial fibrillation wtih rvr continue coreg, Eliquis acute on chronic systolic chf continue iv lasix, coreg gluteal hematoma eliquis, monitor Coronary artery disease d/w cardio, stopped asa, restarted plavix, eliquis, outpatient repatha History of CVA Continue plavix, Eliquis on repatha as outpatient Diabetes Metformin on hold, monitor point of care Diarrhea cdif and stool pcr negative improved with imodium Renal malignancy Outpatient follow-up DVT prophylaxis- eliquis DNR/DNI reason for continued hospitalization: monitor elke, heart rate, iv diuresis Quality Stroke Does the patient have a stroke diagnosis?: No VTE Prior VTE?: No VTE Risk Level:: Medical - moderate - high VTE Device Contraindication: N/A - Device Ordered VTE Drug Contraindication: Treatment Not Indicated
--- NOTE | 2024-07-08 16:38 | P.PNCA_ITS ---
Subjective Subjective Date of Service: 07/08/24 Interval history: Seen and examined at bedside. HR better controlled. Breathing improving. Physical Exam Vital Signs: Last Vital Signs Temp 98.1 F 07/08/24 15:36 Pulse 93 07/08/24 15:36 Resp 18 07/08/24 15:36 BP 122/57 L 07/08/24 15:36 Pulse Ox 95 07/08/24 15:36 O2 Del Method Room Air 07/08/24 15:36 O2 Flow Rate 4 07/07/24 23:56 BMI result Body Mass Index 30.9 GENERAL APPEARANCE: in no acute distress, pleasant. NECK: no carotid bruit, mild jugular venous distention. SKIN: no suspicious lesions, warm and dry. Bruising right thigh. HEART: no murmurs, irregular rate and rhythm. LUNGS: Crackles at bases. ABDOMEN: soft, nontender. EXTREMITIES: no edema. PERIPHERAL PULSES: equal. NEUROLOGIC: No gross deficits, AAO X 3 Objective Labs and Meds 07/07/24 20:47 07/08/24 06:23 Lab results: Laboratory Results - last 24 hr 07/07/24 07/07/24 07/07/24 05:42 17:01 20:47 WBC 8.9 RBC 3.51 L Hgb 9.2 L Hct 28.7 L MCV 81.8 MCH 26.2 L MCHC 32.1 RDW 17.9 H Plt Count 376 MPV 8.7 L Immature Gran % (Auto) 0.6 H Neut % (Auto) 78.1 H Lymph % (Auto) 9.9 L [place] % (Auto) 9.9 Eos % (Auto) 1.2 Baso % (Auto) 0.3 Lymph # (Auto) 0.9 L [place] # (Auto) 0.9 Eos # (Auto) 0.1 Baso # (Auto) 0.0 Abs Immat Gran (auto) 0.05 H Absolute Neuts (auto) 6.9 Absolute Nucleated RBC 0.000 Nucleated RBC % (auto) 0.0 Sodium 137 Potassium 4.7 Chloride 104 Carbon Dioxide 23 Anion Gap 15 BUN 53 H Creatinine 2.14 H Estim Creat Clear Calc 31.3 Estimated GFR 30 POC Glucose 158 H Random Glucose 170 H Lactic Acid 1.0 Calcium 10.1 Magnesium 1.8 1.9 Total Bilirubin 0.6 AST 21 ALT 12 Alkaline Phosphatase 88 Troponin I High Sens 1684.7 H* D B-Natriuretic Peptide 3036 H Total Protein 6.8 Albumin 3.7 07/08/24 07/08/24 01:17 06:23 WBC RBC Hgb Hct MCV MCH MCHC RDW Plt Count MPV Immature Gran % (Auto) Neut % (Auto) Lymph % (Auto) [place] % (Auto) Eos % (Auto) Baso % (Auto) Lymph # (Auto) [place] # (Auto) Eos # (Auto) Baso # (Auto) Abs Immat Gran (auto) Absolute Neuts (auto) Absolute Nucleated RBC Nucleated RBC % (auto) Sodium 136 Potassium 4.5 Chloride 103 Carbon Dioxide 20 L Anion Gap 18 BUN 55 H Creatinine 2.08 H Estim Creat Clear Calc 32.2 Estimated GFR 31 POC Glucose Random Glucose 168 H Lactic Acid Calcium 10.0 Magnesium 1.7 Total Bilirubin AST ALT Alkaline Phosphatase Troponin I High Sens 1694.4 H* B-Natriuretic Peptide 3422 H Total Protein Albumin Imaging Radiologist's impression: Impressions Chest X-Ray 07/07/24 17:15 IMPRESSION: 1. Mild pulmonary venous congestion. No interstitial edema. Borderline cardiomegaly. 2. Linear opacities in the lung bases likely correspond to atelectasis, superimposed consolidation cannot be excluded. Electronically signed by: Wallace Chapa MD 07/07/2024 11:04 PM EDT Chest X-Ray 07/08/24 04:00 IMPRESSION: Interval improvement in right basilar aeration compared to prior. No new consolidation. Central vasculature remains prominent suggesting congestion. 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 Admitted with fall and thigh hematoma/bruising. He also had BUTCH and meds were held. He developed Afib with RVR and CHF. Also had CP during Afib with RVR. He has diffuse unrevascularizable LAD stenosis. Add dig 125 mcg q 48. c/w Rest of meds. Diurese gently. We will follow along. Time Spent With Patient Time: Total time managing care of this patient today ____ minutes. Progress Note: Quality Stroke Does the patient have a stroke diagnosis?: No Procedures Date of Service Date of Service: 07/08/24
[2024-07-08] MEDS: Digoxin 0.125 MG TABLET PO (17:14)
[2024-07-08] MEDS: traZODone HCL 100 MG TABLET PO (22:52)
[2024-07-09] VITALS: BP 148/64; PULSE 84; RESP 20; TEMP 36.2; O2SAT 93
[2024-07-09] MEDS: 0.9 % Sodium Chloride Flush 3 ML SYRINGE IVFLUSH ×2 (00:59→08:21)
[2024-07-09] MEDS: LORazepam 0.5 MG TABLET PO (01:22)
--- NOTE | 2024-07-09 01:46 | PC.NURSE ---
Assumed care of patient at 19:00. Pt verbalized upset and became agitated with tag writer about the vent blowing cold air and motioned to ceiling vent across the room above the bed. Pt stated I'm have a cough because the vent is blowing cold air . Non-productive occasional dry cough noted during interaction. No prns in MAR for cough when reviewed. Pt denied chest pain or trouble breathing. When asked what was bothering him most that tag writer could help with or try to fix patient stated the vent and the cough . Prosthetics Assistant notified Covering Dr. Polk of patient request for something for cough . Of note, the patient was in the recliner near the window/not near the vent at the time. Prosthetics Assistant offered to move patient's bed to the opposite side of the room away from the vent though patient refused, stated They've already tried that. It did nothing . Prosthetics Assistant visualized thermostat in the room which was up to max adjustable temp. Prosthetics Assistant offered to move the patient to another room though he also declined this. Warm blankets offered which he was agreeable to. Patient assisted back to bed, bath in a bag provided and [place] catheter placed after patient was agreeable after educated on lasix and need for accurate urine output measurements. Warm blankets provided. Bed alarm and camera continue for safety. Call christensen within reach, rings to make needs known. Handoff report given to oncoming RN at 23:15.
[2024-07-09 07:39] LABS: Hematocrit 27.1 % (42.0-52.0); Hemoglobin 8.6 g/dl (14.0-18.0); Mean Corpuscular HGB Conc 31.7 g/dl (31.0-36.0); Mean Corpuscular Hemoglobin 26.5 pg (27.0-33.0); Mean Corpuscular Volume 83.6 fL (80.0-98.0); Mean Platelet Volume 9.2 fL (9.4-12.4); Platelet Count 388 X10*3/uL (160-400); Red Blood Count 3.24 X10*6/uL (4.60-5.80); White Blood Count 8.6 X10*3/uL (4.8-10.8)
[2024-07-09 08:00] VITALS: BP 125/58; PULSE 70; RESP 20; TEMP 36.6; O2SAT 95
[2024-07-09] MEDS: Apixaban 2.5 MG TABLET PO ×2 (08:10→20:02)
[2024-07-09] MEDS: Amoxicillin 500 MG CAPSULE PO ×2 (08:10→20:01)
[2024-07-09 08:11] LABS: Anion Gap 17 (12-20); Blood Urea Nitrogen 58 mg/dL (9-16); Calcium 9.8 mg/dL (8.4-10.2); Carbon Dioxide 25 mmol/L (22-29); Chloride 103 mmol/L (96-108); Creatinine Clr Calc Pharmacy 33.7; Estimated Glomerular Filt Rate 32; Glucose Fasting 145 mg/dL (60-99); Magnesium 1.8 mg/dL (1.6-2.6); Potassium 3.8 mmol/L (3.3-5.1); Sodium 141 mmol/L (135-145)
[2024-07-09] MEDS: Clopidogrel Bisulfate 75 MG TABLET PO (08:11)
[2024-07-09] MEDS: carvediloL 25 MG TABLET PO ×2 (08:11→20:01)
[2024-07-09] MEDS: Ascorbic Acid 500 MG TABLET 1000 MG PO ×2 (08:11→20:01)
[2024-07-09] MEDS: Ezetimibe 10 MG TABLET PO (08:12)
[2024-07-09] MEDS: Docusate Sodium 100 MG CAPSULE PO ×2 (08:12→20:01)
--- NOTE | 2024-07-09 09:49 | P.PNIM_ITS ---
Subjective Subjective Date of Service: 07/09/24 Interval History: feeling better Physical Exam 2 Vital Signs: Vital Signs: Last Vital Signs Temp 97.9 F 07/09/24 08:00 Pulse 70 07/09/24 08:00 Resp 20 07/09/24 08:00 BP 125/58 L 07/09/24 08:00 Pulse Ox 95 07/09/24 08:00 O2 Del Method Room Air 07/09/24 08:00 O2 Flow Rate 4 07/07/24 23:56 BMI result Body Mass Index 30.9 GENERAL APPEARANCE: in no acute distress, pleasant. NECK: no carotid bruit, mild jugular venous distention. SKIN: no suspicious lesions, warm and dry. Bruising right thigh. HEART: no murmurs, irregular rate and rhythm. LUNGS: Crackles at bases. ABDOMEN: soft, nontender. EXTREMITIES: no edema. PERIPHERAL PULSES: equal. NEUROLOGIC: No gross deficits, AAO X 3 Objective Data Active Medications Acetaminophen (Acetaminophen 325 Mg Tablet) 975 mg PO Q6H PRN PRN Reason: Pain, Moderate(Pain Scale 4-6) Last Admin: 07/06/24 21:08 Dose: 975 mg Documented By: EVELIO Albuterol Sulfate (Albuterol Sulfate 90 Mcg 8 Gm Inhaler) 2 puff INHALE RQ4H PRN PRN Reason: shortness of breath or wheezing Amoxicillin (Amoxicillin 500 Mg Capsule) 500 mg PO BID [facility] Last Admin: 07/09/24 08:10 Dose: 500 mg Documented By: PODMORP Apixaban (Apixaban 2.5 Mg Tablet) 2.5 mg PO BID [facility] Last Admin: 07/09/24 08:10 Dose: 2.5 mg Documented By: PODMORP Ascorbic Acid (Ascorbic Acid 500 Mg Tablet) 1,000 mg PO BID [facility] Last Admin: 07/09/24 08:11 Dose: 1,000 mg Documented By: PODMORP Calcium Carbonate (Calcium Carbonate 750 Mg Tab.Chew) 750 mg PO Q4H PRN PRN Reason: Heartburn Carvedilol (Carvedilol 25 Mg Tablet) 25 mg PO BID [facility]; Protocol Last Admin: 07/09/24 08:11 Dose: 25 mg Documented By: LISBETHMONANCY Clopidogrel Bisulfate (Clopidogrel Bisulfate 75 Mg Tablet) 75 mg PO DAILY [facility] Last Admin: 07/09/24 08:11 Dose: 75 mg Documented By: BRYAN Digoxin (Digoxin 0.125 Mg Tablet) 0.125 mg PO Q2D [facility]; Protocol Last Admin: 07/08/24 17:14 Dose: 0.125 mg Documented By: CAMILA Docusate Sodium (Docusate Sodium 100 Mg Capsule) 100 mg PO BID [facility] Last Admin: 07/09/24 08:12 Dose: 100 mg Documented By: BRYAN Ezetimibe (Ezetimibe 10 Mg Tablet) 10 mg PO DAILY [facility] Last Admin: 07/09/24 08:12 Dose: 10 mg Documented By: BRYAN Empagliflozin (Empagliflozin 10 Mg Tablet) 10 mg PO DAILY [facility] Last Admin: 07/03/24 10:04 Dose: 10 mg Documented By: PHYLLIS Furosemide (Furosemide 20 Mg Tablet) 40 mg PO DAILY [facility]; Protocol Last Admin: 07/03/24 09:59 Dose: Not Given Documented By: PHYLLIS Non-Admin Reason: Patient Condition Contraindication Guaifenesin/Dextromethorphan (Guaifenesin Dm 200/20/10 Ml 10 Ml Syrup) 10 ml PO Q4H PRN PRN Reason: Cough Loperamide HCl (Loperamide Hcl 2 Mg Capsule) 2 mg PO Q4H PRN PRN Reason: Diarrhea Last Admin: 07/05/24 18:31 Dose: 2 mg Documented By: RAHUL Magnesium Hydroxide (Milk Of Magnesia 30 Ml Oral.Susp) 30 ml PO DAILY PRN PRN Reason: Constipation Melatonin (Melatonin 3 Mg Tablet) 6 mg PO BEDTIME PRN PRN Reason: Insomnia Nitroglycerin (Nitroglycerin 0.4 Mg Tab.Subl) 0.4 mg SUBLINGUAL Q5MX3 PRN PRN Reason: Chest Pain Last Admin: 07/08/24 02:42 Dose: 0.4 tab Documented By: LAFLAMC Polyethylene Glycol (Polyethylene Glycol 3350 17 Gm Powd.Pack) 17 gm PO DAILY PRN PRN Reason: constipation Last Admin: 07/02/24 18:18 Dose: 17 gm Documented By: SOFFAA Pregabalin (Pregabalin 150 Mg Capsule) 150 mg PO BID [facility] Last Admin: 07/03/24 10:04 Dose: 150 mg Documented By: PHYLLIS Sodium Chloride (0.9 % Sodium Chloride Flush 3 Ml Syringe) 3 ml IVFLUSH QSHIFT [facility] Last Admin: 07/09/24 08:21 Dose: 3 ml Documented By: PODMORP Sodium Chloride (Sodium Chloride 0.65 % Nasal 44 Ml Sprbtl) 1 spray NOSTRIL-B Q1H PRN PRN Reason: Dry Nasal Passages Last Admin: 07/06/24 20:33 Dose: 1 spray Documented By: EVELIO Tamsulosin HCl (Tamsulosin Hcl 0.4 Mg Capsule) 0.4 mg PO DAILY [facility] Last Admin: 07/04/24 08:16 Dose: 0.4 mg Documented By: TERESA Trazodone HCl (Trazodone Hcl 100 Mg Tablet) 100 mg PO DAILY PRN PRN Reason: Insomnia Last Admin: 07/08/24 22:52 Dose: 100 mg Documented By: REGLA Labs 07/09/24 06:40 07/09/24 06:40 Labs: Laboratory Results - last 24 hr 07/09/24 06:40 MCV 83.6 MCH 26.5 L MCHC 31.7 RDW 18.0 H Plt Count 388 MPV 9.2 L Absolute Nucleated RBC 0.000 Nucleated RBC % (auto) 0.0 Anion Gap 17 Estim Creat Clear Calc 33.7 Estimated GFR 32 Fasting Glucose 145 H Calcium 9.8 Magnesium 1.8 Microbiology Microbiology Results: Microbiology 07/08/24 03:20 Gram Stain - Final Sputum - Induced 07/05/24 Unknown Urine Culture - Final Urine clean catch - Clean Catch Midstream Enterococcus faecalis Assessment and Plan (1) Hypotension: Status: Acute Plan 82M PMH CAD, chronic systolic chf, 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, hsitory of cva (on eliquis), ckd 3, dm, hld, presented with diarrhea, elke Acute kidney injury on CKD 3 likely due to hypotension from diarrhea not sepsis bp better, renal ultrasound ruled out obstruction, nephrology following, monitor BMP and urine output improving New onset atrial fibrillation wtih rvr continue coreg, Eliquis, dig rate now controlled acute on chronic systolic chf coreg change to maintenance po lasix gluteal hematoma eliquis restarted, monitor Coronary artery disease d/w cardio, stopped asa, restarted plavix, eliquis, outpatient repatha History of CVA Continue plavix, Eliquis on repatha as outpatient Diabetes Metformin on hold, monitor point of care Diarrhea cdif and stool pcr negative improved with imodium Renal malignancy Outpatient follow-up DVT prophylaxis- eliquis DNR/DNI reason for continued hospitalization: safe dispo Quality Stroke Does the patient have a stroke diagnosis?: No VTE Prior VTE?: No VTE Risk Level:: Medical - moderate - high VTE Device Contraindication: N/A - Device Ordered VTE Drug Contraindication: Treatment Not Indicated
--- NOTE | 2024-07-09 09:56 | PM.DS ---
DS: Providers Provider Date of Service: 07/10/24 Date of admission: 07/03/24 16:45 Date of discharge: 07/10/24 Primary care physician: Gume Bonilla MD Consults: 07/03/24 16:42 Consult to Nephrology Routine Consulting Provider: [facility] Reason for consultation: BUTCH, ?ATN 2/2 hypotension 07/06/24 04:40 Consult to Cardiology Routine Consulting Provider: [facility] Reason for consultation: new onset Afib w rvr DS: Diagnosis Discharge Diagnosis (1) Hypotension: Status: Acute DS: Summary Hospital Course Hospital Course: from initial hpi: 82-year-old male with history of coronary artery disease, chronic systolic congestive heart failure, malignant renal mass w/ R chest port-a-cath, history CVA, CKD stage 3, type 2 diabetes, hyperlipidemia presented to the ED initially on 06/30 due to inability to walk and incontinence and had a fall [address] scan of the right hip did not reveal a occult fracture but the patient does have a 9.3 x 5.7 x 7.5 cm hematoma within the right gluteus olga muscle that abuts the sciatic nerve. He had been boarding in the ED awaiting placement. However, had been hypotensive today with new BUTCH and several episodes of watery diarrhea and has been recommended for admission to medicine. While in the ED, he was diagnosed with enterococcus faec UTi and was due to be started on levaquin tomorrow morning but has not yet received any antibiotic. Per RN, today had 3 episodes of watery diarrhea. Has had decreased PO intake. Earlier today was hypotensive to 76/40, 84/48, 93/52 responding to IV albumin now with BP 114/56. Vitals otherwise stable. He did have drop in h/h 11.1/35.3% yest -->9.0/28.6% today and was restarted on eliquis yesterday. Denies worsening pain. On arrival creat 1.68, today 3.06. BUN 46. Lytes WNL. Total CK 28. Antihypertensives were held this morning and was started on 1L IVNS but this was discontinued in favor of albumin x2 given hx CHF. hospital course: Patient was admitted for acute kidney injury on CKD 3 likely due to hypotension from diarrhea. His antihypertensives were initially held and he was given IV fluids and renal function significantly improved. course was then complicated by acute on chronic systolic chf and given iv lasix, now euvolemic and maintennce lasix reinitiated. We will continue to hold metformin for another week and should follow up labs to see if appropriate to restart. Patient also noted to have new onset atrial fibrillation with rapid ventricular response. His carvedilol was restarted and blood pressure tolerated. was also loaded with digoxin and started on dig 0.125mg q48hr. Heart rate improved and will continue with carvedilol, dig, and Eliquis. For his gluteal hematoma his Eliquis was held for a few days and then he was rechallenged with it and it appears to be tolerating well. This should continue to be monitored as outpatient. For coronary artery disease, case was discussed with Cardiology and his aspirin was discontinued, he was restarted on Plavix and Eliquis and takes Repatha due to statin intolerance. For history of CVA he was continued on Plavix and Eliquis. For diabetes sugars remained stable, will continue to hold metformin for about another week until renal function returned to baseline. Patient diarrhea resolved, was possibly due to laxatives versus post constipation, stool PCR and C diff were negative, can continue Imodium as needed. for renal malignancy will follow up outpatient with Oncology. Patient was seen by physical therapy who recommended acute rehab to which patient will be discharged. Time Attestation Discharge Coordination Time (in mins): 37 Quality: Safe Use of Opioids Does Pt have an Active Cancer Diagnosis on the Problem List?: No Quality: Stroke Does the patient have a stroke diagnosis?: No Physical Exam Vital Signs: Vital Signs: Last Vital Signs Temp 97.9 F 07/09/24 08:00 Pulse 70 07/09/24 08:00 Resp 20 07/09/24 08:00 BP 125/58 L 07/09/24 08:00 Pulse Ox 95 07/09/24 08:00 O2 Del Method Room Air 07/09/24 08:00 O2 Flow Rate 4 07/07/24 23:56 BMI result Body Mass Index 30.9 GENERAL APPEARANCE: in no acute distress, pleasant. NECK: no carotid bruit, mild jugular venous distention. SKIN: no suspicious lesions, warm and dry. Bruising right thigh. HEART: no murmurs, irregular rate and rhythm. LUNGS: Crackles at bases. ABDOMEN: soft, nontender. EXTREMITIES: no edema. PERIPHERAL PULSES: equal. NEUROLOGIC: No gross deficits, AAO X 3 DS: Data Data Completed and Pending Labs on day of discharge: Laboratory Results - last 24 hr 07/09/24 06:40 WBC 8.6 RBC 3.24 L Hgb 8.6 L Hct 27.1 L MCV 83.6 MCH 26.5 L MCHC 31.7 RDW 18.0 H Plt Count 388 MPV 9.2 L Absolute Nucleated RBC 0.000 Nucleated RBC % (auto) 0.0 Sodium 141 Potassium 3.8 Chloride 103 Carbon Dioxide 25 Anion Gap 17 BUN 58 H Creatinine 1.99 H Estim Creat Clear Calc 33.7 Estimated GFR 32 Fasting Glucose 145 H Calcium 9.8 Magnesium 1.8 Discharge Plan Discharge Anticipated Discharge Date/Time: 07/10/24 10:18 Patient Disposition: Xfer Inpatient Rehab Fac Discharge Diagnosis: butch, afib, chf, hematoma Referrals: [facility] [Outside] - 1 Day (ACUTE REHAB) Gume Bonilla MD [Primary Care Provider] - 1 Week Discharge Medications: New loperamide 2 mg Capsule 2 mg PO Q4H PRN (Reason: Diarrhea) Qty: 0 0RF polyethylene glycol 3350 17 gram Powder In Packet 17 g PO DAILY PRN (Reason: constipation) Qty: 0 0RF magnesium hydroxide [Milk of Magnesia] 400 mg/5 mL Suspension 30 ml PO DAILY PRN (Reason: Constipation) Qty: 0 0RF digoxin 125 mcg (0.125 mg) Tablet 0.125 mg PO Q2D Qty: 0 0RF Protocol: Hold for HR <: HOLD for HR < : 60 Continued colchicine 0.6 mg tablet 1 tab PO DAILY omeprazole 20 mg Tablet,Delayed Release (Dr/Ec) 20 mg PO DAILY ascorbic acid (vitamin C) 500 mg Tablet 1,000 mg PO BID albuterol sulfate [ProAir HFA] 90 mcg/actuation HFA aerosol inhaler 2 puff inhalation Q4-6H PRN (Reason: shortness of breath or wheezing) Qty: 8.5 0RF coenzyme Q10 [CoQ-10] 100 mg Capsule 400 mg PO BID omega [id number]-fish oil [Fish Oil] 1,200 (144-216) mg Capsule 1 cap PO BID Repatha SureClick 140 mg/mL pen injector 140 mg subcut Q2W clopidogrel 75 mg tablet 75 mg PO DAILY tramadol 50 mg tablet 50 mg PO Q6H tamsulosin 0.4 mg capsule 0.4 mg PO DAILY dapagliflozin propanediol [Farxiga] 10 mg tablet 10 mg PO DAILY trazodone 100 mg tablet 100 mg PO DAILY PRN (Reason: Insomnia) ezetimibe 10 mg tablet 10 mg PO DAILY Eliquis 2.5 mg tablet 2.5 mg PO BID pregabalin 150 mg capsule 150 mg PO BID furosemide 20 mg tablet 40 mg PO DAILY carvedilol 25 mg tablet 25 mg PO BID nitroglycerin 0.4 mg tablet, sublingual 0.4 mg sublingual Q5M PRN (Reason: Chest Pain) Held magnesium 200 mg Tablet 400 mg PO BID Hold Instructions: Resume on 07/13/24. metformin 1,000 mg tablet 1,000 mg PO BID Hold Instructions: Resume on 07/13/24. Discontinued losartan 100 mg tablet 1 tab PO DAILY amlodipine 10 mg Tablet 10 mg PO DAILY aspirin 81 mg Tablet,Chewable 81 mg PO DAILY Discharge Orders: Discharge Order (Routine); Ordered 07/10/24 Ordered By: Rajan Pineda Diet: Diabetic diet Activity on Discharge: As tolerated Stand Alone Forms: Patient Portal Discharge page Print Language: [place] Care Plan Goals: manage afib, hematoma, butch Health Concerns: afib, hematoma, butch Plan of Treatment: hold metformin another week, recheck labs and can restart if creatining better, continue coreg 25mg bid, dig .125 q48 and eliquis for new afib, monitor buttocks hematoma for any increasing size Assessment: see above Patient Instructions: Loperamide (By mouth), Polyethylene Glycol 3350 (By mouth), Magnesium Hydroxide (By mouth), Hematoma (ED)
--- NOTE | 2024-07-09 12:46 | P.PNCA_ITS ---
Subjective Subjective Date of Service: 07/09/24 Interval history: Seen examined at bedside. Feeling good. Heart rate well controlled in AFib. Physical Exam Vital Signs: Last Vital Signs Temp 97.9 F 07/09/24 08:00 Pulse 70 07/09/24 08:00 Resp 20 07/09/24 08:00 BP 125/58 L 07/09/24 08:00 Pulse Ox 95 07/09/24 08:00 O2 Del Method Room Air 07/09/24 08:00 O2 Flow Rate 4 07/07/24 23:56 BMI result Body Mass Index 30.9 GENERAL APPEARANCE: in no acute distress, pleasant. NECK: no carotid bruit, no jugular venous distention. SKIN: no suspicious lesions, warm and dry. Bruising right thigh. HEART: no murmurs, irregular rate and rhythm. LUNGS: Clear to auscultation. ABDOMEN: soft, nontender. EXTREMITIES: no edema. PERIPHERAL PULSES: equal. NEUROLOGIC: No gross deficits, AAO X 3 Objective Labs and Meds 07/09/24 06:40 07/09/24 06:40 Lab results: Laboratory Results - last 24 hr 07/09/24 06:40 WBC 8.6 RBC 3.24 L Hgb 8.6 L Hct 27.1 L MCV 83.6 MCH 26.5 L MCHC 31.7 RDW 18.0 H Plt Count 388 MPV 9.2 L Absolute Nucleated RBC 0.000 Nucleated RBC % (auto) 0.0 Sodium 141 Potassium 3.8 Chloride 103 Carbon Dioxide 25 Anion Gap 17 BUN 58 H Creatinine 1.99 H Estim Creat Clear Calc 33.7 Estimated GFR 32 Fasting Glucose 145 H Calcium 9.8 Magnesium 1.8 Progress Note: A&P Assessment and plan (1) PAF (paroxysmal atrial fibrillation): Status: Acute (2) Chronic systolic CHF (congestive heart failure): Status: Acute Assessment and Plan: Pleasant 83 male with 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 Admitted with fall and thigh hematoma/bruising. He also had BUTCH and meds were held. He developed Afib with RVR and CHF. Also had CP during Afib with RVR. He has diffuse unrevascularizable LAD stenosis. Appears euvolemic today. Continue oral diuretics. Digoxin 125 mcg q.48h along with carvedilol 25 mg twice a day. Heart rate well controlled. Plan is discharge to rehab. Follow up with [facility]. Time Spent With Patient Time: Total time managing care of this patient today ____ minutes. Progress Note: Quality Stroke Does the patient have a stroke diagnosis?: No Procedures Date of Service Date of Service: 07/09/24
[2024-07-09 13:09] VITALS: BP 135/60; PULSE 77; RESP 20; TEMP 36.8; O2SAT 97
[2024-07-09 15:51] VITALS: BP 125/58; PULSE 68; RESP 18; TEMP 36.6; O2SAT 98
[2024-07-09 19:28] VITALS: BP 137/72; PULSE 96; RESP 20; TEMP 36.4; O2SAT 97
[2024-07-09] MEDS: traZODone HCL 100 MG TABLET PO (22:53)
[2024-07-10] VITALS: BP 141/76; PULSE 92; RESP 18; TEMP 36.3; O2SAT 98
[2024-07-10 03:14] VITALS: BP 148/71; PULSE 85; RESP 18; TEMP 37.2; O2SAT 96
[2024-07-10 08:00] VITALS: BP 148/71; PULSE 74; RESP 17; TEMP 36.4; O2SAT 96
--- NOTE | 2024-07-10 10:31 | MHC.CM.PN ---
IMM 07/10/24, ANTIC PT WILL DC TO [facility] PENDING UPDATED PT NOTE, [facility] FOR BLS TRANSPORT
[2024-07-10] MEDS: Clopidogrel Bisulfate 75 MG TABLET PO (10:44)
[2024-07-10] MEDS: Furosemide 20 MG TABLET 40 MG PO (10:44)
[2024-07-10] MEDS: Tamsulosin HCL 0.4 MG CAPSULE PO (10:44)
[2024-07-10] MEDS: carvediloL 25 MG TABLET PO (10:44)
[2024-07-10] MEDS: Ezetimibe 10 MG TABLET PO (10:45)
[2024-07-10] MEDS: 0.9 % Sodium Chloride Flush 3 ML SYRINGE IVFLUSH (10:45)
[2024-07-10] MEDS: Docusate Sodium 100 MG CAPSULE PO (10:45)
[2024-07-10] MEDS: Ascorbic Acid 500 MG TABLET 1000 MG PO (10:45)
[2024-07-10] MEDS: Apixaban 2.5 MG TABLET PO (10:45)
[2024-07-10] MEDS: Amoxicillin 500 MG CAPSULE PO (10:45)
[2024-07-10 12:00] VITALS: BP 150/67; PULSE 77; RESP 17; TEMP 36.7; O2SAT 96
== END 2024-07-10 15:05 | DRG 314 ==
LOC: HO.ED 07-01 12:45 → HO.EDOVER 07-03 16:58 → HO.IMC 07-03 18:13
PROVIDERS: Emergency Medicine; Family Medicine; Internal Medicine; Physician Assistant; Physician Assistant Medical; Student in an Organized Health Care Education/Training Program; Admitting Provider Physician Assistant; Emergency Provider Emergency Medicine Emergency Medical Services; PCP Internal Medicine; Visit Provider Internal Medicine
DX: I95.9 Hypotension, unspecified (principal); I50.23 Acute on chronic systolic (congestive) heart failure; I13.0 Hypertensive heart and chronic kidney disease with heart failure and stage 1 through stage 4 chronic kidney disease, or unspecified chronic kidney disease; C64.1 Malignant neoplasm of right kidney, except renal pelvis; N17.9 Acute kidney failure, unspecified; S30.0XXA Contusion of lower back and pelvis, initial encounter; W19.XXXA Unspecified fall, initial encounter; Z66 Do not resuscitate; N18.30 Chronic kidney disease, stage 3 unspecified; R19.7 Diarrhea, unspecified; E11.22 Type 2 diabetes mellitus with diabetic chronic kidney disease; I48.0 Paroxysmal atrial fibrillation; D63.1 Anemia in chronic kidney disease; E86.1 Hypovolemia; E78.5 Hyperlipidemia, unspecified; I25.10 Atherosclerotic heart disease of native coronary artery without angina pectoris; B95.2 Enterococcus as the cause of diseases classified elsewhere; Z20.822 Contact with and (suspected) exposure to COVID-19; Z86.73 Personal history of transient ischemic attack (TIA), and cerebral infarction without residual deficits; Z95.5 Presence of coronary angioplasty implant and graft; Z79.01 Long term (current) use of anticoagulants; Z79.02 Long term (current) use of antithrombotics/antiplatelets; Z79.84 Long term (current) use of oral hypoglycemic drugs; Z79.899 Other long term (current) drug therapy
CPT/HCPCS: 0241U; 36415; 71045; 72192; 73700; 76770; 80048; 80053; 81001; 82550; 82947; 83605; 83735; 83880; 84484; 85014; 85018; 85025; 85027; 85610; 85730; 87070; 87086; 87088; 87186; 87205; 87493; 87507; 92950; 93005; 93306; 97110; 97116; 97162; 97530; 99285; J1160; J1170; J1642; J1940; J2270; J7120; P9047; Q9957

== ENCOUNTER 2024-07-03 16:45 | Outpatient (BNV) | payer MEDICARE, OTHER, SELFPAY | END 2024-07-04 07:00 | PROVIDERS: Admitting Provider Physician Assistant; Emergency Provider Emergency Medicine Emergency Medical Services; PCP Internal Medicine; Visit Provider Internal Medicine Cardiovascular Disease | DX: I35.8 Other nonrheumatic aortic valve disorders (principal); I34.81 Nonrheumatic mitral (valve) annulus calcification; R93.1 Abnormal findings on diagnostic imaging of heart and coronary circulation | CPT/HCPCS: 93306 ==

== ENCOUNTER → 2024-07-03 16:45 | Outpatient (BNV) | payer MEDICARE, OTHER, SELFPAY | PROVIDERS: Admitting Provider Physician Assistant; Emergency Provider Emergency Medicine Emergency Medical Services; PCP Internal Medicine; Visit Provider Internal Medicine Cardiovascular Disease | DX: I48.0 Paroxysmal atrial fibrillation (principal); I50.22 Chronic systolic (congestive) heart failure | CPT/HCPCS: 99222; 99233 ==

== ENCOUNTER → 2024-07-03 16:45 | Outpatient (BNV) | payer MEDICARE, OTHER, SELFPAY | PROVIDERS: Admitting Provider Physician Assistant; Emergency Provider Emergency Medicine Emergency Medical Services; PCP Internal Medicine; Visit Provider Internal Medicine Nephrology | DX: N17.0 Acute kidney failure with tubular necrosis (principal) | CPT/HCPCS: 99222; 99232 ==

== ENCOUNTER → 2024-07-03 16:45 | Outpatient (BNV) | payer MEDICARE, OTHER, SELFPAY | PROVIDERS: Admitting Provider Physician Assistant; Emergency Provider Emergency Medicine Emergency Medical Services; PCP Internal Medicine; Visit Provider Internal Medicine | DX: S70.01XA Contusion of right hip, initial encounter (principal); I95.9 Hypotension, unspecified; N17.9 Acute kidney failure, unspecified | CPT/HCPCS: 99223; 99232; 99233; 99239; 99499 ==